=== PATIENT | male | born 1970 | race Two or more races ===

== ENCOUNTER 2020-05-25 09:12 | Emergency (ER) | payer OTHER, SELFPAY ==
[2020-05-25 09:25] VITALS: BP 143/75; PULSE 100; RESP 20; TEMP 36.6; O2SAT 98; BMI 50.3
--- NOTE | 2020-05-25 09:29 | ECG_ITS ---
Test Reason : SOB Blood Pressure : / mmHG Vent. Rate : 105 BPM Atrial Rate : 105 BPM P-R Int : 248 ms QRS Dur : 114 ms QT Int : 346 ms P-R-T Axes : 057 -29 063 degrees QTc Int : 457 ms Sinus tachycardia with 1st degree A-V block with occasional Premature ventricular complexes Incomplete right bundle branch block Abnormal ECG When compared with ECG of 15-NOV-2019 08:21, Premature ventricular complexes are now Present ND interval has increased Referred By: Corey Gao Electronically Signed By:ZENOBIA LYON MD
--- NOTE | 2020-05-25 09:29 | XR_ITS ---
EXAMINATION: XR CHEST CLINICAL INFORMATION: Chest pain COMPARISON: None TECHNIQUE: Frontal view of the chest was obtained. FINDINGS: Lungs are well-inflated and clear. Trachea is midline in position. No interstitial disease, consolidation or mass. No pleural effusion or pneumothorax. Cardiac silhouette and pulmonary vessels are normal in size. The mediastinum and jaelyn have normal contour. The visualized bones, and upper abdomen, are unremarkable. IMPRESSION: No acute cardiopulmonary abnormality.
--- NOTE | 2020-05-25 09:54 | ED.ARRPALP ---
HPI - Arrhythmia/Palpitations General Chief Complaint: Dyspnea Stated Complaint: heart palpations Time Seen by Provider: 05/25/20 09:29 Source: patient Mode of arrival: ambulatory Limitations: no limitations History of Present Illness HPI narrative: 50 years old male who presented in the ambulatory to the emergency department with a chief complaint of palpitations, he described a palpitation as skips beat, there is no syncope, denies chest pain, he is endorsing is some shortness of breath complaint: skipped beats Onset (ago): day(s) (1) Duration: intermittent Severity: moderate Context: occurred during rest Associated symptoms: shortness of breath Related Data Allergies Allergy/AdvReac Type Severity Reaction Status Date / Time isosorbide Allergy Unknown neck Verified 05/25/20 09:49 pain,headaches Review of Systems Review of Systems: Yes all other systems are reviewed and are negative ENT: Reports system reviewed and no additional complaints, except as documented Cardiovascular: Cardiovascular: Denies chest pain, Denies chest pain at rest and Denies chest pain with activity Respiratory: Respiratory: Reports no additional respiratory complaints Gastrointestinal: Gastrointestinal: Reports no additional gastrointestinal complaints Neurologic: Reports system reviewed and no additional complaints, except as documented [facility] Past Medical History Attestation statement: The following information was validated with the patient. Medical History (Updated 05/25/20 @ 14:40 by Corey Gao MD) Asthma Brugada syndrome Hernia Lymphoma Surgical History History of appendectomy Social History Social History Alcohol intake: never Smoking Status: Never smoker Use of substances other than those prescribed or required for medical reasons: No Advance Directives: No Advance Directives Information Provided: Yes Physical Exam Vital Signs: Vital Signs: Vital Signs Temp Pulse Resp BP Pulse Ox 05/25/20 13:09 79 128/92 H 98 05/25/20 10:58 84 20 127/79 99 05/25/20 09:25 98 F 100 20 143/75 H 98 Body Mass Index 50.3 Const: Other: he is awake and alert in no acute distress General: cooperative and healthy appearing Orientation/consciousness: oriented to person, oriented to place, oriented to time and patient oriented x3 HENMT: Other: Head: Yes normal to inspection Eyes: General: appearance normal, both eyes and all related structures Sclerae: sclerae normal EOM: EOMs intact bilaterally Neck: Neck: Yes normal visual inspection and Yes full ROM Chest: Chest palpation & inspection: normal inspection of the chest and normal palpation of entire chest wall Resp: Effort & Inspection: normal respiratory effort and able to speak in complete sentences Cardio: Jugular venous distension: no JVD Rate: regular rate Skin: General skin exam: no rashes or lesions noted Neuro: General: oriented to person, oriented to place, oriented to time and patient oriented x3 Extrem: General: Yes normal to inspection Course Course Course Narrative: patient is feeling much better on this time, he is asymptomatic, delta troponin is negative MDM - Arrhythmia/Palpitations Lab Data Result diagrams: 05/25/20 09:44 05/25/20 09:45 Labs: Lab Results 05/25/20 05/25/20 05/25/20 Range/Units 09:44 09:44 09:45 WBC 5.4 (4.8-10.8) X10*3/uL RBC 4.92 (4.60-5.80) X10*6/uL Hgb 14.1 (14.0-18.0) g/dl Hct 43.1 (42-52) % MCV 87.6 (80-98) fL MCH 28.7 (27.0-33.0) pg MCHC 32.7 (31.0-36.0) g/dl RDW 14.3 (11.0-16.0) % Plt Count 211 (160-400) X10*3/uL MPV 10.7 (9.4-12.4) fL Immature Gran % (Auto) 0.2 (0.0-0.4) % Neut % (Auto) 58.3 (45-73) % Lymph % (Auto) 26.8 (20-40) % [place] % (Auto) 10.2 (2-11) % Eos % (Auto) 3.9 (0-4) % Baso % (Auto) 0.6 (0-2) % Lymph # (Auto) 1.4 (1.2-4.9) X10*3/uL [place] # (Auto) 0.6 (0.1-1.2) X10*3/uL Eos # (Auto) 0.2 (0.0-0.4) X10*3/uL Baso # (Auto) 0.0 (0.0-0.2) X10*3/uL Abs Immat Gran (auto) 0.01 (0.00-0.03) X10*3/uL Absolute Neuts (auto) 3.1 (2.0-8.3) X10*3/uL Absolute Nucleated RBC 0.000 (0.0-0.012) X10*3/uL Nucleated RBC % (auto) 0.0 (0.0-0.2) /100WBC D-Dimer NG/ML Hold Blue Top SEE NOTE Sodium 138 (135-145) mmol/L Potassium 3.7 (3.3-5.1) mmol/l Chloride 107 (96-108) mmol/L Carbon Dioxide 23 (22-29) mmol/L Anion Gap 12 (12-20) BUN 13 (9-16) mg/dL Creatinine 0.92 (0.5-1.4) mg/dL Estim Creat Clear Calc 140.4 Estimated GFR > 60 Random Glucose 193 H (60-115) mg/dL Calcium 9.1 (8.4-10.2) mg/dL Total Bilirubin 0.3 (0.0-1.0) mg/dL Direct Bilirubin 0.2 (0.0-0.5) mg/dL AST 23 (5-37) U/L ALT 34 (0-40) U/L Alkaline Phosphatase 51 (39-117) U/L Troponin I High Sens (<3.5-35.0) ng/L B-Natriuretic Peptide (<100) pg/mL Total Protein 6.8 (6.5-8.0) g/dL Albumin 3.9 (3.5-5.0) g/dL Urine Color Urine Appearance Urine pH (5.0-8.0) Ur Specific [place] (1.005-1.025) Urine Protein (NEG-TRACE) MG/DL Urine Glucose (UA) (NEG) MG/DL Urine Ketones (NEG) MG/DL Urine Blood (NEG) Urine Nitrite (NEG) Ur Leukocyte Esterase (NEG) 05/25/20 05/25/20 05/25/20 Range/Units 09:45 09:45 11:13 WBC (4.8-10.8) X10*3/uL RBC (4.60-5.80) X10*6/uL Hgb (14.0-18.0) g/dl Hct (42-52) % MCV (80-98) fL MCH (27.0-33.0) pg MCHC (31.0-36.0) g/dl RDW (11.0-16.0) % Plt Count (160-400) X10*3/uL MPV (9.4-12.4) fL Immature Gran % (Auto) (0.0-0.4) % Neut % (Auto) (45-73) % Lymph % (Auto) (20-40) % [place] % (Auto) (2-11) % Eos % (Auto) (0-4) % Baso % (Auto) (0-2) % Lymph # (Auto) (1.2-4.9) X10*3/uL [place] # (Auto) (0.1-1.2) X10*3/uL Eos # (Auto) (0.0-0.4) X10*3/uL Baso # (Auto) (0.0-0.2) X10*3/uL Abs Immat Gran (auto) (0.00-0.03) X10*3/uL Absolute Neuts (auto) (2.0-8.3) X10*3/uL Absolute Nucleated RBC (0.0-0.012) X10*3/uL Nucleated RBC % (auto) (0.0-0.2) /100WBC D-Dimer < 200 NG/ML Hold Blue Top Sodium (135-145) mmol/L Potassium (3.3-5.1) mmol/l Chloride (96-108) mmol/L Carbon Dioxide (22-29) mmol/L Anion Gap (12-20) BUN (9-16) mg/dL Creatinine (0.5-1.4) mg/dL Estim Creat Clear Calc Estimated GFR Random Glucose (60-115) mg/dL Calcium (8.4-10.2) mg/dL Total Bilirubin (0.0-1.0) mg/dL Direct Bilirubin (0.0-0.5) mg/dL AST (5-37) U/L ALT (0-40) U/L Alkaline Phosphatase (39-117) U/L Troponin I High Sens < 3.5 (<3.5-35.0) ng/L B-Natriuretic Peptide < 10 (<100) pg/mL Total Protein (6.5-8.0) g/dL Albumin (3.5-5.0) g/dL Urine Color YELLOW Urine Appearance CLEAR Urine pH 6.0 (5.0-8.0) Ur Specific [place] 1.020 (1.005-1.025) Urine Protein NEG (NEG-TRACE) MG/DL Urine Glucose (UA) 100 H (NEG) MG/DL Urine Ketones NEG (NEG) MG/DL Urine Blood NEG (NEG) Urine Nitrite NEG (NEG) Ur Leukocyte Esterase NEG (NEG) 05/25/20 Range/Units 13:08 WBC (4.8-10.8) X10*3/uL RBC (4.60-5.80) X10*6/uL Hgb (14.0-18.0) g/dl Hct (42-52) % MCV (80-98) fL MCH (27.0-33.0) pg MCHC (31.0-36.0) g/dl RDW (11.0-16.0) % Plt Count (160-400) X10*3/uL MPV (9.4-12.4) fL Immature Gran % (Auto) (0.0-0.4) % Neut % (Auto) (45-73) % Lymph % (Auto) (20-40) % [place] % (Auto) (2-11) % Eos % (Auto) (0-4) % Baso % (Auto) (0-2) % Lymph # (Auto) (1.2-4.9) X10*3/uL [place] # (Auto) (0.1-1.2) X10*3/uL Eos # (Auto) (0.0-0.4) X10*3/uL Baso # (Auto) (0.0-0.2) X10*3/uL Abs Immat Gran (auto) (0.00-0.03) X10*3/uL Absolute Neuts (auto) (2.0-8.3) X10*3/uL Absolute Nucleated RBC (0.0-0.012) X10*3/uL Nucleated RBC % (auto) (0.0-0.2) /100WBC D-Dimer NG/ML Hold Blue Top Sodium (135-145) mmol/L Potassium (3.3-5.1) mmol/l Chloride (96-108) mmol/L Carbon Dioxide (22-29) mmol/L Anion Gap (12-20) BUN (9-16) mg/dL Creatinine (0.5-1.4) mg/dL Estim Creat Clear Calc Estimated GFR Random Glucose (60-115) mg/dL Calcium (8.4-10.2) mg/dL Total Bilirubin (0.0-1.0) mg/dL Direct Bilirubin (0.0-0.5) mg/dL AST (5-37) U/L ALT (0-40) U/L Alkaline Phosphatase (39-117) U/L Troponin I High Sens < 3.5 (<3.5-35.0) ng/L B-Natriuretic Peptide (<100) pg/mL Total Protein (6.5-8.0) g/dL Albumin (3.5-5.0) g/dL Urine Color Urine Appearance Urine pH (5.0-8.0) Ur Specific [place] (1.005-1.025) Urine Protein (NEG-TRACE) MG/DL Urine Glucose (UA) (NEG) MG/DL Urine Ketones (NEG) MG/DL Urine Blood (NEG) Urine Nitrite (NEG) Ur Leukocyte Esterase (NEG) Imaging Data Chest x-ray: Attestation: I personally reviewed and interpreted this imaging study as follows: My impression: NAD ECG Data Attestation: I personally reviewed and interpreted this ECG as follows: ECG interpretation date: 05/25/20 ECG interpretation time: 09:59 Pacemaker model: EKG showed sinus tachycardia with a rate 105, incomplete right bundle Discharge Plan Discharge Clinical Impression: Heart palpitations Patient Disposition: Home, Self-Care Referrals: Tj Alexandre MD [Primary Care Provider] - 2 days Discharge Date/Time: 05/25/20 15:21
--- NOTE | 2020-05-25 09:55 | PC.NURSE ---
Patient awake and alert. skin pwd. resp even and non labored. dry cough noted. c/o intermittent SOB. lungs dim throughout
[2020-05-25 09:56] LABS: MANUAL DIFF FLAG NO
[2020-05-25 10:08] LABS: Basophils Percent Auto 0.6 % (0-2); Eosinophils Absolute Auto 0.2 X10*3/uL (0.0-0.4); Eosinophils Percent Auto 3.9 % (0-4); Hematocrit 43.1 % (42-52); Hemoglobin 14.1 g/dl (14.0-18.0); Imm Gran Abs Auto 0.01 X10*3/uL (0.00-0.03); Imm Gran Pct Auto 0.2 % (0.0-0.4); Lymphocytes Absolute Auto 1.4 X10*3/uL (1.2-4.9); Lymphocytes Percent Auto 26.8 % (20-40); Mean Corpuscular HGB Conc 32.7 g/dl (31.0-36.0); Mean Corpuscular Hemoglobin 28.7 pg (27.0-33.0); Mean Corpuscular Volume 87.6 fL (80-98); Mean Platelet Volume 10.7 fL (9.4-12.4); Monocytes Absolute Auto 0.6 X10*3/uL (0.1-1.2); Monocytes Percent Auto 10.2 % (2-11); Neutrophils Absolute Auto 3.1 X10*3/uL (2.0-8.3); Neutrophils Percent Auto 58.3 % (45-73); Platelet Count 211 X10*3/uL (160-400); Red Blood Count 4.92 X10*6/uL (4.60-5.80); Red Cell Distribution Width 14.3 % (11.0-16.0); White Blood Count 5.4 X10*3/uL (4.8-10.8)
[2020-05-25 10:19] LABS: D Dimer < 200 NG/ML
[2020-05-25 10:22] LABS: Alanine Aminotransferase 34 U/L (0-40); Albumin Level 3.9 g/dL (3.5-5.0); Alkaline Phosphatase 51 U/L (39-117); Anion Gap 12 (12-20); Aspartate Amino Transferase 23 U/L (5-37); Bilirubin Direct 0.2 mg/dL (0.0-0.5); Bilirubin Total 0.3 mg/dL (0.0-1.0); Blood Urea Nitrogen 13 mg/dL (9-16); Calcium 9.1 mg/dL (8.4-10.2); Carbon Dioxide 23 mmol/L (22-29); Chloride 107 mmol/L (96-108); Creatinine Clr Calc Pharmacy 140.4; Estimated Glomerular Filt Rate > 60; Glucose Random 193 mg/dL (60-115); Potassium 3.7 mmol/l (3.3-5.1); Sodium 138 mmol/L (135-145); Total Protein 6.8 g/dL (6.5-8.0)
[2020-05-25 10:28] LABS: B Type Natriuretic Peptide < 10 pg/mL (<100); Troponin-I High Sensitivity < 3.5 ng/L (<3.5-35.0)
[2020-05-25 10:58] VITALS: BP 127/79; PULSE 84; RESP 20; O2SAT 99
--- NOTE | 2020-05-25 11:07 | PC.NURSE ---
INTRODUCED SELF TO PT. PT AMBULATING INDEPENDENTLY TO BATHROOM. VS WNL, SINUS RHYTHM ON MONITOR. AWARE OF PLAN FOR CARE, TROPONIN TO BE REDRAWN AT 1230H. PT IS A%OX3,SPEAKING IN CLEAR FULL SENTENCES,. IN NAD AT THIS TIME.
[2020-05-25 11:18] LABS: Glucose Urine UA 100 MG/DL (NEG); Leukocyte Esterase Urine NEG (NEG); Nitrite Urine NEG (NEG); Urine Blood NEG (NEG); Urine Ketones NEG (NEG); Urine Protein NEG (NEG-TRACE)
[2020-05-25 11:19] LABS: Appearance Urine CLEAR; Color Urine YELLOW
[2020-05-25 13:09] VITALS: BP 128/92; PULSE 79; O2SAT 98
[2020-05-25 13:46] LABS: Troponin-I High Sensitivity < 3.5 ng/L (<3.5-35.0)
== END 2020-05-25 15:21 | disposition home or self-care (01) ==
PROVIDERS: Emergency Provider Emergency Medicine; PCP Internal Medicine
DX: R00.2 Palpitations (principal); J45.909 Unspecified asthma, uncomplicated; I49.8 Other specified cardiac arrhythmias
CPT/HCPCS: 36415; 71045; 80048; 80076; 81003; 83880; 84484; 85025; 85379; 93005; 99284

== ENCOUNTER 2020-06-30 19:25 | Emergency (ER) | payer OTHER, SELFPAY ==
--- NOTE | 2020-06-30 | XR_ITS ---
EXAMINATION: XR SHOULDER, LEFT CLINICAL INFORMATION: Pain and swelling COMPARISON: None TECHNIQUE: AP external rotation, Grashey, scapular Y, and axillary views of the left shoulder. FINDINGS: Visualized portion of the proximal left humerus demonstrate no fracture. Humeral head demonstrates good articulation with the glenoid fossa. There are mild hypertrophic changes of the left acromioclavicular joint. Visualized ribs and lung parenchyma are unremarkable. XR/XR shoulder LT min 2V IMPRESSION: Mild degenerative changes of the left shoulder without fracture or dislocation.
[2020-06-30 20:15] VITALS: BP 124/70; PULSE 78; RESP 18; TEMP 36.5; O2SAT 96; BMI 45.6
--- NOTE | 2020-06-30 22:04 | ED_ITS ---
HPI - Extremity Problem General Chief complaint: Extremity Injury, Upper Stated complaint: sholder pain Time Seen by Provider: 06/30/20 22:03 Source: patient Mode of arrival: ambulatory Limitations: no limitations History of Present Illness HPI Narrative: 50 y/o male presenting with left shoulder pain for the last 2-3 weeks. 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 He does not recall a specific injury but reports his shoudler pain has been getting worse. He noted soem posterior swelling that continues down his arm at times after he uses it too much. He denies chest pain, SOB, neck pain, jaw pain. MD Complaint: extremity pain Onset (ago): week(s) (3) Pain Consistency: intermittent Severity scale (1-10): 6 Quality: aching Radiation: distal Relieving factors: immobilization and medication Exacerbating factors: range of motion and palpation Associated symptoms: denies other symptoms Related Data Previous Rx's Medication Instructions Recorded cyclobenzaprine 10 mg PO TID PRN #14 tab 06/30/20 ibuprofen 600 mg PO Q8H PRN #20 tab 06/30/20 lidocaine [Lidoderm] 1 patch TOPICAL DAILY #15 ea 06/30/20 prednisone 50 mg PO DAILY #5 tab 06/30/20 Allergies Allergy/AdvReac Type Severity Reaction Status Date / Time isosorbide Allergy Unknown neck Verified 06/30/20 20:14 pain,headaches Review of Systems Review of Systems: Constitutional: No Fever, No Chills Cardiovascular: No Chest Pain, No SOB, No Orthopnea, No Edema Respiratory: No Cough, No Sputum, No Wheezing, No dyspnea Gastrointestinal: No Nausea, No Vomiting, No Diarrhea, No abdominal Pain Musculoskeletal: + joint pain, + Myalgias Skin: No Skin Lesions, No rash Neuro: No Weakness, No Numbnes Heme/Lymph: No Bruising, No Lymphadenopathy PMFSH Past Medical History Medical History (Updated 07/01/20 @ 00:00 by Jaxson Salcedo) Asthma Brugada syndrome Hernia Lymphoma Surgical History History of appendectomy Social History Social History Alcohol intake: never Smoking Status: Never smoker Use of substances other than those prescribed or required for medical reasons: No Advance Directives: No Advance Directives Information Provided: No Physical Exam Vital Signs: Vital Signs: Last Vital Signs Temp 97.7 F 11/16/20 20:15 Pulse 78 06/30/20 20:15 Resp 18 06/30/20 20:15 BP 124/70 06/30/20 20:15 Pulse Ox 96 06/30/20 20:15 Body Mass Index 45.6 Appearance: Alert. Oriented X3. No acute distress. HEENT: normal inspection Respiratory: No respiratory distress. Skin: Skin warm and dry. Normal skin color. Normal skin turgor. No rashes. Extremities: left posterior shoulder tenderness with soft tissue tenderness of the infraspinatous and latittimus dorsi. Full ROM of the shoulder joint with discomfort upon abduction. normal strength. NV intact. no deformity Neuro: Oriented X 3. No motor deficit. No sensory deficit. Course Course Course Narrative: 50 y/o male with left posterior shoulder pain, likely overuse injury, possible tendonitis. XR showed mild degenerative changes. will treat for tendonitis. he may have further strain of rotator cuff and was encouraged to follow up [facility] orth[facility] if no improvement. he was also encouraged to f/u with PCP for possible PT referral. Patient agrees with plan. Critical Care Time Critical Care Time Critical Care Time: No Discharge Plan Discharge Clinical Impression: Tendonitis Patient Disposition: Home, Self-Care Instructions: Tendinitis (ED), Shoulder Pain (ED) Additional Instructions: X-ray today showed mild degenerative changes of the shoulder. Use ice to the area 3-4 times per day for the next 48 hours. Then start using a heating pad for 20 minutes at a time. Limit repetitive movement and lifting more than 10lbs. Follow up with your doctor this week. You may need further imaging with CT scan or MRI to evaluate for other injuries. Follow up with Orthopedics for further evaluation. If you have numbness, tingling, or loss of function come back to the ER for further evaluation. Prescriptions: New prednisone 50 mg tablet 50 mg PO DAILY Qty: 5 RF: 0 cyclobenzaprine 10 mg tablet 10 mg PO TID PRN (Reason: muscle spasm) Qty: 14 RF: 0 ibuprofen 600 mg tablet 600 mg PO Q8H PRN (Reason: pain) Qty: 20 RF: 0 lidocaine [Lidoderm] 5 % adhesive patch,medicated 1 patch topical DAILY Qty: 15 RF: 0 Referrals: Stephani Fierro MD [Physician] - 1 week Stand Alone Forms: Work/School Release Interventions: ED Discharge Assessment Last Done: 06/30/20 22:24 Discharge Date/Time: 06/30/20 22:34
[2020-06-30] MEDS: Acetaminophen 325 MG TABLET 975 MG PO (22:17)
[2020-06-30] MEDS: Ketorolac Tromethamine 15 MG/ML VIAL IM (22:17)
== END 2020-06-30 22:34 | disposition home or self-care (01) ==
PROVIDERS: Emergency Provider Internal Medicine
DX: M75.32 Calcific tendinitis of left shoulder (principal); M25.512 Pain in left shoulder; Z79.899 Other long term (current) drug therapy
CPT/HCPCS: 73030; 96372; 99283; 99284; J1885

== ENCOUNTER 2020-09-10 17:19 | Emergency (ER) | payer OTHER, SELFPAY ==
--- NOTE | 2020-09-10 | XR_ITS ---
EXAMINATION: XR KNEE, LEFT CLINICAL INFORMATION: Pain. Difficult to bear weight. COMPARISON: None TECHNIQUE: Four views of the left knee. FINDINGS: Bones and soft tissues are normal. No fracture or joint effusion. Alignment is anatomic. Joint spaces are well maintained. No abnormal soft tissue calcification. XR/XR knee LT 4V IMPRESSION: Normal left knee.
[2020-09-10 17:33] VITALS: BP 152/84; PULSE 99; RESP 16; TEMP 35.8; O2SAT 100; BMI 49.1
--- NOTE | 2020-09-10 18:22 | ED_ITS ---
HPI - Extremity Injury (Lower) General Chief Complaint: Extremity Injury, Lower Stated Complaint: Left knee pain Source: patient Mode of arrival: ambulatory Limitations: no limitations History of Present Illness HPI Narrative: 50-year-old male past medical history of morbid obesity, asthma, Brugada, lymphoma presents with 1 day of left knee pain. States the pain is right below the patella and occurred after standing for long periods of time. He does not report any loss of sensation or swelling. He does not have any other complaints at this time, denies chest pain or pressure, palpitations, shortness of breath, abdominal pain, abdominal distention, or edema. Related Data Previous Rx's Medication Instructions Recorded cyclobenzaprine 10 mg PO TID PRN #14 tab 06/30/20 ibuprofen 600 mg PO Q8H PRN #20 tab 06/30/20 lidocaine [Lidoderm] 1 patch TOPICAL DAILY #15 ea 06/30/20 prednisone 50 mg PO DAILY #5 tab 06/30/20 ibuprofen 600 mg PO Q8H PRN #60 tab 09/10/20 Allergies Allergy/AdvReac Type Severity Reaction Status Date / Time isosorbide Allergy Unknown neck Verified 06/30/20 20:14 pain,headaches Review of Systems Review of Systems: Constitutional: No Fever, No Chills ENT/Mouth: No Ear Pain, No Hoarseness, No sore throat Eyes: No Eye Pain, No Swelling, No Redness, No Foreign Body Cardiovascular: No Chest Pain, No SOB Respiratory: No Cough, No Dyspnea Gastrointestinal: No Nausea, No Vomiting, No Diarrhea, No abdominal Pain Genitourinary: No Dysuria, No Hematuria Musculoskeletal: positive left knee pain, No Myalgias, No Joint Swelling Skin: No Skin lacerations, No rash Neuro: No Weakness, No Numbness, No Paresthesias, No Loss of Consciousness, No Dizziness, No Headache Psych: No Anxiety/Panic, No Depression Heme/Lymph: no easy bruising, no Lymphadenopathy Endocrine: No Polyuria, No Polydipsia Yes all other systems are reviewed and are negative FOR[facility]LY [facility] Past Medical History Attestation statement: The following information was validated with the patient. Source: old records reviewed Medical History Asthma Brugada syndrome Hernia Lymphoma Surgical History History of appendectomy Social History Social History Alcohol intake: never Smoking Status: Current every day smoker Smoked in Last 30 Days: No Use of substances other than those prescribed or required for medical reasons: No Any prior treatment program specific to substance use: No Advance Directives: No Advance Directives Information Provided: Yes Physical Exam Vital Signs: Vital Signs: Last Vital Signs Temp 96.4 F L 09/10/20 17:33 Pulse 99 09/10/20 17:33 Resp 16 09/10/20 17:33 BP 152/84 H 09/10/20 17:33 Pulse Ox 100 09/10/20 17:33 Body Mass Index 49.1 Appearance: Alert. Oriented X3. No acute distress. Eyes: Pupils equal, round and reactive to light. ENT: Pharynx normal. Neck: Normal inspection. Neck supple. CVS: Normal heart rate and rhythm. Pulses normal. Respiratory: No respiratory distress. Breath sounds normal. Abdomen: Soft and nontender. Skin: Skin warm and dry. Normal skin color. Normal skin turgor. Extremities: Full range of motion to all extremities, negative posterior and anterior drawer signs, point tenderness noted to distal patella, no indication of swelling warmth or infection. No wounds or lesions noted to skin. No lower extremity edema. Neuro: No motor deficit. No sensory deficit. Course Course Course Narrative: 50-year-old male presents with left knee pain. Plan of care for x-rays. X-rays are negative for acute findings require emergent intervention. Patient was referred to orthopedics for suspected ACL injury. We will support knee with Regan wrap. Patient verbalized understanding of and agrees to plan of care discharge home. Consultations Consultation #1: [place] Time: 18:25 MDM - Extremity Injury (Lower) Differential Diagnosis Differential diagnosis: Likely acute internal derangement of knee Medical Records Attestation: I reviewed the patient's medical records. Imaging Data Left knee x-ray: Attestation: I personally reviewed and interpreted this imaging study as follows: Radiologist's impression: EXAMINATION: XR KNEE, LEFT CLINICAL INFORMATION: Pain. Difficult to bear weight. COMPARISON: None TECHNIQUE: Four views of the left knee. FINDINGS: Bones and soft tissues are normal. No fracture or joint effusion. Alignment is anatomic. Joint spaces are well maintained. No abnormal soft tissue calcification. XR/XR knee LT 4V IMPRESSION: Normal left knee. Discharge Plan Discharge Clinical Impression: ACL sprain Patient Disposition: Home, Self-Care Instructions: ACL Injury (ED) Additional Instructions: You were evaluated left knee injury. It is suspected that you have an anterior cruciate ligament injury. Please follow-up with orthopedics. Use Regan wrap for compression, use ice to help relieve swelling and pain. Please use Motrin as needed for pain management. Thank you for choosing this emergency department for evaluation. Please follow-up with primary care physician as needed. Return to the emergency department for any new, concerning, or worsening symptoms. Prescriptions: New ibuprofen 600 mg tablet 600 mg PO Q8H PRN (Reason: pain) Qty: 60 RF: 0 No Action prednisone 50 mg tablet 50 mg PO DAILY Qty: 5 RF: 0 cyclobenzaprine 10 mg tablet 10 mg PO TID PRN (Reason: muscle spasm) Qty: 14 RF: 0 ibuprofen 600 mg tablet 600 mg PO Q8H PRN (Reason: pain) Qty: 20 RF: 0 lidocaine [Lidoderm] 5 % adhesive patch,medicated 1 patch topical DAILY Qty: 15 RF: 0 Referrals: Michi Mccarthy PA-C [Physician [employer]] - 2 days (Suspected ACL injury) Stand Alone Forms: Work/School Release Interventions: ED Discharge Assessment Last Done: 09/10/20 18:49 Discharge Date/Time: 09/10/20 18:55
[2020-09-10] MEDS: Ketorolac Tromethamine 60 MG/2 ML VIAL IM (18:44)
== END 2020-09-10 18:55 | disposition home or self-care (01) ==
PROVIDERS: Emergency Provider Emergency Medicine; PCP Internal Medicine
DX: S83.92XA Sprain of unspecified site of left knee, initial encounter (principal); M25.562 Pain in left knee; W18.30XA Fall on same level, unspecified, initial encounter; Y93.9 Activity, unspecified; Y92.9 Unspecified place or not applicable; Y99.9 Unspecified external cause status; Z79.899 Other long term (current) drug therapy
CPT/HCPCS: 73564; 96372; 99284; J1885

== ENCOUNTER 2020-09-18 09:54 | Emergency (ER) | payer OTHER, SELFPAY ==
[2020-09-18 10:25] VITALS: BP 148/74; PULSE 98; RESP 18; TEMP 35.5; O2SAT 97; BMI 49.1
--- NOTE | 2020-09-18 10:25 | ED.GENADULT ---
HPI - General Adult General Chief complaint: Extremity Injury, Lower Stated complaint: lt knee pain /swelling Time Seen by Provider: 09/18/20 10:24 Source: patient Mode of arrival: wheelchair Limitations: no limitations History of Present Illness HPI narrative: 50-year-old male past medical history of morbid obesity, asthma, Brugada, lymphoma presents with left knee pain x 1 week. Seen here 09/10 for ACL sprain and referred to orthopedics. Has appt tomorrow. This morning woke up and went to bear weight and left knee gave out on him causing pain. Now having worsening with weight bearing. Tells me he has knee brace and has crutches but has not been using the crutches. Taking motrin, flexeril with continued pain. No redness, fevers, chills. Mild swelling Related Data Previous Rx's Medication Instructions Recorded cyclobenzaprine 10 mg PO TID PRN #14 tab 06/30/20 ibuprofen 600 mg PO Q8H PRN #20 tab 06/30/20 lidocaine [Lidoderm] 1 patch TOPICAL DAILY #15 ea 06/30/20 prednisone 50 mg PO DAILY #5 tab 06/30/20 ibuprofen 600 mg PO Q8H PRN #60 tab 09/10/20 Allergies Allergy/AdvReac Type Severity Reaction Status Date / Time isosorbide Allergy Unknown neck Verified 06/30/20 20:14 pain,headaches Review of Systems Review of Systems: Yes all other systems are reviewed and are negative Constitutional: Constitutional: Reports no additional constitutional complaints, Denies body ache(s), Denies chills, Denies fever(s), Denies headache(s) and Denies weakness Eyes: Eyes: Reports no additional eye complaints and Denies change in vision ENT: Reports system reviewed and no additional complaints, except as documented, Denies dizziness, Denies headache(s), Denies nasal congestion, Denies nasal discharge and Denies neck pain Cardiovascular: Cardiovascular: Reports no additional cardiovascular complaints, Denies chest pain, Denies leg edema and Denies dyspnea Respiratory: Respiratory: Reports no additional respiratory complaints, Denies cough and Denies dyspnea Gastrointestinal: Gastrointestinal: Reports no additional gastrointestinal complaints, Denies abdominal pain, Denies diarrhea, Denies nausea and Denies vomiting Genitourinary: Genitourinary: Denies urinary incontinence Musculoskeletal: Musculoskeletal: Reports no additional musculoskeletal complaints, Denies back pain, Reports arthralgias, Reports joint swelling, Reports limited range of motion, Denies neck pain, Denies numbness and Denies tingling Integumentary/Breasts: Skin/Breast: Reports system reviewed and no additional complaints, except as docu and Denies rash Neurologic: Reports system reviewed and no additional complaints, except as documented, Denies Abnormal speech present, Denies dizziness, Denies headache(s), Denies numbness, Denies tingling and Denies weakness PMFSH Past Medical History Attestation statement: The following information was validated with the patient. Source: old records reviewed and nursing notes reviewed Medical History Asthma Brugada syndrome Hernia Lymphoma Surgical History History of appendectomy Social History Social History Alcohol intake: never Smoking Status: Never smoker Use of substances other than those prescribed or required for medical reasons: No Advance Directives: No Advance Directives Information Provided: No Physical Exam Vital Signs: Vital Signs: Last Vital Signs Temp 95.9 F L 09/18/20 10:25 Pulse 98 09/18/20 10:25 Resp 18 09/18/20 10:25 BP 148/74 H 09/18/20 10:25 Pulse Ox 97 09/18/20 10:25 Body Mass Index 49.1 Const: General: cooperative, healthy appearing, comfortable and no acute distress Orientation/consciousness: patient oriented x3 Limitations: no limitations HENMT: Head: Yes normal to inspection Ears: hearing grossly normal bilaterally General nose exam: Normal external nose present Face and sinus: Yes normal facial exam Mouth: Normal oral and palatal mucosa present Throat: Yes posterior oropharynx normal Eyes: General: appearance normal, both eyes and all related structures Pupils: Equal, round and reactive pupils present Neck: Neck: Yes normal visual inspection Chest: Chest palpation & inspection: normal inspection of the chest Resp: Effort & Inspection: normal respiratory effort Auscultation: clear to auscultation bilaterally Cardio: Rate: regular rate Rhythm: regular rhythm Peripheral pulses: Peripheral pulses 2+ throughout GI: Inspection: Yes normal to inspection Palpation (GI): Soft to palpation and nontender Auscultation: normal bowel sounds Back/Spine/Pelvis: Thoracic/Lumbar Spine: thoracic and lumbar spine normal to inspection Skin: General skin exam: no rashes or lesions noted Neuro: General: patient oriented x3, no focal motor deficits and normal sensation to monofilament Cranial nerves: Yes Equal, round and reactive pupils present Cognition (Neuro): normal cognition Speech: No Abnormal speech present Gait exam (Neuro): Normal gait present Motor exam (neuro): 5/5 motor strength present throughout Extrem: Other: L anterior knee mod swelling, no effusion or erythema or warmth. Able to flex and extend with no difficultly. Tenderness over lateral and anterior knee with ligamental laxity. General: Yes normal to inspection Course Course Course Narrative: Acute on chronic left knee pain with instability and twisting this morning. Will check x-ray. 1105-X-rays shows degenerative changes. Exam c/w with ACL sprain. Reviewed RICE at home, confirmed appt with orthopedics tomorrow, toradol IM here with improvement. Reviewed worrisome signs/symptoms with patient and when to return to ED. Comfortable with discharge home. Medical Decision Making Medical Records Medical records reviewed: Yes I reviewed the patient's medical records. Imaging Data knee xray: Attestation: I personally reviewed and interpreted this imaging study as follows: Radiologist's impression: EXAMINATION: XR KNEE, LEFT CLINICAL INFORMATION: Pain. COMPARISON: None TECHNIQUE: Four views of the left knee. FINDINGS: There is mild loss of medial and patellofemoral compartment joint space without loose bodies or bony erosive changes. There is mild minimal superior patellar spurring. No abnormal joint effusion seen. XR/XR knee LT 4V IMPRESSION: Minimal degenerative changes medial and patellofemoral compartment. No visible acute fracture or dislocation seen. Discharge Plan Discharge Clinical Impression: ACL sprain Qualifiers: Encounter type: initial encounter Laterality: left Qualified Code(s): S83.512A - Sprain of anterior cruciate ligament of left knee, initial encounter Patient Disposition: Home, Self-Care Instructions: ACL Injury (ED) Additional Instructions: Keep appt with orthopedics. rest, ice, elevation and no weight bearing Continue your mecications. Prescriptions: No Action prednisone 50 mg tablet 50 mg PO DAILY Qty: 5 RF: 0 cyclobenzaprine 10 mg tablet 10 mg PO TID PRN (Reason: muscle spasm) Qty: 14 RF: 0 ibuprofen 600 mg tablet 600 mg PO Q8H PRN (Reason: pain) Qty: 20 RF: 0 lidocaine [Lidoderm] 5 % adhesive patch,medicated 1 patch topical DAILY Qty: 15 RF: 0 ibuprofen 600 mg tablet 600 mg PO Q8H PRN (Reason: pain) Qty: 60 RF: 0 Referrals: ED Physician,Generic [Physician] - 2 days Stand Alone Forms: Work/School Release Interventions: ED Discharge Assessment Last Done: 09/18/20 11:45 Discharge Date/Time: 09/18/20 11:20
[2020-09-18] MEDS: Ketorolac Tromethamine 60 MG/2 ML VIAL IM (11:13)
== END 2020-09-18 11:20 | disposition home or self-care (01) ==
PROVIDERS: Emergency Provider Emergency Medicine; PCP Internal Medicine
DX: S83.512A Sprain of anterior cruciate ligament of left knee, initial encounter (principal); M25.562 Pain in left knee; X58.XXXA Exposure to other specified factors, initial encounter; Y93.9 Activity, unspecified; Y92.9 Unspecified place or not applicable; Y99.9 Unspecified external cause status; Z79.899 Other long term (current) drug therapy
CPT/HCPCS: 73564; 96372; 99283; 99284; J1885

== ENCOUNTER → 2020-09-19 09:51 | Outpatient (BNVA) | payer OTHER, SELFPAY | PROVIDERS: Visit Provider Orthopaedic Surgery ==

== ENCOUNTER → 2020-09-23 12:32 | Outpatient (BNVA) | payer OTHER, SELFPAY | PROVIDERS: Visit Provider Orthopaedic Surgery ==

== ENCOUNTER 2020-10-31 13:22 | Emergency (ER) | payer OTHER, SELFPAY ==
--- NOTE | ~2020-10-31 | CT_ITS ---
EXAMINATION: CT ABDOMEN AND PELVIS WITH CONTRAST CLINICAL INFORMATION: Umbilical pain with history of umbilical hernia COMPARISON: CT abdomen pelvis 08/19/2018 TECHNIQUE: Multidetector volumetric images were obtained from the superior aspect of the liver through the pubic symphysis following administration 100 mL of Omnipaque 350 intravenous contrast. Sagittal and coronal reformatted images were obtained on the technologist's workstation. Oral contrast: No This CT examination was performed using dose optimization techniques as appropriate, variously including the following: *Automated exposure control *Adjustment of mA and/or kV according to patient size (this includes techniques or standardized protocols for targeted exams where dose is matched to indication/reason for exam; i.e. extremities or head) *Use of iterative reconstruction technique DLP: 1278 mGy-cm FINDINGS: LUNG BASES: The visualized lung bases are unremarkable. LIVER, GALLBLADDER, AND BILIARY TREE: Again seen is hepatic steatosis. No masses or bile duct dilatation is seen. The gallbladder is unremarkable with no evidence of radiopaque gallstones, gallbladder wall thickening, or obvious pericholecystic inflammatory changes. PANCREAS: Unremarkable. SPLEEN: Unremarkable. ADRENAL GLANDS: Unremarkable. KIDNEYS AND URETERS: Right: On the right, there is an obstructing proximal ureteral stone present measuring about 4 mm in size. Some mild associated ureteral dilatation and pelvocaliectasis above this level is present. 3 nonobstructing intrarenal calculi are present on the right each measuring about 4 mm in size. All these stones are about 20 cm from the posterior axillary line. No right-sided renal masses are seen. Left: The small 3 mm nonobstructing left renal calculus is seen. No renal masses or pelvocaliectasis is present. BLADDER: Bladder is decompressed and empty GASTROINTESTINAL TRACT: The small and large bowel are unremarkable. The appendix is is not seen but there is no evidence of appendicitis. ABDOMINAL WALL: A periumbilical hernia is seen containing only fat. The defect in the abdominal wall is about 2 cm in size. Appearances are unchanged from the prior study. LYMPH NODES: Normal. VASCULAR: Unremarkable. PELVIC VISCERA: Unremarkable. OSSEOUS STRUCTURES: Unremarkable. CT/CT abdomen pelvis w con IMPRESSION: 1. Obstructing right proximal ureteral calculus measuring 4 mm in size with associated mild ureteral dilatation and pelvocaliectasis 2. There are additional bilateral nonobstructing renal calculi. 3. Periumbilical hernia unchanged
[2020-10-31 13:27] VITALS: BP 142/78; PULSE 88; RESP 16; TEMP 36.6; O2SAT 97; BMI 50.6
[2020-10-31 15:35] LABS: MANUAL DIFF FLAG NO
[2020-10-31 15:37] LABS: Basophils Percent Auto 0.5 % (0-2); Eosinophils Absolute Auto 0.1 X10*3/uL (0.0-0.4); Eosinophils Percent Auto 1.8 % (0-4); Hematocrit 44.2 % (42-52); Hemoglobin 14.3 g/dl (14.0-18.0); Imm Gran Abs Auto 0.01 X10*3/uL (0.00-0.03); Imm Gran Pct Auto 0.1 % (0.0-0.4); Lymphocytes Absolute Auto 1.3 X10*3/uL (1.2-4.9); Lymphocytes Percent Auto 17.1 % (20-40); Mean Corpuscular HGB Conc 32.4 g/dl (31.0-36.0); Mean Corpuscular Hemoglobin 28.8 pg (27.0-33.0); Mean Corpuscular Volume 88.9 fL (80-98); Mean Platelet Volume 10.3 fL (9.4-12.4); Monocytes Absolute Auto 0.6 X10*3/uL (0.1-1.2); Monocytes Percent Auto 8.3 % (2-11); Neutrophils Absolute Auto 5.3 X10*3/uL (2.0-8.3); Neutrophils Percent Auto 72.2 % (45-73); Platelet Count 216 X10*3/uL (160-400); Red Blood Count 4.97 X10*6/uL (4.60-5.80); Red Cell Distribution Width 14.1 % (11.0-16.0); White Blood Count 7.4 X10*3/uL (4.8-10.8)
[2020-10-31 16:00] LABS: Alanine Aminotransferase 27 U/L (0-40); Alkaline Phosphatase 67 U/L (39-117); Anion Gap 10 (12-20); Aspartate Amino Transferase 21 U/L (5-37); Bilirubin Total 0.3 mg/dL (0.0-1.0); Blood Urea Nitrogen 15 mg/dL (9-16); Calcium 9.3 mg/dL (8.4-10.2); Carbon Dioxide 27 mmol/L (22-29); Chloride 107 mmol/L (96-108); Creatinine Clr Calc Pharmacy 142.4; Estimated Glomerular Filt Rate > 60; Glucose Random 105 mg/dL (60-115); Potassium 4.4 mmol/L (3.3-5.1); Sodium 140 mmol/L (135-145)
[2020-10-31] MEDS: 0.9 % Sodium Chloride 1,000 ML 999 ML IVCONT (17:52)
[2020-10-31] MEDS: Ketorolac Tromethamine 30 MG/ML VIAL IVPUSH (17:52)
[2020-10-31 18:36] LABS: MANUAL DIFF FLAG NO
[2020-10-31 18:37] LABS: Basophils Percent Auto 0.5 % (0-2); Eosinophils Absolute Auto 0.1 X10*3/uL (0.0-0.4); Eosinophils Percent Auto 1.6 % (0-4); Hematocrit 42.6 % (42-52); Hemoglobin 13.9 g/dl (14.0-18.0); Imm Gran Abs Auto 0.02 X10*3/uL (0.00-0.03); Imm Gran Pct Auto 0.3 % (0.0-0.4); Lymphocytes Absolute Auto 2.1 X10*3/uL (1.2-4.9); Lymphocytes Percent Auto 26.3 % (20-40); Mean Corpuscular HGB Conc 32.6 g/dl (31.0-36.0); Mean Corpuscular Hemoglobin 29.4 pg (27.0-33.0); Mean Corpuscular Volume 90.1 fL (80-98); Mean Platelet Volume 10.4 fL (9.4-12.4); Monocytes Absolute Auto 0.8 X10*3/uL (0.1-1.2); Monocytes Percent Auto 9.7 % (2-11); Neutrophils Absolute Auto 4.9 X10*3/uL (2.0-8.3); Neutrophils Percent Auto 61.6 % (45-73); Platelet Count 207 X10*3/uL (160-400); Red Blood Count 4.73 X10*6/uL (4.60-5.80); Red Cell Distribution Width 14.2 % (11.0-16.0); White Blood Count 7.9 X10*3/uL (4.8-10.8)
[2020-10-31 18:51] LABS: INTERNATIONAL NORM RATIO 1.2 (0.9-1.1)
--- NOTE | 2020-10-31 18:52 | PC.NURSE ---
PT TO CT SCAN
[2020-10-31 18:53] LABS: Partial Thromboplastin Time 36.3 SEC (24.1-38.0)
[2020-10-31 19:09] LABS: Alanine Aminotransferase 26 U/L (0-40); Albumin Level 3.8 g/dL (3.5-5.0); Alkaline Phosphatase 62 U/L (39-117); Anion Gap 12 (12-20); Aspartate Amino Transferase 20 U/L (5-37); Bilirubin Direct 0.2 mg/dL (0.0-0.5); Bilirubin Total 0.5 mg/dL (0.0-1.0); Blood Urea Nitrogen 14 mg/dL (9-16); Carbon Dioxide 27 mmol/L (22-29); Chloride 108 mmol/L (96-108); Creatinine Clr Calc Pharmacy 156.1; Estimated Glomerular Filt Rate > 60; Glucose Random 92 mg/dL (60-115); Sodium 143 mmol/L (135-145); Total Protein 6.5 g/dL (6.5-8.0)
[2020-10-31 19:28] LABS: Influenza A PCR NEGATIVE (Negative); Influenza B PCR NEGATIVE (Negative); Resp Syncy Virus RNA Qual PCR NEGATIVE (Negative); SARS COV2 PCR INHOUSE NEGATIVE (Negative)
--- NOTE | 2020-10-31 19:31 | ED_ITS ---
HPI - Abdominal Pain General Chief Complaint: Abdominal Pain Stated Complaint: abd pain Time Seen by Provider: 10/31/20 17:28 Source: patient Mode of arrival: ambulatory Limitations: no limitations History of Present Illness HPI narrative: 50-year-old male with a past medical history of lymphoma, Brugada syndrome, asthma, hernia and appendectomy presenting to the ED with complaints of umbilical pain after lifting heavy boxes and wearing a hernia belt that started today. Denies any fevers, chills, nausea/vomiting, chest pain, shortness of breath, back pain, diarrhea, constipation, hematuria, penile discharge, dysuria or any other symptoms complaints or concerns at this time MD elicited complaint: abdominal pain Pertinent past history: none Onset (ago): day(s) (Today) Pain Consistency: constant Location: periumbilical Severity: moderate Quality: aching Radiation: none Migration to: no migration Exacerbating factors: nothing Relieving factors: nothing Associated symptoms: denies other symptoms Related Data Home Medications Medication Instructions Recorded Confirmed omeprazole 20 mg capsule,delayed 20 mg PO DAILY 09/19/20 release sennosides 8.6 mg capsule 8.6 mg PO DAILY 09/19/20 Previous Rx's Medication Instructions Recorded cyclobenzaprine 10 mg PO TID PRN #14 tab 06/30/20 ibuprofen 600 mg PO Q8H PRN #20 tab 06/30/20 ibuprofen 600 mg PO Q8H PRN #60 tab 09/10/20 acetaminophen [Tylenol Extra 1,000 mg PO QID PRN #14 tab 10/31/20 Strength] ketorolac 10 mg PO Q8H PRN #15 tab 10/31/20 oxycodone 5 mg PO BID PRN #15 tab 10/31/20 tamsulosin [Flomax] 0.4 mg PO DAILY #10 cap 10/31/20 Allergies Allergy/AdvReac Type Severity Reaction Status Date / Time isosorbide Allergy Unknown neck Verified 06/30/20 20:14 pain,headaches Review of Systems Review of Systems Constitutional : No Fever, No Chills, No Night Sweats, No Fatigue, No Malaise Cardiovascular : No Chest Pain, No SOB Respiratory : No Cough, No Sputum, No Wheezing, No Dyspnea Gastrointestinal : + Abdominal pain, No Nausea, No Vomiting, No Diarrhea, No Hematochezia, No Melena Genitourinary : No irregular bleeding, No Dysuria, No Urinary Frequency, No Hematuria,No Urinary Incontinence, No Urgency, No Flank Pain Musculoskeletal : No joint pain, No Myalgias, No Joint Swelling Skin : No Skin Lesions, No rash Neuro : No Weakness, No Numbness, No Paresthesias, No Loss of Consciousness, No Dizziness, No Headache Heme/Lymph: No Lymphadenopathy Endocrine : No Temperature Intolerance Yes all other systems are reviewed and are negative Physical Exam Vital Signs: Vital Signs: Last Vital Signs Temp 97.9 F 10/31/20 13:27 Pulse 88 10/31/20 13:27 Resp 16 10/31/20 13:27 BP 142/78 H 10/31/20 13:27 Pulse Ox 97 10/31/20 13:27 Body Mass Index 50.6 vital signs have been reviewed as normal and appeared to be correct. Blood pressure hypertensive at 142/78. Heart rate normal. Respiration rate normal. Temperature normal. Oxygen saturation normal. Appearance: Alert. Oriented X3. No acute distress. Head: Normal external exam. Normocephalic. Eyes: PERRLA. EOMI. Conjunctiva and sclera normal. Eyelids normal. ENT: Pharynx normal. Uvula midline. Moist mucous membranes. Neck: Normal inspection. Neck supple. FROM. No adenopathy. No meningeal signs. CVS: Normal heart rate and rhythm. Heart sound normal. No murmurs noted. Pulses normal throughout. Respiratory: No respiratory distress. Painless inspiration. Breath sounds normal. No wheezes/rales/rhonchi noted. Chest nontender. No accessory muscle usage noted or decreased air movement noted. Abdomen: Soft and tenderness to palpation to umbilical area hernia noted with guarding on palpation. I attempted to reduce the hernia although it went back. Nondistended. No rigidity. Bowel sounds normal in all 4 quadrants. No distention noted. No organomegaly noted. No visible injury noted. No rebound tenderness. Negative Rovsing sign. Negative obturator's sign. Negative psoas sign. Negative Danielle sign. Back: + Mild Right sided CVA tenderness. No left CVA tenderness noted. Full range of motion noted. Skin: Skin warm and dry. Normal skin color. Normal skin turgor. No rashes/lesions/lacerations noted. Extremities: Extremities exhibit normal range of motion. Extremities nontender. Neuro: Oriented X 3. No motor deficit. No sensory deficit. Reflexes normal. Course Course Course Narrative: 50-year-old male with a past medical history of lymphoma, Brugada syndrome, asthma, hernia and appendectomy presenting to the ED with co mplaints of umbilical pain after lifting heavy boxes and wearing a hernia belt that started today. - labs obtained and all within normal limits. - CT scan of abdomen and pelvis revealed Obstructing right proximal ureteral calculus measuring 4 mm in size with associated mild ureteral dilatation and pelvocaliectasis. There are additional bilateral nonobstructing renal calculi. Periumbilical hernia unchanged - therefore consulted with Dr. Paniagua and he reported the patient is tolerating p.o. fluids he can be discharged - patient is tolerating p.o. fluids therefore he has received a L of IV fluids will give 10 mg of Decadron and 0.8 mg of Flomax and DC home with symptomatic treatment referral to Dr. Paniagua the urologist and Dr. Farrell the general surgeon and instructions to return if any new or worsening symptoms. Patient understands agrees with this plan. MDM - Abdominal Pain Medical Records Attestation: I reviewed the patient's medical records. Lab Data Attestation: I reviewed the patient's lab results. Result diagrams: 10/31/20 18:20 10/31/20 18:20 Labs: Lab Results 10/31/20 10/31/20 10/31/20 Range/Units 15:30 15:30 15:30 WBC 7.4 (4.8-10.8) X10*3/uL RBC 4.97 (4.60-5.80) X10*6/uL Hgb 14.3 (14.0-18.0) g/dl Hct 44.2 (42-52) % MCV 88.9 (80-98) fL MCH 28.8 (27.0-33.0) pg MCHC 32.4 (31.0-36.0) g/dl RDW 14.1 (11.0-16.0) % Plt Count 216 (160-400) X10*3/uL MPV 10.3 (9.4-12.4) fL Immature Gran % (Auto) 0.1 (0.0-0.4) % Neut % (Auto) 72.2 (45-73) % Lymph % (Auto) 17.1 L (20-40) % [place] % (Auto) 8.3 (2-11) % Eos % (Auto) 1.8 (0-4) % Baso % (Auto) 0.5 (0-2) % Lymph # (Auto) 1.3 (1.2-4.9) X10*3/uL [place] # (Auto) 0.6 (0.1-1.2) X10*3/uL Eos # (Auto) 0.1 (0.0-0.4) X10*3/uL Baso # (Auto) 0.0 (0.0-0.2) X10*3/uL Abs Immat Gran (auto) 0.01 (0.00-0.03) X10*3/uL Absolute Neuts (auto) 5.3 (2.0-8.3) X10*3/uL Absolute Nucleated RBC 0.000 (0.0-0.012) X10*3/uL Nucleated RBC % (auto) 0.0 (0.0-0.2) /100WBC PT (10.8-13.0) SEC INR (0.9-1.1) APTT (24.1-38.0) SEC Hold Blue Top SEE NOTE Sodium 140 (135-145) mmol/L Potassium 4.4 (3.3-5.1) mmol/L Chloride 107 (96-108) mmol/L Carbon Dioxide 27 (22-29) mmol/L Anion Gap 10 L (12-20) BUN 15 (9-16) mg/dL Creatinine 0.91 (0.5-1.4) mg/dL Estim Creat Clear Calc 142.4 Estimated GFR > 60 Random Glucose 105 D (60-115) mg/dL Calcium 9.3 (8.4-10.2) mg/dL Magnesium (1.6-2.6) mg/dL Total Bilirubin 0.3 (0.0-1.0) mg/dL Direct Bilirubin (0.0-0.5) mg/dL AST 21 (5-37) U/L ALT 27 (0-40) U/L Alkaline Phosphatase 67 D (39-117) U/L Total Protein 7.0 (6.5-8.0) g/dL Albumin 4.0 (3.5-5.0) g/dL 10/31/20 10/31/20 10/31/20 Range/Units 18:20 18:20 18:20 WBC 7.9 (4.8-10.8) X10*3/uL RBC 4.73 (4.60-5.80) X10*6/uL Hgb 13.9 L (14.0-18.0) g/dl Hct 42.6 (42-52) % MCV 90.1 (80-98) fL MCH 29.4 (27.0-33.0) pg MCHC 32.6 (31.0-36.0) g/dl RDW 14.2 (11.0-16.0) % Plt Count 207 (160-400) X10*3/uL MPV 10.4 (9.4-12.4) fL Immature Gran % (Auto) 0.3 (0.0-0.4) % Neut % (Auto) 61.6 (45-73) % Lymph % (Auto) 26.3 (20-40) % [place] % (Auto) 9.7 (2-11) % Eos % (Auto) 1.6 (0-4) % Baso % (Auto) 0.5 (0-2) % Lymph # (Auto) 2.1 (1.2-4.9) X10*3/uL [place] # (Auto) 0.8 (0.1-1.2) X10*3/uL Eos # (Auto) 0.1 (0.0-0.4) X10*3/uL Baso # (Auto) 0.0 (0.0-0.2) X10*3/uL Abs Immat Gran (auto) 0.02 (0.00-0.03) X10*3/uL Absolute Neuts (auto) 4.9 (2.0-8.3) X10*3/uL Absolute Nucleated RBC 0.000 (0.0-0.012) X10*3/uL Nucleated RBC % (auto) 0.0 (0.0-0.2) /100WBC PT 14.0 H (10.8-13.0) SEC INR 1.2 H (0.9-1.1) APTT 36.3 (24.1-38.0) SEC Hold Blue Top Sodium 143 (135-145) mmol/L Potassium 4.0 (3.3-5.1) mmol/L Chloride 108 (96-108) mmol/L Carbon Dioxide 27 (22-29) mmol/L Anion Gap 12 (12-20) BUN 14 (9-16) mg/dL Creatinine 0.83 (0.5-1.4) mg/dL Estim Creat Clear Calc 156.1 Estimated GFR > 60 Random Glucose 92 (60-115) mg/dL Calcium 9.0 (8.4-10.2) mg/dL Magnesium 2.0 (1.6-2.6) mg/dL Total Bilirubin 0.5 (0.0-1.0) mg/dL Direct Bilirubin 0.2 (0.0-0.5) mg/dL AST 20 (5-37) U/L ALT 26 (0-40) U/L Alkaline Phosphatase 62 (39-117) U/L Total Protein 6.5 (6.5-8.0) g/dL Albumin 3.8 (3.5-5.0) g/dL Imaging Data CT scan of abdomen and pelvis with IV contrast: Attestation: I personally reviewed and interpreted this imaging study as follows: Radiologist's impression: FINDINGS: LUNG BASES: The visualized lung bases are unremarkable. LIVER, GALLBLADDER, AND BILIARY TREE: Again seen is hepatic steatosis. No masses or bile duct dilatation is seen. The gallbladder is unremarkable with no evidence of radiopaque gallstones, gallbladder wall thickening, or obvious pericholecystic inflammatory changes. PANCREAS: Unremarkable. SPLEEN: Unremarkable. ADRENAL GLANDS: Unremarkable. KIDNEYS AND URETERS: Right: On the right, there is an obstructing proximal ureteral stone present measuring about 4 mm in size. Some mild associated ureteral dilatation and pelvocaliectasis above this level is present. 3 nonobstructing intrarenal calculi are present on the right each measuring about 4 mm in size. All these stones are about 20 cm from the posterior axillary line. No right-sided renal masses are seen. Left: The small 3 mm nonobstructing left renal calculus is seen. No renal masses or pelvocaliectasis is present. BLADDER: Bladder is decompressed and empty GASTROINTESTINAL TRACT: The small and large bowel are unremarkable. The appendix is is not seen but there is no evidence of appendicitis. ABDOMINAL WALL: A periumbilical hernia is seen containing only fat. The defect in the abdominal wall is about 2 cm in size. Appearances are unchanged from the prior study. LYMPH NODES: Normal. VASCULAR: Unremarkable. PELVIC VISCERA: Unremarkable. OSSEOUS STRUCTURES: Unremarkable. CT/CT abdomen pelvis w con IMPRESSION: 1. Obstructing right proximal ureteral calculus measuring 4 mm in size with associated mild ureteral dilatation and pelvocaliectasis 2. There are additional bilateral nonobstructing renal calculi. 3. Periumbilical hernia unchanged Discharge Plan Discharge Clinical Impression: Ureterolithiasis, Hernia, umbilical, Bilateral nephrolithiasis Patient Disposition: Home, Self-Care Instructions: Kidney Stones (ED), Umbilical Hernia (ED), How to Strain Your Urine (ED), Ureteral Stones (ED) Prescriptions: New tamsulosin [Flomax] 0.4 mg capsule 0.4 mg PO DAILY Qty: 10 RF: 0 acetaminophen [Tylenol Extra Strength] 500 mg tablet 1,000 mg PO QID PRN (Reason: fever or pain) Qty: 14 RF: 0 ketorolac 10 mg tablet 10 mg PO Q8H PRN (Reason: pain) Qty: 15 RF: 0 oxycodone 5 mg tablet 5 mg PO BID PRN (Reason: pain) Qty: 15 RF: 0 No Action cyclobenzaprine 10 mg tablet 10 mg PO TID PRN (Reason: muscle spasm) Qty: 14 RF: 0 ibuprofen 600 mg tablet 600 mg PO Q8H PRN (Reason: pain) Qty: 20 RF: 0 ibuprofen 600 mg tablet 600 mg PO Q8H PRN (Reason: pain) Qty: 60 RF: 0 Referrals: Simeon Paniagua MD [Physician] - 3 days Alexys Farrell MD [Physician] - 3 days (Umbilical hernia) Stand Alone Forms: Work/School Release Print Language: Tajik [facility] Past Medical History Attestation statement: The following information was validated with the patient. 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
[2020-10-31 19:48] VITALS: BP 127/76; PULSE 85; RESP 16; TEMP 36.5; O2SAT 97
[2020-10-31] MEDS: Tamsulosin HCL 0.4 MG CAPSULE 0.8 MG PO (19:51)
== END 2020-10-31 20:18 | disposition home or self-care (01) ==
PROVIDERS: Physician Assistant Medical; Emergency Provider Internal Medicine; PCP Internal Medicine
DX: N20.2 Calculus of kidney with calculus of ureter (principal); K42.9 Umbilical hernia without obstruction or gangrene
CPT/HCPCS: 0241U; 36415; 74177; 80048; 80053; 80076; 83735; 85025; 85610; 85730; 96361; 96374; 96375; 99284; J1100; J1885; Q9967

== ENCOUNTER → 2020-11-06 09:28 | Outpatient (BNVA) | payer OTHER, SELFPAY | PROVIDERS: PCP Internal Medicine; Visit Provider Urology ==

== ENCOUNTER 2021-01-14 07:18 | Emergency (ER) | payer OTHER, SELFPAY ==
--- NOTE | ~2021-01-14 | XR_ITS ---
EXAMINATION: XR SHOULDER, RIGHT CLINICAL INFORMATION: Right shoulder pain COMPARISON: June 30, 2020 and January 15, 2020 TECHNIQUE: 3 views of the right shoulder. FINDINGS: 4 views of the right shoulder do not demonstrate any evidence of acute fracture or dislocation. There is minor spurring about the greater tuberosity and question mild calcific tendinitis in this location. No significant acromioclavicular joint degenerative change. Glenohumeral joint maintained with minimal inferior spurring. No widening of the coracoclavicular space is seen. XR/XR shoulder RT min 2V IMPRESSION: Minimal calcific tendinitis of the right shoulder.
[2021-01-14 07:29] VITALS: BP 144/77; PULSE 77; RESP 18; TEMP 36.6; O2SAT 97; BMI 48.6
--- NOTE | 2021-01-14 07:40 | ED.EXTPRO ---
HPI - Extremity Problem General Chief complaint: Extremity Injury, Upper Stated complaint: rt shoulder injury - work related Time Seen by Provider: 01/14/21 07:40 Source: patient Mode of arrival: ambulatory Limitations: no limitations History of Present Illness MD Complaint: extremity pain and joint paint Onset (ago): minute(s) Pain Consistency: constant Location: right and upper extremity (shoulder) Quality: aching and dull Radiation: none Relieving factors: nothing Exacerbating factors: range of motion and palpation Associated symptoms: denies other symptoms Context: other (heavy lifting at work) Related Data Home Medications Medication Instructions Recorded Confirmed omeprazole 20 mg capsule,delayed 20 mg PO DAILY 09/19/20 release sennosides 8.6 mg capsule 8.6 mg PO DAILY 09/19/20 Previous Rx's Medication Instructions Recorded cyclobenzaprine 10 mg PO TID PRN #14 tab 06/30/20 ibuprofen 600 mg PO Q8H PRN #20 tab 06/30/20 ibuprofen 600 mg PO Q8H PRN #60 tab 09/10/20 acetaminophen [Tylenol Extra 1,000 mg PO QID PRN #14 tab 10/31/20 Strength] ketorolac 10 mg PO Q8H PRN #15 tab 10/31/20 oxycodone 5 mg PO BID PRN #15 tab 10/31/20 tamsulosin [Flomax] 0.4 mg PO DAILY #10 cap 10/31/20 pyridoxine (vitamin B6) 100 mg 100 mg PO DAILY 90 Days #90 tab 11/06/20 tablet ibuprofen 600 mg PO Q6H PRN #30 tab 01/14/21 lidocaine 1 patch TOPICAL DAILY PRN #10 ea 01/14/21 Allergies Allergy/AdvReac Type Severity Reaction Status Date / Time isosorbide Allergy Unknown neck Verified 06/30/20 20:14 pain,headaches Review of Systems Review of Systems: Constitutional : No Fever, No Chills ENT/Mouth : No Ear Pain, No Hoarseness, No sore throat Eyes: No Eye Pain, No Swelling Cardiovascular : No Chest Pain, No SOB Respiratory : No Cough, No Dyspnea Gastrointestinal : No Nausea, No Vomiting Genitourinary : No Dysuria, No Hematuria Musculoskeletal : positive joint pain, No Myalgias, No Joint Swelling Skin : No Skin lacerations, No rash Neuro : No Weakness, No Numbness, No Loss of Consciousness PMFSH Past Medical History Attestation statement: The following information was validated with the patient. 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 Oriented X3. No acute distress. Eyes: Pupils equal, round and reactive to light. ENT: Pharynx normal. Neck: Normal inspection. Neck supple. CVS: Normal heart rate and rhythm. Pulses normal. Respiratory: No respiratory distress. Breath sounds normal. Abdomen: Soft and nontender. Skin: Skin warm and dry. Normal skin color. Normal skin turgor. Extremities: No lower extremity edema. No calf ttp R shoulder ttp along posterior shoulder near scapula distal NV intact, ROM intact, good strength with rotator cuff testing Neuro: Oriented X 3. No motor deficit. No sensory deficit. MDM - Extremity (Nontraumatic) MDM Narrative Medical decision making narrative: 50 yo male with R shoulder injury likely strain after heavy lifting he is NV intact, no other trauma shoulder xray ordered at this time, dispo per results and findings. Discharge Plan Discharge Clinical Impression: Right shoulder strain, Strain of thoracic back region Patient Disposition: Home, Self-Care Instructions: Shoulder Sprain (ED), Thoracic Back Strain (ED) Additional Instructions: return to ED for any worsening symptoms or concerns wear sling for comfort, DO NOT MIX IBUPROFEN AND TORADOL IF NOT BETTER SEE PRIMARY CARE DOCTOR ON TUESDAY xray IMPRESSION: Minimal calcific tendinitis of the right shoulder. OLD injury and issue not related to today's event Prescriptions: New lidocaine 4 % adhesive patch,medicated 1 patch topical DAILY PRN (Reason: pain) Qty: 10 RF: 0 ibuprofen 600 mg tablet 600 mg PO Q6H PRN (Reason: pain) Qty: 30 RF: 0 No Action cyclobenzaprine 10 mg tablet 10 mg PO TID PRN (Reason: muscle spasm) Qty: 14 RF: 0 ibuprofen 600 mg tablet 600 mg PO Q8H PRN (Reason: pain) Qty: 20 RF: 0 ibuprofen 600 mg tablet 600 mg PO Q8H PRN (Reason: pain) Qty: 60 RF: 0 tamsulosin [Flomax] 0.4 mg capsule 0.4 mg PO DAILY Qty: 10 RF: 0 acetaminophen [Tylenol Extra Strength] 500 mg tablet 1,000 mg PO QID PRN (Reason: fever or pain) Qty: 14 RF: 0 ketorolac 10 mg tablet 10 mg PO Q8H PRN (Reason: pain) Qty: 15 RF: 0 oxycodone 5 mg tablet 5 mg PO BID PRN (Reason: pain) Qty: 15 RF: 0 pyridoxine (vitamin B6) 100 mg tablet 100 mg PO DAILY 90 Days Qty: 90 RF: 1 Stand Alone Forms: Work/School Release
[2021-01-14 08:23] VITALS: BP 134/76; PULSE 76; RESP 18; O2SAT 96
--- NOTE | 2021-01-14 08:38 | PC.NURSE ---
pt refused sling to r shoulder/arm states that he has a sling at home. aware.
== END 2021-01-14 08:39 | disposition home or self-care (01) ==
PROVIDERS: Emergency Provider Emergency Medicine; PCP Internal Medicine
DX: S46.911A Strain of unspecified muscle, fascia and tendon at shoulder and upper arm level, right arm, initial encounter (principal); S29.012A Strain of muscle and tendon of back wall of thorax, initial encounter; X50.0XXA Overexertion from strenuous movement or load, initial encounter; Y93.89 Activity, other specified; Y92.512 Supermarket, store or market as the place of occurrence of the external cause; Y99.0 Civilian activity done for income or pay
CPT/HCPCS: 73030; 99283; 99284

== ENCOUNTER 2021-02-02 13:47 | Outpatient (REF) | payer OTHER, SELFPAY ==
--- NOTE | ~2021-02-02 | US_ITS ---
EXAMINATION: US RETROPERITONEAL LIMITED (RENAL ONLY) CLINICAL INFORMATION: Calculus of kidney. COMPARISON: CT abdomen and pelvis 10/31/2020. KUB 03/23/2014. Ultrasound abdomen complete 09/22/2010. TECHNIQUE: Real-time imaging of the kidneys. FINDINGS: RIGHT KIDNEY: 12.6 x 5.1 x 6.4 cm (SAG x AP x TRV). The kidney is normal in size, contour, and echogenicity. Renal cortical thickness is normal. There is a 4 mm echogenic density in the lower pole suggestive of a stone. No focal parenchymal lesions or hydronephrosis. LEFT KIDNEY: 13.1 x 5.5 x 5.6 cm (SAG x AP x TRV). The kidney is normal in size, contour, and echogenicity. Renal cortical thickness is normal. There is a 5 mm echogenic density in the midpole suggestive of a stone. No focal parenchymal lesions or hydronephrosis. US/US renal BI IMPRESSION: Small bilateral renal stones.
== END 2021-02-02 13:48 | disposition home or self-care (01) ==
LOC: HO.US 13:47
PROVIDERS: PCP Internal Medicine; Visit Provider Urology
DX: N20.0 Calculus of kidney (principal)
CPT/HCPCS: 76775

== ENCOUNTER → 2021-02-06 08:23 | Outpatient (BNVA) | payer OTHER, SELFPAY | PROVIDERS: PCP Internal Medicine; Visit Provider Urology ==

== ENCOUNTER 2021-03-03 19:59 | Emergency (ER) | payer OTHER, SELFPAY ==
--- NOTE | ~2021-03-03 | XR_ITS ---
EXAMINATION: XR SHOULDER, LEFT CLINICAL INFORMATION: Pain. COMPARISON: Left shoulder June 30, 2020 TECHNIQUE: Three views of the left shoulder. FINDINGS: The bones and soft tissues are normal. No fracture. Glenohumeral and acromioclavicular alignment is anatomic with normal joint space. No abnormal soft tissue calcifications. XR/XR shoulder LT min 2V IMPRESSION: Normal left shoulder.
[2021-03-03 20:39] VITALS: BP 125/74; PULSE 83; RESP 16; TEMP 36.6; O2SAT 97; BMI 48.9
--- NOTE | 2021-03-03 22:19 | ED.EXTPRO ---
HPI - Extremity Problem General Chief complaint: Extremity Injury, Upper Stated complaint: SHOULDER PAIN Time Seen by Provider: 03/03/21 22:19 Source: patient Mode of arrival: ambulatory Limitations: no limitations History of Present Illness HPI Narrative: 50 y/o male with history of Brugada syndrome, asthma, lymphoma, obesity, who presents to the ER c/o left shoulder pain for the last 3 weeks. He denies any specific injury or trauma but he works at [employer] and does a lot of heavy lifting. He reports the pain is worse at the end of the day after work. Pain is improved temporarily with Motrin, warm baths and massage. The pain is aching and located in his anterior and posterior shoulder. No swelling or skin changes. He has normal ROM with some discomfort upon full abduction. Pain is worst with palpation. He also has forearm discomfort when he abducts his thumb. No other time. Normal wrist and hand function, no injury. NO chest pain or SOB. MD Complaint: joint paint Onset (ago): week(s) (3) Pain Consistency: constant Location: left and upper extremity Severity scale (1-10): 6 Quality: aching Radiation: none Relieving factors: immobilization and medication Exacerbating factors: range of motion and palpation Associated symptoms: denies other symptoms Related Data Home Medications Medication Instructions Recorded Confirmed omeprazole 20 mg capsule,delayed 20 mg PO DAILY 09/19/20 release sennosides 8.6 mg capsule 8.6 mg PO DAILY 09/19/20 Previous Rx's Medication Instructions Recorded cyclobenzaprine 10 mg PO TID PRN #14 tab 06/30/20 ibuprofen 600 mg PO Q8H PRN #20 tab 06/30/20 ibuprofen 600 mg PO Q8H PRN #60 tab 09/10/20 acetaminophen [Tylenol Extra 1,000 mg PO QID PRN #14 tab 10/31/20 Strength] ketorolac 10 mg PO Q8H PRN #15 tab 10/31/20 oxycodone 5 mg PO BID PRN #15 tab 10/31/20 tamsulosin [Flomax] 0.4 mg PO DAILY #10 cap 10/31/20 pyridoxine (vitamin B6) 100 mg 100 mg PO DAILY 90 Days #90 tab 11/06/20 tablet ibuprofen 600 mg PO Q6H PRN #30 tab 01/14/21 lidocaine 1 patch TOPICAL DAILY PRN #10 ea 01/14/21 cyclobenzaprine 10 mg PO TID PRN #8 tab 03/03/21 hydrocodone-acetaminophen 1 tab PO BID PRN #5 tab 03/03/21 ibuprofen 800 mg PO Q8H PRN #15 tab 03/03/21 Allergies Allergy/AdvReac Type Severity Reaction Status Date / Time isosorbide Allergy Unknown neck Verified 03/03/21 20:39 pain,headaches Review of Systems Review of Systems: Constitutional: No Fever, No Chills s Cardiovascular: No Chest Pain, No SOB Musculoskeletal: + joint pain, + Myalgias Skin: No Skin Lesions, No rash Neuro: No Weakness, No Numbness Heme/Lymph: No Bruising PMFSH Past Medical History Attestation statement: The following information was validated with the patient. 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 Vital Signs: Vital Signs: Last Vital Signs Temp 97.9 F 03/03/21 20:39 Pulse 83 03/03/21 20:39 Resp 16 03/03/21 20:39 BP 125/74 03/03/21 20:39 Pulse Ox 97 03/03/21 20:39 Body Mass Index 48.9 Const: General: cooperative, comfortable and no acute distress HENMT: Head: Yes normal to inspection Ears: hearing grossly normal bilaterally General nose exam: Normal external nose present Face and sinus: Yes normal facial exam Eyes: General: appearance normal, both eyes and all related structures Neck: Neck: Yes normal visual inspection, Yes no lymphadenopathy and Yes prominent dorsocervical fat pad Chest: Chest palpation & inspection: normal inspection of the chest and normal palpation of entire chest wall Resp: Effort & Inspection: normal respiratory effort and able to speak in complete sentences Skin: General skin exam: no rashes or lesions noted Neuro: Motor exam (neuro): 5/5 motor strength present throughout Extrem: General: Yes normal to inspection Left upper extremity: full ROM, normal capillary refill, no joint enlargement and shoulder/upper arm Details: inspection abnormal, tenderness Location: over the subacromial bursa and normal ROM Course Course Course Narrative: 50 y/o male presenting with anterior and posterior left shoulder pain x3 weeks in the setting of overuse and heavy lifting. Neurologically intact, ROM and strength intact. XR is normal. Exam is unremarkable. Not cardiac. Possible sprain or strain. Doubt rotator cuff tear. Will plan to treat with NSAID, muscle relaxer, PRN narcotic and referral to Ortho for further workup. Patient agreeable with plan. Discharge Plan Discharge Clinical Impression: Left shoulder pain Qualifiers: Chronicity: acute Qualified Code(s): M25.512 - Pain in left shoulder Patient Disposition: Home, Self-Care Instructions: Shoulder Pain (ED) Additional Instructions: Your x-ray was normal. Recommend rest, icing the area several times per day. No heavy lifting. Take the prescribed medications as needed for pain. Recommending following up with Orthopedics for further workup and management. Number listed below. If you develop worsening pain, numbness, weakness or loss of function come back to the ER for further evaluation. Prescriptions: New cyclobenzaprine 10 mg tablet 10 mg PO TID PRN (Reason: muscle spasm) Qty: 8 RF: 0 ibuprofen 800 mg tablet 800 mg PO Q8H PRN (Reason: pain) Qty: 15 RF: 0 hydrocodone-acetaminophen 5-325 mg tablet 1 tab PO BID PRN (Reason: pain) Qty: 5 RF: 0 No Action cyclobenzaprine 10 mg tablet 10 mg PO TID PRN (Reason: muscle spasm) Qty: 14 RF: 0 ibuprofen 600 mg tablet 600 mg PO Q8H PRN (Reason: pain) Qty: 20 RF: 0 lidocaine 4 % adhesive patch,medicated 1 patch topical DAILY PRN (Reason: pain) Qty: 10 RF: 0 ibuprofen 600 mg tablet 600 mg PO Q6H PRN (Reason: pain) Qty: 30 RF: 0 ibuprofen 600 mg tablet 600 mg PO Q8H PRN (Reason: pain) Qty: 60 RF: 0 tamsulosin [Flomax] 0.4 mg capsule 0.4 mg PO DAILY Qty: 10 RF: 0 acetaminophen [Tylenol Extra Strength] 500 mg tablet 1,000 mg PO QID PRN (Reason: fever or pain) Qty: 14 RF: 0 ketorolac 10 mg tablet 10 mg PO Q8H PRN (Reason: pain) Qty: 15 RF: 0 oxycodone 5 mg tablet 5 mg PO BID PRN (Reason: pain) Qty: 15 RF: 0 pyridoxine (vitamin B6) 100 mg tablet 100 mg PO DAILY 90 Days Qty: 90 RF: 1 Referrals: Stephani Fierro MD [Physician] - 2 days (left shoulder pain x3 weeks. XR negative ) Stand Alone Forms: Work/School Release Interventions: ED Discharge Assessment Last Done: 03/03/21 22:48 Discharge Date/Time: 03/03/21 22:49
[2021-03-03] MEDS: Ketorolac Tromethamine 60 MG/2 ML VIAL IM (22:47)
== END 2021-03-03 22:49 | disposition home or self-care (01) ==
PROVIDERS: Emergency Provider Student in an Organized Health Care Education/Training Program; PCP Internal Medicine
DX: M25.512 Pain in left shoulder (principal)
CPT/HCPCS: 73030; 96372; 99283; 99284; J1885

== ENCOUNTER 2021-05-10 08:39 | Emergency (ER) | payer OTHER, SELFPAY ==
[2021-05-10 08:53] VITALS: BP 179/99; PULSE 100; RESP 19; TEMP 37.3; O2SAT 99; BMI 49.1
--- NOTE | 2021-05-10 09:41 | ED.URI ---
HPI - URI/Sore Throat General Chief Complaint: Upper Respiratory Symptoms Stated Complaint: headache, difficulty breathing Time Seen by Provider: 05/10/21 09:41 Source: patient Mode of arrival: ambulatory Limitations: no limitations History of Present Illness HPI Narrative: 51-year-old male with a past medical history of asthma, lymphoma, obesity, and got a syndrome presents with symptoms of sinus pain and pressure, runny nose, mild sore throat, right ear pain, cough, and chest tightness with body aches that started yesterday. No chest pain, no fever. He uses a CPAP machine and is concerned that he may have a sinus infection from his CPAP Patient took his inhaler 2 hours ago and reports that it helps some. 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 Patient is not vaccinated for COVID. MD elicited complaint: cough, sore throat, rhinorrhea, nasal congestion and sinus pain Pertinent past history: asthma Onset (ago): day(s) (1) Consistency: constant Severity: mild Description of mucous: watery Able to tolerate fluids by mouth: Yes Exacerbating factors: nothing Relieving factors: gargling Associated symptoms: myalgias, nasal congestion, sore throat, cough and ear pain Treatments prior to arrival: other (albuterol MDI) Related Data Home Medications Medication Instructions Recorded Confirmed omeprazole 20 mg capsule,delayed 20 mg PO DAILY 09/19/20 release sennosides 8.6 mg capsule (senna) 8.6 mg PO DAILY 09/19/20 Previous Rx's Medication Instructions Recorded cyclobenzaprine 10 mg tablet 10 mg PO TID PRN #14 tab 06/30/20 ibuprofen 600 mg tablet 600 mg PO Q8H PRN #20 tab 06/30/20 ibuprofen 600 mg tablet 600 mg PO Q8H PRN #60 tab 09/10/20 acetaminophen 500 mg tablet 1,000 mg PO QID PRN #14 tab 10/31/20 (Tylenol Extra Strength) ketorolac 10 mg tablet 10 mg PO Q8H PRN #15 tab 10/31/20 oxycodone 5 mg tablet 5 mg PO BID PRN #15 tab 10/31/20 tamsulosin 0.4 mg capsule (Flomax) 0.4 mg PO DAILY #10 cap 10/31/20 pyridoxine (vitamin B6) 100 mg 100 mg PO DAILY 90 Days #90 tab 11/06/20 tablet ibuprofen 600 mg tablet 600 mg PO Q6H PRN #30 tab 01/14/21 lidocaine 4 % topical patch 1 patch TOPICAL DAILY PRN #10 ea 01/14/21 cyclobenzaprine 10 mg tablet 10 mg PO TID PRN #8 tab 03/03/21 hydrocodone 5 mg-acetaminophen 325 1 tab PO BID PRN #5 tab 03/03/21 mg tablet ibuprofen 800 mg tablet 800 mg PO Q8H PRN #15 tab 03/03/21 prednisone 20 mg tablet 40 mg PO DAILY 5 Days #10 tab 05/10/21 Allergies Allergy/AdvReac Type Severity Reaction Status Date / Time isosorbide Allergy Unknown neck Verified 03/03/21 20:39 pain,headaches Review of Systems Constitutional: Constitutional: Reports body ache(s), Reports fatigue, Denies headache(s) and Denies weakness Eyes: Eyes: Denies blurry vision, Denies change in vision and Denies diplopia ENT: Denies vertigo, Denies dizziness, Reports otalgia, Denies headache(s), Reports nasal congestion, Reports nasal discharge, Denies disequilibrium, Reports post nasal drip, Reports sinus pain, Reports sore throat and Denies throat swelling Cardiovascular: Cardiovascular: Denies chest pain, Denies syncope, Denies leg edema, Denies lightheadedness, Denies Loss of Consciousness, Denies palpitations and Denies dyspnea Respiratory: Respiratory: Reports chest congestion, Reports cough, Denies dyspnea and Denies wheezing Gastrointestinal: Gastrointestinal: Denies nausea and Denies vomiting Musculoskeletal: Musculoskeletal: Reports myalgias Neurologic: Denies confusion, Denies vertigo, Denies dizziness, Denies syncope, Denies headache(s), Denies disequilibrium and Denies weakness Psychiatric: Psychiatric: Denies anxiety, Denies confusion and Denies depression Endocrine: Endocrine: Reports fatigue and Denies palpitations Allergic/Immunologic: Allergic/Immunologic: Denies throat swelling and Denies wheezing PMFSH Past Medical History Medical History Asthma Brugada syndrome Hernia Lymphoma Surgical History History of appendectomy Social History Social History Alcohol intake: never Patient Tobacco Use Status: Never used Tobacco Advance Directives: No Advance Directives Information Provided: No 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 Vital Signs: Vital Signs: Last Vital Signs Temp 99.1 F 05/10/21 08:53 Pulse 84 05/10/21 10:33 Resp 19 05/10/21 08:53 BP 179/99 H 05/10/21 08:53 Pulse Ox 99 05/10/21 08:53 Body Mass Index 49.1 Const: General: No confusion Nutritional Appearance: well nourished Orientation/consciousness: No confusion Limitations: no limitations HENMT: Other: Cannot completely visualize posterior oropharynx due to patient's Mallampati score and high-riding tongue Head: Yes normal to inspection, Yes normocephalic and Yes atraumatic Ears: hearing grossly normal bilaterally, external ears normal, TM normal on the left, EAC's normal, mastoids normal, no periauricular adenopathy and TM abnormal erythematous on the right; Negative for not bulging General nose exam: Nasal discharge present clear Face and sinus: Yes sinus tenderness Mouth: Normal oral and palatal mucosa present Throat: Yes posterior oropharynx abnormal (erythematous) and Yes postnasal drainage Eyes: Conjunctivae: conjunctivae normal Pupils: Equal, round and reactive pupils present EOM: EOMs intact bilaterally Neck: Neck: Yes full ROM, Yes no lymphadenopathy and Yes supple Resp: Effort & Inspection: normal respiratory effort and able to speak in complete sentences Auscultation: clear to auscultation bilaterally, no crackles, no rales, no rhonchi and no wheezes Cardio: Rate: regular rate Rhythm: regular rhythm Heart sounds: S1 normal heart sound present and S2 normal heart sound present Skin: General skin exam: no rashes or lesions noted Neuro: General: No confusion Cranial nerves: Yes Equal, round and reactive pupils present Extrem: General: Yes normal to inspection and Yes full ROM Psych: Appearance: grossly normal Affect: normal affect Attitude: cooperative Thought process: Normal thought process present Course Course Course Narrative: 51-year-old male presents for sinus pain and pressure, cough, chest tightness, runny nose, body aches, right ear pain and mild sore throat. Patient states his inhaler helps with the chest tightness. Due to patient's history of Brugada, will get EKG despite the patient saying he does not have chest pain. Will get COVID test, give albuterol nebulizer, re-evaluate Reevaluation(s) Reevaluation #1: Patient is moving more air after breathing treatment, however he is still wheezy and rhonchorous. Will prescribe short course of prednisone. Counseled Porfirio pot, Sudafed. Patient is COVID negative. MDM - URI/Sore Throat Lab Data Labs: Lab Results 05/10/21 Range/Units 09:59 COVID-19 ([facility]) Negative (Negative) COVID-19 Clin Com See Note ECG Data Interpretation: Sinus at a rate of 84, MA 200, QRS 116, QTC 434. Patient has left axis deviation.. No ST elevations or depressions, no T-wave changes incomplete right bundle Discharge Plan Discharge Clinical Impression: Acute viral syndrome Patient Disposition: Home, Self-Care Instructions: Viral Syndrome (ED) Additional Instructions: THe Netti Pot we discussed is called [employer] Sinus Rinse . [place] counseling services manager you to try it, I think will help a lot. You may also use Sudafed. I have prescribed prednisone to her pharmacy. Please use your albuterol inhaler, 2 puffs every 2 hours while you are awake. Please return for fever, shortness of breath, chest pain. Your COVID test was negative today and have included that in a work note for you. Prescriptions: New prednisone 20 mg tablet 40 mg PO DAILY 5 Days Qty: 10 RF: 0 No Action cyclobenzaprine 10 mg tablet 10 mg PO TID PRN (Reason: muscle spasm) Qty: 14 RF: 0 ibuprofen 600 mg tablet 600 mg PO Q8H PRN (Reason: pain) Qty: 20 RF: 0 lidocaine 4 % adhesive patch,medicated 1 patch topical DAILY PRN (Reason: pain) Qty: 10 RF: 0 ibuprofen 600 mg tablet 600 mg PO Q6H PRN (Reason: pain) Qty: 30 RF: 0 ibuprofen 600 mg tablet 600 mg PO Q8H PRN (Reason: pain) Qty: 60 RF: 0 tamsulosin [Flomax] 0.4 mg capsule 0.4 mg PO DAILY Qty: 10 RF: 0 acetaminophen [Tylenol Extra Strength] 500 mg tablet 1,000 mg PO QID PRN (Reason: fever or pain) Qty: 14 RF: 0 ketorolac 10 mg tablet 10 mg PO Q8H PRN (Reason: pain) Qty: 15 RF: 0 oxycodone 5 mg tablet 5 mg PO BID PRN (Reason: pain) Qty: 15 RF: 0 cyclobenzaprine 10 mg tablet 10 mg PO TID PRN (Reason: muscle spasm) Qty: 8 RF: 0 ibuprofen 800 mg tablet 800 mg PO Q8H PRN (Reason: pain) Qty: 15 RF: 0 hydrocodone-acetaminophen 5-325 mg tablet 1 tab PO BID PRN (Reason: pain) Qty: 5 RF: 0 pyridoxine (vitamin B6) 100 mg tablet 100 mg PO DAILY 90 Days Qty: 90 RF: 1 Stand Alone Forms: Work/School Release
--- NOTE | 2021-05-10 09:54 | ECG_ITS ---
Test Reason : DYSPNEA Blood Pressure : / mmHG Vent. Rate : 084 BPM Atrial Rate : 084 BPM P-R Int : 200 ms QRS Dur : 116 ms QT Int : 368 ms P-R-T Axes : 049 -34 048 degrees QTc Int : 434 ms Normal sinus rhythm Left axis deviation Incomplete right bundle branch block Abnormal ECG When compared with ECG of 25-MAY-2020 09:27, Premature ventricular complexes are no longer Present MO interval has decreased Referred By: Kasie Bernard Electronically Signed By:KENY MASON
[2021-05-10 10:18] LABS: IDNOW Serial# 9DD0AD1C
[2021-05-10 10:19] LABS: COVID-19 Test Negative (Negative)
[2021-05-10] MEDS: Albuterol Sulfate (0.083%) 2.5 MG/3 ML VIAL.NEB INHALE (10:32)
[2021-05-10 10:33] VITALS: PULSE 84; O2SAT 94
== END 2021-05-10 11:24 | disposition home or self-care (01) ==
PROVIDERS: Physician Assistant; Emergency Provider Emergency Medicine Emergency Medical Services; PCP Internal Medicine
DX: B34.9 Viral infection, unspecified (principal); R51.9 Headache, unspecified; R06.02 Shortness of breath; M79.10 Myalgia, unspecified site; Z20.822 Contact with and (suspected) exposure to COVID-19; Z79.899 Other long term (current) drug therapy
CPT/HCPCS: 36415; 87635; 93005; 94640; 99284

== ENCOUNTER 2021-06-18 18:14 | Emergency (ER) | payer OTHER, SELFPAY ==
--- NOTE | ~2021-06-18 | XR_ITS ---
EXAMINATION: XR CHEST CLINICAL INFORMATION: Shortness of breath. COMPARISON: Most recent chest radiograph dated 05/25/2020. TECHNIQUE: Frontal view of the chest was obtained. FINDINGS: The lungs are clear. The cardiomediastinal silhouette is normal in size. There is no pleural effusion or pneumothorax. No acute osseous abnormality. XR/XR chest 1V IMPRESSION: No acute cardiopulmonary findings.
[2021-06-18 18:18] VITALS: BP 145/90; PULSE 105; RESP 18; TEMP 36.9; O2SAT 99; BMI 49.4
--- NOTE | 2021-06-18 22:08 | ED_ITS ---
HPI - Asthma General Chief Complaint: Asthma Stated Complaint: asthma attack Time Seen by Provider: 06/18/21 22:08 Source: patient Mode of arrival: ambulatory Limitations: no limitations History of Present Illness HPI Narrative: Patient with history of asthma and sleep apnea using CPAP at home been feeling congested today with shortness of breath no phlegm mostly dry cough. Saturating 99% on room air. Patient not vaccinated against COVID-19 has nebulizer machine at home but ran out of his medication use inhaler several times without much relief Related Data Home Medications Medication Instructions Recorded Confirmed omeprazole 20 mg capsule,delayed 20 mg PO DAILY 09/19/20 release sennosides 8.6 mg capsule (senna) 8.6 mg PO DAILY 09/19/20 Previous Rx's Medication Instructions Recorded cyclobenzaprine 10 mg tablet 10 mg PO TID PRN #14 tab 06/30/20 ibuprofen 600 mg tablet 600 mg PO Q8H PRN #20 tab 06/30/20 ibuprofen 600 mg tablet 600 mg PO Q8H PRN #60 tab 09/10/20 acetaminophen 500 mg tablet 1,000 mg PO QID PRN #14 tab 10/31/20 (Tylenol Extra Strength) ketorolac 10 mg tablet 10 mg PO Q8H PRN #15 tab 10/31/20 oxycodone 5 mg tablet 5 mg PO BID PRN #15 tab 10/31/20 tamsulosin 0.4 mg capsule (Flomax) 0.4 mg PO DAILY #10 cap 10/31/20 ibuprofen 600 mg tablet 600 mg PO Q6H PRN #30 tab 01/14/21 lidocaine 4 % topical patch 1 patch TOPICAL DAILY PRN #10 ea 01/14/21 cyclobenzaprine 10 mg tablet 10 mg PO TID PRN #8 tab 03/03/21 hydrocodone 5 mg-acetaminophen 325 1 tab PO BID PRN #5 tab 03/03/21 mg tablet ibuprofen 800 mg tablet 800 mg PO Q8H PRN #15 tab 03/03/21 prednisone 20 mg tablet 40 mg PO DAILY 5 Days #10 tab 05/10/21 pyridoxine (vitamin B6) 100 mg 100 mg PO DAILY 90 Days #90 tab 05/27/21 tablet albuterol sulfate 2.5 mg (3 mL) INHALATION Q4-6H PRN 06/18/21 #90 ml prednisone 20 mg tablet 40 mg PO DAILY #10 tab 06/18/21 Allergies Allergy/AdvReac Type Severity Reaction Status Date / Time isosorbide Allergy Unknown neck Verified 03/03/21 20:39 pain,headaches Review of Systems Review of Systems: Yes all other systems are reviewed and are negative [facility] Past Medical History Medical History Asthma Brugada syndrome Hernia Lymphoma Surgical History History of appendectomy Social History Social History Alcohol intake: never Patient Tobacco Use Status: Never used Tobacco Advance Directives: No Advance Directives Information Provided: No 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 Oriented X3. No acute distress. ENT: Pharynx normal. Oral Mucosa moist Neck: Normal inspection. Neck supple. CVS: Normal heart rate and rhythm. Pulses normal. Respiratory: No respiratory distress. Equal air entry bilateral, prolonged expiration, no wheezing/rales/rhonchi Abdomen: Soft and nontender. Bowel sounds are present, no mass palpable, no CVA tenderness Skin: Skin warm and dry. Normal skin color. Normal skin turgor. Extremities: No lower extremity edema. No calf tenderness Neuro: Oriented X 3. No motor deficit. MDM - Asthma MDM Narrative Medical decision making narrative: Patient with mild asthma chest x-ray negative saturating 99% on room air COVID-19 negative will discharge patient home on prednisone and nebulizing treatment Lab Data Attestation: I reviewed the patient's lab results. Labs: Lab Results 06/18/21 Range/Units 22:42 COVID-19 ([facility]) Negative (Negative) COVID-19 Clin Com See Note Discharge Plan Discharge Clinical Impression: Asthma with acute exacerbation Qualifiers: Asthma severity: moderate Asthma persistence: persistent Qualified Code(s): J45.41 - Moderate persistent asthma with (acute) exacerbation Patient Disposition: Home, Self-Care Instructions: Asthma (ED) Additional Instructions: Continue medications as prescribed Use inhaler as prescribed Follow-up with PCP Get COVID vaccine Prescriptions: New prednisone 20 mg tablet 40 mg PO DAILY Qty: 10 RF: 0 albuterol sulfate 2.5 mg /3 mL (0.083 %) solution for nebulization 2.5 mg inhalation Q4-6H PRN (Reason: shortness of breath or wheezing) Qty: 90 RF: 0 No Action pyridoxine (vitamin B6) 100 mg tablet 100 mg PO DAILY 90 Days Qty: 90 RF: 1 cyclobenzaprine 10 mg tablet 10 mg PO TID PRN (Reason: muscle spasm) Qty: 14 RF: 0 ibuprofen 600 mg tablet 600 mg PO Q8H PRN (Reason: pain) Qty: 20 RF: 0 lidocaine 4 % adhesive patch,medicated 1 patch topical DAILY PRN (Reason: pain) Qty: 10 RF: 0 ibuprofen 600 mg tablet 600 mg PO Q6H PRN (Reason: pain) Qty: 30 RF: 0 ibuprofen 600 mg tablet 600 mg PO Q8H PRN (Reason: pain) Qty: 60 RF: 0 tamsulosin [Flomax] 0.4 mg capsule 0.4 mg PO DAILY Qty: 10 RF: 0 acetaminophen [Tylenol Extra Strength] 500 mg tablet 1,000 mg PO QID PRN (Reason: fever or pain) Qty: 14 RF: 0 ketorolac 10 mg tablet 10 mg PO Q8H PRN (Reason: pain) Qty: 15 RF: 0 oxycodone 5 mg tablet 5 mg PO BID PRN (Reason: pain) Qty: 15 RF: 0 cyclobenzaprine 10 mg tablet 10 mg PO TID PRN (Reason: muscle spasm) Qty: 8 RF: 0 ibuprofen 800 mg tablet 800 mg PO Q8H PRN (Reason: pain) Qty: 15 RF: 0 hydrocodone-acetaminophen 5-325 mg tablet 1 tab PO BID PRN (Reason: pain) Qty: 5 RF: 0 prednisone 20 mg tablet 40 mg PO DAILY 5 Days Qty: 10 RF: 0
[2021-06-18 22:37] VITALS: BP 148/84; PULSE 78; TEMP 36.7; O2SAT 97
[2021-06-18 22:48] VITALS: PULSE 83; O2SAT 97
[2021-06-18] MEDS: Albuterol/Iprat 2.5/0.5MG 3 ML AMPUL.NEB INHALE (22:48)
[2021-06-18 23:01] LABS: COVID-19 Test Negative (Negative)
[2021-06-18] MEDS: predniSONE 20 MG TABLET 40 MG PO (23:09)
== END 2021-06-18 23:44 | disposition home or self-care (01) ==
PROVIDERS: Emergency Provider Internal Medicine
DX: J45.41 Moderate persistent asthma with (acute) exacerbation (principal); Z20.822 Contact with and (suspected) exposure to COVID-19; Z79.899 Other long term (current) drug therapy
CPT/HCPCS: 36415; 71045; 87635; 94640; 99284

== ENCOUNTER 2021-07-21 10:28 | Emergency (ER) | payer OTHER, SELFPAY ==
--- NOTE | ~2021-07-21 | CT_ITS ---
EXAMINATION: CT ABDOMEN AND PELVIS WITH CONTRAST CLINICAL INFORMATION: Abdominal distention and tender umbilical hernia COMPARISON: Previous CT of the abdomen and pelvis most recent October 2020 TECHNIQUE: Multidetector volumetric images were obtained from the superior aspect of the liver through the pubic symphysis following administration 85 mL of Omnipaque 350 intravenous contrast. Sagittal and coronal reformatted images were obtained on the technologist's workstation. Oral contrast: Yes This CT examination was performed using dose optimization techniques as appropriate, variously including the following: *Automated exposure control *Adjustment of mA and/or kV according to patient size (this includes techniques or standardized protocols for targeted exams where dose is matched to indication/reason for exam; i.e. extremities or head) *Use of iterative reconstruction technique DLP: 1173 mGy-cm FINDINGS: LUNG BASES: The visualized lung bases are unremarkable. LIVER, GALLBLADDER, AND BILIARY TREE: The liver is normal in size, shape, and attenuation. No focal hepatic lesion or biliary ductal dilatation is present. The gallbladder is unremarkable with no evidence of radiopaque gallstones, gallbladder wall thickening, or obvious pericholecystic inflammatory changes. PANCREAS: There is fatty infiltration of the head of the pancreas. Pancreas is otherwise unremarkable. SPLEEN: Unremarkable. ADRENAL GLANDS: Unremarkable. KIDNEYS AND URETERS: There is a 4 mm stone in the lower pole of the right kidney and 3 mm stone in the midpole of the left kidney. Kidneys are otherwise unremarkable. BLADDER: Unremarkable. GASTROINTESTINAL TRACT: There is diverticulosis of the colon. Small and large bowel is otherwise unremarkable. The appendix is not identified. There are no inflammatory changes seen in the right lower quadrant. The stomach is unremarkable. ABDOMINAL WALL: There is a large umbilical hernia containing fat. This is similar to October 2020 exam. LYMPH NODES: Normal. VASCULAR: Unremarkable. PELVIC VISCERA: Unremarkable. OSSEOUS STRUCTURES: There are degenerative changes of the spine. CT/CT abdomen pelvis w con IMPRESSION: Large umbilical hernia containing fat similar to October 2020 exam. Small bilateral renal stones. Diverticulosis of the colon. Fleischner guidelines were followed.
--- NOTE | ~2021-07-21 | CT_ITS ---
EXAMINATION: CT ANGIOGRAM OF THE CHEST WITH AND WITHOUT CONTRAST (CT PULMONARY ANGIOGRAM FOR PE) CLINICAL INFORMATION: Reason for Exam Chest pain, palpitations, shortness of breath, rule out PE COMPARISON: Previous chest x-ray most recent 06/18/2021. Previous chest CT September 2010 TECHNIQUE: Prior to contrast administration, noncontrast localization images were obtained. Subsequently, multidetector volumetric imaging was performed from the thoracic inlet to below the diaphragms following the administration of 65 mL Omnipaque 350 intravenous contrast. No contrast reaction reported Sagittal, coronal, and MIP oblique sagittal reformatted images were obtained on the CT workstation, uploaded to PACS, and reviewed. This CT examination was performed using dose optimization techniques as appropriate, variously including the following: *Automated exposure control *Adjustment of mA and/or kV according to patient size (this includes techniques or standardized protocols for targeted exams where dose is matched to indication/reason for exam; i.e. extremities or head) *Use of iterative reconstruction technique Total exam dose-length product 542 mGy-cm FINDINGS: QUALITY OF STUDY/CONTRAST BOLUS: Satisfactory. PULMONARY ARTERIES: No central or segmental pulmonary emboli. THORACIC AORTA: No aneurysm or dissection. LUNG: No focal consolidation, nodules or masses. PLEURA: No pleural effusion or pneumothorax. MEDIASTINUM: The heart is upper normal in size. There is no pericardial effusion. There is no coronary artery calcification. There is a 5 x 10 mm partially calcified AP window mediastinal lymph node. No other adenopathy is seen. CHEST WALL/AXILLA: There is left axillary lymphadenopathy. This appears increased from prior exam from 2011. Largest left axillary lymph node was only partially visualized measuring at least 1.8 cm. OSSEOUS STRUCTURES: There are degenerative changes of the spine. UPPER ABDOMEN: Unremarkable. No reflux of contrast into the hepatic veins to suggest elevated right heart pressures. CT/CT angio chest PE protocol IMPRESSION: No evidence of pulmonary embolism. Left axillary lymphadenopathy increased from [address] scan. VTE: negative
--- NOTE | 2021-07-21 10:30 | ECG_ITS ---
Test Reason : SOB/PALPITATIONS Blood Pressure : / mmHG Vent. Rate : 092 BPM Atrial Rate : 092 BPM P-R Int : 204 ms QRS Dur : 116 ms QT Int : 358 ms P-R-T Axes : 053 -32 040 degrees QTc Int : 442 ms Normal sinus rhythm Left axis deviation Incomplete right bundle branch block T wave changes - likely related to Brugada ECG changes. Abnormal ECG When compared with ECG of 10-MAY-2021 09:58, No significant change was found Referred By: Generic ED Physician Electronically Signed By:Ja Gaytan
[2021-07-21 10:37] VITALS: BP 155/87; PULSE 90; RESP 18; TEMP 35.9; O2SAT 97; BMI 50.7
[2021-07-21 10:56] VITALS: BP 147/91; PULSE 94; RESP 18; O2SAT 98
--- NOTE | 2021-07-21 10:58 | PC.NURSE ---
strong steady gait to room3. unlabroed resp. skin pwd. nsr on monitor. c/o fullness in abd and i can't take a deep breath . none pitting edema BLEs.
[2021-07-21 11:27] LABS: MANUAL DIFF FLAG NO
[2021-07-21 11:33] LABS: Basophils Percent Auto 0.6 % (0-2); Eosinophils Absolute Auto 0.1 X10*3/uL (0.0-0.4); Eosinophils Percent Auto 2.4 % (0-4); Hematocrit 42.3 % (42.0-52.0); Hemoglobin 13.8 g/dl (14.0-18.0); Imm Gran Abs Auto 0.01 X10*3/uL (0.00-0.03); Imm Gran Pct Auto 0.2 % (0.0-0.4); Lymphocytes Absolute Auto 1.2 X10*3/uL (1.2-4.9); Lymphocytes Percent Auto 23.1 % (20-40); Mean Corpuscular HGB Conc 32.6 g/dl (31.0-36.0); Mean Corpuscular Hemoglobin 28.8 pg (27.0-33.0); Mean Corpuscular Volume 88.3 fL (80.0-98.0); Mean Platelet Volume 10.1 fL (9.4-12.4); Monocytes Absolute Auto 0.8 X10*3/uL (0.1-1.2); Monocytes Percent Auto 15.1 % (2-11); Neutrophils Absolute Auto 2.9 x10*3/uL (2.0-8.3); Neutrophils Percent Auto 58.6 % (45-73); Platelet Count 210 X10*3/uL (160-400); Red Blood Count 4.79 X10*6/uL (4.60-5.80); Red Cell Distribution Width 14.3 % (11.0-16.0)
[2021-07-21 11:34] LABS: Lactic Acid 1.5 mmol/L (0.5-2.0)
[2021-07-21 11:45] LABS: Alanine Aminotransferase 30 U/L (0-40); Albumin Level 3.9 g/dL (3.5-5.0); Alkaline Phosphatase 62 U/L (39-117); Anion Gap 11 (12-20); Aspartate Amino Transferase 23 U/L (5-37); Bilirubin Total 0.5 mg/dL (0.0-1.0); Blood Urea Nitrogen 11 mg/dL (9-16); Calcium 9.5 mg/dL (8.4-10.2); Carbon Dioxide 25 mmol/L (22-29); Chloride 107 mmol/L (96-108); Creatinine Clr Calc Pharmacy 116.6; Estimated Glomerular Filt Rate > 60; Glucose Random 112 mg/dL (60-115); Lipase 34 U/L (8-78); Potassium 3.9 mmol/L (3.3-5.1); Sodium 139 mmol/L (135-145)
[2021-07-21 11:47] LABS: Troponin-I High Sensitivity < 3.5 ng/L (<3.5-35.0)
--- NOTE | 2021-07-21 11:47 | ED.CHESTPAIN ---
HPI - Chest Pain General Chief Complaint: Chest Pain Stated Complaint: heart flutters/sob Time Seen by Provider: 07/21/21 10:50 Source: patient Mode of arrival: ambulatory Limitations: no limitations History of Present Illness HPI narrative: 51-year-old male who presents emergency department for evaluation of abdominal bloating x5 days and irregular heart rate/palpitations x1 day. Patient states for the past 5 days he has felt abdominal bloating. He states he has had constant nausea but no vomiting. He states that it is difficult to eat secondary to his bloated sensation. He has been having regular bowel movements and did have a bowel movement today. He states that it is sometimes hard to swallow secondary to his bloated sensation. States that he is having a bloated, constant, abdominal pain which is 2/10 at its worst. Patient does have an umbilical hernia the states the umbilical hernia is more painful than usual. Patient also states that short of thin has dyspnea on exertion which is got days he states that his feel his heart beating irregularly and fast which is unusual for him. He denied fever, chills, cough, myalgias, arthralgias, rhinorrhea or sore throat. The patient has been vaccinated with the Moderna COVID-19 vaccine with his 2nd vaccination 4 days prior. Related Data Home Medications Medication Instructions Recorded Confirmed omeprazole 20 mg capsule,delayed 20 mg PO DAILY 09/19/20 release sennosides 8.6 mg capsule (senna) 8.6 mg PO DAILY 09/19/20 Previous Rx's Medication Instructions Recorded cyclobenzaprine 10 mg tablet 10 mg PO TID PRN #14 tab 06/30/20 ibuprofen 600 mg tablet 600 mg PO Q8H PRN #20 tab 06/30/20 ibuprofen 600 mg tablet 600 mg PO Q8H PRN #60 tab 09/10/20 acetaminophen 500 mg tablet 1,000 mg PO QID PRN #14 tab 10/31/20 (Tylenol Extra Strength) ketorolac 10 mg tablet 10 mg PO Q8H PRN #15 tab 10/31/20 oxycodone 5 mg tablet 5 mg PO BID PRN #15 tab 10/31/20 tamsulosin 0.4 mg capsule (Flomax) 0.4 mg PO DAILY #10 cap 10/31/20 ibuprofen 600 mg tablet 600 mg PO Q6H PRN #30 tab 01/14/21 lidocaine 4 % topical patch 1 patch TOPICAL DAILY PRN #10 ea 01/14/21 cyclobenzaprine 10 mg tablet 10 mg PO TID PRN #8 tab 03/03/21 hydrocodone 5 mg-acetaminophen 325 1 tab PO BID PRN #5 tab 03/03/21 mg tablet ibuprofen 800 mg tablet 800 mg PO Q8H PRN #15 tab 03/03/21 prednisone 20 mg tablet 40 mg PO DAILY 5 Days #10 tab 05/10/21 pyridoxine (vitamin B6) 100 mg 100 mg PO DAILY 90 Days #90 tab 05/27/21 tablet albuterol sulfate 2.5 mg (3 mL) INHALATION Q4-6H PRN 06/18/21 #90 ml prednisone 20 mg tablet 40 mg PO DAILY #10 tab 06/18/21 Allergies Allergy/AdvReac Type Severity Reaction Status Date / Time isosorbide Allergy Unknown neck Verified 07/21/21 10:37 pain,headaches Review of Systems Review of Systems: Yes all other systems are reviewed and are negative [facility] Past Medical History [facility] Narrative: Social history: He denies tobacco, alcohol and drug use. 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: Vital Signs: Last Vital Signs Temp 96.7 F L 07/21/21 10:37 Pulse 76 07/21/21 14:23 Resp 18 07/21/21 14:23 BP 143/86 H 07/21/21 14:23 Pulse Ox 99 07/21/21 14:23 BMI result Body Mass Index 50.7 Const: General: cooperative and no acute distress Orientation/consciousness: oriented to person and oriented to place Limitations: no limitations HENMT: Head: Yes normal to inspection, Yes normocephalic and Yes atraumatic Ears: external ears normal General nose exam: Normal external nose present Face and sinus: Yes normal facial exam Mouth: Normal oral and palatal mucosa present Throat: Yes posterior oropharynx normal Eyes: General: appearance normal, both eyes and all related structures Pupils: Equal, round and reactive pupils present Neck: Neck: Yes normal visual inspection, Yes no lymphadenopathy, Yes trachea midline and Yes supple Chest: Chest palpation & inspection: normal inspection of the chest and normal palpation of entire chest wall Resp: Effort & Inspection: normal respiratory effort and able to speak in complete sentences Auscultation: clear to auscultation bilaterally Cardio: Rate: regular rate Rhythm: regular rhythm Heart sounds: S1 normal heart sound present, S2 normal heart sound present and no murmurs GI: Inspection: Yes normal to inspection Palpation (GI): Soft to palpation, Tenderness to palpation present (GI) (Mild diffuse tenderness moderate tenderness over umbilical hernia), no guarding and Hernia present (Umbilical hernia which is tender, does appear to be reducible.) Auscultation: normal bowel sounds : General: Yes no CVA tenderness Back/Spine/Pelvis: Back: no CVA tenderness Skin: General skin exam: no rashes or lesions noted Neuro: General: oriented to person and oriented to place Cranial nerves: Yes CN's II-XII intact bilaterally and Yes Equal, round and reactive pupils present Cognition (Neuro): normal cognition Motor exam (neuro): 5/5 motor strength present throughout Extrem: General: Yes normal to inspection Psych: Appearance: grossly normal Speech and movement: Normal speech and movement present Affect: normal affect Attitude: cooperative Thought process: Normal thought process present Thought content: Normal thought content present Course Course Course Narrative: 51-year-old male who presents emergency department for evaluation of bloated sensation x4 days, nausea with normal bowel movements and no vomiting, abdominal pain, shortness of breath, and palpitations. Initial vital signs revealed an elevated blood pressure of 155/87, otherwise unremarkable. Patient's heart rate was regular . Abdominal exam revealed diffuse tenderness, he does appear to be distended, he does have an umbilical hernia which is tender to palpation but is reducible. I did order a CBC, CMP, lactic acid, urinalysis. Concerned the patient may have or bowel obstruction secondary to incarcerated umbilical hernia. I did order a CT pulmonary angiogram PE protocol and CT scan of the abdomen pelvis with IV contrast. Patient is not having significant pain and does not pain medications. He was ordered to get normal saline IV x1 L and Zofran 4 mg IV for his nausea. 1453: Patient's laboratory evaluation was unremarkable. COVID-[address] scan of the chest revealed no pulmonary embolism, incidental finding of left axillary lymph nodes larger than CT done in 2010. 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 CT scan of the abdomen pelvis revealed no acute findings to explain the patient's pain. The patient does have a 3 cm right renal stone. At this time I do not have a clear cause for the patient's pain, he may be constipated I did discuss this with him. Patient was advised to take Metamucil twice a day, Colace twice a day and Senokot. He was given verbal and printed instructions and discharged home. MDM - Chest Pain Lab Data Result diagrams: 07/21/21 11:19 07/21/21 11:19 Labs: Lab Results 07/21/21 07/21/21 07/21/21 Range/Units 11:16 11:19 11:19 WBC 5.0 (4.8-10.8) X10*3/uL RBC 4.79 (4.60-5.80) X10*6/uL Hgb 13.8 L (14.0-18.0) g/dl Hct 42.3 (42.0-52.0) % MCV 88.3 (80.0-98.0) fL MCH 28.8 (27.0-33.0) pg MCHC 32.6 (31.0-36.0) g/dl RDW 14.3 (11.0-16.0) % Plt Count 210 (160-400) X10*3/uL MPV 10.1 (9.4-12.4) fL Immature Gran % (Auto) 0.2 (0.0-0.4) % Neut % (Auto) 58.6 (45-73) % Lymph % (Auto) 23.1 (20-40) % Mcminn % (Auto) 15.1 H (2-11) % Eos % (Auto) 2.4 (0-4) % Baso % (Auto) 0.6 (0-2) % Lymph # (Auto) 1.2 (1.2-4.9) X10*3/uL Mcminn # (Auto) 0.8 (0.1-1.2) X10*3/uL Eos # (Auto) 0.1 (0.0-0.4) X10*3/uL Baso # (Auto) 0.0 (0.0-0.2) X10*3/uL Abs Immat Gran (auto) 0.01 (0.00-0.03) X10*3/uL Absolute Neuts (auto) 2.9 (2.0-8.3) x10*3/uL Absolute Nucleated RBC 0.000 (0.0-0.012) X10*3/uL Nucleated RBC % (auto) 0.0 (0.0-0.2) /100WBC Sodium 139 (135-145) mmol/L Potassium 3.9 (3.3-5.1) mmol/L Chloride 107 (96-108) mmol/L Carbon Dioxide 25 (22-29) mmol/L Anion Gap 11 L (12-20) BUN 11 (9-16) mg/dL Creatinine 1.10 (0.5-1.4) mg/dL Estim Creat Clear Calc 116.6 Estimated GFR > 60 Random Glucose 112 (60-115) mg/dL Lactic Acid (0.5-2.0) mmol/L Calcium 9.5 (8.4-10.2) mg/dL Total Bilirubin 0.5 (0.0-1.0) mg/dL AST 23 (5-37) U/L ALT 30 (0-40) U/L Alkaline Phosphatase 62 (39-117) U/L Troponin I High Sens (<3.5-35.0) ng/L Total Protein 7.0 (6.5-8.0) g/dL Albumin 3.9 (3.5-5.0) g/dL Lipase 34 (8-78) U/L COVID-19 ([facility]LEY) Negative (Negative) COVID-19 Clin Com See Note 07/21/21 07/21/21 Range/Units 11:19 11:19 WBC (4.8-10.8) X10*3/uL RBC (4.60-5.80) X10*6/uL Hgb (14.0-18.0) g/dl Hct (42.0-52.0) % MCV (80.0-98.0) fL MCH (27.0-33.0) pg MCHC (31.0-36.0) g/dl RDW (11.0-16.0) % Plt Count (160-400) X10*3/uL MPV (9.4-12.4) fL Immature Gran % (Auto) (0.0-0.4) % Neut % (Auto) (45-73) % Lymph % (Auto) (20-40) % Mcminn % (Auto) (2-11) % Eos % (Auto) (0-4) % Baso % (Auto) (0-2) % Lymph # (Auto) (1.2-4.9) X10*3/uL Mcminn # (Auto) (0.1-1.2) X10*3/uL Eos # (Auto) (0.0-0.4) X10*3/uL Baso # (Auto) (0.0-0.2) X10*3/uL Abs Immat Gran (auto) (0.00-0.03) X10*3/uL Absolute Neuts (auto) (2.0-8.3) x10*3/uL Absolute Nucleated RBC (0.0-0.012) X10*3/uL Nucleated RBC % (auto) (0.0-0.2) /100WBC Sodium (135-145) mmol/L Potassium (3.3-5.1) mmol/L Chloride (96-108) mmol/L Carbon Dioxide (22-29) mmol/L Anion Gap (12-20) BUN (9-16) mg/dL Creatinine (0.5-1.4) mg/dL Estim Creat Clear Calc Estimated GFR Random Glucose (60-115) mg/dL Lactic Acid 1.5 (0.5-2.0) mmol/L Calcium (8.4-10.2) mg/dL Total Bilirubin (0.0-1.0) mg/dL AST (5-37) U/L ALT (0-40) U/L Alkaline Phosphatase (39-117) U/L Troponin I High Sens < 3.5 (<3.5-35.0) ng/L Total Protein (6.5-8.0) g/dL Albumin (3.5-5.0) g/dL Lipase (8-78) U/L COVID-19 ([facility]LEY) (Negative) COVID-19 Clin Com Discharge Plan Discharge Clinical Impression: Abdominal pain, Acute dyspnea, Abdominal distension Patient Disposition: Home, Self-Care Instructions: Abdominal Pain (ED), Constipation (ED) Additional Instructions: Your laboratory evaluation was unremarkable. Your COVID-[address] test was [address] The CT scan of your chest did not reveal a clear cause for your shortness of breath or chest pain/palpitations. Radiologist did see lymph nodes in your left underarm area. The radiologist interpretation was is following:Left axillary lymphadenopathy increased from [address] scan. I do not know if this is a significant finding but it is important that you follow-up with your power electronics research engineer, Dr. Lynn to discuss this finding and to see if you need any further testing such as a PET scan. The CT scan of your abdomen did not reveal clear cause for your abdominal pain which is reassuring. I suspect that she may be constipated Take Metamucil 1 tsp in 8 oz of water twice a day for 1 week. Take the stool softener Colace, 1 pill twice a day for 1 week. Take extra-strength Senokot 2 pills twice a day for 1 week Follow-up with your doctor in 2 days. Please return to the emergency department if your symptoms get worse or if you develop any symptoms that are concerning to you. Prescriptions: No Action pyridoxine (vitamin B6) 100 mg tablet 100 mg PO DAILY 90 Days Qty: 90 RF: 1 cyclobenzaprine 10 mg tablet 10 mg PO TID PRN (Reason: muscle spasm) Qty: 14 RF: 0 ibuprofen 600 mg tablet 600 mg PO Q8H PRN (Reason: pain) Qty: 20 RF: 0 lidocaine 4 % adhesive patch,medicated 1 patch topical DAILY PRN (Reason: pain) Qty: 10 RF: 0 ibuprofen 600 mg tablet 600 mg PO Q6H PRN (Reason: pain) Qty: 30 RF: 0 ibuprofen 600 mg tablet 600 mg PO Q8H PRN (Reason: pain) Qty: 60 RF: 0 tamsulosin [Flomax] 0.4 mg capsule 0.4 mg PO DAILY Qty: 10 RF: 0 acetaminophen [Tylenol Extra Strength] 500 mg tablet 1,000 mg PO QID PRN (Reason: fever or pain) Qty: 14 RF: 0 ketorolac 10 mg tablet 10 mg PO Q8H PRN (Reason: pain) Qty: 15 RF: 0 oxycodone 5 mg tablet 5 mg PO BID PRN (Reason: pain) Qty: 15 RF: 0 cyclobenzaprine 10 mg tablet 10 mg PO TID PRN (Reason: muscle spasm) Qty: 8 RF: 0 ibuprofen 800 mg tablet 800 mg PO Q8H PRN (Reason: pain) Qty: 15 RF: 0 hydrocodone-acetaminophen 5-325 mg tablet 1 tab PO BID PRN (Reason: pain) Qty: 5 RF: 0 prednisone 20 mg tablet 40 mg PO DAILY 5 Days Qty: 10 RF: 0 prednisone 20 mg tablet 40 mg PO DAILY Qty: 10 RF: 0 albuterol sulfate 2.5 mg /3 mL (0.083 %) solution for nebulization 2.5 mg inhalation Q4-6H PRN (Reason: shortness of breath or wheezing) Qty: 90 RF: 0 Stand Alone Forms: Work/School Release
[2021-07-21 12:00] VITALS: BP 108/55; PULSE 79; RESP 18; O2SAT 96
[2021-07-21 12:00] LABS: COVID-19 Test Negative (Negative)
[2021-07-21] MEDS: 0.9 % Sodium Chloride 1,000 ML 999 ML IV (12:06)
[2021-07-21] MEDS: ondansetron HCL 4 MG/2 ML VIAL IVPUSH (12:06)
[2021-07-21 14:23] VITALS: BP 143/86; PULSE 76; RESP 18; O2SAT 99
[2021-07-21 14:48] LABS: Appearance Urine CLEAR; Color Urine STRAW; Glucose Urine UA NEG (NEG); Leukocyte Esterase Urine NEG (NEG); Nitrite Urine NEG (NEG); PH 6.5 (5.0-8.0); Specific Gravity - Urine <= 1.005 (1.005-1.025); Urine Blood NEG (NEG); Urine Ketones NEG (NEG); Urine Protein NEG (NEG-TRACE)
== END 2021-07-21 15:46 | disposition home or self-care (01) ==
PROVIDERS: Emergency Provider Emergency Medicine Emergency Medical Services; PCP Internal Medicine
DX: R07.9 Chest pain, unspecified (principal); R14.0 Abdominal distension (gaseous); R06.02 Shortness of breath; Z20.822 Contact with and (suspected) exposure to COVID-19; Z79.899 Other long term (current) drug therapy
CPT/HCPCS: 36415; 71275; 74177; 80053; 81003; 83605; 83690; 84484; 85025; 87635; 93005; 96361; 96374; 99284; J2405

== ENCOUNTER 2021-08-12 08:54 | Emergency (ER) | payer OTHER, SELFPAY ==
[2021-08-12 10:08] VITALS: BP 137/79; PULSE 91; RESP 18; TEMP 37; O2SAT 97; BMI 49.1
[2021-08-12 10:35] LABS: COVID-19 Test Negative (Negative)
--- NOTE | 2021-08-12 10:58 | ED.GENADULT ---
HPI - General Adult General Chief complaint: Upper Respiratory Symptoms Stated complaint: covid exposed headache body aches congested Time Seen by Provider: 08/12/21 10:58 History of Present Illness HPI narrative: Patient complains of cough runny nose body aches congested, his does have COVID, symptoms started 2 days ago and his got sick 4 days ago, no shortness of breath no vomiting Related Data Home Medications Medication Instructions Recorded Confirmed omeprazole 20 mg capsule,delayed 20 mg PO DAILY 09/19/20 release sennosides 8.6 mg capsule (senna) 8.6 mg PO DAILY 09/19/20 Previous Rx's Medication Instructions Recorded cyclobenzaprine 10 mg tablet 10 mg PO TID PRN #14 tab 06/30/20 ibuprofen 600 mg tablet 600 mg PO Q8H PRN #20 tab 06/30/20 ibuprofen 600 mg tablet 600 mg PO Q8H PRN #60 tab 09/10/20 acetaminophen 500 mg tablet 1,000 mg PO QID PRN #14 tab 10/31/20 (Tylenol Extra Strength) ketorolac 10 mg tablet 10 mg PO Q8H PRN #15 tab 10/31/20 oxycodone 5 mg tablet 5 mg PO BID PRN #15 tab 10/31/20 tamsulosin 0.4 mg capsule (Flomax) 0.4 mg PO DAILY #10 cap 10/31/20 ibuprofen 600 mg tablet 600 mg PO Q6H PRN #30 tab 01/14/21 lidocaine 4 % topical patch 1 patch TOPICAL DAILY PRN #10 ea 01/14/21 cyclobenzaprine 10 mg tablet 10 mg PO TID PRN #8 tab 03/03/21 hydrocodone 5 mg-acetaminophen 325 1 tab PO BID PRN #5 tab 03/03/21 mg tablet ibuprofen 800 mg tablet 800 mg PO Q8H PRN #15 tab 03/03/21 prednisone 20 mg tablet 40 mg PO DAILY 5 Days #10 tab 05/10/21 pyridoxine (vitamin B6) 100 mg 100 mg PO DAILY 90 Days #90 tab 05/27/21 tablet albuterol sulfate 2.5 mg (3 mL) INHALATION Q4-6H PRN 06/18/21 #90 ml prednisone 20 mg tablet 40 mg PO DAILY #10 tab 06/18/21 prednisone 20 mg tablet 60 mg PO DAILY 5 Days #15 tab 08/12/21 Allergies Allergy/AdvReac Type Severity Reaction Status Date / Time isosorbide Allergy Unknown neck Verified 07/21/21 10:37 pain,headaches Review of Systems Review of Systems: Positive for headache body aches congested, mild cough, runny nose Negatives are no fever no chills no dizziness or weakness no fainting no feeling faint no stiff neck no chest pain no shortness of breath no abdominal pain no nausea or vomiting Yes all other systems are reviewed and are negative PMFSH Past Medical History Source: nursing notes reviewed Medical History Asthma Brugada syndrome Hernia Lymphoma Surgical History History of appendectomy Social History Social History Alcohol intake: never Patient Tobacco Use Status: Never used Tobacco Advance Directives: No Advance Directives Information Provided: Yes 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 Vital Signs: Vital Signs: Last Vital Signs Temp 98.6 F 08/12/21 10:08 Pulse 91 08/12/21 10:08 Resp 18 08/12/21 10:08 BP 137/79 08/12/21 10:08 Pulse Ox 97 08/12/21 10:08 BMI result Body Mass Index 49.1 General appearance is no distress Eyes no redness no discharge The pharynx is clear with no redness swelling or exudate, mucous membranes moist Neck is supple Chest clear to auscultation bilateral Heart no murmur Extremities full range of motion x4 Course Course Course Narrative: Patient is COVID positive, well-appearing and is discharged Medical Decision Making Lab Data Labs: Lab Results 08/12/21 Range/Units 10:13 COVID-19 ([facility]) Negative (Negative) COVID-19 Clin Com See Note Discharge Plan Discharge Clinical Impression: COVID-19 Patient Disposition: Home, Self-Care Additional Instructions: Your COVID test was negative today but the test often misses COVID Because your family members are ill and you have classic COVID symptoms that began after exposure to her family members it is very likely that you have COVID Right now your well-appearing with normal vital signs and normal physical exam Return any time for difficulty breathing any worse condition or any concerns If you start using her nebulizer a lot and feel like her asthma has flared you can start a course of prednisone Prescriptions: New prednisone 20 mg tablet 60 mg PO DAILY 5 Days Qty: 15 RF: 0 No Action pyridoxine (vitamin B6) 100 mg tablet 100 mg PO DAILY 90 Days Qty: 90 RF: 1 cyclobenzaprine 10 mg tablet 10 mg PO TID PRN (Reason: muscle spasm) Qty: 14 RF: 0 ibuprofen 600 mg tablet 600 mg PO Q8H PRN (Reason: pain) Qty: 20 RF: 0 lidocaine 4 % adhesive patch,medicated 1 patch topical DAILY PRN (Reason: pain) Qty: 10 RF: 0 ibuprofen 600 mg tablet 600 mg PO Q6H PRN (Reason: pain) Qty: 30 RF: 0 ibuprofen 600 mg tablet 600 mg PO Q8H PRN (Reason: pain) Qty: 60 RF: 0 tamsulosin [Flomax] 0.4 mg capsule 0.4 mg PO DAILY Qty: 10 RF: 0 acetaminophen [Tylenol Extra Strength] 500 mg tablet 1,000 mg PO QID PRN (Reason: fever or pain) Qty: 14 RF: 0 ketorolac 10 mg tablet 10 mg PO Q8H PRN (Reason: pain) Qty: 15 RF: 0 oxycodone 5 mg tablet 5 mg PO BID PRN (Reason: pain) Qty: 15 RF: 0 cyclobenzaprine 10 mg tablet 10 mg PO TID PRN (Reason: muscle spasm) Qty: 8 RF: 0 ibuprofen 800 mg tablet 800 mg PO Q8H PRN (Reason: pain) Qty: 15 RF: 0 hydrocodone-acetaminophen 5-325 mg tablet 1 tab PO BID PRN (Reason: pain) Qty: 5 RF: 0 prednisone 20 mg tablet 40 mg PO DAILY 5 Days Qty: 10 RF: 0 prednisone 20 mg tablet 40 mg PO DAILY Qty: 10 RF: 0 albuterol sulfate 2.5 mg /3 mL (0.083 %) solution for nebulization 2.5 mg inhalation Q4-6H PRN (Reason: shortness of breath or wheezing) Qty: 90 RF: 0 Stand Alone Forms: Work/School Release Interventions: ED Discharge Assessment Last Done: 08/12/21 11:13 Discharge Date/Time: 08/12/21 11:15
== END 2021-08-12 11:15 | disposition home or self-care (01) ==
PROVIDERS: Physician Assistant Medical; Emergency Provider Emergency Medicine; PCP Internal Medicine
DX: U07.1 COVID-19 (principal)
CPT/HCPCS: 36415; 87635; 99283

== ENCOUNTER → 2021-08-21 13:40 | Outpatient (BNV) | payer OTHER, SELFPAY | PROVIDERS: PCP Internal Medicine; Visit Provider Internal Medicine Medical Oncology | DX: C83.30 Diffuse large B-cell lymphoma, unspecified site (principal) | CPT/HCPCS: 99204; 99213; 99214 ==

== ENCOUNTER 2021-09-04 18:10 | Emergency (ER) | payer OTHER, SELFPAY ==
--- NOTE | ~2021-09-04 | CT_ITS ---
EXAMINATION: CT ABDOMEN AND PELVIS WITHOUT CONTRAST CLINICAL INFORMATION: Right flank pain history of nephrolithiasis. COMPARISON: CT abdomen/pelvis dated from 07/21/2021. TECHNIQUE: Multidetector volumetric imaging was performed from the superior aspect of the liver through the pubic symphysis. Sagittal and coronal reformatted images were obtained on the technologist's workstation. This CT examination was performed using dose optimization techniques as appropriate, variously including the following: *Automated exposure control *Adjustment of mA and/or kV according to patient size (this includes techniques or standardized protocols for targeted exams where dose is matched to indication/reason for exam; i.e. extremities or head) *Use of iterative reconstruction technique DLP: 1087 mGy-cm FINDINGS: LUNG BASES: No focal airspace opacities or pleural effusions. LIVER, GALLBLADDER, AND BILIARY TREE: The liver is normal in size, shape, and attenuation. No focal hepatic lesion or biliary ductal dilatation is present. The gallbladder is unremarkable with no evidence of radiopaque gallstones, gallbladder wall thickening, or obvious pericholecystic inflammatory changes. PANCREAS: Fatty infiltration of the head of the pancreas. The main pancreatic duct is nondilated. No peripancreatic free fluid or inflammatory changes. SPLEEN: Unremarkable. ADRENAL GLANDS: Unremarkable. KIDNEYS AND URETERS: There is moderate right hydroureteronephrosis with a 0.8 cm calculus in the right ureter at the level of L4. There is a 0.5 cm calculus in the upper pole of the right kidney situated at approximately 15.7 cm from the skin surface of the posterior axillary line and a 0.4 cm calculus in the lower pole of the right kidney located at approximately 19 cm from the posterior axillary line. There is a 0.4 cm nonobstructive calculus in the interpolar region of the left kidney situated at 17 cm from the skin of the posterior axillary line. Accounting for limitations in the absence of intravenous contrast, no focal cortical abnormalities are identified. There is asymmetric fat stranding around the right kidney and right ureter. BLADDER: Underdistended limiting assessment of wall thickening. No perivesical fat stranding. GASTROINTESTINAL TRACT: The stomach and the small bowel are nondilated. The appendix is not identified. Colonic diverticulosis without pericolic inflammatory changes. However, the majority of the colon is under distended which limits assessment of wall thickening. No bowel obstruction. ABDOMINAL WALL: Unchanged fat-containing umbilical hernia. LYMPH NODES: No lymphadenopathy by size criteria. VASCULAR: Unremarkable. PELVIC VISCERA: Unremarkable. OSSEOUS STRUCTURES: No acute or aggressive osseous abnormalities. CT/CT abdomen pelvis wo con IMPRESSION: There is moderate right hydroureteronephrosis with a 0.8 cm calculus in the right ureter at the level of L4. There are several additional renal calculi in both kidneys, described in detail above. Diverticulosis but no associated diverticulitis. Unchanged fat-containing umbilical hernia.
--- NOTE | ~2021-09-04 | XR_ITS ---
EXAMINATION: XR ABDOMEN KUB CLINICAL INDICATION: Constipation and abdominal pain. COMPARISON: CT abdomen/pelvis dated from 07/21/2021. TECHNIQUE: AP view of the abdomen. FINDINGS: The bowel gas pattern is normal with no evidence of ileus or obstruction. No unusual soft tissue calcifications are noted. The bones are unremarkable. XR/XR KUB IMPRESSION: Nonobstructive bowel gas pattern. Mild stool burden.
[2021-09-04 19:25] VITALS: BP 172/89; PULSE 91; RESP 16; TEMP 36.5; O2SAT 98; BMI 49.1
[2021-09-04 20:11] LABS: MANUAL DIFF FLAG NO
[2021-09-04 20:12] LABS: Basophils Percent Auto 0.2 % (0-2); Eosinophils Absolute Auto 0.1 X10*3/uL (0.0-0.4); Hematocrit 41.8 % (42.0-52.0); Hemoglobin 13.7 g/dl (14.0-18.0); Imm Gran Abs Auto 0.02 X10*3/uL (0.00-0.03); Imm Gran Pct Auto 0.2 % (0.0-0.4); Lymphocytes Absolute Auto 0.9 X10*3/uL (1.2-4.9); Lymphocytes Percent Auto 10.6 % (20-40); Mean Corpuscular HGB Conc 32.8 g/dl (31.0-36.0); Mean Corpuscular Hemoglobin 29.1 pg (27.0-33.0); Mean Corpuscular Volume 88.7 fL (80.0-98.0); Mean Platelet Volume 10.6 fL (9.4-12.4); Monocytes Absolute Auto 0.7 X10*3/uL (0.1-1.2); Monocytes Percent Auto 7.9 % (2-11); Neutrophils Percent Auto 80.1 % (45-73); Platelet Count 206 X10*3/uL (160-400); Red Blood Count 4.71 X10*6/uL (4.60-5.80); Red Cell Distribution Width 13.6 % (11.0-16.0); White Blood Count 8.7 X10*3/uL (4.8-10.8)
[2021-09-04 20:17] LABS: Appearance Urine CLEAR; Color Urine YELLOW; Glucose Urine UA NEG (NEG); Leukocyte Esterase Urine NEG (NEG); Nitrite Urine NEG (NEG); Specific Gravity - Urine >= 1.030 (1.005-1.025); UACC Culture Trigger NO; Urine Blood TRACE (NEG); Urine Ketones 5 MG/DL (NEG); Urine Protein NEG (NEG-TRACE)
[2021-09-04 20:27] LABS: Ethanol < 10 mg/dL
--- NOTE | 2021-09-04 20:27 | ED.ABDPAIN ---
HPI - Abdominal Pain General Chief Complaint: Abdominal Pain Stated Complaint: lower abd pain Time Seen by Provider: 09/04/21 20:27 Source: patient Mode of arrival: ambulatory Limitations: no limitations History of Present Illness HPI narrative: Patient's recurrent abdominal pain been here multiple times in the past last visit was in August [address] scan showed nonobstructive kidney stone right-sided. Now comes here for pain in the right abdominal area since earlier today also patient has umbilical hernia which is nontender and same size in in the past no hematuria no fever chills no urinary complaints no fever no vomiting no diarrhea no dysuria Related Data Home Medications Medication Instructions Recorded Confirmed sennosides 8.6 mg capsule (senna) 8.6 mg PO DAILY 09/19/20 08/21/21 Previous Rx's Medication Instructions Recorded acetaminophen 500 mg tablet 1,000 mg PO QID PRN #14 tab 10/31/20 (Tylenol Extra Strength) pyridoxine (vitamin B6) 100 mg 100 mg PO DAILY 90 Days #90 tab 05/27/21 tablet albuterol sulfate 2.5 mg (3 mL) INHALATION Q4-6H PRN 06/18/21 #90 ml oxycodone 5 mg tablet 5 mg PO Q6H PRN #20 tab 09/05/21 tamsulosin 0.4 mg capsule (Flomax) 0.4 mg PO BEDTIME #30 cap 09/05/21 Allergies Allergy/AdvReac Type Severity Reaction Status Date / Time isosorbide Allergy Unknown neck Verified 08/21/21 14:13 pain,headaches Review of Systems Review of Systems Yes all other systems are reviewed and are negative Physical Exam Vital Signs: Vital Signs: Last Vital Signs Temp 98.6 F 09/05/21 00:32 Pulse 89 09/05/21 00:32 Resp 18 09/05/21 00:32 BP 149/86 H 09/05/21 00:32 Pulse Ox 99 09/05/21 00:32 BMI result Body Mass Index 49.1 Appearance: Alert. Oriented X3. No acute distress. Eyes: PERRLA, No Nystagmus ENT: Pharynx normal. Oral Mucosa moist Neck: Normal inspection. Neck supple. CVS: Normal heart rate and rhythm. Pulses normal. Respiratory: No respiratory distress. Equal air entry bilateral, no wheezing/rales/rhonchi Abdomen: Soft diffuse tenderness in the right upper quadrant area and right lower abdomen, Bowel sounds are present, no mass palpable, no CVA tenderness no rebound or guarding, reducible umbilical hernia nontender Skin: Skin warm and dry. Normal skin color. Normal skin turgor. Extremities: No lower extremity edema. No calf tenderness Neuro: Oriented X 3. MDM - Abdominal Pain MDM Narrative Medical decision making narrative: Patient with 0.8 cm right proximal ureteric stone with moderate hydronephrosis. After pain medication and Flomax patient feeling much better now denies any significant pain feel okay to go home. Advised to follow Dr. Paniagua in 2 days with lithotripsy and stent placement Lab Data Result diagrams: 09/04/21 20:05 09/04/21 20:05 Labs: Lab Results 09/04/21 09/04/21 09/04/21 Range/Units 20:05 20:05 20:05 WBC 8.7 (4.8-10.8) X10*3/uL RBC 4.71 (4.60-5.80) X10*6/uL Hgb 13.7 L (14.0-18.0) g/dl Hct 41.8 L (42.0-52.0) % MCV 88.7 (80.0-98.0) fL MCH 29.1 (27.0-33.0) pg MCHC 32.8 (31.0-36.0) g/dl RDW 13.6 (11.0-16.0) % Plt Count 206 (160-400) X10*3/uL MPV 10.6 (9.4-12.4) fL Immature Gran % (Auto) 0.2 (0.0-0.4) % Neut % (Auto) 80.1 H (45-73) % Lymph % (Auto) 10.6 L (20-40) % Webster % (Auto) 7.9 (2-11) % Eos % (Auto) 1.0 (0-4) % Baso % (Auto) 0.2 (0-2) % Lymph # (Auto) 0.9 L (1.2-4.9) X10*3/uL Webster # (Auto) 0.7 (0.1-1.2) X10*3/uL Eos # (Auto) 0.1 (0.0-0.4) X10*3/uL Baso # (Auto) 0.0 (0.0-0.2) X10*3/uL Abs Immat Gran (auto) 0.02 (0.00-0.03) X10*3/uL Absolute Neuts (auto) 7.0 (2.0-8.3) x10*3/uL Absolute Nucleated RBC 0.000 (0.0-0.012) X10*3/uL Nucleated RBC % (auto) 0.0 (0.0-0.2) /100WBC Sodium 138 (135-145) mmol/L Potassium 4.5 (3.3-5.1) mmol/L Chloride 106 (96-108) mmol/L Carbon Dioxide 25 (22-29) mmol/L Anion Gap 12 (12-20) BUN 16 (9-16) mg/dL Creatinine 1.50 H (0.5-1.4) mg/dL Estim Creat Clear Calc 83.9 Estimated GFR 50 Random Glucose 207 H D (60-115) mg/dL Calcium 9.5 (8.4-10.2) mg/dL Total Bilirubin < 0.2 (0.0-1.0) mg/dL Direct Bilirubin < 0.2 (0.0-0.5) mg/dL AST 19 (5-37) U/L ALT 24 (0-40) U/L Alkaline Phosphatase 62 (39-117) U/L Total Protein 7.1 (6.5-8.0) g/dL Albumin 3.7 (3.5-5.0) g/dL Urine Color Urine Appearance Urine pH (5.0-8.0) Ur Specific [place] (1.005-1.025) Urine Protein (NEG-TRACE) MG/DL Urine Glucose (UA) (NEG) MG/DL Urine Ketones (NEG) MG/DL Urine Blood (NEG) Urine Nitrite (NEG) Ur Leukocyte Esterase (NEG) Urine RBC (0) /HPF Urine WBC (0-4) /HPF Ur Squamous Epith Cells /LPF Urine Bacteria /LPF Urine Mucus /LPF Urine Opiates Screen (Not Detect) Urine Fentanyl Screen (Not Detect) Ur Barbiturates Screen (Not Detect) Ur Phencyclidine Scrn (Not Detect) Ur Amphetamines Screen (Not Detect) U Benzodiazepines Scrn (Not Detect) Urine Cocaine Screen (Not Detect) U Marijuana (THC) Screen (Not Detect) Ethyl Alcohol mg/dL COVID-19 ([facility]) Negative (Negative) COVID-19 Clin Com See Note 09/04/21 09/04/21 09/04/21 Range/Units 20:05 20:05 20:05 WBC (4.8-10.8) X10*3/uL RBC (4.60-5.80) X10*6/uL Hgb (14.0-18.0) g/dl Hct (42.0-52.0) % MCV (80.0-98.0) fL MCH (27.0-33.0) pg MCHC (31.0-36.0) g/dl RDW (11.0-16.0) % Plt Count (160-400) X10*3/uL MPV (9.4-12.4) fL Immature Gran % (Auto) (0.0-0.4) % Neut % (Auto) (45-73) % Lymph % (Auto) (20-40) % Webster % (Auto) (2-11) % Eos % (Auto) (0-4) % Baso % (Auto) (0-2) % Lymph # (Auto) (1.2-4.9) X10*3/uL Webster # (Auto) (0.1-1.2) X10*3/uL Eos # (Auto) (0.0-0.4) X10*3/uL Baso # (Auto) (0.0-0.2) X10*3/uL Abs Immat Gran (auto) (0.00-0.03) X10*3/uL Absolute Neuts (auto) (2.0-8.3) x10*3/uL Absolute Nucleated RBC (0.0-0.012) X10*3/uL Nucleated RBC % (auto) (0.0-0.2) /100WBC Sodium (135-145) mmol/L Potassium (3.3-5.1) mmol/L Chloride (96-108) mmol/L Carbon Dioxide (22-29) mmol/L Anion Gap (12-20) BUN (9-16) mg/dL Creatinine (0.5-1.4) mg/dL Estim Creat Clear Calc Estimated GFR Random Glucose (60-115) mg/dL Calcium (8.4-10.2) mg/dL Total Bilirubin (0.0-1.0) mg/dL Direct Bilirubin (0.0-0.5) mg/dL AST (5-37) U/L ALT (0-40) U/L Alkaline Phosphatase (39-117) U/L Total Protein (6.5-8.0) g/dL Albumin (3.5-5.0) g/dL Urine Color YELLOW Urine Appearance CLEAR Urine pH 6.0 (5.0-8.0) Ur Specific [place] >= 1.030 H (1.005-1.025) Urine Protein NEG (NEG-TRACE) MG/DL Urine Glucose (UA) NEG (NEG) MG/DL Urine Ketones 5 (NEG) MG/DL Urine Blood TRACE (NEG) Urine Nitrite NEG (NEG) Ur Leukocyte Esterase NEG (NEG) Urine RBC 1-4 (0) /HPF Urine WBC 0-2 (0-4) /HPF Ur Squamous Epith Cells TRACE /LPF Urine Bacteria TRACE /LPF Urine Mucus 1+ /LPF Urine Opiates Screen Not Detected (Not Detect) Urine Fentanyl Screen Not Detected (Not Detect) Ur Barbiturates Screen Not Detected (Not Detect) Ur Phencyclidine Scrn Not Detected (Not Detect) Ur Amphetamines Screen Not Detected (Not Detect) U Benzodiazepines Scrn Not Detected (Not Detect) Urine Cocaine Screen Not Detected (Not Detect) U Marijuana (THC) Screen Not Detected (Not Detect) Ethyl Alcohol < 10 mg/dL COVID-19 ([facility]) (Negative) COVID-19 Clin Com Discharge Plan Discharge Clinical Impression: Calculus of proximal right ureter Patient Disposition: Home, Self-Care Instructions: Ureteral Stones (ED) Additional Instructions: Drink plenty of fluids Call urologist on Tuesday at 08:00 for the appointment Report to the ER if pain gets worse Prescriptions: New oxycodone 5 mg tablet 5 mg PO Q6H PRN (Reason: Pain, Moderate) Qty: 20 RF: 0 tamsulosin [Flomax] 0.4 mg capsule 0.4 mg PO BEDTIME Qty: 30 RF: 0 No Action pyridoxine (vitamin B6) 100 mg tablet 100 mg PO DAILY 90 Days Qty: 90 RF: 1 acetaminophen [Tylenol Extra Strength] 500 mg tablet 1,000 mg PO QID PRN (Reason: fever or pain) Qty: 14 RF: 0 albuterol sulfate 2.5 mg /3 mL (0.083 %) solution for nebulization 2.5 mg inhalation Q4-6H PRN (Reason: shortness of breath or wheezing) Qty: 90 RF: 0 Referrals: Simeon Paniagua MD [Physician] - 2 days Stand Alone Forms: Work/School Release [facility] Past Medical History Attestation statement: The following information was validated with the patient. 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
[2021-09-04 20:30] LABS: COVID-19 Test Negative (Negative)
[2021-09-04 20:34] LABS: Amphetamine Screen Urine Not Detected (Not Detect); Barbiturates, Urine Not Detected (Not Detect); Benzodiazepines Screen Urine Not Detected (Not Detect); Cannabinoid Screen Urine Not Detected (Not Detect); Cocaine Screen Urine Not Detected (Not Detect); Fentanyl, urine Not Detected (Not Detect); Opiate Screen Urine Not Detected (Not Detect); Phencyclidine Screen Urine Not Detected (Not Detect)
[2021-09-04 20:35] LABS: Alanine Aminotransferase 24 U/L (0-40); Albumin Level 3.7 g/dL (3.5-5.0); Alkaline Phosphatase 62 U/L (39-117); Anion Gap 12 (12-20); Aspartate Amino Transferase 19 U/L (5-37); Bilirubin Direct < 0.2 mg/dL (0.0-0.5); Bilirubin Total < 0.2 mg/dL (0.0-1.0); Blood Urea Nitrogen 16 mg/dL (9-16); Calcium 9.5 mg/dL (8.4-10.2); Carbon Dioxide 25 mmol/L (22-29); Chloride 106 mmol/L (96-108); Creatinine Clr Calc Pharmacy 83.9; Estimated Glomerular Filt Rate 50; Glucose Random 207 mg/dL (60-115); Potassium 4.5 mmol/L (3.3-5.1); Sodium 138 mmol/L (135-145); Total Protein 7.1 g/dL (6.5-8.0)
[2021-09-04 20:42] LABS: Squamous Epithelial Cell Urine TRACE /LPF; WBC Urine 0-2 /HPF (0-4)
[2021-09-04 20:43] LABS: Bacteria Urine TRACE /LPF; Mucus Urine 1+ /LPF
[2021-09-04] MEDS: 0.9 % Sodium Chloride 1,000 ML 999 ML IV (21:04)
[2021-09-04] MEDS: Milk of Magnesia 30 ML ORAL.SUSP PO (21:05)
[2021-09-04] MEDS: ondansetron HCL 4 MG/2 ML VIAL IVPUSH (22:55)
[2021-09-04] MEDS: Morphine Sulfate 4 MG/ML CARTRIDGE IVPUSH (22:55)
[2021-09-04 23:09] VITALS: BP 127/78; PULSE 82; RESP 18; TEMP 36.5; O2SAT 97
[2021-09-05] MEDS: oxyCODONE HCl Immed Release 5 MG TABLET 10 MG PO (00:28)
[2021-09-05] MEDS: Ketorolac Tromethamine 30 MG/ML VIAL IVPUSH (00:29)
[2021-09-05] MEDS: Tamsulosin HCL 0.4 MG CAPSULE PO (00:29)
[2021-09-05 00:32] VITALS: BP 149/86; PULSE 89; RESP 18; TEMP 37; O2SAT 99
--- NOTE | 2021-09-05 00:42 | PC.NURSE ---
I assumed care of this patient upon his arrival to bed 1. The pt has remained alert and oriented x 3, without chest pain, without SOB. Speaking in full sentences, no cyanosis, room air sats 95% or better. [place] x 4, he has ambulated throughout his rom independently and with steady gait. he has c/o moderate to severe lower/R sided abdominal/groin pain. He has been calm and cooperative throughout, behaving approrpiately for his age.
== END 2021-09-05 00:45 | disposition home or self-care (01) ==
PROVIDERS: Emergency Provider Internal Medicine; PCP Internal Medicine
DX: N13.2 Hydronephrosis with renal and ureteral calculous obstruction (principal); K42.9 Umbilical hernia without obstruction or gangrene; Z20.822 Contact with and (suspected) exposure to COVID-19
CPT/HCPCS: 74018; 74176; 80053; 80307; 81001; 82077; 82248; 85025; 87635; 96361; 96374; 96375; 99284; J1885; J2270; J2405

== ENCOUNTER 2021-09-09 10:23 | Outpatient (REF) | payer OTHER, SELFPAY ==
[2021-09-09 10:46] LABS: MANUAL DIFF FLAG NO
[2021-09-09 10:59] LABS: Basophils Percent Auto 0.5 % (0-2); Eosinophils Absolute Auto 0.2 X10*3/uL (0.0-0.4); Eosinophils Percent Auto 2.7 % (0-4); Hematocrit 42.6 % (42.0-52.0); Hemoglobin 13.7 g/dl (14.0-18.0); Imm Gran Abs Auto 0.01 X10*3/uL (0.00-0.03); Imm Gran Pct Auto 0.2 % (0.0-0.4); Lymphocytes Absolute Auto 1.2 X10*3/uL (1.2-4.9); Lymphocytes Percent Auto 22.3 % (20-40); Mean Corpuscular HGB Conc 32.2 g/dl (31.0-36.0); Mean Corpuscular Hemoglobin 28.5 pg (27.0-33.0); Mean Corpuscular Volume 88.8 fL (80.0-98.0); Mean Platelet Volume 10.2 fL (9.4-12.4); Monocytes Absolute Auto 0.6 X10*3/uL (0.1-1.2); Monocytes Percent Auto 11.6 % (2-11); Neutrophils Absolute Auto 3.5 x10*3/uL (2.0-8.3); Neutrophils Percent Auto 62.7 % (45-73); Platelet Count 217 X10*3/uL (160-400); Red Cell Distribution Width 13.6 % (11.0-16.0); White Blood Count 5.5 X10*3/uL (4.8-10.8)
[2021-09-09 11:32] LABS: Alanine Aminotransferase 28 U/L (0-40); Albumin Level 3.9 g/dL (3.5-5.0); Alkaline Phosphatase 53 U/L (39-117); Anion Gap 13 (12-20); Aspartate Amino Transferase 24 U/L (5-37); Bilirubin Total 0.4 mg/dL (0.0-1.0); Blood Urea Nitrogen 16 mg/dL (9-16); Carbon Dioxide 25 mmol/L (22-29); Chloride 105 mmol/L (96-108); Cholesterol 172 mg/dL; Estimated Glomerular Filt Rate > 60; Glucose Fasting 98 mg/dL (60-99); HDL Cholesterol 32 mg/dL; LDL Cholesterol Calculated 126 mg/dl; Potassium 4.3 mmol/L (3.3-5.1); Sodium 139 mmol/L (135-145); Total Protein 7.3 g/dL (6.5-8.0); Triglycerides 72 mg/dL
[2021-09-09 11:57] LABS: Prostate Specific Antigen Scr 0.29 ng/mL (<0.05-4.0); TSH reflex Free T4 0.75 uIU/mL (0.32-4.0)
== END 2021-09-09 10:24 | disposition home or self-care (01) ==
LOC: HO.LAB 10:23
PROVIDERS: PCP Internal Medicine; Visit Provider Internal Medicine
DX: Z00.00 Encounter for general adult medical examination without abnormal findings (principal); E78.00 Pure hypercholesterolemia, unspecified; Z12.5 Encounter for screening for malignant neoplasm of prostate
CPT/HCPCS: 36415; 80053; 80061; 84153; 84443; 85025

== ENCOUNTER 2021-09-23 12:35 | Outpatient (REF) | payer OTHER, SELFPAY ==
--- NOTE | ~2021-09-23 | US_ITS ---
EXAMINATION: ULTRASOUND EXTREMITY NONVASCULAR CLINICAL INFORMATION: Enlarged left axillary lymph node on chest CTA. History of lymphoma. History of Covid vaccine in the left arm prior to CTA. COMPARISON: Previous CTA of the chest 07/21/2022 TECHNIQUE: Grayscale and color imaging of the left axilla using a linear transducer FINDINGS: There are several normal-appearing left axillary lymph nodes. These demonstrate normal ultrasound morphology with thin hypoechoic cortex and thick fatty echogenic hilum and normal hilar flow. Largest lymph nodes measure 1.4 x 1.6 x 1.1 cm and 1.9 x 0.9 x 1.8 cm. Ultrasound-guided biopsy of fine-needle aspiration was not performed. US/US extremity nonvascular soliman IMPRESSION: Normal-appearing left axillary lymph nodes.
== END 2021-09-23 12:36 | disposition home or self-care (01) ==
LOC: HO.US 12:35
PROVIDERS: PCP Internal Medicine; Visit Provider Internal Medicine Medical Oncology
DX: R51.9 Headache, unspecified (principal)
CPT/HCPCS: 76882

== ENCOUNTER 2021-09-30 15:10 | Outpatient (REF) | payer OTHER, SELFPAY ==
--- NOTE | ~2021-09-30 | US_ITS ---
EXAMINATION: US RETROPERITONEAL LIMITED (RENAL ONLY) CLINICAL INFORMATION: Calculus of kidney. COMPARISON: XR abdomen KUB 09/04/2021 and 03/23/2014. CT abdomen and pelvis without contrast 09/04/2021. Renal ultrasound 02/02/2021. TECHNIQUE: Real-time imaging of the kidneys. FINDINGS: RIGHT KIDNEY: 12.6 x 5.0 x 6 cm (SAG x AP x TRV). The kidney has normal cortical thickness and cortical echotexture. No renal mass. Although small calyceal stones were seen in the right kidney on 09/04/2021, no stones are visible on this ultrasound examination. No hydronephrosis. LEFT KIDNEY: 13.9 x 5.3 x 5.5 cm (SAG x AP x TRV). The kidney has normal cortical thickness and cortical echotexture. Small, 0.4 cm calyceal stone is seen in the interpolar region. No hydronephrosis. No renal mass. US/US renal BI IMPRESSION: Small calyceal stone is visible within the mid left kidney. Previously observed small right renal stones are not sonographically detected. No acute abnormality. No hydronephrosis.
== END 2021-09-30 15:11 | disposition home or self-care (01) ==
LOC: HO.US 15:10
PROVIDERS: PCP Internal Medicine; Visit Provider Urology
DX: N20.0 Calculus of kidney (principal)
CPT/HCPCS: 76775

== ENCOUNTER 2021-11-16 09:31 | Emergency (ER) | payer OTHER, SELFPAY ==
--- NOTE | ~2021-11-16 | XR_ITS ---
EXAMINATION: XR SHOULDER, LEFT CLINICAL INFORMATION: Pain. Injury at work. COMPARISON: 03/03/2021 TECHNIQUE: AP external rotation, Grashey, scapular Y, and axillary views of the left shoulder. FINDINGS: There is no fracture or dislocation. The glenohumeral joint is well aligned. The acromioclavicular joint is intact with mild hypertrophic degenerative change. The visualized lung is clear. The visualized ribs are intact. XR/XR shoulder LT min 2V IMPRESSION: No acute abnormality. Mild degenerative change of the acromioclavicular joint.
--- NOTE | 2021-11-16 10:11 | ED_ITS ---
HPI - Extremity Injury (Upper) General Chief Complaint: Extremity Injury, Upper Stated Complaint: Shoulder inj-work inj Time Seen by Provider: 11/16/21 10:10 Source: patient Mode of arrival: ambulatory Limitations: no limitations History of Present Illness HPI narrative: 51 yo male here with complaints of left shoulder pain after lifting several bags of rocks yesterday at work at [employer]. No numbness, tingling, weakness, redness, swelling, fevers or chills. Related Data Previous Rx's Medication Instructions Recorded acetaminophen 500 mg tablet 1,000 mg PO QID PRN #14 tab 10/31/20 (Tylenol Extra Strength) pyridoxine (vitamin B6) 100 mg 100 mg PO DAILY 90 Days #90 tab 05/27/21 tablet albuterol sulfate 2.5 mg (3 mL) INHALATION Q4-6H PRN 06/18/21 #90 ml oxycodone 5 mg tablet 5 mg PO Q6H PRN #20 tab 09/05/21 omeprazole 20 mg capsule,delayed 20 mg PO DAILY 90 Days #90 cap 09/09/21 release sennosides 8.6 mg capsule (senna) 8.6 mg PO DAILY PRN 90 Days #90 cap 09/09/21 naproxen 500 mg tablet 500 mg PO BID PRN #20 tab 11/16/21 Allergies Allergy/AdvReac Type Severity Reaction Status Date / Time isosorbide Allergy Unknown neck Verified 09/14/21 15:15 pain,headaches Review of Systems Review of Systems: Yes all other systems are reviewed and are negative Constitutional: Constitutional: Reports no additional constitutional complaints, Denies body ache(s), Denies chills, Denies fever(s), Denies headache(s) and Denies weakness Eyes: Eyes: Reports no additional eye complaints and Denies change in vision ENT: Reports system reviewed and no additional complaints, except as documented, Denies dizziness, Denies headache(s), Denies nasal congestion, Rasheed es nasal discharge and Denies neck pain Cardiovascular: Cardiovascular: Reports no additional cardiovascular complaints, Denies chest pain, Denies leg edema and Denies dyspnea Respiratory: Respiratory: Reports no additional respiratory complaints, Denies cough and Denies dyspnea Gastrointestinal: Gastrointestinal: Reports no additional gastrointestinal complaints, Denies abdominal pain, Denies diarrhea, Denies nausea and Denies vomiting Genitourinary: Genitourinary: Denies urinary incontinence Musculoskeletal: Musculoskeletal: Reports no additional musculoskeletal complaints, Denies back pain, Reports arthralgias, Denies joint swelling, Denies neck pain, Denies numbness and Denies tingling Integumentary/Breasts: Skin/Breast: Reports system reviewed and no additional complaints, except as docu and Denies rash Neurologic: Reports system reviewed and no additional complaints, except as documented, Denies Abnormal speech present, Denies dizziness, Denies headache(s), Denies numbness, Denies tingling and Denies weakness [facility] Past Medical History Attestation statement: The following information was validated with the patient. Source: old records reviewed and nursing notes reviewed Medical History Asthma Brugada syndrome Constipation GERD (gastroesophageal reflux disease) Hernia Lymphoma Morbid obesity with BMI of 50.0-59.9, adult Obstructive sleep apnea Surgical History History of appendectomy Family History Family History Paternal Grandmother Cancer Father Colon cancer Social History Social History Housing: House Alcohol intake: never Patient Tobacco Use Status: Never used Tobacco Second Hand Smoke Exposure: No Advance Directives: No Advance Directives Information Provided: No service: No Current occupational status: employed 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 Physical Exam Vital Signs: Vital Signs: Last Vital Signs Temp 97.4 F 11/16/21 10:40 Pulse 86 11/16/21 10:40 Resp 18 11/16/21 10:40 BP 130/77 11/16/21 10:40 Pulse Ox 98 11/16/21 10:40 BMI result Body Mass Index 49.1 Const: General: cooperative, healthy appearing, comfortable and no acute distress Orientation/consciousness: patient oriented x3 Limitations: no limitations HEENT: Head: Yes normal to inspection Ears: hearing grossly normal bilaterally General nose exam: Normal external nose present Face and sinus: Yes normal facial exam Mouth: Normal oral and palatal mucosa present Throat: Yes posterior oropharynx normal Eyes: General: appearance normal, both eyes and all related structures Pupils: Equal, round and reactive pupils present Neck: Neck: Yes normal visual inspection Chest: Chest palpation & inspection: normal inspection of the chest Resp: Effort & Inspection: normal respiratory effort Auscultation: clear to auscultation bilaterally Cardio: Rate: regular rate Rhythm: regular rhythm Peripheral pulses: Peripheral pulses 2+ throughout GI: Inspection: Yes normal to inspection Palpation (GI): Soft to palpation and nontender Auscultation: normal bowel sounds Back/Spine/Pelvis: Thoracic/Lumbar Spine: thoracic and lumbar spine normal to inspection Skin: General skin exam: no rashes or lesions noted Neuro: General: patient oriented x3, no focal motor deficits and normal sensation to monofilament Cranial nerves: Yes Equal, round and reactive pupils present Cognition (Neuro): normal cognition Speech: No Abnormal speech present Gait exam (Neuro): Normal gait present Motor exam (neuro): 5/5 motor strength present throughout Extrem: Other: There is tenderness to the left posterior shoulder and proximal humerus with no obvious deformity. Full range of motion. Neurovascularly intact distally. General: Yes normal to inspection Course Course Course Narrative: 51-year-old male here with left shoulder pain after work injury yesterday. X- ray show no bony abnormalities. ? muscle strain vs rotator cuff injury. Recommended NSAIDs, ice, limiting use of the extremity and follow-up with work connection. Reviewed worrisome signs and symptoms of when to return to the emergency department. Comfortable discharge home. MDM - Extremity Injury (Upper) Medical Records Attestation: I reviewed the patient's medical records. Lab Data Attestation: I reviewed the patient's lab results. Imaging Data shoulder x-ray: Attestation: I personally reviewed and interpreted this imaging study as follows: Radiologist's impression: FINDINGS: There is no fracture or dislocation. The glenohumeral joint is well aligned. The acromioclavicular joint is intact with mild hypertrophic degenerative change. The visualized lung is clear. The visualized ribs are intact.? XR/XR shoulder LT min 2V IMPRESSION: No acute abnormality. Mild degenerative change of the acromioclavicular joint. Discharge Plan Discharge Clinical Impression: Left shoulder strain Patient Disposition: Home, Self-Care Instructions: Muscle Strain (DC) Additional Instructions: X-ray show no bony abnormality. You may have injury to her rotator cuff which can be evaluated further at work connection Follow-up with work connection [id number] No heavy lifting Heat or ice to the area Start the anti-inflammatory medicine Prescriptions: New naproxen 500 mg tablet 500 mg PO BID PRN (Reason: pain) Qty: 20 0RF No Action pyridoxine (vitamin B6) 100 mg tablet 100 mg PO DAILY 90 Days Qty: 90 1RF acetaminophen [Tylenol Extra Strength] 500 mg tablet 1,000 mg PO QID PRN (Reason: fever or pain) Qty: 14 0RF albuterol sulfate 2.5 mg /3 mL (0.083 %) solution for nebulization 2.5 mg inhalation Q4-6H PRN (Reason: shortness of breath or wheezing) Qty: 90 0RF oxycodone 5 mg tablet 5 mg PO Q6H PRN (Reason: Pain, Moderate) Qty: 20 0RF omeprazole 20 mg capsule,delayed release(DR/EC) 20 mg PO DAILY 90 Days Qty: 90 1RF senna 8.6 mg capsule 8.6 mg PO DAILY PRN (Reason: constipation) 90 Days Qty: 90 3RF Stand Alone Forms: Work/School Release
[2021-11-16 10:40] VITALS: BP 130/77; PULSE 86; RESP 18; TEMP 36.3; O2SAT 98; BMI 49.1
== END 2021-11-16 11:34 | disposition home or self-care (01) ==
PROVIDERS: Emergency Provider Emergency Medicine; PCP Internal Medicine
DX: S46.912A Strain of unspecified muscle, fascia and tendon at shoulder and upper arm level, left arm, initial encounter (principal); X50.0XXA Overexertion from strenuous movement or load, initial encounter; Y93.89 Activity, other specified; Y92.512 Supermarket, store or market as the place of occurrence of the external cause; Y99.0 Civilian activity done for income or pay
CPT/HCPCS: 73030; 99282; 99283

== ENCOUNTER 2022-02-10 07:18 | Emergency (ER) | payer OTHER, SELFPAY ==
--- NOTE | ~2022-02-10 | XR_ITS ---
EXAMINATION: CHEST 2 VIEWS CLINICAL INFORMATION: upper resp congestion . COMPARISON: 06/18/2021. TECHNIQUE: PA and lateral views of the chest obtained. FINDINGS: The lungs are well expanded. No focal infiltrate, effusion, edema, or pneumothorax. Cardiac and mediastinal silhouettes are within normal limits for technique. No acute bony abnormality seen XR/XR chest 2V IMPRESSION: No evidence of acute disease
[2022-02-10 07:28] VITALS: BP 124/84; PULSE 85; RESP 17; TEMP 36.8; O2SAT 97; BMI 49.1
--- NOTE | 2022-02-10 07:46 | ED.URI ---
HPI - URI/Sore Throat General Chief Complaint: Upper Respiratory Symptoms Stated Complaint: chest congestion, sore throat, - COVID Time Seen by Provider: 02/10/22 07:37 Source: patient Mode of arrival: ambulatory Limitations: no limitations History of Present Illness MD elicited complaint: rhinorrhea and sinus pain Onset (ago): day(s) (2) Consistency: constant Severity: moderate Description of mucous: yellow Able to tolerate fluids by mouth: Yes Exacerbating factors: swallowing Relieving factors: nothing Associated symptoms: headache and nasal congestion Treatments prior to arrival: none Related Data Previous Rx's Medication Instructions Recorded acetaminophen 500 mg tablet 1,000 mg PO QID PRN fever or pain 10/31/20 (Tylenol Extra Strength) #14 tabs pyridoxine (vitamin B6) 100 mg 100 mg PO DAILY 90 days #90 tabs 05/27/21 tablet albuterol sulfate 2.5 mg (3 mL) inhalation Q4-6H PRN 06/18/21 shortness of breath or wheezing #90 mL omeprazole 20 mg capsule,delayed 20 mg PO DAILY 90 days #90 caps 09/09/21 release sennosides 8.6 mg capsule (senna) 8.6 mg PO DAILY PRN constipation 09/09/21 90 days #90 caps naproxen 500 mg tablet 500 mg PO BID PRN pain #20 tabs 11/16/21 meloxicam 15 mg tablet 15 mg PO DAILY #14 tabs 01/20/22 amoxicillin 500 mg tablet 500 mg PO BID 7 days #14 tabs 02/10/22 Allergies Allergy/AdvReac Type Severity Reaction Status Date / Time isosorbide Allergy Unknown neck Verified 02/01/22 14:14 pain,headaches Review of Systems Review of Systems: Constitutional: No Fever, No Chills ENT/Mouth :pos sore throat, pos Rhinorrhea, pos sinus pain Eyes: No Eye Pain, No Swelling, No Redness Cardiovascular : No Chest Pain, No SOB Respiratory : pos Cough, No Sputum, No Wheezing Gastrointestinal : No Nausea, No Vomiting Genitourinary : No Dysuria, No Urinary Frequency, No Hematuria, Musculoskeletal : No joint pain, No Myalgias, No Joint Swelling Skin : No Skin Lesions, No rash Neuro : No Weakness, No Numbness, No Dizziness, pos Headache PMFSH Past Medical History Attestation statement: The following information was validated with the patient. 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 Oriented X3. No acute distress. Eyes: Pupils equal, round and reactive to light. ENT: Pharynx normal. Bilateral frontal and maxillary sinus ttp mild puffiness noted under eye area Neck: Normal inspection. Neck supple. CVS: Normal heart rate and rhythm. Pulses normal. Respiratory: No respiratory distress. Breath sounds normal. Abdomen: Soft and nontender. Skin: Skin warm and dry. Normal skin color. Normal skin turgor. Extremities: No lower extremity edema. No calf ttp Neuro: Oriented X 3. No motor deficit. No sensory deficit. MDM - URI/Sore Throat MDM Narrative Medical decision making narrative: 51 yo male with hx of brugada, lymphoma here with c/o URI symptoms x 2 days, CXR and triage swabs negative for flu and covid - suspect more sinusitis given facial pain, puffiness and nasal drainage. will start on amoxicillin and DC home. Lab Data Labs: Lab Results 02/10/22 02/10/22 02/10/22 Range/Units 07:39 07:39 07:39 COVID-19 (ASHLEY) Negative (Negative) COVID-19 Clin Com See Note Influenza Type A (ARANZA) Negative (Negative) Influenza Type B (ARANZA) Negative (Negative) Influenza A & B Note See Note S. pyogenes GrpA ARANZA Negative (Negative) Discharge Plan Discharge Clinical Impression: Sinusitis Qualifiers: Sinusitis location: maxillary Chronicity: acute Recurrence: non-recurrent Qualified Code(s): J01.00 - Acute maxillary sinusitis, unspecified Patient Disposition: Home, Self-Care Instructions: Sinusitis (ED) Additional Instructions: return to ED for any worsening symptoms or concerns flu, COVID, strep and chest xray all negative Prescriptions: New amoxicillin 500 mg tablet 500 mg PO BID 7 Days Qty: 14 0RF No Action pyridoxine (vitamin B6) 100 mg tablet 100 mg PO DAILY 90 Days Qty: 90 1RF acetaminophen [Tylenol Extra Strength] 500 mg tablet 1,000 mg PO QID PRN (Reason: fever or pain) Qty: 14 0RF naproxen 500 mg tablet 500 mg PO BID PRN (Reason: pain) Qty: 20 0RF albuterol sulfate 2.5 mg /3 mL (0.083 %) solution for nebulization 2.5 mg inhalation Q4-6H PRN (Reason: shortness of breath or wheezing) Qty: 90 0RF omeprazole 20 mg capsule,delayed release(DR/EC) 20 mg PO DAILY 90 Days Qty: 90 1RF senna 8.6 mg capsule 8.6 mg PO DAILY PRN (Reason: constipation) 90 Days Qty: 90 3RF meloxicam 15 mg tablet 15 mg PO DAILY Qty: 14 0RF Referrals: Tj Alexandre MD [Primary Care Provider] - 2 days (if not better) Stand Alone Forms: Work/School Release
[2022-02-10 07:58] LABS: Strep A Nucleic Acid Negative (Negative)
[2022-02-10 08:01] LABS: Influenza A Negative (Negative); Influenza B2 Negative (Negative)
[2022-02-10 08:02] LABS: COVID-19 Test Negative (Negative); IDNOW Serial# 16C4AD1C
== END 2022-02-10 08:37 | disposition home or self-care (01) ==
PROVIDERS: Emergency Provider Emergency Medicine; PCP Internal Medicine
DX: J01.00 Acute maxillary sinusitis, unspecified (principal); Z20.822 Contact with and (suspected) exposure to COVID-19; J02.9 Acute pharyngitis, unspecified
CPT/HCPCS: 36415; 71046; 87502; 87635; 87651; 99282; 99283

== ENCOUNTER → 2022-02-18 14:33 | Outpatient (BNVA) | payer OTHER, SELFPAY | PROVIDERS: PCP Internal Medicine; Visit Provider Internal Medicine Cardiovascular Disease | DX: Z01.810 Encounter for preprocedural cardiovascular examination (principal) | CPT/HCPCS: 93005 ==

== ENCOUNTER 2022-03-24 11:19 | Emergency (ER) | payer OTHER, SELFPAY ==
--- NOTE | ~2022-03-24 | CT_ITS ---
EXAMINATION: CT ABDOMEN AND PELVIS WITHOUT CONTRAST CLINICAL INFORMATION: Right flank and right lower quadrant pain. COMPARISON: Renal ultrasound 09/30/[address] abdomen pelvis 09/04/2021 TECHNIQUE: Multidetector volumetric imaging was performed from the superior aspect of the liver through the pubic symphysis. Sagittal and coronal reformatted images were obtained on the technologist's workstation. This CT examination was performed using dose optimization techniques as appropriate, variously including the following: *Automated exposure control *Adjustment of mA and/or kV according to patient size (this includes techniques or standardized protocols for targeted exams where dose is matched to indication/reason for exam; i.e. extremities or head) *Use of iterative reconstruction technique DLP: 1171 mGy-cm FINDINGS: Visualized lung bases are well aerated. The liver is normal in size but demonstrates diffusely decreased attenuation. The gallbladder is normal in appearance. There is mild fatty atrophy of the pancreas. The spleen and adrenal glands are unremarkable. There is mild right-sided hydroureteronephrosis secondary to a 5 mm calculus within the right ureterovesical junction. Also noted is a 4 mm nonobstructing calculus of the right kidney. There is a single 3 mm nonobstructing calculus of the left kidney. No left-sided hydronephrosis. The stomach is decompressed. Normal caliber loops of small bowel. Mild to moderate colonic diverticulosis without CT evidence to suggest active diverticulitis. Prominent fat-containing umbilical hernia is unchanged. Normal caliber abdominal aorta. No retroperitoneal lymphadenopathy. The bladder is underdistended. The prostate gland is normal in size. No gross free pelvic fluid. No inguinal lymphadenopathy. No acute osseous abnormality. CT/CT abdomen pelvis wo con IMPRESSION: Mild right-sided hydroureteronephrosis secondary to a 5 mm calculus within the right ureterovesical junction. Fleischner guidelines were followed.
[2022-03-24 11:24] VITALS: BP 143/88; PULSE 95; RESP 18; TEMP 36.8; O2SAT 97; BMI 49.1
[2022-03-24 11:44] LABS: Appearance Urine CLEAR; Color Urine YELLOW; Glucose Urine UA NEG (NEG); Leukocyte Esterase Urine NEG (NEG); Nitrite Urine NEG (NEG); Specific Gravity - Urine >= 1.030 (1.005-1.025); UACC Culture Trigger NO; Urine Blood 1+ (NEG); Urine Ketones NEG (NEG); Urine Protein NEG (NEG-TRACE)
[2022-03-24 12:07] LABS: Mucus Urine TRACE /LPF; Squamous Epithelial Cell Urine TRACE /LPF
[2022-03-24 12:08] LABS: WBC Urine 0-2 /HPF (0-4)
--- NOTE | 2022-03-24 12:14 | ED_ITS ---
HPI - Abdominal Pain General Chief Complaint: Abdominal Pain Stated Complaint: lower abd pain Time Seen by Provider: 03/24/22 11:54 Source: patient Mode of arrival: ambulatory Limitations: no limitations History of Present Illness HPI narrative: 51-year-old male who presents emergency department for evaluation of i ntermittent right-sided abdominal and flank pain. Patient states that last night while he was in bed at 20:00 hours she had a sudden onset of sharp pain in his right flank and right groin area. He states that lasted approximately 2-3 hours then resolved. This morning when he woke up he felt fine but when he got to work he had a gradual onset right-sided pain. He states that the pain buildup at 11:00 hours and became severe and was 9/10. He states that the pain lasted several hours and then resolved. States that he has gotten intermittent pain which is not been as severe. Patient states he has had similar pain in the past secondary to kidney stones. He states that his last kidney stone was 1 year prior pain MD elicited complaint: abdominal pain (RLQ) and flank pain (Right) Pertinent past history: kidney stones Onset (ago): day(s) (2) Pain Consistency: intermittent Location: RLQ and R flank Severity: severe Pain scale (0-10): 9 Quality: sharp Radiation: none Migration to: no migration Exacerbating factors: nothing Relieving factors: nothing Associated symptoms: nausea and other (Urinary frequency) Treatments prior to arrival: NSAIDs Related Data Previous Rx's Medication Instructions Recorded acetaminophen 500 mg tablet 1,000 mg PO QID PRN fever or pain 10/31/20 (Tylenol Extra Strength) #14 tabs pyridoxine (vitamin B6) 100 mg 100 mg PO DAILY 90 days #90 tabs 05/27/21 tablet albuterol sulfate 2.5 mg/3 mL 2.5 mg (3 mL) inhalation Q4-6H PRN 06/18/21 (0.083 %) solution for nebulization shortness of breath or wheezing #90 mL omeprazole 20 mg capsule,delayed 20 mg PO DAILY 90 days #90 caps 09/09/21 release sennosides 8.6 mg capsule (senna) 8.6 mg PO DAILY PRN constipation 09/09/21 90 days #90 caps naproxen 500 mg tablet 500 mg PO BID PRN pain #20 tabs 11/16/21 amoxicillin 500 mg tablet 500 mg PO BID 7 days #14 tabs 02/10/22 oxycodone 5 mg tablet 5 mg PO Q4H PRN pain #14 tabs 03/24/22 prednisone 20 mg tablet 60 mg PO DAILY 7 days #21 tabs 03/24/22 tamsulosin 0.4 mg capsule (Flomax) 0.4 mg PO DAILY #30 caps 03/24/22 Allergies Allergy/AdvReac Type Severity Reaction Status Date / Time isosorbide Allergy Unknown neck Verified 03/24/22 11:24 pain,headaches Review of Systems Review of Systems Yes all other systems are reviewed and are negative [facility] Past Medical History [facility] Narrative: Social history: The patient denies tobacco, alcohol and drug use. 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 Physical Exam ED Vital Signs: Vital Signs - 24 hr 03/24/22 11:24 03/24/22 14:00 Temperature 98.3 F Pulse Rate 95 79 Respiratory Rate 18 18 Blood Pressure 143/88 H 127/46 L Pulse Oximetry 97 98 Oxygen Delivery Method Room Air Room Air BMI result Body Mass Index 49.1 Const General: cooperative and no acute distress Orientation/consciousness: oriented to person and oriented to place Limitations: no limitations HENMT Head: Yes normal to inspection, Yes normocephalic and Yes atraumatic Ears: external ears normal General nose exam: Normal external nose present Face and sinus: Yes normal facial exam Mouth: Normal oral and palatal mucosa present Throat: Yes posterior oropharynx normal Eyes General: appearance normal, both eyes and all related structures Pupils: Equal, round and reactive pupils present Neck Neck: Yes normal visual inspection, Yes no lymphadenopathy, Yes trachea midline and Yes supple Chest Chest palpation & inspection: normal inspection of the chest and normal palpation of entire chest wall Resp Effort & Inspection: normal respiratory effort and able to speak in complete sentences Auscultation: clear to auscultation bilaterally Cardio Rate: regular rate Rhythm: regular rhythm Heart sounds: S1 normal heart sound present, S2 normal heart sound present and no murmurs GI Inspection: Yes normal to inspection Palpation (GI): Soft to palpation, Tenderness to palpation present (GI) in the RLQ (Mild) and no guarding Auscultation: normal bowel sounds General: Yes CVA tenderness on the right (Mild) Male General Exam: Yes normal external exam and Yes other (No inguinal hernias noted) Penis: normal penis Meatus: meatus normal Scrotum: scrotum normal (No tenderness) Testes: Testes normal (No tenderness) Back/Spine/Pelvis Back: CVA tenderness Skin General skin exam: no rashes or lesions noted Neuro General: oriented to person and oriented to place Cranial nerves: Yes CN's II-XII intact bilaterally and Yes Equal, round and reactive pupils present Cognition (Neuro): normal cognition Motor exam (neuro): 5/5 motor strength present throughout Extrem General: Yes normal to inspection Psych Appearance: grossly normal Speech and movement: Normal speech and movement present Affect: normal affect Attitude: cooperative Thought process: Normal thought process present Thought content: Normal thought content present Course Course Course Narrative: 51-year-old male who presents emergency department evaluation of intermittent right lower quadrant and right flank pain which started yesterday. Patient does have a history of kidney stones and renal colic with his last kidney stone 1 year prior. Patient's physical examination did reveal right lower quadrant and right flank tenderness. Patient's examination was unremarkable. Urinalysis revealed 1+ blood, microscopic revealed 9 RBCs, 2 WBCs, no bacteria. Patient's CMP was normal, see CBC was normal. CT scan of the abdomen pelvis without IV contrast revealed a 5 mm mid ureteral stone. Patient also had a 4 mm right kidney stone is 3 mm left kidney stone. Radiologist also noted fatty pancreas-the patient's lipase was normal. Patient's presentation is consistent with renal colic secondary to the 5 mm mid ureteral stone. Patient was given Toradol 30 mg IV with resolution of his pain. Patient was started on prednisone 60 mg once a day for 7 days, Tylenol 1000 mg every 4-6 hours as needed for pain, Percocet for pain not relieved by prednisone and oxycodone. He was also started on Flomax. Patient was advised to follow-up with Dr. Paniagua for re-evaluation in 1-2 weeks. He was given printed and verbal instructions. MDM - Abdominal Pain Lab Data Result diagrams: 03/24/22 12:17 03/24/22 12:17 Labs: Lab Results 03/24/22 03/24/22 03/24/22 Range/Units 11:34 12:17 12:17 WBC 6.3 (4.8-10.8) X10*3/uL RBC 5.10 (4.60-5.80) X10*6/uL Hgb 14.4 (14.0-18.0) g/dl Hct 43.5 (42.0-52.0) % MCV 85.3 (80.0-98.0) fL MCH 28.2 (27.0-33.0) pg MCHC 33.1 (31.0-36.0) g/dl RDW 14.0 (11.0-16.0) % Plt Count 223 (160-400) X10*3/uL MPV 10.4 (9.4-12.4) fL Immature Gran % (Auto) 0.2 (0.0-0.4) % Neut % (Auto) 62.9 (45-73) % Lymph % (Auto) 22.9 (20-40) % Eddy % (Auto) 11.3 H (2-11) % Eos % (Auto) 2.1 (0-4) % Baso % (Auto) 0.6 (0-2) % Lymph # (Auto) 1.4 (1.2-4.9) X10*3/uL Eddy # (Auto) 0.7 (0.1-1.2) X10*3/uL Eos # (Auto) 0.1 (0.0-0.4) X10*3/uL Baso # (Auto) 0.0 (0.0-0.2) X10*3/uL Abs Immat Gran (auto) 0.01 (0.00-0.03) X10*3/uL Absolute Neuts (auto) 4.0 (2.0-8.3) x10*3/uL Absolute Nucleated RBC 0.000 (0.0-0.012) X10*3/uL Nucleated RBC % (auto) 0.0 (0.0-0.2) /100WBC Sodium 139 (135-145) mmol/L Potassium 4.1 (3.3-5.1) mmol/L Chloride 105 (96-108) mmol/L Carbon Dioxide 24 (22-29) mmol/L Anion Gap 14 (12-20) BUN 12 (9-16) mg/dL Creatinine 0.91 (0.5-1.4) mg/dL Estim Creat Clear Calc 138.3 Estimated GFR > 60 Random Glucose 97 (60-115) mg/dL Calcium 9.5 (8.4-10.2) mg/dL Total Bilirubin 0.5 (0.0-1.0) mg/dL AST 34 (5-37) U/L ALT 44 H (0-40) U/L Alkaline Phosphatase 56 (39-117) U/L Total Protein 7.4 (6.5-8.0) g/dL Albumin 4.0 (3.5-5.0) g/dL Lipase 32 (8-78) U/L Urine Color YELLOW Urine Appearance CLEAR Urine pH 6.0 (5.0-8.0) Ur Specific [place] >= 1.030 H (1.005-1.025) Urine Protein NEG (NEG-TRACE) MG/DL Urine Glucose (UA) NEG (NEG) MG/DL Urine Ketones NEG (NEG) MG/DL Urine Blood 1+ H (NEG) Urine Nitrite NEG (NEG) Ur Leukocyte Esterase NEG (NEG) Urine RBC 5-9 H (0) /HPF Urine WBC 0-2 (0-4) /HPF Ur Squamous Epith Cells TRACE /LPF Urine Bacteria NONE /LPF Urine Mucus TRACE /LPF Discharge Plan Discharge Clinical Impression: Right ureteral calculus, Bilateral kidney stones, Renal colic Patient Disposition: Home, Self-Care Instructions: Kidney Stones (ED), How to Strain Your Urine (ED) Additional Instructions: Your blood work was unremarkable. Your urine revealed blood in urine this goes along with a kidney stone. You do not have a urine infection. The CT scan of your abdomen pelvis without IV contrast revealed a 5 mm stone in the ureter (the tube that connects the kidney to the bladder) and this is the cause of your pain. You also have a 4 mm stone in the right kidney and a 3 mm stone in your left kidney. These are not causing your pain but these stones can cause pain in the future. The CT scan also revealed a fatty pancreas, this can sometimes lead to problems with the pancreas in the future, and the treatment is to try to lose weight. Take prednisone 20 mg pills, 3 pills once a day for 5 days. While you are taking prednisone, do not take any NSAIDs (Motrin, Advil, ibuprofen, Aleve, naproxen). Take Tylenol (acetaminophen) 500 mg pills, 2 pills every 4-6 hours as needed for pain. For pain not relieved by prednisone or Tylenol take oxycodone 5 mg pills, 1 pill every 4 hours as needed for pain. Do not drive or work while taking this medication since they can cause sleepiness. Oxycodone is a narcotic medication that can be addicting. If you are concerned about addiction you can ask the pharmacist for less pills or do not get this prescription filled. Take Flomax (tamsulosin) 0.4 mg once a day for the next 2 weeks or until you pass the stone. This medication helps relax the ureter and may help you pass the stone sooner. Follow-up with Dr. Paniagua in 1-2 weeks. Please return to the emergency department if your symptoms get worse or if you develop any symptoms that are concerning to you. Please see the work note Prescriptions: New prednisone 20 mg tablet 60 mg PO DAILY 7 Days Qty: 21 0RF tamsulosin [Flomax] 0.4 mg capsule 0.4 mg PO DAILY Qty: 30 0RF oxycodone 5 mg tablet 5 mg PO Q4H PRN (Reason: pain) Qty: 14 0RF Rx Instructions: Patient may request partial fill; Partial Fill upon patient request. No Action pyridoxine (vitamin B6) 100 mg tablet 100 mg PO DAILY 90 Days Qty: 90 1RF acetaminophen [Tylenol Extra Strength] 500 mg tablet 1,000 mg PO QID PRN (Reason: fever or pain) Qty: 14 0RF naproxen 500 mg tablet 500 mg PO BID PRN (Reason: pain) Qty: 20 0RF albuterol sulfate 2.5 mg /3 mL (0.083 %) solution for nebulization 2.5 mg inhalation Q4-6H PRN (Reason: shortness of breath or wheezing) Qty: 90 0RF amoxicillin 500 mg tablet 500 mg PO BID 7 Days Qty: 14 0RF omeprazole 20 mg capsule,delayed release(DR/EC) 20 mg PO DAILY 90 Days Qty: 90 1RF senna 8.6 mg capsule 8.6 mg PO DAILY PRN (Reason: constipation) 90 Days Qty: 90 3RF Referrals: Simeon Paniagua MD [Physician] - 2 weeks (Right 5 mm right ureteral stone, renal colic. Incidental 4 mm right kidney stone and 3 mm left kidney stone) Stand Alone Forms: Work/School Release
[2022-03-24 12:22] LABS: MANUAL DIFF FLAG NO
[2022-03-24 12:25] LABS: Basophils Percent Auto 0.6 % (0-2); Eosinophils Absolute Auto 0.1 X10*3/uL (0.0-0.4); Eosinophils Percent Auto 2.1 % (0-4); Hematocrit 43.5 % (42.0-52.0); Hemoglobin 14.4 g/dl (14.0-18.0); Imm Gran Abs Auto 0.01 X10*3/uL (0.00-0.03); Imm Gran Pct Auto 0.2 % (0.0-0.4); Lymphocytes Absolute Auto 1.4 X10*3/uL (1.2-4.9); Lymphocytes Percent Auto 22.9 % (20-40); Mean Corpuscular HGB Conc 33.1 g/dl (31.0-36.0); Mean Corpuscular Hemoglobin 28.2 pg (27.0-33.0); Mean Corpuscular Volume 85.3 fL (80.0-98.0); Mean Platelet Volume 10.4 fL (9.4-12.4); Monocytes Absolute Auto 0.7 X10*3/uL (0.1-1.2); Monocytes Percent Auto 11.3 % (2-11); Neutrophils Percent Auto 62.9 % (45-73); Platelet Count 223 X10*3/uL (160-400); White Blood Count 6.3 X10*3/uL (4.8-10.8)
[2022-03-24 12:51] LABS: Alanine Aminotransferase 44 U/L (0-40); Alkaline Phosphatase 56 U/L (39-117); Anion Gap 14 (12-20); Aspartate Amino Transferase 34 U/L (5-37); Bilirubin Total 0.5 mg/dL (0.0-1.0); Blood Urea Nitrogen 12 mg/dL (9-16); Calcium 9.5 mg/dL (8.4-10.2); Carbon Dioxide 24 mmol/L (22-29); Chloride 105 mmol/L (96-108); Creatinine Clr Calc Pharmacy 138.3; Estimated Glomerular Filt Rate > 60; Glucose Random 97 mg/dL (60-115); Lipase 32 U/L (8-78); Potassium 4.1 mmol/L (3.3-5.1); Sodium 139 mmol/L (135-145); Total Protein 7.4 g/dL (6.5-8.0)
[2022-03-24 14:00] VITALS: BP 127/46; PULSE 79; RESP 18; O2SAT 98
[2022-03-24] MEDS: Ketorolac Tromethamine 15 MG/ML VIAL 30 MG IVPUSH (14:07)
== END 2022-03-24 15:31 | disposition home or self-care (01) ==
PROVIDERS: Emergency Provider Emergency Medicine Emergency Medical Services; PCP Internal Medicine
DX: N13.2 Hydronephrosis with renal and ureteral calculous obstruction (principal); R10.30 Lower abdominal pain, unspecified; E66.01 Morbid (severe) obesity due to excess calories; Z68.42 Body mass index [BMI] 45.0-49.9, adult; Z87.442 Personal history of urinary calculi
CPT/HCPCS: 36415; 74176; 80053; 81001; 83690; 85025; 96372; 96374; 99284; J1885

== ENCOUNTER 2022-07-21 12:38 | Outpatient (REF) | payer OTHER, SELFPAY ==
[2022-07-21 13:30] LABS: Influenza A PCR NEGATIVE (Negative); Influenza B PCR NEGATIVE (Negative); Resp Syncy Virus RNA Qual PCR NEGATIVE (Negative); SARS COV2 PCR INHOUSE NEGATIVE (Negative)
== END 2022-07-21 12:39 | disposition home or self-care (01) ==
LOC: HO.LNP 12:38
PROVIDERS: Visit Provider Nurse Practitioner Family
DX: R09.89 Other specified symptoms and signs involving the circulatory and respiratory systems (principal); Z20.822 Contact with and (suspected) exposure to COVID-19
CPT/HCPCS: 0241U

== ENCOUNTER 2022-07-23 06:20 | Emergency (ER) | payer OTHER, SELFPAY ==
[2022-07-23 06:44] VITALS: BP 143/79; PULSE 90; RESP 16; TEMP 36.4; O2SAT 95; BMI 50.6
[2022-07-23 07:53] LABS: COVID-19 Test Negative (Negative); IDNOW Serial# 16C4AD1C; IDNOW Serial# BCCEAD1C; Influenza A Negative (Negative); Influenza B2 Negative (Negative)
--- NOTE | 2022-07-23 09:30 | ED_ITS ---
HPI - URI/Sore Throat General Chief Complaint: General Medical Stated Complaint: flu like symptoms Time Seen by Provider: 07/23/22 09:02 Source: patient Mode of arrival: ambulatory Limitations: no limitations History of Present Illness MD elicited complaint: cough Onset (ago): day(s) (2) Consistency: constant and progressively worsening Severity: mild Able to tolerate fluids by mouth: Yes Exacerbating factors: nothing Relieving factors: nothing Context: sick contacts ( daughter tested positive for the flu 2 days prior to the patient developing his symptoms) Associated symptoms: chills, myalgias, headache and cough Treatments prior to arrival: none Related Data Previous Rx's Medication Instructions Recorded acetaminophen 500 mg tablet 1,000 mg PO QID PRN fever or pain 10/31/20 (Tylenol Extra Strength) #14 tabs pyridoxine (vitamin B6) 100 mg 100 mg PO DAILY 90 days #90 tabs 05/27/21 tablet albuterol sulfate 2.5 mg/3 mL 2.5 mg (3 mL) inhalation Q4-6H PRN 06/18/21 (0.083 %) solution for nebulization shortness of breath or wheezing #90 mL sennosides 8.6 mg capsule (senna) 8.6 mg PO DAILY PRN constipation 09/09/21 90 days #90 caps naproxen 500 mg tablet 500 mg PO BID PRN pain #20 tabs 11/16/21 oxycodone 5 mg tablet 5 mg PO Q4H PRN pain #14 tabs 03/24/22 tamsulosin 0.4 mg capsule (Flomax) 0.4 mg PO DAILY #30 caps 03/24/22 omeprazole 20 mg capsule,delayed 20 mg PO DAILY 90 days #90 caps 04/25/22 release albuterol sulfate 2.5 mg/3 mL 2.5 mg (3 mL) inhalation Q4-6H PRN 07/21/22 (0.083 %) solution for nebulization shortness of breath or wheezing #75 mL azithromycin 250 mg tablet See Rx Instructions PO .COMPLEX #6 07/23/22 tabs codeine 10 mg-guaifenesin 100 mg/5 5 ml PO Q6H PRN cold symptoms #120 07/23/22 mL oral liquid (Guaifenesin AC) mL prednisone 20 mg tablet 40 mg PO DAILY inflammation 5 days 07/23/22 #10 tabs Allergies Allergy/AdvReac Type Severity Reaction Status Date / Time isosorbide Allergy Unknown neck Verified 07/21/22 09:10 pain,headaches Review of Systems Review of Systems: Constitutional : No Weight loss, No Fever, No Chills, No Night Sweats, + Fatigue, + Malaise ENT/Mouth : No Hearing loss, No Ear Pain, No Nasal Congestion, No Sinus Pain, No Hoarseness, No sore throat, No Rhinorrhea, No Swallowing Difficulty Eyes: No Eye Pain, No Swelling, No Redness, No Foreign Body, No Discharge, No Vision Changes Cardiovascular : No Chest Pain, No SOB, No Dyspnea on Exertion, No Orthopnea, No Edema, No Palpitations Respiratory : + Cough, No Sputum, No Wheezing, No Smoke Exposure, No Dyspnea Gastrointestinal : No Nausea, No Vomiting, No Diarrhea, No Constipation, No abdominal Pain, No Hematochezia, No Melena Genitourinary : no irregular bleeding, No Dysuria, No Urinary Frequency, No Hematuria, No Urinary Incontinence, No Urgency, No Flank Pain, No Urinary Flow Changes, No Hesitancy Musculoskeletal : No joint pain, + Myalgias, No Joint Swelling Skin : No Skin Lesions, No rash Neuro : No Weakness, No Numbness, No Paresthesias, No Loss of Consciousness, No Dizziness, + Headache Psych : No Anxiety/Panic, No Depression, No SI/HI/AH/VH, No Social Issues, Heme/Lymph: No Bruising, No Bleeding,No Lymphadenopathy Endocrine : No Polyuria, No Polydipsia, No Temperature Intolerance Yes all other systems are reviewed and are negative [facility] Past Medical History Attestation statement: The following information was validated with the patient. Source: old records reviewed and nursing notes reviewed Medical History Asthma Brugada syndrome Constipation COVID-19 Diffuse large B cell lymphoma GERD (gastroesophageal reflux disease) Hernia Lymphoma Morbid obesity with BMI of 50.0-59.9, adult Morbid obesity with BMI of 50.0-59.9, adult Obstructive sleep apnea Surgical History History of appendectomy Family History Family History Paternal Grandmother Cancer Father Colon cancer Social History Social History Housing: House Alcohol intake: never Patient Tobacco Use Status: Never used Tobacco Second Hand Smoke Exposure: No Advance Directives: No Advance Directives Information Provided: Yes service: No Current occupational status: employed 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 Blood pressure 143/79 Pulse normal. Respiration no rmal. Oxygen normal. Temperature normal. Appearance: Alert. Oriented X3. No acute distress. Head: Normal external exam. Normocephalic. Atraumatic. Eyes: PERRLA. EOMI. Conjunctiva and sclera normal. Eyelids normal. ENT: EAC normal. TM's Normal. Pharynx normal. Uvula midline. Moist mucous membranes. No lesions/ulcerations or masses noted on the tongue. Normal voice. No trismus noted. No drooling noted. No muffled voice noted. Neck: Normal inspection. Neck supple. FROM. No adenopathy. Thyroid Normal. No meningeal signs. CVS: Normal heart rate and rhythm. Heart sound normal. Pulses normal throughout. No murmurs/rales/gallops. Respiratory: No respiratory distress. Painless inspiration. Breath sounds normal. No wheezes/rales/rhonchi noted. Chest nontender. No accessory muscle usage noted or decreased air movement noted. Abdomen: Soft and nontender. Back: Full range of motion noted. Nontender. Skin: Skin warm and dry. Normal skin color. Normal skin turgor. No rashes/lesions/lacerations noted. Extremities: Extremities exhibit normal range of motion and nontender. Neuro: Oriented X 3. No motor deficit. No sensory deficit. Reflexes normal. Normal steady gait. No focal neuro deficits noted. CN's II-XII intact bilaterally? Vascular: + radial pulses. Normal cap refill. No cyanosis noted to upper extremity nails Course Course Course Narrative: 52-year-old male presenting with URI symptoms for the past 2 days. Reports that he tested negative for COVID proximally 2 days ago at an outpatient urgent care clinic. Reports his daughter tested positive for the flu on Tuesday. He denies any fevers, recent travel or any other sick contacts. He denies any trouble swallowing or breathing. On exam lungs are clear to auscultation. Although patient reports he usually comes on with bronchitis. He has not been having to use his albuterol inhaler. He denies any chest pain or shortness of breath for any abdominal symptoms or any other symptoms complaints or concerns. Patient negative for COVID/RSV/ flu. Will DC home antibiotics for bronchitis and instructions return if any new or worsening symptoms follow up with primary care provider. Patient understands agrees with this plan. Medical Decision Making Medical Decision Making Lab Attestation: I reviewed the patient's lab results. Discharge Plan Discharge Clinical Impression: Bronchitis Patient Disposition: Home, Self-Care Instructions: Acute Bronchitis (ED) Prescriptions: New azithromycin 250 mg tablet See Rx Instructions .ROUTE .COMPLEX Qty: 6 0RF Rx Instructions: take 500 mg today (day 1), then 250 mg for 4 days (days 2-5) prednisone 20 mg tablet 40 mg PO DAILY 5 Days Qty: 10 0RF codeine-guaifenesin [Guaifenesin AC] 10-100 mg/5 mL liquid 5 ml PO Q6H PRN (Reason: cold symptoms) Qty: 120 0RF No Action pyridoxine (vitamin B6) 100 mg tablet 100 mg PO DAILY 90 Days Qty: 90 1RF omeprazole 20 mg capsule,delayed release(DR/EC) 20 mg PO DAILY 90 Days Qty: 90 1RF acetaminophen [Tylenol Extra Strength] 500 mg tablet 1,000 mg PO QID PRN (Reason: fever or pain) Qty: 14 0RF naproxen 500 mg tablet 500 mg PO BID PRN (Reason: pain) Qty: 20 0RF albuterol sulfate 2.5 mg /3 mL (0.083 %) solution for nebulization 2.5 mg inhalation Q4-6H PRN (Reason: shortness of breath or wheezing) Qty: 90 0RF tamsulosin [Flomax] 0.4 mg capsule 0.4 mg PO DAILY Qty: 30 0RF oxycodone 5 mg tablet 5 mg PO Q4H PRN (Reason: pain) Qty: 14 0RF Rx Instructions: Patient may request partial fill; Partial Fill upon patient request. albuterol sulfate 2.5 mg /3 mL (0.083 %) solution for nebulization 2.5 mg inhalation Q4-6H PRN (Reason: shortness of breath or wheezing) Qty: 75 0RF senna 8.6 mg capsule 8.6 mg PO DAILY PRN (Reason: constipation) 90 Days Qty: 90 3RF Referrals: Tj Alexandre MD [Primary Care Provider] - 2 days Stand Alone Forms: Work/School Release Interventions: ED Discharge Assessment Last Done: 07/23/22 09:37
== END 2022-07-23 09:38 | disposition home or self-care (01) ==
PROVIDERS: Emergency Provider Emergency Medicine Emergency Medical Services; PCP Internal Medicine
DX: J40 Bronchitis, not specified as acute or chronic (principal); M79.10 Myalgia, unspecified site; R51.9 Headache, unspecified; R05.9 Cough, unspecified; Z20.822 Contact with and (suspected) exposure to COVID-19; Z79.899 Other long term (current) drug therapy
CPT/HCPCS: 87502; 87635; 99282; 99283

== ENCOUNTER 2022-09-14 07:00 | Outpatient (REF) | payer OTHER, SELFPAY ==
[2022-09-14 07:07] LABS: MANUAL DIFF FLAG NO
[2022-09-14 08:05] LABS: Basophils Percent Auto 0.7 % (0-2); Eosinophils Absolute Auto 0.2 X10*3/uL (0.0-0.4); Eosinophils Percent Auto 3.2 % (0-4); Hematocrit 42.6 % (42.0-52.0); Hemoglobin 13.9 g/dl (14.0-18.0); Imm Gran Abs Auto 0.01 X10*3/uL (0.00-0.03); Imm Gran Pct Auto 0.2 % (0.0-0.4); Lymphocytes Absolute Auto 1.5 X10*3/uL (1.2-4.9); Lymphocytes Percent Auto 27.1 % (20-40); Mean Corpuscular HGB Conc 32.6 g/dl (31.0-36.0); Mean Corpuscular Hemoglobin 28.6 pg (27.0-33.0); Mean Corpuscular Volume 87.7 fL (80.0-98.0); Mean Platelet Volume 10.6 fL (9.4-12.4); Monocytes Absolute Auto 0.8 X10*3/uL (0.1-1.2); Monocytes Percent Auto 13.4 % (2-11); Neutrophils Absolute Auto 3.1 x10*3/uL (2.0-8.3); Neutrophils Percent Auto 55.4 % (45-73); Platelet Count 225 X10*3/uL (160-400); Red Blood Count 4.86 X10*6/uL (4.60-5.80); Red Cell Distribution Width 14.6 % (11.0-16.0); White Blood Count 5.6 X10*3/uL (4.8-10.8)
[2022-09-14 08:14] LABS: Appearance Urine Turbid; Color Urine Yellow; Glucose Urine UA Negative (Negative); Leukocyte Esterase Urine Negative (Negative); Nitrite Urine Negative (Negative); Specific Gravity - Urine 1.025 (1.005-1.025); Urine Blood Negative (Negative); Urine Ketones Negative (Negative); Urine Protein Negative (Neg-Trace)
[2022-09-14 08:48] LABS: Alanine Aminotransferase 37 U/L (0-40); Albumin Level 3.8 g/dL (3.5-5.0); Alkaline Phosphatase 50 U/L (39-117); Anion Gap 13 (12-20); Aspartate Amino Transferase 33 U/L (5-37); Bilirubin Total 0.5 mg/dL (0.0-1.0); Blood Urea Nitrogen 15 mg/dL (9-16); Calcium 9.2 mg/dL (8.4-10.2); Carbon Dioxide 25 mmol/L (22-29); Chloride 107 mmol/L (96-108); Cholesterol 143 mg/dL; Estimated Glomerular Filt Rate > 60; Glucose Fasting 111 mg/dL (60-99); HDL Cholesterol 34 mg/dL; LDL Cholesterol Calculated 98 mg/dl; Potassium 4.3 mmol/L (3.3-5.1); Sodium 141 mmol/L (135-145); Total Protein 6.7 g/dL (6.5-8.0); Triglycerides 59 mg/dL
[2022-09-14 09:05] LABS: Prostate Specific Antigen Scr 0.67 ng/mL (<0.05-4.0); TSH reflex Free T4 1.25 uIU/mL (0.32-4.0); Vitamin D 25-OH Total 10.3 ng/mL (>30)
== END 2022-09-14 07:01 | disposition home or self-care (01) ==
LOC: HO.LAB 07:00
PROVIDERS: PCP Internal Medicine; Visit Provider Internal Medicine
DX: Z00.00 Encounter for general adult medical examination without abnormal findings (principal); Z12.5 Encounter for screening for malignant neoplasm of prostate; R03.0 Elevated blood-pressure reading, without diagnosis of hypertension; E55.9 Vitamin D deficiency, unspecified; E78.00 Pure hypercholesterolemia, unspecified
CPT/HCPCS: 36415; 80053; 80061; 81003; 82306; 84153; 84443; 85025

== ENCOUNTER 2022-09-21 08:17 | Emergency (ER) | payer OTHER, SELFPAY ==
--- NOTE | ~2022-09-21 | XR_ITS ---
EXAMINATION: XR CHEST CLINICAL INFORMATION: Chest pain COMPARISON: 02/10/2022 TECHNIQUE: Frontal view of the chest was obtained. FINDINGS: Cardiac leads overlie the chest. The lungs are well expanded. There is no focal consolidation, edema, or effusion. No pneumothorax. The cardiomediastinal silhouette is within normal limits. No acute osseous abnormality. XR/XR chest 1V IMPRESSION: No acute pulmonary disease.
--- NOTE | 2022-09-21 08:19 | ECG_ITS ---
Test Reason : chest pain Blood Pressure : / mmHG Vent. Rate : 090 BPM Atrial Rate : 090 BPM P-R Int : 196 ms QRS Dur : 110 ms QT Int : 348 ms P-R-T Axes : 049 -37 041 degrees QTc Int : 425 ms Normal sinus rhythm Left axis deviation Incomplete right bundle branch block Possible Inferior infarct (cited on or before 21-SEP-2022) Abnormal ECG When compared with ECG of 21-JUL-2021 10:34, T wave inversion no longer evident in Anterior leads Referred By: Generic ED Physician Electronically Signed By:APRIL YIP MD
--- NOTE | 2022-09-21 08:24 | MHC.EDTECH ---
EKG completed and signed by
[2022-09-21 08:28] VITALS: BP 139/90; PULSE 88; RESP 20; TEMP 36.6; O2SAT 98; BMI 49.1
--- NOTE | 2022-09-21 08:55 | ED_ITS ---
HPI - Chest Pain General Chief Complaint: Chest Pain Stated Complaint: chest pain Time Seen by Provider: 09/21/22 08:23 Source: patient Mode of arrival: ambulatory Limitations: no limitations History of Present Illness HPI narrative: This is a 52 years old man presented to the ED complaining of chest pain since 04:00 the pain is localized in the left precordium no diaphoresis he has some radiation in the back. Patient had a normal cardiac catheterization in the past 2018. MD complaint: chest pain Onset (ago): hour(s) (4) Prior episodes: No Onset: during rest Pain location: substernal Pain radiation: none Severity: mild Quality: aching Relieving factors: nothing Exacerbating factors: nothing Risk Factors Coronary artery disease risk factors: none Related Data Previous Rx's Medication Instructions Recorded acetaminophen 500 mg tablet 1,000 mg PO QID PRN fever or pain 10/31/20 (Tylenol Extra Strength) #14 tabs pyridoxine (vitamin B6) 100 mg 100 mg PO DAILY 90 days #90 tabs 05/27/21 tablet albuterol sulfate 2.5 mg/3 mL 2.5 mg (3 mL) inhalation Q4-6H PRN 06/18/21 (0.083 %) solution for nebulization shortness of breath or wheezing #90 mL sennosides 8.6 mg capsule (senna) 8.6 mg PO DAILY PRN constipation 09/09/21 90 days #90 caps omeprazole 20 mg capsule,delayed 20 mg PO DAILY 90 days #90 caps 04/25/22 release albuterol sulfate 2.5 mg/3 mL 2.5 mg (3 mL) inhalation Q4-6H PRN 07/21/22 (0.083 %) solution for nebulization shortness of breath or wheezing #75 mL cyclobenzaprine 10 mg tablet 10 mg PO BEDTIME #14 tabs 08/23/22 meloxicam 15 mg tablet 15 mg PO DAILY #14 tabs 08/23/22 Allergies Allergy/AdvReac Type Severity Reaction Status Date / Time isosorbide Allergy Unknown neck Verified 09/10/22 17:11 pain,headaches Review of Systems Review of Systems: Yes all other systems are reviewed and are negative Eyes: Eyes: Reports no additional eye complaints ENT: Reports system reviewed and no additional complaints, except as documented Cardiovascular: Cardiovascular: Reports no additional cardiovascular complaints Respiratory: Respiratory: Reports no additional respiratory complaints PMFSH Past Medical History Medical History Asthma Brugada syndrome Constipation COVID-19 Diffuse large B cell lymphoma GERD (gastroesophageal reflux disease) Hernia Lymphoma Morbid obesity with BMI of 50.0-59.9, adult Obstructive sleep apnea Surgical History History of appendectomy Family History Family History Paternal Grandmother Cancer Father Colon cancer Social History Social History Housing: House Alcohol intake: never Patient Tobacco Use Status: Never used Tobacco Smoked in Last 30 Days: No Second Hand Smoke Exposure: No Use of substances other than those prescribed or required for medical reasons: No Advance Directives: No Advance Directives Information Provided: Yes service: No Current occupational status: employed 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 Cognitive needs: No Hearing needs: No Vision needs: No Physical Exam Vital Signs: Vital Signs: Last Vital Signs Temp 98 F 09/21/22 09:25 Pulse 76 09/21/22 09:25 Resp 14 09/21/22 09:25 BP 141/86 H 09/21/22 09:25 Pulse Ox 98 09/21/22 09:25 O2 Del Method 09/21/22 09:25 BMI result Body Mass Index 49.1 Const: General: cooperative, comfortable and no acute distress Nutritional Appearance: well nourished Orientation/consciousness: patient oriented x3 HEENT: Head: Yes normal to inspection General nose exam: Normal external nose present Face and sinus: Yes normal facial exam Mouth: Normal oral and palatal mucosa present Throat: Yes posterior oropharynx normal Neck: Neck: Yes full ROM and Yes no lymphadenopathy Chest: Chest palpation & inspection: normal inspection of the chest Resp: Effort & Inspection: normal respiratory effort and able to speak in complete sentences Auscultation: clear to auscultation bilaterally Cardio: Jugular venous distension: no JVD Rate: regular rate Rhythm: regular rhythm GI: Inspection: Yes normal to inspection Palpation (GI): Soft to palpation, not firm, nontender and no guarding Auscultation: normal bowel sounds Skin: General skin exam: no rashes or lesions noted and elasticity normal Lesions: no lesions Rashes: no rashes Neuro: General: patient oriented x3 Course Reevaluation(s) Reevaluation #1: Re-evaluation at 11:00 a.m. patient is doing better he has no chest pain, delta troponin is negative his chest x-ray is negative, review the record the showed that he had a cardiac catheterization in 2019 normal, so at this point I think is very reasonable to discharge the patient home he will follow up with his primary care physician Time: 11:14 Medical Decision Making Medical Decision Making [facility] Narrative: Patient presented with chest pain will do EKG troponin reassess Differential Diagnosis Differential Diagnoses: The differential diagnosis associated with the pr esentation includes Differential diagnosis ACS/Pe/dissection/anxiety Admission/Observation Consideration of admission/observation: Escalation of care including admission/observation considered Lab Data [facility] Lab Attestation statement: I reviewed the patient's lab results. 09/21/22 09:23 09/21/22 09:23 Labs: Lab Results 09/21/22 09/21/22 09/21/22 Range/Units 09:23 09:23 09:23 WBC 5.3 (4.8-10.8) X10*3/uL RBC 4.88 (4.60-5.80) X10*6/uL Hgb 14.0 (14.0-18.0) g/dl Hct 42.4 (42.0-52.0) % MCV 86.9 (80.0-98.0) fL MCH 28.7 (27.0-33.0) pg MCHC 33.0 (31.0-36.0) g/dl RDW 14.5 (11.0-16.0) % Plt Count 221 (160-400) X10*3/uL MPV 10.4 (9.4-12.4) fL Immature Gran % (Auto) 0.4 (0.0-0.4) % Neut % (Auto) 62.7 (45-73) % Lymph % (Auto) 21.9 (20-40) % [place] % (Auto) 13.3 H (2-11) % Eos % (Auto) 1.3 (0-4) % Baso % (Auto) 0.4 (0-2) % Lymph # (Auto) 1.2 (1.2-4.9) X10*3/uL [place] # (Auto) 0.7 (0.1-1.2) X10*3/uL Eos # (Auto) 0.1 (0.0-0.4) X10*3/uL Baso # (Auto) 0.0 (0.0-0.2) X10*3/uL Abs Immat Gran (auto) 0.02 (0.00-0.03) X10*3/uL Absolute Neuts (auto) 3.3 (2.0-8.3) x10*3/uL Absolute Nucleated RBC 0.000 (0.0-0.012) X10*3/uL Nucleated RBC % (auto) 0.0 (0.0-0.2) /100WBC D-Dimer High Sensitivty NG/ML Sodium 139 (135-145) mmol/L Potassium 3.8 (3.3-5.1) mmol/L Chloride 108 (96-108) mmol/L Carbon Dioxide 19 L (22-29) mmol/L Anion Gap 16 (12-20) BUN 12 (9-16) mg/dL Creatinine 0.87 (0.5-1.4) mg/dL Estim Creat Clear Calc 147.7 Estimated GFR > 60 Random Glucose 103 (60-115) mg/dL Calcium 9.7 (8.4-10.2) mg/dL Total Bilirubin 0.4 (0.0-1.0) mg/dL AST 32 (5-37) U/L ALT 41 H (0-40) U/L Alkaline Phosphatase 50 (39-117) U/L Troponin I High Sens < 3.5 (<3.5-35.0) ng/L Total Protein 6.6 (6.5-8.0) g/dL Albumin 3.8 (3.5-5.0) g/dL 09/21/22 09/21/22 Range/Units 09:23 10:40 WBC (4.8-10.8) X10*3/uL RBC (4.60-5.80) X10*6/uL Hgb (14.0-18.0) g/dl Hct (42.0-52.0) % MCV (80.0-98.0) fL MCH (27.0-33.0) pg MCHC (31.0-36.0) g/dl RDW (11.0-16.0) % Plt Count (160-400) X10*3/uL MPV (9.4-12.4) fL Immature Gran % (Auto) (0.0-0.4) % Neut % (Auto) (45-73) % Lymph % (Auto) (20-40) % [place] % (Auto) (2-11) % Eos % (Auto) (0-4) % Baso % (Auto) (0-2) % Lymph # (Auto) (1.2-4.9) X10*3/uL [place] # (Auto) (0.1-1.2) X10*3/uL Eos # (Auto) (0.0-0.4) X10*3/uL Baso # (Auto) (0.0-0.2) X10*3/uL Abs Immat Gran (auto) (0.00-0.03) X10*3/uL Absolute Neuts (auto) (2.0-8.3) x10*3/uL Absolute Nucleated RBC (0.0-0.012) X10*3/uL Nucleated RBC % (auto) (0.0-0.2) /100WBC D-Dimer High Sensitivty < 150 NG/ML Sodium (135-145) mmol/L Potassium (3.3-5.1) mmol/L Chloride (96-108) mmol/L Carbon Dioxide (22-29) mmol/L Anion Gap (12-20) BUN (9-16) mg/dL Creatinine (0.5-1.4) mg/dL Estim Creat Clear Calc Estimated GFR Random Glucose (60-115) mg/dL Calcium (8.4-10.2) mg/dL Total Bilirubin (0.0-1.0) mg/dL AST (5-37) U/L ALT (0-40) U/L Alkaline Phosphatase (39-117) U/L Troponin I High Sens < 3.5 (<3.5-35.0) ng/L Total Protein (6.5-8.0) g/dL Albumin (3.5-5.0) g/dL Independent Interpretation I performed an independent interpretation of an: EKG Interpretation: Normal sinus rhythm a rate [address]-T segment elevation, no ischemic changes Radiology Impression Discussion of test interpretation with radiology: I have reviewed the radiologist's reading. Radiologist Impression: EXAMINATION: XR CHEST CLINICAL INFORMATION: Chest pain COMPARISON: 02/10/2022 TECHNIQUE: Frontal view of the chest was obtained. FINDINGS: Cardiac leads overlie the chest. The lungs are well expanded. There is no focal consolidation, edema, or effusion. No pneumothorax. The cardiomediastinal silhouette is within normal limits. No acute osseous abnormality. XR/XR chest 1V IMPRESSION: No acute pulmonary disease. ? Dictated By: Moshe Coy MD Signed By: <Electronically signed by Moshe Coy MD in OV> 09/21/22922 DD/ 4 Discharge Plan Discharge Clinical Impression: Chest pain Patient Disposition: Home, Self-Care Instructions: Chest Pain (DC) Additional Instructions: Follow-up with you primary care physician return if you worse Prescriptions: No Action pyridoxine (vitamin B6) 100 mg tablet 100 mg PO DAILY 90 Days Qty: 90 1RF omeprazole 20 mg capsule,delayed release(DR/EC) 20 mg PO DAILY 90 Days Qty: 90 1RF acetaminophen [Tylenol Extra Strength] 500 mg tablet 1,000 mg PO QID PRN (Reason: fever or pain) Qty: 14 0RF albuterol sulfate 2.5 mg /3 mL (0.083 %) solution for nebulization 2.5 mg inhalation Q4-6H PRN (Reason: shortness of breath or wheezing) Qty: 90 0RF albuterol sulfate 2.5 mg /3 mL (0.083 %) solution for nebulization 2.5 mg inhalation Q4-6H PRN (Reason: shortness of breath or wheezing) Qty: 75 0RF meloxicam 15 mg tablet 15 mg PO DAILY Qty: 14 0RF cyclobenzaprine 10 mg tablet 10 mg PO BEDTIME Qty: 14 0RF senna 8.6 mg capsule 8.6 mg PO DAILY PRN (Reason: constipation) 90 Days Qty: 90 3RF Stand Alone Forms: Work/School Release Interventions: ED Discharge Assessment Last Done: 09/21/22 11:21 Discharge Date/Time: 09/21/22 11:22
[2022-09-21 09:25] VITALS: BP 141/86; PULSE 76; RESP 14; TEMP 36.6; O2SAT 98
--- NOTE | 2022-09-21 09:28 | PC.NURSE ---
pt Aox3, vss stable. Labs drawn, quality assurance monitor chassis on. Lung sounds clear. Patient reports no pain.
[2022-09-21 09:31] LABS: MANUAL DIFF FLAG NO
[2022-09-21 09:36] LABS: Basophils Percent Auto 0.4 % (0-2); Eosinophils Absolute Auto 0.1 X10*3/uL (0.0-0.4); Eosinophils Percent Auto 1.3 % (0-4); Hematocrit 42.4 % (42.0-52.0); Imm Gran Abs Auto 0.02 X10*3/uL (0.00-0.03); Imm Gran Pct Auto 0.4 % (0.0-0.4); Lymphocytes Absolute Auto 1.2 X10*3/uL (1.2-4.9); Lymphocytes Percent Auto 21.9 % (20-40); Mean Corpuscular Hemoglobin 28.7 pg (27.0-33.0); Mean Corpuscular Volume 86.9 fL (80.0-98.0); Mean Platelet Volume 10.4 fL (9.4-12.4); Monocytes Absolute Auto 0.7 X10*3/uL (0.1-1.2); Monocytes Percent Auto 13.3 % (2-11); Neutrophils Absolute Auto 3.3 x10*3/uL (2.0-8.3); Neutrophils Percent Auto 62.7 % (45-73); Platelet Count 221 X10*3/uL (160-400); Red Blood Count 4.88 X10*6/uL (4.60-5.80); Red Cell Distribution Width 14.5 % (11.0-16.0); White Blood Count 5.3 X10*3/uL (4.8-10.8)
[2022-09-21 09:45] LABS: D Dimer High Sensitivity < 150 NG/ML
[2022-09-21 09:48] LABS: Alanine Aminotransferase 41 U/L (0-40); Albumin Level 3.8 g/dL (3.5-5.0); Alkaline Phosphatase 50 U/L (39-117); Anion Gap 16 (12-20); Aspartate Amino Transferase 32 U/L (5-37); Bilirubin Total 0.4 mg/dL (0.0-1.0); Blood Urea Nitrogen 12 mg/dL (9-16); Calcium 9.7 mg/dL (8.4-10.2); Carbon Dioxide 19 mmol/L (22-29); Chloride 108 mmol/L (96-108); Creatinine Clr Calc Pharmacy 147.7; Estimated Glomerular Filt Rate > 60; Glucose Random 103 mg/dL (60-115); Potassium 3.8 mmol/L (3.3-5.1); Sodium 139 mmol/L (135-145); Total Protein 6.6 g/dL (6.5-8.0)
[2022-09-21 10:02] LABS: Troponin-I High Sensitivity < 3.5 ng/L (<3.5-35.0)
[2022-09-21 11:09] LABS: Troponin-I High Sensitivity < 3.5 ng/L (<3.5-35.0)
== END 2022-09-21 11:22 | disposition home or self-care (01) ==
PROVIDERS: Emergency Provider Emergency Medicine; PCP Internal Medicine
DX: R07.89 Other chest pain (principal); Z79.899 Other long term (current) drug therapy
CPT/HCPCS: 36415; 71045; 80053; 84484; 85025; 85379; 93005; 99283; 99285

== ENCOUNTER → 2022-11-04 15:13 | Outpatient (BNVA) | payer OTHER, SELFPAY | PROVIDERS: PCP Internal Medicine; Visit Provider Surgery | DX: Z13.89 Encounter for screening for other disorder (principal) ==

== ENCOUNTER → 2022-11-17 09:13 | Outpatient (BNVA) | payer OTHER, SELFPAY | PROVIDERS: PCP Internal Medicine; Visit Provider Surgery | DX: Z13.89 Encounter for screening for other disorder (principal) ==

== ENCOUNTER 2022-12-01 18:35 | Emergency (ER) | payer OTHER, SELFPAY ==
--- NOTE | ~2022-12-01 | CT_ITS ---
EXAMINATION: CT HEAD WITHOUT CONTRAST CLINICAL INFORMATION: Dizziness for greater than 24 hours. COMPARISON: None. TECHNIQUE: Contiguous axial imaging was performed from the skull base to vertex without intravenous contrast. This CT examination was performed using dose optimization techniques as appropriate, variously including the following: * Automated exposure control * Adjustment of mA and/or kV according to patient size (this includes techniques or standardized protocols for targeted exams where dose is matched to indication/reason for exam; i.e. extremities or head) Use of iterative reconstruction technique DLP: 850 mGy-cm. FINDINGS: There is no evidence of acute intracranial hemorrhage or territorial infarction. No abnormal mass effect or midline shift is seen. [place] to white matter differentiation is well preserved. No extra-axial fluid collections are identified. No hydrocephalus. No significant volume loss. There is no abnormal attenuation within the brain parenchyma. The osseous structures and soft tissues are normal. The mastoid air cells and visualized portions of the paranasal sinuses are well aerated. CT/CT head/brain wo IV con IMPRESSION: No acute intracranial pathology.
[2022-12-01 18:40] VITALS: BP 133/80; PULSE 109; RESP 18; TEMP 36.4; O2SAT 98; BMI 46.0
--- NOTE | 2022-12-01 18:40 | ED.DIZZY ---
HPI - Dizziness General Chief Complaint: Dizziness Stated Complaint: dizziness Time Seen by Provider: 12/01/22 19:29 Related Data Previous Rx's Medication Instructions Recorded acetaminophen 500 mg tablet 1,000 mg PO QID PRN fever or pain 10/31/20 (Tylenol Extra Strength) #14 tabs pyridoxine (vitamin B6) 100 mg 100 mg PO DAILY 90 days #90 tabs 05/27/21 tablet albuterol sulfate 2.5 mg/3 mL 2.5 mg (3 mL) inhalation Q4-6H PRN 06/18/21 (0.083 %) solution for nebulization shortness of breath or wheezing #90 mL sennosides 8.6 mg capsule (senna) 8.6 mg PO DAILY PRN constipation 09/09/21 90 days #90 caps omeprazole 20 mg capsule,delayed 20 mg PO DAILY 90 days #90 caps 04/25/22 release albuterol sulfate 2.5 mg/3 mL 2.5 mg (3 mL) inhalation Q4-6H PRN 07/21/22 (0.083 %) solution for nebulization shortness of breath or wheezing #75 mL diclofenac sodium 75 mg 75 mg PO BID pain 10 days #20 tabs 11/11/22 tablet,delayed release meclizine 25 mg tablet 25 mg PO TID PRN dizziness #14 tabs 12/01/22 Allergies Allergy/AdvReac Type Severity Reaction Status Date / Time isosorbide Allergy Unknown neck Verified 12/01/22 18:43 pain,headaches PMFSH Past Medical History Medical History Asthma Brugada syndrome Constipation COVID-19 Diffuse large B cell lymphoma Family history of colon cancer GERD (gastroesophageal reflux disease) Hernia Lymphoma Morbid obesity with BMI of 50.0-59.9, adult Obstructive sleep apnea Surgical History History of appendectomy Family History Family History Paternal Grandmother Cancer Father Colon cancer Social History Social History Housing: House Alcohol intake: never Patient Tobacco Use Status: Never used Tobacco Smoked in Last 30 Days: No Second Hand Smoke Exposure: No Use of substances other than those prescribed or required for medical reasons: No Advance Directives: No Advance Directives Information Provided: Yes service: No Current occupational status: employed 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 Cognitive needs: No Hearing needs: No Vision needs: No Physical Exam Vital Signs: Vital Signs: Last Vital Signs Temp 98.1 F 12/01/22 19:34 Pulse 110 H 12/01/22 19:36 Resp 20 12/01/22 19:34 BP 135/63 12/01/22 19:36 Pulse Ox 98 12/01/22 19:34 O2 Del Method Room Air 12/01/22 19:34 BMI result Body Mass Index 46.0 Course Course Course Narrative: This is a rapid medical exam. Deferred additional HPI, ROS, PE to primary provider. 52yo male with a history of GERD, lymphoma in remission, brugada syndrome here with dizzy spells intermittent since yesterday, buzzing in his ears, sinus pressure. Will obtain labs, EKG, orthos, CT head. S Medical Decision Making Lab Data 12/01/22 19:20 12/01/22 19:20 Labs: Lab Results 12/01/22 12/01/22 12/01/22 Range/Units 19:20 19:20 19:20 WBC 8.3 (4.8-10.8) X10*3/uL RBC 5.14 (4.60-5.80) X10*6/uL Hgb 14.7 (14.0-18.0) g/dl Hct 45.2 (42.0-52.0) % MCV 87.9 (80.0-98.0) fL MCH 28.6 (27.0-33.0) pg MCHC 32.5 (31.0-36.0) g/dl RDW 14.2 (11.0-16.0) % Plt Count 192 (160-400) X10*3/uL MPV 10.1 (9.4-12.4) fL Immature Gran % (Auto) 0.5 H (0.0-0.4) % Neut % (Auto) 64.7 (45-73) % Lymph % (Auto) 23.0 (20-40) % [place] % (Auto) 9.0 (2-11) % Eos % (Auto) 2.2 (0-4) % Baso % (Auto) 0.6 (0-2) % Lymph # (Auto) 1.9 (1.2-4.9) X10*3/uL [place] # (Auto) 0.8 (0.1-1.2) X10*3/uL Eos # (Auto) 0.2 (0.0-0.4) X10*3/uL Baso # (Auto) 0.1 (0.0-0.2) X10*3/uL Abs Immat Gran (auto) 0.04 H (0.00-0.03) X10*3/uL Absolute Neuts (auto) 5.4 (2.0-8.3) x10*3/uL Absolute Nucleated RBC 0.000 (0.0-0.012) X10*3/uL Nucleated RBC % (auto) 0.0 (0.0-0.2) /100WBC Sodium 138 (135-145) mmol/L Potassium 4.0 (3.3-5.1) mmol/L Chloride 107 (96-108) mmol/L Carbon Dioxide 22 (22-29) mmol/L Anion Gap 13 (12-20) BUN 12 (9-16) mg/dL Creatinine 0.93 (0.5-1.4) mg/dL Estim Creat Clear Calc 129.0 Estimated GFR > 60 Random Glucose 199 H (60-115) mg/dL Calcium 9.1 D (8.4-10.2) mg/dL Magnesium 1.8 (1.6-2.6) mg/dL Total Bilirubin 0.2 (0.0-1.0) mg/dL Direct Bilirubin < 0.2 (0.0-0.5) mg/dL AST 23 (5-37) U/L ALT 31 (0-40) U/L Alkaline Phosphatase 55 (39-117) U/L Troponin I High Sens < 2.7 (<3.5-35.0) ng/L Total Protein 6.6 (6.5-8.0) g/dL Albumin 3.7 (3.5-5.0) g/dL COVID-19 ([facility]) (Negative) COVID-19 Clin Com 12/01/22 Range/Units 19:20 WBC (4.8-10.8) X10*3/uL RBC (4.60-5.80) X10*6/uL Hgb (14.0-18.0) g/dl Hct (42.0-52.0) % MCV (80.0-98.0) fL MCH (27.0-33.0) pg MCHC (31.0-36.0) g/dl RDW (11.0-16.0) % Plt Count (160-400) X10*3/uL MPV (9.4-12.4) fL Immature Gran % (Auto) (0.0-0.4) % Neut % (Auto) (45-73) % Lymph % (Auto) (20-40) % [place] % (Auto) (2-11) % Eos % (Auto) (0-4) % Baso % (Auto) (0-2) % Lymph # (Auto) (1.2-4.9) X10*3/uL [place] # (Auto) (0.1-1.2) X10*3/uL Eos # (Auto) (0.0-0.4) X10*3/uL Baso # (Auto) (0.0-0.2) X10*3/uL Abs Immat Gran (auto) (0.00-0.03) X10*3/uL Absolute Neuts (auto) (2.0-8.3) x10*3/uL Absolute Nucleated RBC (0.0-0.012) X10*3/uL Nucleated RBC % (auto) (0.0-0.2) /100WBC Sodium (135-145) mmol/L Potassium (3.3-5.1) mmol/L Chloride (96-108) mmol/L Carbon Dioxide (22-29) mmol/L Anion Gap (12-20) BUN (9-16) mg/dL Creatinine (0.5-1.4) mg/dL Estim Creat Clear Calc Estimated GFR Random Glucose (60-115) mg/dL Calcium (8.4-10.2) mg/dL Magnesium (1.6-2.6) mg/dL Total Bilirubin (0.0-1.0) mg/dL Direct Bilirubin (0.0-0.5) mg/dL AST (5-37) U/L ALT (0-40) U/L Alkaline Phosphatase (39-117) U/L Troponin I High Sens (<3.5-35.0) ng/L Total Protein (6.5-8.0) g/dL Albumin (3.5-5.0) g/dL COVID-19 ([facility]) Negative (Negative) COVID-19 Clin Com See Note Discharge Plan Discharge Clinical Impression: Dizziness Patient Disposition: Home, Self-Care Instructions: Dizziness (ED) Prescriptions: New meclizine 25 mg tablet 25 mg PO TID PRN (Reason: dizziness) Qty: 14 0RF No Action pyridoxine (vitamin B6) 100 mg tablet 100 mg PO DAILY 90 Days Qty: 90 1RF omeprazole 20 mg capsule,delayed release(DR/EC) 20 mg PO DAILY 90 Days Qty: 90 1RF acetaminophen [Tylenol Extra Strength] 500 mg tablet 1,000 mg PO QID PRN (Reason: fever or pain) Qty: 14 0RF albuterol sulfate 2.5 mg /3 mL (0.083 %) solution for nebulization 2.5 mg inhalation Q4-6H PRN (Reason: shortness of breath or wheezing) Qty: 90 0RF albuterol sulfate 2.5 mg /3 mL (0.083 %) solution for nebulization 2.5 mg inhalation Q4-6H PRN (Reason: shortness of breath or wheezing) Qty: 75 0RF diclofenac sodium 75 mg tablet,delayed release (DR/EC) 75 mg PO BID 10 Days Qty: 20 0RF senna 8.6 mg capsule 8.6 mg PO DAILY PRN (Reason: constipation) 90 Days Qty: 90 3RF Referrals: Tj Alexandre MD [Primary Care Provider] - 12/03/22 Interventions: ED Discharge Assessment Last Done: 12/01/22 20:10 Discharge Date/Time: 12/01/22 20:24
--- NOTE | 2022-12-01 18:42 | ECG_ITS ---
Test Reason : dizziness Blood Pressure : / mmHG Vent. Rate : 098 BPM Atrial Rate : 098 BPM P-R Int : 214 ms QRS Dur : 106 ms QT Int : 356 ms P-R-T Axes : 051 -24 040 degrees QTc Int : 454 ms Sinus rhythm with 1st degree A-V block Incomplete right bundle branch block Possible Inferior infarct (cited on or before 21-SEP-2022) Abnormal ECG When compared with ECG of 21-SEP-2022 08:21, No significant change was found Referred By: Kathy Leary Electronically Signed By:SOWMYA CRUM
[2022-12-01 19:25] LABS: MANUAL DIFF FLAG NO
[2022-12-01 19:28] LABS: Basophils Absolute Auto 0.1 X10*3/uL (0.0-0.2); Basophils Percent Auto 0.6 % (0-2); Eosinophils Absolute Auto 0.2 X10*3/uL (0.0-0.4); Eosinophils Percent Auto 2.2 % (0-4); Hematocrit 45.2 % (42.0-52.0); Hemoglobin 14.7 g/dl (14.0-18.0); Imm Gran Abs Auto 0.04 X10*3/uL (0.00-0.03); Imm Gran Pct Auto 0.5 % (0.0-0.4); Lymphocytes Absolute Auto 1.9 X10*3/uL (1.2-4.9); Mean Corpuscular HGB Conc 32.5 g/dl (31.0-36.0); Mean Corpuscular Hemoglobin 28.6 pg (27.0-33.0); Mean Corpuscular Volume 87.9 fL (80.0-98.0); Mean Platelet Volume 10.1 fL (9.4-12.4); Monocytes Absolute Auto 0.8 X10*3/uL (0.1-1.2); Neutrophils Absolute Auto 5.4 x10*3/uL (2.0-8.3); Neutrophils Percent Auto 64.7 % (45-73); Platelet Count 192 X10*3/uL (160-400); Red Blood Count 5.14 X10*6/uL (4.60-5.80); Red Cell Distribution Width 14.2 % (11.0-16.0); White Blood Count 8.3 X10*3/uL (4.8-10.8)
[2022-12-01 19:34] VITALS: BP 127/80; PULSE 97; PULSE 98; RESP 20; TEMP 36.7; O2SAT 98
[2022-12-01 19:35] VITALS: BP 127/70; PULSE 104
[2022-12-01 19:36] VITALS: BP 135/63; PULSE 110
[2022-12-01 19:38] LABS: COVID-19 Test Negative (Negative); IDNOW Serial# 08D9AD1C
[2022-12-01 19:42] LABS: Alanine Aminotransferase 31 U/L (0-40); Albumin Level 3.7 g/dL (3.5-5.0); Alkaline Phosphatase 55 U/L (39-117); Anion Gap 13 (12-20); Aspartate Amino Transferase 23 U/L (5-37); Bilirubin Direct < 0.2 mg/dL (0.0-0.5); Bilirubin Total 0.2 mg/dL (0.0-1.0); Blood Urea Nitrogen 12 mg/dL (9-16); Calcium 9.1 mg/dL (8.4-10.2); Carbon Dioxide 22 mmol/L (22-29); Chloride 107 mmol/L (96-108); Estimated Glomerular Filt Rate > 60; Glucose Random 199 mg/dL (60-115); Magnesium 1.8 mg/dL (1.6-2.6); Sodium 138 mmol/L (135-145); Total Protein 6.6 g/dL (6.5-8.0)
--- NOTE | 2022-12-01 19:46 | ED_ITS ---
HPI - Dizziness General Chief Complaint: Dizziness Stated Complaint: dizziness Time Seen by Provider: 12/01/22 19:29 History of Present Illness HPI Narrative: Patient is a 52-year-old male presented with dizziness. Patient has been having symptoms for 2 weeks. No specific trigger. It is not a spinning sensation. It is has no focal weakness. Patient is from home. No bloody stool. No fever no chills. No syncope or near syncopal episodes. No changes in medication. No spinning sensation. No fever no chills. No chest pain or shortness of breath. No new medication. Related Data Previous Rx's Medication Instructions Recorded acetaminophen 500 mg tablet 1,000 mg PO QID PRN fever or pain 10/31/20 (Tylenol Extra Strength) #14 tabs pyridoxine (vitamin B6) 100 mg 100 mg PO DAILY 90 days #90 tabs 05/27/21 tablet albuterol sulfate 2.5 mg/3 mL 2.5 mg (3 mL) inhalation Q4-6H PRN 06/18/21 (0.083 %) solution for nebulization shortness of breath or wheezing #90 mL sennosides 8.6 mg capsule (senna) 8.6 mg PO DAILY PRN constipation 09/09/21 90 days #90 caps omeprazole 20 mg capsule,delayed 20 mg PO DAILY 90 days #90 caps 04/25/22 release albuterol sulfate 2.5 mg/3 mL 2.5 mg (3 mL) inhalation Q4-6H PRN 07/21/22 (0.083 %) solution for nebulization shortness of breath or wheezing #75 mL diclofenac sodium 75 mg 75 mg PO BID pain 10 days #20 tabs 11/11/22 tablet,delayed release Allergies Allergy/AdvReac Type Severity Reaction Status Date / Time isosorbide Allergy Unknown neck Verified 12/01/22 18:43 pain,headaches Review of Systems Review of Systems: No fever no chills no chest pain no coughing no congestion Yes all other systems are reviewed and are negative [facility] Past Medical History Attestation statement: The following information was validated with the patient. Medical History Asthma Brugada syndrome Constipation COVID-19 Diffuse large B cell lymphoma Family history of colon cancer GERD (gastroesophageal reflux disease) Hernia Lymphoma Morbid obesity with BMI of 50.0-59.9, adult Obstructive sleep apnea Surgical History History of appendectomy Family History Family History Paternal Grandmother Cancer Father Colon cancer Social History Social History Housing: House Alcohol intake: never Patient Tobacco Use Status: Never used Tobacco Smoked in Last 30 Days: No Second Hand Smoke Exposure: No Use of substances other than those prescribed or required for medical reasons: No Advance Directives: No Advance Directives Information Provided: Yes service: No Current occupational status: employed Current occupation: [employer] Cognitive needs: No Hearing needs: No Vision needs: No Physical Exam Vital Signs: Vital Signs: Last Vital Signs Temp 98.1 F 12/01/22 19:34 Pulse 110 H 12/01/22 19:36 Resp 20 12/01/22 19:34 BP 135/63 12/01/22 19:36 Pulse Ox 98 12/01/22 19:34 O2 Del Method Room Air 12/01/22 19:34 BMI result Body Mass Index 46.0 Appearance: Alert. Oriented X3. No acute distress. Eyes: Pupils equal, round and reactive to light. ENT: Pharynx normal. Neck: Normal inspection. Neck supple. No lymph nodes noted. No crepitus CVS: Normal heart rate and rhythm. Pulses normal. Normal S1 and S2 Respiratory: No respiratory distress. Breath sounds normal. No Wheezing. No rales Abdomen: Soft and nontender. No rigidity. No distention. good BS x4 Skin: Skin warm and dry. Normal skin color. Normal skin turgor. Extremities: No lower extremity edema. Neurovascular intact to all extremities. No Lacerations. No Rash Neuro: Oriented X 3. No motor deficit. No sensory deficit. Moving all exte rmities. No slurred speech. Cranial nerve 2-12 intact Medical Decision Making Medical Decision Making MDM Narrative: Positive dizziness ongoing for few weeks. CT scan of the head is grossly negat [place]. It is not a vertiginous feeling. Patient ambulate with a normal gait in the emergency department. Cranial nerve intact. Rapid alternating movement intact. Good strength in all extracted extremity. No distress. Patient's troponin is negative. Patient's EKG is unchanged. Hemoglobin is normal at 14.7. no evidence for anemia. Will discharge patient home Differential Diagnosis Differential Diagnoses: The differential diagnosis associated with the presentation includes Anemia, arrhythmia, syncope near syncope, medication changes, COVID Lab Data [facility] Lab Attestation statement: I reviewed the patient's lab results. 12/01/22 19:20 12/01/22 19:20 Labs: Lab Results 12/01/22 12/01/22 12/01/22 Range/Units 19:20 19:20 19:20 WBC 8.3 (4.8-10.8) X10*3/uL RBC 5.14 (4.60-5.80) X10*6/uL Hgb 14.7 (14.0-18.0) g/dl Hct 45.2 (42.0-52.0) % MCV 87.9 (80.0-98.0) fL MCH 28.6 (27.0-33.0) pg MCHC 32.5 (31.0-36.0) g/dl RDW 14.2 (11.0-16.0) % Plt Count 192 (160-400) X10*3/uL MPV 10.1 (9.4-12.4) fL Immature Gran % (Auto) 0.5 H (0.0-0.4) % Neut % (Auto) 64.7 (45-73) % Lymph % (Auto) 23.0 (20-40) % [place] % (Auto) 9.0 (2-11) % Eos % (Auto) 2.2 (0-4) % Baso % (Auto) 0.6 (0-2) % Lymph # (Auto) 1.9 (1.2-4.9) X10*3/uL [place] # (Auto) 0.8 (0.1-1.2) X10*3/uL Eos # (Auto) 0.2 (0.0-0.4) X10*3/uL Baso # (Auto) 0.1 (0.0-0.2) X10*3/uL Abs Immat Gran (auto) 0.04 H (0.00-0.03) X10*3/uL Absolute Neuts (auto) 5.4 (2.0-8.3) x10*3/uL Absolute Nucleated RBC 0.000 (0.0-0.012) X10*3/uL Nucleated RBC % (auto) 0.0 (0.0-0.2) /100WBC Sodium 138 (135-145) mmol/L Potassium 4.0 (3.3-5.1) mmol/L Chloride 107 (96-108) mmol/L Carbon Dioxide 22 (22-29) mmol/L Anion Gap 13 (12-20) BUN 12 (9-16) mg/dL Creatinine 0.93 (0.5-1.4) mg/dL Estim Creat Clear Calc 129.0 Estimated GFR > 60 Random Glucose 199 H (60-115) mg/dL Calcium 9.1 D (8.4-10.2) mg/dL Magnesium 1.8 (1.6-2.6) mg/dL Total Bilirubin 0.2 (0.0-1.0) mg/dL Direct Bilirubin < 0.2 (0.0-0.5) mg/dL AST 23 (5-37) U/L ALT 31 (0-40) U/L Alkaline Phosphatase 55 (39-117) U/L Troponin I High Sens < 2.7 (<3.5-35.0) ng/L Total Protein 6.6 (6.5-8.0) g/dL Albumin 3.7 (3.5-5.0) g/dL COVID-19 ([facility]) (Negative) COVID-19 Clin Com 12/01/22 Range/Units 19:20 WBC (4.8-10.8) X10*3/uL RBC (4.60-5.80) X10*6/uL Hgb (14.0-18.0) g/dl Hct (42.0-52.0) % MCV (80.0-98.0) fL MCH (27.0-33.0) pg MCHC (31.0-36.0) g/dl RDW (11.0-16.0) % Plt Count (160-400) X10*3/uL MPV (9.4-12.4) fL Immature Gran % (Auto) (0.0-0.4) % Neut % (Auto) (45-73) % Lymph % (Auto) (20-40) % [place] % (Auto) (2-11) % Eos % (Auto) (0-4) % Baso % (Auto) (0-2) % Lymph # (Auto) (1.2-4.9) X10*3/uL [place] # (Auto) (0.1-1.2) X10*3/uL Eos # (Auto) (0.0-0.4) X10*3/uL Baso # (Auto) (0.0-0.2) X10*3/uL Abs Immat Gran (auto) (0.00-0.03) X10*3/uL Absolute Neuts (auto) (2.0-8.3) x10*3/uL Absolute Nucleated RBC (0.0-0.012) X10*3/uL Nucleated RBC % (auto) (0.0-0.2) /100WBC Sodium (135-145) mmol/L Potassium (3.3-5.1) mmol/L Chloride (96-108) mmol/L Carbon Dioxide (22-29) mmol/L Anion Gap (12-20) BUN (9-16) mg/dL Creatinine (0.5-1.4) mg/dL Estim Creat Clear Calc Estimated GFR Random Glucose (60-115) mg/dL Calcium (8.4-10.2) mg/dL Magnesium (1.6-2.6) mg/dL Total Bilirubin (0.0-1.0) mg/dL Direct Bilirubin (0.0-0.5) mg/dL AST (5-37) U/L ALT (0-40) U/L Alkaline Phosphatase (39-117) U/L Troponin I High Sens (<3.5-35.0) ng/L Total Protein (6.5-8.0) g/dL Albumin (3.5-5.0) g/dL COVID-19 ([facility]) Negative (Negative) COVID-19 Clin Com See Note Independent Interpretation I performed an independent interpretation of an: EKG Interpretation: Sinus pattern heart rate is 75 MT QRS QT within normal limits no changes External Record Review External record reviewed: Inpatient record Chronic Conditions Patient?s care impacted by: Hypertension Discharge Plan Discharge Clinical Impression: Dizziness Patient Disposition: Home, Self-Care Instructions: Dizziness (ED) Prescriptions: No Action pyridoxine (vitamin B6) 100 mg tablet 100 mg PO DAILY 90 Days Qty: 90 1RF omeprazole 20 mg capsule,delayed release(DR/EC) 20 mg PO DAILY 90 Days Qty: 90 1RF acetaminophen [Tylenol Extra Strength] 500 mg tablet 1,000 mg PO QID PRN (Reason: fever or pain) Qty: 14 0RF albuterol sulfate 2.5 mg /3 mL (0.083 %) solution for nebulization 2.5 mg inhalation Q4-6H PRN (Reason: shortness of breath or wheezing) Qty: 90 0RF albuterol sulfate 2.5 mg /3 mL (0.083 %) solution for nebulization 2.5 mg inhalation Q4-6H PRN (Reason: shortness of breath or wheezing) Qty: 75 0RF diclofenac sodium 75 mg tablet,delayed release (DR/EC) 75 mg PO BID 10 Days Qty: 20 0RF senna 8.6 mg capsule 8.6 mg PO DAILY PRN (Reason: constipation) 90 Days Qty: 90 3RF Referrals: Tj Alexandre MD [Primary Care Provider] - 12/03/22
[2022-12-01 19:49] LABS: Troponin-I High Sensitivity < 2.7 ng/L (<3.5-35.0)
== END 2022-12-01 20:24 | disposition home or self-care (01) ==
PROVIDERS: Nurse Practitioner Family; Emergency Provider Emergency Medicine Emergency Medical Services; PCP Internal Medicine
DX: R42 Dizziness and giddiness (principal); Z20.822 Contact with and (suspected) exposure to COVID-19; Z20.828 Contact with and (suspected) exposure to other viral communicable diseases; Z79.899 Other long term (current) drug therapy
CPT/HCPCS: 70450; 80048; 80076; 83735; 84484; 85025; 87635; 93005; 99284; 99285

== ENCOUNTER 2022-12-07 05:50 | Day surgery (SDC) | payer OTHER, SELFPAY ==
[2022-12-02 10:24] VITALS: BMI 47.5
--- NOTE | 2022-12-06 09:46 | P.CONAN_ITS ---
Documented by User: Romana Tucker NP 12/06/22 09:49 HPI - Anesthesia Eval Consult details Narrative: 52yo M for Hernia Repair Umbilical /possible mesh Brugada syndrome (low risk by EP testing) [facility] Active Problems Active Problems: All Active Problems (Updated 12/02/22 @ 10:20 by Gabriela Willams RN) Soft tissue injury of left knee (Acute) Nephrolithiasis (Acute) Annual physical exam (Acute) Tendinitis of left forearm (Acute) Preop cardiovascular exam (Acute) Colon cancer screening (Acute) Sprain of left shoulder joint (Acute) Elevated blood pressure reading without diagnosis of hypertension (Acute) Achilles tendinitis of right lower extremity (Acute) Family history of colon cancer (Acute) Diffuse large B cell lymphoma (Acute) Morbid obesity with BMI of 50.0-59.9, adult (Acute) Constipation (Acute) History of appendectomy (Acute) Lymphoma (Acute) Hernia (Acute) Past Medical History Medical History (Updated 12/02/22 @ 10:20 by Gabriela Willams RN) Asthma Brugada syndrome Constipation COVID-19 Diffuse large B cell lymphoma Dizziness Family history of colon cancer GERD (gastroesophageal reflux disease) Hernia Lymphoma Morbid obesity with BMI of 50.0-59.9, adult Obstructive sleep apnea Family History Family History Paternal Grandmother Cancer Father Colon cancer Surgical History Surgical History (Updated 12/02/22 @ 10:19 by Gabriela Willams RN) H/O colonoscopy History of appendectomy History of laryngoscopy Social History Social History Housing: House Alcohol intake: never Patient Tobacco Use Status: Never used Tobacco Second Hand Smoke Exposure: No Use of substances other than those prescribed or required for medical reasons: No Have you been hit, kicked, punched, or otherwise hurt by someone within the past year? If so, by whom?: No Are you DNR?: No Advance Directives: Yes Advance Directives Information Provided: Yes Advance Directives on File: Yes Advance Directives Date on File: 07/13/17 Recently lost weight without trying: No Eating poorly because of decreased appetite: No Nutrition Risks: No Nutritional Risk Poor oral hygiene: No service: No Current occupational status: employed 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 Cognitive needs: No Hearing needs: No Vision needs: No Meds Allergies Allergy/AdvReac Type Severity Reaction Status Date / Time isosorbide Allergy Intermediate neck Verified 12/02/22 10:27 pain/headaches Exam Exam Date and Time: December 06, 2022 0946 Height,Weight and Vital Signs: Height 5 ft 8 in Weight 141.974 kg Pertinent Lab Results Pertinent Lab Results: Laboratory Tests 12/01/22 12/01/22 19:20 19:20 WBC 8.3 Hgb 14.7 Hct 45.2 Plt Count 192 Sodium 138 Potassium 4.0 Chloride 107 Carbon Dioxide 22 BUN 12 Creatinine 0.93 Narrative Narrative: EKG 11/2022 Vent. Rate : 098 BPM ? ? Atrial Rate : 098 BPM ?? P-R Int : 214 ms? QRS Dur : 106 ms ? ? QT Int : 356 ms ? ? ? P-R-T Axes : 051 -24 040 degrees ?? QTc Int : 454 ms ? Sinus rhythm with 1st degree A-V block Incomplete right bundle branch block Possible Inferior infarct (cited on or before 21-SEP-2022) Abnormal ECG When compared with ECG of 21-SEP-2022 08:21, No significant change was found Assessment and Plan Assessment Anesthesia Assessment: Chart Reviewed Documented by User: José Miguel Knight MD 12/07/22 08:00 [facility] Past Medical History Medical History (Updated 12/02/22 @ 10:20 by Gabriela Willams RN) Asthma Brugada syndrome Constipation COVID-19 Diffuse large B cell lymphoma Dizziness Family history of colon cancer GERD (gastroesophageal reflux disease) Hernia Lymphoma Morbid obesity with BMI of 50.0-59.9, adult Obstructive sleep apnea Family History Family History Paternal Grandmother Cancer Father Colon cancer Family history of problems with anesthesia: No Surgical History Surgical History (Updated 12/02/22 @ 10:19 by Gabriela Willams RN) H/O colonoscopy History of appendectomy History of laryngoscopy History of Problems with Anesthesia: No Social History Social History Housing: House Alcohol intake: never Patient Tobacco Use Status: Never used Tobacco Second Hand Smoke Exposure: No Use of substances other than those prescribed or required for medical reasons: No Have you been hit, kicked, punched, or otherwise hurt by someone within the past year? If so, by whom?: No Are you DNR?: No Advance Directives: Yes Advance Directives Information Provided: Yes Advance Directives on File: Yes Advance Directives Date on File: 07/13/17 Recently lost weight without trying: No Eating poorly because of decreased appetite: No Nutrition Risks: No Nutritional Risk Poor oral hygiene: No service: No Current occupational status: employed Current occupation: [employer] Cognitive needs: No Hearing needs: No Vision needs: No Meds Allergies Allergy/AdvReac Type Severity Reaction Status Date / Time isosorbide Allergy Intermediate neck Verified 12/02/22 10:27 pain/headaches Exam Airway Mallampati Class: III TM Dist: <=3cm Neck ROM: Limited (no neck.) Heart: ok Lungs: ok Assessment and Plan Final Anesthetic Review Family History of Problems with Anesthesia: No History of Problems with Anesthesia: No NPO: Yes ASA Class: III Final Preanesthetic Review: No Changes in Pt Med Stat, Meds/Allgs Chart Reviewed, Consent Obtained/Reviewed and Anes Risks/Benef Reviewed Patient Risk: High Procedure Risk: Intermediate Anesthetic Plan Anesthetic Plan: GA and Agree w/ Assess. and Plan Disposition: Standard PACU
[2022-12-07 06:21] VITALS: BP 136/85; PULSE 85; RESP 16; TEMP 36.2; O2SAT 99
[2022-12-07] MEDS: Lactated Ringers 1,000 ML 100 ML IVCONT (06:35)
--- NOTE | 2022-12-07 08:13 | W.PM.OPN ---
Operative Note Operative Note Date of Service: 12/07/22 Narrative: Preop Diagnosis: Umbilical hernia Postop diagnosis: Umbilical hernia Procedure: Repair of umbilical hernia with Ventralex mesh placement Surgeon: Alexys Farrell MD promotional advertising assistant: JULIENNE Cox The patient is a 52-year-old male, morbidly obese, with a BMI 47, here for repair of an umbilical hernia. He understood the technique of the planned procedure. He was aware of the risks, benefits, and alternatives. He was brought to the operating room. He was placed supine under general anesthesia via laryngeal mask airway. The abdomen was prepped and draped in the usual sterile fashion. a surgical time-out was done. The patient received cefazolin 2 g IV preoperatively I infiltrated the planned line of incision with lidocaine 1%. I made a supra umbilical very linear transverse incision using blade 15. This carried down with electrocautery through the full-thickness of the skin subcutaneous fat until the hernia was visualized. I sharply dissected the hernia off of the rest of the subcutaneous layer. I lifted the umbilicus is a flap to separate this from the hernia contents. I dissected the hernia all the way down to the fascial level. I had to divide adhesions to the hernia sac sharply. There was a lot of omental fat that was contained within the hernia. Because of the narrow neck, this could Not be readily reduced. I therefore had to open up the sac and excise this from the fascial defect. Doing so, as able to clearly defined the fascial edge and by gentle pressure on the hernia contents, I was able to reduce this to this narrow neck. The neck was about 2 cm in widest diameter. The area surrounding this was clear of any adhesions. I used a small-sized Ventralex mesh was flattened enter the abdominal wall. I secured the mesh to the fascial layer using Prolene 2 sutures through the Prolene straps of the mesh. the Prolene straps were then trimmed flush on the fascial level. I closed the fascial layer with a figure-eight Maxon 1 stitch. The subcutaneous layer was reapposed Dexon 3-0 interrupted sutures. Skin closure was achieved with subcuticular Dexon 4-0 running stitch. The area was infiltrated with Marcaine 0.5% for postop analgesia. Dressings were applied. The procedure was completed The patient tolerated procedure well. There were no immediate complications. Initial final counts of sponges and instruments were correct. Estimated blood loss was less than 5 cc. The patient was extubated without difficulty and transferred to the recovery room with stable vital signs.
[2022-12-07 08:27] VITALS: BP 136/74; PULSE 104; RESP 20; TEMP 36.4; O2SAT 98
[2022-12-07 08:32] VITALS: BP 127/75; PULSE 80; RESP 20; O2SAT 98
[2022-12-07 08:37] VITALS: BP 129/83; PULSE 80; RESP 20; O2SAT 97
[2022-12-07 08:41] VITALS: BP 137/82; PULSE 80; RESP 20; O2SAT 97
[2022-12-07 08:55] VITALS: BP 138/92; PULSE 80; RESP 158; TEMP 36.4; O2SAT 99
== END 2022-12-07 09:22 | disposition home or self-care (01) ==
PROVIDERS: PCP Internal Medicine; Visit Provider Surgery
PROC: (CPT 49591; principal; 2022-12-07 07:30)
DX: K42.9 Umbilical hernia without obstruction or gangrene (principal); Z80.0 Family history of malignant neoplasm of digestive organs; K21.9 Gastro-esophageal reflux disease without esophagitis; G47.33 Obstructive sleep apnea (adult) (pediatric); E66.01 Morbid (severe) obesity due to excess calories; Z68.42 Body mass index [BMI] 45.0-49.9, adult; I49.8 Other specified cardiac arrhythmias; J45.909 Unspecified asthma, uncomplicated; Z85.72 Personal history of non-Hodgkin lymphomas; Z79.899 Other long term (current) drug therapy; Z88.8 Allergy status to other drugs, medicaments and biological substances; Z86.16 Personal history of COVID-19
CPT/HCPCS: 49591; 88302; C1781; J0690; J1885; J2405; J3010

== ENCOUNTER → 2022-12-20 13:39 | Outpatient (BNVA) | payer OTHER, SELFPAY | PROVIDERS: PCP Internal Medicine; Visit Provider Surgery ==

== ENCOUNTER 2023-01-05 09:10 | Emergency (ER) | payer OTHER, SELFPAY ==
[2023-01-05 09:20] VITALS: BP 147/93; PULSE 82; RESP 19; TEMP 36.6; O2SAT 98; BMI 47.3
--- NOTE | 2023-01-05 09:41 | ED_ITS ---
HPI - Nausea/Vomiting/Diarrhea General Chief complaint: Abdominal Pain Stated complaint: Diarrhea Time Seen by Provider: 01/05/23 09:40 Source: patient Mode of arrival: ambulatory Limitations: no limitations History of Present Illness HPI Narrative: 52 yo male with history of kidney stones, history of laarge B cell lymphoma, hx appendectomy, hx abdominal hernia repair 1 month ago who presents to the ER for evaluation diarrhea for the last 3 days. He states the 1st day he had 10 episodes of watery non-bloody diarrhea. It has slowed down since then. He has been taking Imodium intermittently. He denies any abdominal pain but has had an 'upset stomach' with decreased appetite. He denies any episodes of vomiting. He states his son is home today vomiting and having diarrhea as well. He tried going to work today but had diarrhea so came to the ER for evaluation. MD elicited complaint: diarrhea Onset (ago): day(s) (3) Description of vomiting: watery Description of diarrhea: watery Associated nausea: No Associated abdominal pain: No Location of pain: none Severity: moderate Exacerbating factors: none Relieving factors: none Associated symptoms: loss of appetite, malaise and weakness Treatment prior to arrival: immodium Related Data Previous Rx's Medication Instructions Recorded acetaminophen 500 mg tablet 1,000 mg PO QID PRN fever or pain 10/31/20 (Tylenol Extra Strength) #14 tabs pyridoxine (vitamin B6) 100 mg 100 mg PO DAILY 90 days #90 tabs 05/27/21 tablet albuterol sulfate 2.5 mg/3 mL 2.5 mg (3 mL) inhalation Q4-6H PRN 06/18/21 (0.083 %) solution for nebulization shortness of breath or wheezing #90 mL sennosides 8.6 mg capsule (senna) 8.6 mg PO DAILY PRN constipation 09/09/21 90 days #90 caps omeprazole 20 mg capsule,delayed 20 mg PO DAILY 90 days #90 caps 04/25/22 release albuterol sulfate 2.5 mg/3 mL 2.5 mg (3 mL) inhalation Q4-6H PRN 07/21/22 (0.083 %) solution for nebulization shortness of breath or wheezing #75 mL diclofenac sodium 75 mg 75 mg PO BID pain 10 days #20 tabs 11/11/22 tablet,delayed release meclizine 25 mg tablet 25 mg PO TID PRN dizziness #14 tabs 12/01/22 oxycodone-acetaminophen 5 mg-325 1 tab PO Q4-6H PRN pain (scale 12/07/22 mg tablet (Percocet) score 7-10) #20 tabs Allergies Allergy/AdvReac Type Severity Reaction Status Date / Time isosorbide Allergy Intermediate neck Verified 01/05/23 09:20 pain/headaches Review of Systems Review of Systems: Yes all other systems are reviewed and are negative Gastrointestinal: Gastrointestinal: Denies nausea PMFSH Past Medical History Medical History Asthma Brugada syndrome Constipation COVID-19 Diffuse large B cell lymphoma Dizziness Family history of colon cancer GERD (gastroesophageal reflux disease) Hernia Lymphoma Morbid obesity with BMI of 50.0-59.9, adult Obstructive sleep apnea Surgical History H/O colonoscopy History of appendectomy History of laryngoscopy History of umbilical hernia repair Family History Family History Paternal Grandmother Cancer Father Colon cancer Social History Social History Housing: House Alcohol intake: never Patient Tobacco Use Status: Never used Tobacco Second Hand Smoke Exposure: No Advance Directives: No Advance Directives Date on File: 07/13/17 service: No Current occupational status: employed 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 Cognitive needs: No Hearing needs: No Vision needs: No Physical Exam Vital Signs: Vital Signs: Last Vital Signs Temp 96.6 F L 01/05/23 09:51 Pulse 73 01/05/23 09:51 Resp 20 01/05/23 09:51 BP 124/77 01/05/23 09:51 Pulse Ox 98 01/05/23 09:51 O2 Del Method Room Air 01/05/23 09:51 BMI result Body Mass Index 47.3 Appearance: Alert. Oriented X3. No acute distress. Head: normocephalic, atraumatic. Eyes: Pupils equal, round and reactive to light. ENT: Pharynx normal. No tonsillar swelling or exudate. Neck: Normal inspection. Neck supple. CVS: Normal heart rate and rhythm. Pulses normal. Respiratory: No respiratory distress. Breath sounds normal. Abdomen: Well healed surgical scar superior to the umbilicus, Obese, Soft with mild periumbilical tenderness, no lower abdominal tenderness or RUQ tenderness normal active+BS x4 Skin: Skin warm and dry. Normal skin color. Normal skin turgor. No rashes. Extremities: No lower extremity edema. No joint swelling. Neuro/psych: Oriented X 3. No motor deficit. No sensory deficit. CN II-XII intact. Normal speech and cognition. Course Reevaluation(s) Reevaluation #1: Patient tolerating p.o.. Labs unremarkable. No episodes of diarrhea here. Most likely viral etiology. Stable for discharge home. Time: 11:19 Medications Administered Discontinued Medications Generic Name Dose Route Start Last Admin Trade Name Freq PRN Reason Stop Dose Admin Sodium Chloride 1,000 mls @ 999 mls/hr 01/05/23 09:45 01/05/23 10:21 Ns IVCONT 01/05/23 10:45 999 mls/hr .Q1H1M LANRE Administration Medical Decision Making Medical Decision Making [facility] Narrative: 52 yo male with history of kidney stones, history of large B cell lymphoma, hx appendectomy, hx abdominal hernia repair 1 month ago who presents to the ER for evaluation diarrhea for the last 3 days. No recent travel, no antibiotics. He does have a son at home with similar symptoms. His abdomen is soft with mild periumbilical tenderness due to his recent hernia repair. Appears to be healing well. His lab workup today is unremarkable. He is able to tolerate p.o.. Symptoms are most likely due to viral gastroenteritis. Differential Diagnosis Differential Diagnoses: The differential diagnosis associated with the presentation includes viral gastroenteritis, colitis, cdiff, bacterial gastroenteritis Lab Data [facility] Lab Attestation statement: I reviewed the patient's lab results. 01/05/23 09:56 01/05/23 09:56 Labs: Lab Results 01/05/23 01/05/23 Range/Units 09:56 09:56 WBC 5.2 (4.8-10.8) X10*3/uL RBC 5.19 (4.60-5.80) X10*6/uL Hgb 14.8 (14.0-18.0) g/dl Hct 44.6 (42.0-52.0) % MCV 85.9 (80.0-98.0) fL MCH 28.5 (27.0-33.0) pg MCHC 33.2 (31.0-36.0) g/dl RDW 13.8 (11.0-16.0) % Plt Count 194 (160-400) X10*3/uL MPV 10.3 (9.4-12.4) fL Immature Gran % (Auto) 0.2 (0.0-0.4) % Neut % (Auto) 57.3 (45-73) % Lymph % (Auto) 25.8 (20-40) % [place] % (Auto) 14.2 H (2-11) % Eos % (Auto) 2.1 (0-4) % Baso % (Auto) 0.4 (0-2) % Lymph # (Auto) 1.3 (1.2-4.9) X10*3/uL [place] # (Auto) 0.7 (0.1-1.2) X10*3/uL Eos # (Auto) 0.1 (0.0-0.4) X10*3/uL Baso # (Auto) 0.0 (0.0-0.2) X10*3/uL Abs Immat Gran (auto) 0.01 (0.00-0.03) X10*3/uL Absolute Neuts (auto) 3.0 (2.0-8.3) x10*3/uL Absolute Nucleated RBC 0.000 (0.0-0.012) X10*3/uL Nucleated RBC % (auto) 0.0 (0.0-0.2) /100WBC Sodium 138 (135-145) mmol/L Potassium 3.9 (3.3-5.1) mmol/L Chloride 109 H (96-108) mmol/L Carbon Dioxide 22 (22-29) mmol/L Anion Gap 11 L (12-20) BUN 11 (9-16) mg/dL Creatinine 0.88 (0.5-1.4) mg/dL Estim Creat Clear Calc 138.4 Estimated GFR > 60 Random Glucose 94 (60-115) mg/dL Calcium 8.9 (8.4-10.2) mg/dL Total Bilirubin 0.4 (0.0-1.0) mg/dL Direct Bilirubin 0.1 (0.0-0.5) mg/dL AST 37 (5-37) U/L ALT 44 H (0-40) U/L Alkaline Phosphatase 46 (39-117) U/L Total Protein 6.9 (6.5-8.0) g/dL Albumin 3.7 (3.5-5.0) g/dL Lipase 54 (8-78) U/L External Record Review External record reviewed: Prior outpatient labs and Prior outpatient radiology Critical Care Time Critical Care Time Critical Care Time: No Discharge Plan Discharge Clinical Impression: Gastroenteritis Patient Disposition: Home, Self-Care Instructions: Gastroenteritis (DC) Additional Instructions: You lab workup today was unremarkable. You most likely have a viral GI bug also known as gastroenteritis. Treatment is supportive care, symptoms usually resolve on their own in 48-72 hours. Recommend rest and plenty of oral hydration. Stick to a bland diet like soup and toast while you are not feeling well. Recommend over the counter Pepto Bismol or Imodium for upset stomach and diarrhea. Follow up with your doctor as needed. If you develop new or worsening symptoms call 911 or come back to the ER for further evaluation. Prescriptions: No Action pyridoxine (vitamin B6) 100 mg tablet 100 mg PO DAILY 90 Days Qty: 90 1RF omeprazole 20 mg capsule,delayed release(DR/EC) 20 mg PO DAILY 90 Days Qty: 90 1RF acetaminophen [Tylenol Extra Strength] 500 mg tablet 1,000 mg PO QID PRN (Reason: fever or pain) Qty: 14 0RF albuterol sulfate 2.5 mg /3 mL (0.083 %) solution for nebulization 2.5 mg inhalation Q4-6H PRN (Reason: shortness of breath or wheezing) Qty: 90 0RF oxycodone-acetaminophen [Percocet] 5-325 mg tablet 1 tab PO Q4-6H PRN (Reason: pain (scale score 7-10)) Qty: 20 0RF Rx Instructions: Partial Fill upon patient request. meclizine 25 mg tablet 25 mg PO TID PRN (Reason: dizziness) Qty: 14 0RF albuterol sulfate 2.5 mg /3 mL (0.083 %) solution for nebulization 2.5 mg inhalation Q4-6H PRN (Reason: shortness of breath or wheezing) Qty: 75 0RF diclofenac sodium 75 mg tablet,delayed release (DR/EC) 75 mg PO BID 10 Days Qty: 20 0RF senna 8.6 mg capsule 8.6 mg PO DAILY PRN (Reason: constipation) 90 Days Qty: 90 3RF Referrals: Tj Alexandre MD [Primary Care Provider] - Stand Alone Forms: Work/School Release
[2023-01-05 09:51] VITALS: BP 124/77; PULSE 73; RESP 20; TEMP 35.9; O2SAT 98
[2023-01-05 10:02] LABS: MANUAL DIFF FLAG NO
[2023-01-05 10:03] LABS: Basophils Percent Auto 0.4 % (0-2); Eosinophils Absolute Auto 0.1 X10*3/uL (0.0-0.4); Eosinophils Percent Auto 2.1 % (0-4); Hematocrit 44.6 % (42.0-52.0); Hemoglobin 14.8 g/dl (14.0-18.0); Imm Gran Abs Auto 0.01 X10*3/uL (0.00-0.03); Imm Gran Pct Auto 0.2 % (0.0-0.4); Lymphocytes Absolute Auto 1.3 X10*3/uL (1.2-4.9); Lymphocytes Percent Auto 25.8 % (20-40); Mean Corpuscular HGB Conc 33.2 g/dl (31.0-36.0); Mean Corpuscular Hemoglobin 28.5 pg (27.0-33.0); Mean Corpuscular Volume 85.9 fL (80.0-98.0); Mean Platelet Volume 10.3 fL (9.4-12.4); Monocytes Absolute Auto 0.7 X10*3/uL (0.1-1.2); Monocytes Percent Auto 14.2 % (2-11); Neutrophils Percent Auto 57.3 % (45-73); Platelet Count 194 X10*3/uL (160-400); Red Blood Count 5.19 X10*6/uL (4.60-5.80); Red Cell Distribution Width 13.8 % (11.0-16.0); White Blood Count 5.2 X10*3/uL (4.8-10.8)
[2023-01-05 10:18] LABS: Alanine Aminotransferase 44 U/L (0-40); Albumin Level 3.7 g/dL (3.5-5.0); Alkaline Phosphatase 46 U/L (39-117); Anion Gap 11 (12-20); Aspartate Amino Transferase 37 U/L (5-37); Bilirubin Direct 0.1 mg/dL (0.0-0.5); Bilirubin Total 0.4 mg/dL (0.0-1.0); Blood Urea Nitrogen 11 mg/dL (9-16); Calcium 8.9 mg/dL (8.4-10.2); Carbon Dioxide 22 mmol/L (22-29); Chloride 109 mmol/L (96-108); Creatinine Clr Calc Pharmacy 138.4; Estimated Glomerular Filt Rate > 60; Glucose Random 94 mg/dL (60-115); Lipase 54 U/L (8-78); Potassium 3.9 mmol/L (3.3-5.1); Sodium 138 mmol/L (135-145); Total Protein 6.9 g/dL (6.5-8.0)
[2023-01-05] MEDS: 0.9 % Sodium Chloride 1,000 ML 999 ML IVCONT (10:21)
== END 2023-01-05 12:32 | disposition home or self-care (01) ==
PROVIDERS: Emergency Provider Emergency Medicine Emergency Medical Services; PCP Internal Medicine
DX: K52.9 Noninfective gastroenteritis and colitis, unspecified (principal); Z79.899 Other long term (current) drug therapy
CPT/HCPCS: 36415; 80048; 80076; 83690; 85025; 99283

== ENCOUNTER 2023-02-16 15:37 | Emergency (ER) | payer OTHER, SELFPAY ==
[2023-02-16 15:48] VITALS: BP 142/68; PULSE 95; RESP 18; TEMP 36.9; O2SAT 97; BMI 45.9
--- NOTE | 2023-02-16 15:49 | ED.GENADULT ---
HPI - General Adult General Chief complaint: Chest Pain Stated complaint: chest pain Time Seen by Provider: 02/16/23 16:11 Source: patient Mode of arrival: ambulatory Limitations: no limitations History of Present Illness HPI narrative: She is a 52-year-old male presents emergency department for evaluation of chest pain. Patient reports that he awoke this morning feeling generally fatigued bloated with mild left anterior chest pain. Chest pain has been persistent throughout the day. He went to this gym at approximately 1500, was on a cardio machine for about 10 minutes and he felt increasingly weak with worsening of the left anterior chest pain, with nausea and shortness of breath. Of note, he is been doing approximate 90 minute cardio workouts previously without any issue. He went home and checked his blood pressure which he reports was elevated 160/93, without any history of hypertension (used daughters machine). This prompted him to come to the emergency department. At this time pain is currently 3/10, described as sharp in nature without associated dizziness, lightheadedness, neck pain, difficulty breathing, vomiting, abdominal pain, numbness or tingling of the extremities Related Data Previous Rx's Medication Instructions Recorded acetaminophen 500 mg tablet 1,000 mg PO QID PRN fever or pain 10/31/20 (Tylenol Extra Strength) #14 tabs pyridoxine (vitamin B6) 100 mg 100 mg PO DAILY 90 days #90 tabs 05/27/21 tablet albuterol sulfate 2.5 mg/3 mL 2.5 mg (3 mL) inhalation Q4-6H PRN 06/18/21 (0.083 %) solution for nebulization shortness of breath or wheezing #90 mL sennosides 8.6 mg capsule (senna) 8.6 mg PO DAILY PRN constipation 09/09/21 90 days #90 caps omeprazole 20 mg capsule,delayed 20 mg PO DAILY 90 days #90 caps 04/25/22 release albuterol sulfate 2.5 mg/3 mL 2.5 mg (3 mL) inhalation Q4-6H PRN 07/21/22 (0.083 %) solution for nebulization shortness of breath or wheezing #75 mL diclofenac sodium 75 mg 75 mg PO BID pain 10 days #20 tabs 11/11/22 tablet,delayed release meclizine 25 mg tablet 25 mg PO TID PRN dizziness #14 tabs 12/01/22 oxycodone-acetaminophen 5 mg-325 1 tab PO Q4-6H PRN pain (scale 12/07/22 mg tablet (Percocet) score 7-10) #20 tabs Allergies Allergy/AdvReac Type Severity Reaction Status Date / Time isosorbide Allergy Intermediate neck Verified 01/05/23 09:20 pain/headaches Review of Systems Review of Systems: Constitutional : No Weight loss, No Fever, No Chills ENT/Mouth :? No sore throat, No Rhinorrhea Eyes: No Eye Pain, No Swelling Cardiovascular : pos Chest Pain, no SOB, no Dyspnea on Exertion, No Orthopnea, No Edema, No Palpitations Respiratory : No Cough, No Sputum Gastrointestinal : pos Nausea, No Vomiting, No Diarrhea, No abdominal Pain, No Hematochezia, No Melena Genitourinary : No Dysuria, No Urinary Frequency Musculoskeletal : No joint pain, No Myalgias, No Joint Swelling Skin : No Skin Lesions, No rash Neuro : No Weakness, No Numbness, No Dizziness, No Headache Psych : No Anxiety/Panic, No Depression Heme/Lymph: No Bruising, No Lymphadenopathy Endocrine : No Polyuria, No Polydipsia Yes all other systems are reviewed and are negative PMFSH Past Medical History Attestation statement: The following information was validated with the patient. Source: old records reviewed Medical History Asthma Brugada syndrome Constipation COVID-19 Diffuse large B cell lymphoma Dizziness Family history of colon cancer GERD (gastroesophageal reflux disease) Hernia Lymphoma Morbid obesity with BMI of 50.0-59.9, adult Obstructive sleep apnea Surgical History H/O colonoscopy History of appendectomy History of laryngoscopy History of umbilical hernia repair Family History Family History Paternal Grandmother Cancer Father Colon cancer Social History Social History Housing: House Alcohol intake: never Patient Tobacco Use Status: Never used Tobacco Smoked in Last 30 Days: No Second Hand Smoke Exposure: No Use of substances other than those prescribed or required for medical reasons: No Advance Directives: No Advance Directives Information Provided: Yes Advance Directives Date on File: 07/13/17 service: No Current occupational status: employed 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 No acute distress.?Normal affect. Eyes: Pupils equal, round and reactive to light.? ENT: Pharynx normal.?? Neck: Normal inspection.? Neck supple.?? CVS: Heart sounds normal. Normal heart rate and rhythm.? Pulses normal.?? Respiratory: No respiratory distress.? Lung sounds clear to auscultation bilaterally?? Abdomen: Soft and non-tender. Normoactive bowel sounds. ? Skin: Skin warm and dry.? Normal skin color.? Extremities: No lower extremity edema.? No calf ttp? Neuro: Moves all extremities spontaneously. Sensation intact bilaterally. No focal neuro deficits. Ambulates with normal steady gait. Course Course Course Narrative: RME- 52-year-old male presents for evaluation of chest pain. Patient has a history of morbid obesity, hypertension. Plan for EKG, labs Reevaluation(s) Reevaluation #1: CBC is overall unremarkable no leukocytosis or anemia. CMP overall unremarkable remarkable, her perc glycemia; 169. Troponin <2.7, EKG revealing normal sinus rhythm with incomplete right bundle-branch block, no acute ischemia/STEMI, however given onset of symptoms in patient's past medical history will obtain delta troponin. D-dimer <150, not consistent with PE. Chest x-ray without acute cardiopulmonary process; no pneumonia, pneumothorax, pulmonary edema Reevaluation #2: Delta troponin is negative; <2.7, consulted with cardiology; Dr. Hensley, it was recommended the patient be admitted to the hospital however patient declines he is requesting to leave against medical advice. We discussed potential risks and complications which may be life-threatening and can include patient verbalizes understanding and at this time continues to request to leave against medical advice. His conscious alert and oriented x4. He will follow up with his primary care provider, if additional provided outpatient contact information for Cardiology. Time: 19:43 Medications Administered Discontinued Medications Generic Name Dose Route Start Last Admin Trade Name Robina PRN Reason Stop Dose Admin Aspirin 324 mg 02/16/23 16:31 02/16/23 16:47 Aspirin 81 Mg Tab.Chew PO 02/16/23 16:32 324 mg ONCE ONE Administration Nitroglycerin 0.5 inch 02/16/23 16:31 02/16/23 16:46 Nitroglycerin 2 % Oint 1 Gm Packet TRANSDERMA 02/16/23 16:32 0.5 inch ONCE ONE Administration Medical Decision Making Medical Decision Making MDM Narrative: Patient is a 52-year-old male with past medical history of asthma, Brugada syndrome, diffuse large B-cell lymphoma in remission, GERD, SATNAM, morbid obesity presenting to the emergency department for evaluation of chest pain as per HPI. At the time of my examination he is overall well-appearing. He is in no apparent respiratory distress. Mildly hypertensive upon arrival to the emergency department, although improved at this time 115/67. Lower extremities without overt concern for DVT, however given history of lymphoma will obtain D-dimer to exclude pulmonary embolism. Will obtain CBC to evaluate for leukocytosis/ anemia, CMP and lipase to evaluate for abnormal electrolytes /abnormal renal function/ abnormal hepatic/biliary function, EKG and troponin to evaluate for ischemia/ACS. Chest x-ray to evaluate for consolidation/ infiltrate/ mass/ pulmonary congestion and Urinalysis. Will try nitro paste for pain, patient receive aspirin 324 mg p.o. Differential Diagnosis Differential Diagnoses: The differential diagnosis associated with the presentation includes (ACS, pulmonary embolism, pneumothorax, pneumonia, costochondritis, viral syndrome) Admission/Observation Consideration of admission/observation: Escalation of care including admission/observation considered (Please see course narrative) Consult Healthcare Provider Management of the patient was discussed with: Wafer Batter Mixer (Cardiology please see course narrative) Lab Data [facility] Lab Attestation statement: I reviewed the patient's lab results. (See course narrative) 02/16/23 16:06 02/16/23 16:06 Labs: Lab Results 02/16/23 02/16/23 02/16/23 Range/Units 16:06 16:06 16:06 WBC 6.4 (4.8-10.8) X10*3/uL RBC 5.03 (4.60-5.80) X10*6/uL Hgb 14.3 (14.0-18.0) g/dl Hct 43.6 (42.0-52.0) % MCV 86.7 (80.0-98.0) fL MCH 28.4 (27.0-33.0) pg MCHC 32.8 (31.0-36.0) g/dl RDW 14.5 (11.0-16.0) % Plt Count 202 (160-400) X10*3/uL MPV 10.3 (9.4-12.4) fL Immature Gran % (Auto) 0.2 (0.0-0.4) % Neut % (Auto) 58.5 (45-73) % Lymph % (Auto) 26.0 (20-40) % [place] % (Auto) 11.7 H (2-11) % Eos % (Auto) 3.1 (0-4) % Baso % (Auto) 0.5 (0-2) % Lymph # (Auto) 1.7 (1.2-4.9) X10*3/uL [place] # (Auto) 0.8 (0.1-1.2) X10*3/uL Eos # (Auto) 0.2 (0.0-0.4) X10*3/uL Baso # (Auto) 0.0 (0.0-0.2) X10*3/uL Abs Immat Gran (auto) 0.01 (0.00-0.03) X10*3/uL Absolute Neuts (auto) 3.8 (2.0-8.3) x10*3/uL Absolute Nucleated RBC 0.000 (0.0-0.012) X10*3/uL Nucleated RBC % (auto) 0.0 (0.0-0.2) /100WBC PT (10.0-13.1) SEC INR (0.9-1.1) APTT (26.0-36.4) SEC D-Dimer High Sensitivty NG/ML Sodium 139 (135-145) mmol/L Potassium 4.2 (3.3-5.1) mmol/L Chloride 110 H (96-108) mmol/L Carbon Dioxide 21 L (22-29) mmol/L Anion Gap 12 (12-20) BUN 14 (9-16) mg/dL Creatinine 0.82 (0.5-1.4) mg/dL Estim Creat Clear Calc 150.6 Estimated GFR > 60 Random Glucose 169 H (60-115) mg/dL Calcium 9.9 D (8.4-10.2) mg/dL Total Bilirubin 0.3 (0.0-1.0) mg/dL AST 29 (5-37) U/L ALT 30 (0-40) U/L Alkaline Phosphatase 53 (39-117) U/L Troponin I High Sens < 2.7 (<3.5-35.0) ng/L Total Protein 7.0 (6.5-8.0) g/dL Albumin 3.7 (3.5-5.0) g/dL Lipase 60 (8-78) U/L 02/16/23 02/16/23 Range/Units 16:07 18:53 WBC (4.8-10.8) X10*3/uL RBC (4.60-5.80) X10*6/uL Hgb (14.0-18.0) g/dl Hct (42.0-52.0) % MCV (80.0-98.0) fL MCH (27.0-33.0) pg MCHC (31.0-36.0) g/dl RDW (11.0-16.0) % Plt Count (160-400) X10*3/uL MPV (9.4-12.4) fL Immature Gran % (Auto) (0.0-0.4) % Neut % (Auto) (45-73) % Lymph % (Auto) (20-40) % [place] % (Auto) (2-11) % Eos % (Auto) (0-4) % Baso % (Auto) (0-2) % Lymph # (Auto) (1.2-4.9) X10*3/uL [place] # (Auto) (0.1-1.2) X10*3/uL Eos # (Auto) (0.0-0.4) X10*3/uL Baso # (Auto) (0.0-0.2) X10*3/uL Abs Immat Gran (auto) (0.00-0.03) X10*3/uL Absolute Neuts (auto) (2.0-8.3) x10*3/uL Absolute Nucleated RBC (0.0-0.012) X10*3/uL Nucleated RBC % (auto) (0.0-0.2) /100WBC PT 11.7 (10.0-13.1) SEC INR 1.0 (0.9-1.1) APTT 31.8 (26.0-36.4) SEC D-Dimer High Sensitivty < 150 NG/ML Sodium (135-145) mmol/L Potassium (3.3-5.1) mmol/L Chloride (96-108) mmol/L Carbon Dioxide (22-29) mmol/L Anion Gap (12-20) BUN (9-16) mg/dL Creatinine (0.5-1.4) mg/dL Estim Creat Clear Calc Estimated GFR Random Glucose (60-115) mg/dL Calcium (8.4-10.2) mg/dL Total Bilirubin (0.0-1.0) mg/dL AST (5-37) U/L ALT (0-40) U/L Alkaline Phosphatase (39-117) U/L Troponin I High Sens < 2.7 (<3.5-35.0) ng/L Total Protein (6.5-8.0) g/dL Albumin (3.5-5.0) g/dL Lipase (8-78) U/L Independent Interpretation I performed an independent interpretation of an: EKG and Plain X-Ray (I have personally interpreted chest x-ray and agree with radiologist impression, no acute abnormalities; pneumonia, pneumothorax) Interpretation: Rate: 99 Rhythm:? Normal sinus rhythm with incomplete right bundle-branch block [place]:? Left axis deviation Normal P waves.? Normal [place].?? Normal QRS complex.?? ST T wave :??No ST elevation, no T-wave inversion qTC: 449 prior studies:? November 2022 The study has been interpreted contemporaneously by me. Radiology Impression Discussion of test interpretation with radiology: I have reviewed the radiologist's reading. Radiologist Impression: XR/XR chest 2V IMPRESSION: Unremarkable examination. External Record Review External record reviewed: Outpatient record (Cardiology. PCP 09/10/22) Discharge Plan Discharge Clinical Impression: Chest pain Patient Disposition: Left Against Medical Advice Instructions: Chest Pain (ED) Additional Instructions: It was recommended that you stay in the hospital and be admitted for further evaluation. However you declined. As discussed, leaving against medical advice at this time can result in serious and life-threatening complications. If you develop any new or worsening symptoms or concerns you should return back to the emergency department. I have provided contact information for the event marketing representative office, so that you may contact the outpatient, in addition follow-up with your primary care provider. Prescriptions: No Action pyridoxine (vitamin B6) 100 mg tablet 100 mg PO DAILY 90 Days Qty: 90 1RF omeprazole 20 mg capsule,delayed release(DR/EC) 20 mg PO DAILY 90 Days Qty: 90 1RF acetaminophen [Tylenol Extra Strength] 500 mg tablet 1,000 mg PO QID PRN (Reason: fever or pain) Qty: 14 0RF albuterol sulfate 2.5 mg /3 mL (0.083 %) solution for nebulization 2.5 mg inhalation Q4-6H PRN (Reason: shortness of breath or wheezing) Qty: 90 0RF oxycodone-acetaminophen [Percocet] 5-325 mg tablet 1 tab PO Q4-6H PRN (Reason: pain (scale score 7-10)) Qty: 20 0RF Rx Instructions: Partial Fill upon patient request. meclizine 25 mg tablet 25 mg PO TID PRN (Reason: dizziness) Qty: 14 0RF albuterol sulfate 2.5 mg /3 mL (0.083 %) solution for nebulization 2.5 mg inhalation Q4-6H PRN (Reason: shortness of breath or wheezing) Qty: 75 0RF diclofenac sodium 75 mg tablet,delayed release (DR/EC) 75 mg PO BID 10 Days Qty: 20 0RF senna 8.6 mg capsule 8.6 mg PO DAILY PRN (Reason: constipation) 90 Days Qty: 90 3RF Referrals: Tj Alexandre MD [Primary Care Provider] - Ata Hensley MD [Physician] -
[2023-02-16 16:34] LABS: Alanine Aminotransferase 30 U/L (0-40); Albumin Level 3.7 g/dL (3.5-5.0); Alkaline Phosphatase 53 U/L (39-117); Anion Gap 12 (12-20); Aspartate Amino Transferase 29 U/L (5-37); Bilirubin Total 0.3 mg/dL (0.0-1.0); Blood Urea Nitrogen 14 mg/dL (9-16); Calcium 9.9 mg/dL (8.4-10.2); Carbon Dioxide 21 mmol/L (22-29); Chloride 110 mmol/L (96-108); Creatinine Clr Calc Pharmacy 150.6; Estimated Glomerular Filt Rate > 60; Glucose Random 169 mg/dL (60-115); Lipase 60 U/L (8-78); Potassium 4.2 mmol/L (3.3-5.1); Sodium 139 mmol/L (135-145)
[2023-02-16 16:49] VITALS: BP 115/67; PULSE 83; RESP 20
[2023-02-16 18:18] VITALS: BP 114/63; PULSE 82; RESP 17; TEMP 36.5; O2SAT 97
--- NOTE | 2023-02-16 18:21 | PC.NURSE ---
Patient stating relief after getting nitro paste. Blood pressure stable, patient has a minimal headache at this time.
[2023-02-16 18:54] VITALS: BP 115/52; PULSE 81; RESP 16; TEMP 36.5; O2SAT 96
[2023-02-16 20:00] VITALS: BP 114/73; PULSE 78; RESP 18; TEMP 37; O2SAT 96
[2023-02-16 21:51] VITALS: BP 106/76; PULSE 78; RESP 18; TEMP 36.8; O2SAT 96
== END 2023-02-16 21:56 | disposition left against medical advice (07) ==
PROVIDERS: Physician Assistant; Emergency Provider Emergency Medicine Emergency Medical Services; PCP Internal Medicine
DX: R07.9 Chest pain, unspecified (principal); Z79.899 Other long term (current) drug therapy
CPT/HCPCS: 36415; 71046; 80053; 83690; 84484; 85025; 85379; 85610; 85730; 93005; 99285

== ENCOUNTER 2023-04-05 18:21 | Emergency (ER) | payer OTHER, SELFPAY ==
--- NOTE | ~2023-04-05 | XR_ITS ---
EXAMINATION: XR CHEST CLINICAL INFORMATION: Cough. Shortness of breath. COMPARISON: 02/16/2023 TECHNIQUE: 2 views of the chest were obtained. FINDINGS: The cardiomediastinal silhouette is normal. There is no focal lung consolidation or pleural effusion. The bony structures and soft tissues are unremarkable. XR/XR chest 2V IMPRESSION: No active cardiopulmonary disease.
[2023-04-05 19:00] VITALS: BP 120/84; PULSE 100; RESP 18; TEMP 36.8; O2SAT 94; BMI 50.7
--- NOTE | 2023-04-05 19:00 | ED.SOB ---
HPI - SOB/Dyspnea General Chief Complaint: Upper Respiratory Symptoms Stated Complaint: difficulty breathing Related Data Previous Rx's Medication Instructions Recorded acetaminophen 500 mg tablet 1,000 mg PO QID PRN fever or pain 10/31/20 (Tylenol Extra Strength) #14 tabs pyridoxine (vitamin B6) 100 mg 100 mg PO DAILY 90 days #90 tabs 05/27/21 tablet albuterol sulfate 2.5 mg/3 mL 2.5 mg (3 mL) inhalation Q4-6H PRN 06/18/21 (0.083 %) solution for nebulization shortness of breath or wheezing #90 mL sennosides 8.6 mg capsule (senna) 8.6 mg PO DAILY PRN constipation 09/09/21 90 days #90 caps omeprazole 20 mg capsule,delayed 20 mg PO DAILY 90 days #90 caps 04/25/22 release albuterol sulfate 2.5 mg/3 mL 2.5 mg (3 mL) inhalation Q4-6H PRN 07/21/22 (0.083 %) solution for nebulization shortness of breath or wheezing #75 mL diclofenac sodium 75 mg 75 mg PO BID pain 10 days #20 tabs 11/11/22 tablet,delayed release meclizine 25 mg tablet 25 mg PO TID PRN dizziness #14 tabs 12/01/22 oxycodone-acetaminophen 5 mg-325 1 tab PO Q4-6H PRN pain (scale 12/07/22 mg tablet (Percocet) score 7-10) #20 tabs Allergies Allergy/AdvReac Type Severity Reaction Status Date / Time isosorbide Allergy Intermediate neck Verified 01/05/23 09:20 pain/headaches PMFSH Past Medical History Medical History Asthma Brugada syndrome Constipation COVID-19 Diffuse large B cell lymphoma Dizziness Family history of colon cancer GERD (gastroesophageal reflux disease) Hernia Lymphoma Morbid obesity with BMI of 50.0-59.9, adult Obstructive sleep apnea Surgical History H/O colonoscopy History of appendectomy History of laryngoscopy History of umbilical hernia repair Family History Family History Paternal Grandmother Cancer Father Colon cancer Social History Social History Housing: House Alcohol intake: never Patient Tobacco Use Status: Never used Tobacco Second Hand Smoke Exposure: No Advance Directives Date on File: 07/13/17 service: No Current occupational status: employed 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 dry cough during eval, tachycardic EKG, COVID, CXR & Tessalon & albuterol inhaler ordered Full HPI, ROS and PE to be performed by primary ED provider. Medical Decision Making Lab Data Labs: Lab Results 04/05/23 Range/Units 19:39 COVID-19 ([facility]) Negative (Negative) COVID-19 Clin Com See Note Discharge Plan Discharge Clinical Impression: Upper respiratory infection Patient Disposition: Elopement Prescriptions: No Action pyridoxine (vitamin B6) 100 mg tablet 100 mg PO DAILY 90 Days Qty: 90 1RF omeprazole 20 mg capsule,delayed release(DR/EC) 20 mg PO DAILY 90 Days Qty: 90 1RF acetaminophen [Tylenol Extra Strength] 500 mg tablet 1,000 mg PO QID PRN (Reason: fever or pain) Qty: 14 0RF albuterol sulfate 2.5 mg /3 mL (0.083 %) solution for nebulization 2.5 mg inhalation Q4-6H PRN (Reason: shortness of breath or wheezing) Qty: 90 0RF oxycodone-acetaminophen [Percocet] 5-325 mg tablet 1 tab PO Q4-6H PRN (Reason: pain (scale score 7-10)) Qty: 20 0RF Rx Instructions: Partial Fill upon patient request. meclizine 25 mg tablet 25 mg PO TID PRN (Reason: dizziness) Qty: 14 0RF albuterol sulfate 2.5 mg /3 mL (0.083 %) solution for nebulization 2.5 mg inhalation Q4-6H PRN (Reason: shortness of breath or wheezing) Qty: 75 0RF diclofenac sodium 75 mg tablet,delayed release (DR/EC) 75 mg PO BID 10 Days Qty: 20 0RF senna 8.6 mg capsule 8.6 mg PO DAILY PRN (Reason: constipation) 90 Days Qty: 90 3RF Discharge Date/Time: 04/05/23 22:22
--- NOTE | 2023-04-05 19:04 | ECG_ITS ---
Test Reason : SHORT OF BREATH Blood Pressure : / mmHG Vent. Rate : 098 BPM Atrial Rate : 098 BPM P-R Int : 212 ms QRS Dur : 114 ms QT Int : 354 ms P-R-T Axes : 058 -69 045 degrees QTc Int : 451 ms Sinus rhythm with 1st degree A-V block Left axis deviation Incomplete right bundle branch block Inferior-posterior infarct (cited on or before 21-SEP-2022) Abnormal ECG When compared with ECG of 16-FEB-2023 15:40, No significant change was found Referred By: Mariah Gallagher Electronically Signed By:KENY MASON
[2023-04-05 20:01] LABS: COVID-19 Test Negative (Negative); IDNOW Serial# BCCEAD1C
--- NOTE | 2023-04-05 21:56 | PC.NURSE ---
Called, not in [place] @ this time.
--- NOTE | 2023-04-05 22:21 | PC.NURSE ---
Spoke to patient via phone, states he was feeling much much better so he went home and does not wish to return to treatment.
== END 2023-04-05 22:22 | disposition left against medical advice (07) ==
PROVIDERS: Physician Assistant; Emergency Provider Emergency Medicine; PCP Internal Medicine
DX: J06.9 Acute upper respiratory infection, unspecified (principal); R06.02 Shortness of breath; Z20.822 Contact with and (suspected) exposure to COVID-19
CPT/HCPCS: 71046; 87635; 93005; 99283

== ENCOUNTER 2023-04-15 07:49 | Outpatient (REF) | payer OTHER, SELFPAY ==
--- NOTE | ~2023-04-15 | US_ITS ---
EXAMINATION: US RETROPERITONEAL LIMITED (RENAL ONLY) CLINICAL INFORMATION: Calculus of kidney. COMPARISON: CT abdomen and pelvis 03/24/2022. Renal ultrasound 10/28/2021 and 02/02/2021. X-ray KUB 09/04/2021 and 03/23/2014. TECHNIQUE: Real-time imaging of the kidneys. FINDINGS: RIGHT KIDNEY: 12.6 x 5.0 x 5.4 cm (SAG x AP x TRV). The kidney is normal in size, contour, and echogenicity. Renal cortical thickness is normal. No focal parenchymal lesions or hydronephrosis. At the upper pole, a 5 mm nonobstructing calculus is redemonstrated. LEFT KIDNEY: 13.6 x 5.4 x 6.5 cm (SAG x AP x TRV). The kidney is normal in size, contour, and echogenicity. Renal cortical thickness is normal. No focal parenchymal lesions or hydronephrosis. At the interpolar aspect, a 9 mm nonobstructing calculus is redemonstrated. US/US renal BI IMPRESSION: There are nonobstructing bilateral renal calculi. No hydronephrosis is seen bilaterally.
== END 2023-04-15 07:50 | disposition home or self-care (01) ==
LOC: HO.US 07:49
PROVIDERS: PCP Internal Medicine; Visit Provider Urology
DX: N20.0 Calculus of kidney (principal)
CPT/HCPCS: 76775

== ENCOUNTER 2023-04-26 09:13 | Outpatient (AMB) | payer OTHER, SELFPAY ==
--- NOTE | 2023-04-26 09:19 | A.OFFVIS_ITS ---
Intake Intake Visit Reasons: 1Y US(set) Intake Note: Patient is present for Follow Up Urology Med: Vitamin B6 Antibiotic Allergy: None Blood Thinner: None Pharmacy: [facility] Allergies isosorbide Allergy (Intermediate, Verified 04/26/23 09:21) neck pain/headaches HPI HPI Comments History of Present Illness Details Angel is a pleasant male. He is a patient of Dr. Alexandre. He is seen for the following urologic conditions - nephrolithiasis Yearly follow-up Reporting some decline in libido Not noticing any pain from renal stones Has been getting up 2-3 times at night to urinate Suggest no coffee after 17:00, reducing nighttime fluids, repeat imaging in 3 months for renal stones Baseline testosterone Main issue may be weight related and sleep apnea Nephrolithiasis Prior history recurrent stone formation Prior B-cell lymphoma with chemotherapy Imaging - 11/02 CT scan 3 mm mid ureteric stone, 4 mm stones in right kidney, 4 mm stone left kidney - 02/02 renal ultrasound bilateral 4 mm s tones - 04/05 CT scan distal right UVJ stone an d 4 mm proximal renal stone - 04/06 renal ultrasound 4 mm right, 9 mm left Therapeutic plan - imaging surveillance [facility] Medical History Dizziness Family history of colon cancer Morbid obesity with BMI of 50.0-59.9, adult GERD (gastroesophageal reflux disease) Constipation Obstructive sleep apnea Diffuse large B cell lymphoma COVID-19 Brugada syndrome Asthma Hernia Lymphoma Surgical History History of umbilical hernia repair History of laryngoscopy H/O colonoscopy History of appendectomy Family History Paternal Grandmother Cancer Father Colon cancer Social History Housing: House Alcohol intake: never Patient Tobacco Use Status: Never used Tobacco Second Hand Smoke Exposure: No Advance Directives Date on File: 07/13/17 service: No Current occupational status: employed 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 Cognitive needs: No Hearing needs: No Vision needs: No Review of Systems Const Denies chills and Denies fever(s) Card Reports no additional complaints and Denies syncope Resp Denies cough GI Denies abdominal pain and Denies heartburn Reports as per HPI and Denies change in libido Neuro Denies syncope Psych Denies change in libido Endo Denies change in libido Physical Exam Const General: cooperative, healthy appearing, comfortable and no acute distress Orientation/consciousness: patient oriented x3 HEENT Face and sinus: Yes normal facial exam Mouth: moist mucous membranes Neck Neck: Yes normal visual inspection, Yes full ROM and Yes trachea midline Chest Chest palpation & inspection: normal inspection of the chest Resp Effort & Inspection: normal respiratory effort, able to speak in complete sentences and no respiratory distress GI Inspection: Yes normal to inspection Back/Spine/Pelvis Cervical Spine: normal cervical lordosis Thoracic/Lumbar Spine: thoracic and lumbar spine normal to inspection Skin General skin exam: no rashes or lesions noted Neuro General: patient oriented x3, gait normal, tone normal and moves all extremities Extrem General: Yes normal to inspection and Yes capillary refill normal Assessment & Plan Assessment & Plan (1) Low libido: Code(s): R68.82 - Decreased libido Plan Three month follow-up KUB Testosterone Orders: Orders XR KUB 3 Months N20.0 - Calculus of kidney Testosterone, Free/Total 3 Months R68.82 - Decreased libido Patient Instructions: Imaging studies, laboratory and physical exam results were discussed and reviewed in detail. No major barriers to patient understanding were identified. An opportunity to ask questions regarding the treatment plan was provided. All questions were answered. The patient expressed understanding and agreement with the above treatment plan. The patient is aware they should contact our office by phone for worsening of their current condition or the appearance of new urologic symptoms. Compliance is encouraged with any medications and followup testing that is ordered. It is a privilege to participate in the urologic care of your patient. If you have any questions or concerns regarding treatment for the above conditions, or other urologic issues, please do not hesitate to contact me. The office telephone contact is [phone]. This note is constructed using voice recognition software. While every effort has been made to ensure accuracy development trainer errors may have been included. Yours sincerely, Dr Simeon Paniagua MD, MICHELLE [facility] - Urology Providers of Expert, Compassionate Care for the Genitourinary System Coding Level of Care Code Est Pt Level 3 (52465) Diagnoses Low libido R68.82
== END 2023-04-26 09:36 | disposition home or self-care (01) ==
PROVIDERS: PCP Internal Medicine; Visit Provider Urology
DX: R68.82 Decreased libido (principal)
CPT/HCPCS: 99213

== ENCOUNTER → 2023-04-26 09:13 | Outpatient (BNVA) | payer OTHER, SELFPAY | PROVIDERS: Visit Provider Urology ==

== ENCOUNTER 2023-06-08 08:33 | Outpatient (AMB) | payer OTHER, SELFPAY ==
[2023-06-08 08:38] VITALS: BP 140/82; PULSE 92; TEMP 36.8; O2SAT 96; BMI 50.3
--- NOTE | 2023-06-08 08:38 | AM.OFFWIN_ITS ---
Intake Vital Signs 06/08/23 08:38 Height 5 ft 7 in Weight 321 lb BMI 50.3 BP 140/82 H Blood Pressure Location Rt brachial Position Sitting Pulse 92 Pulse Source Pulse Oximeter Temp 98.3 F Temp Source Temporal Artery Scan Pulse Oximetry (%) 96 Oxygen Delivery Method Room Air Intake Visit Reasons: EP, congestion, cough (masked Intake Note: pt is here for c/o cough and congestion since yesterday Patient Tobacco Use Status: Never used Tobacco Allergies isosorbide Allergy (Intermediate, Verified 06/08/23 08:39) neck pain/headaches Do you need a note to return to daycare/school/sports/work: Yes HPI EP, congestion, cough (masked HPI Details 53-year-old male patient presents today for a sick visit. He reports a 3 day history of persistent dry cough. He denies any fever or chills. Reports some shortness of breath and wheezing at times due to persistent coughing. History of asthma. Has albuterol inhaler at home. He also has a nebulizer, however he is out medication for this. Denies exposure to sick contacts. [facility] Medical History Dizziness Family history of colon cancer Morbid obesity with BMI of 50.0-59.9, adult GERD (gastroesophageal reflux disease) Constipation Obstructive sleep apnea Diffuse large B cell lymphoma COVID-19 Brugada syndrome Asthma Hernia Lymphoma Surgical History History of umbilical hernia repair History of laryngoscopy H/O colonoscopy History of appendectomy Family History Paternal Grandmother Cancer Father Colon cancer Social History Housing: House Alcohol intake: never Patient Tobacco Use Status: Never used Tobacco Second Hand Smoke Exposure: No Advance Directives Date on File: 07/13/17 service: No Current occupational status: employed 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 Cognitive needs: No Hearing needs: No Vision needs: No Review of Systems Const All systems reviewed & are unremarkable except as noted in HPI and below Physical Exam Vital Signs: Last Vital Signs Temp 98.3 F 06/08/23 08:38 Pulse 92 06/08/23 08:38 BP 140/82 H 06/08/23 08:38 Pulse Ox 96 06/08/23 08:38 Oxygen Delivery Method Room Air 06/08/23 08:38 BMI result Body Mass Index 50.3 Const General: cooperative and no acute distress Nutritional Appearance: obese HEENT Head: Yes normal to inspection Ears: hearing grossly normal bilaterally General nose exam: Normal external nose present Mouth: Normal oral and palatal mucosa present Throat: Yes posterior oropharynx normal Neck Neck: Yes no lymphadenopathy and Yes no JVD Resp Effort & Inspection: normal respiratory effort and Actively coughing Quality: dry Auscultation: clear to auscultation bilaterally and wheezes (mild) expiratory wheezes, left upper and right upper Cardio Jugular venous distension: no JVD Palpation: normal PMI Rate: regular rate Rhythm: regular rhythm Skin General skin exam: no rashes or lesions noted Extrem General: Yes capillary refill normal and Yes no clubbing, cyanosis or edema Psych Appearance: grossly normal Mental Status: mental status grossly normal Speech and movement: Normal speech and movement present Assessment & Plan Assessment & Plan (1) Acute asthmatic bronchitis: Code(s): J45.909 - Unspecified asthma, uncomplicated Plan: I have started patient on azithromycin, and short course of prednisone. I have also refilled his albuterol for his nebulizer. Denies need for inhaler refill. Declines viral testing at this time. We reviewed indications, use, possible side effects of medications. If he does not improve with treatment, or if symptoms worsen/new symptoms develop, he should return to the clinic or emergency department for further evaluation. He verbalizes understanding and agrees to plan. Medications: New prednisone 20 mg PO BID 6 tabs 0RF 3 days J45.909 - Unspecified asthma, uncomplicated azithromycin For 250 mg dose pack: take 500 mg today (day 1), then 250 mg for 4 days (days 2-5) PO 6 tabs 0RF J45.909 - Unspecified asthma, uncomplicated Refilled albuterol sulfate 2.5 mg (3 mL) inhalation Q4-6H PRN 90 mL 0RF shortness of breath or wheezing Coding Level of Care Code Est Pt Level 3 (15228) Diagnoses Acute asthmatic bronchitis J45.909
== END 2023-06-08 09:41 | disposition home or self-care (01) ==
PROVIDERS: PCP Internal Medicine; Visit Provider Nurse Practitioner Family
DX: J45.909 Unspecified asthma, uncomplicated (principal)
CPT/HCPCS: 99213

== ENCOUNTER 2023-06-29 08:00 | Outpatient (AMB) | payer OTHER, SELFPAY ==
[2023-06-29 08:11] VITALS: BP 112/78; PULSE 85; O2SAT 98; BMI 50.7
--- NOTE | 2023-06-29 08:11 | AM.OFFWIN_ITS ---
Intake Vital Signs 06/29/23 08:11 Height 5 ft 7 in Weight 324 lb BMI 50.7 BP 112/78 Blood Pressure Location Rt brachial Position Sitting Pulse 85 Pulse Source Pulse Oximeter Pulse Oximetry (%) 98 Oxygen Delivery Method Room Air Intake Visit Reasons: EST/bronchitis?(norbert) Intake Note: Patient here for possibe bronchitis. states he had to do 3 treatments of his nebulizer yesterday. Is feeling lightheaded, dizzy and sob. Patient Tobacco Use Status: Never used Tobacco Allergies isosorbide Allergy (Intermediate, Verified 06/29/23 08:59) neck pain/headaches Medication List - Last Reconciled 06/29/23 by Samuel Araujo MD acetaminophen (Tylenol Extra Strength) 1,000 mg (2 x 500 mg) PO QID PRN albuterol sulfate 2.5 mg (3 mL) inhalation Q4-6H PRN albuterol sulfate 2.5 mg (3 mL) inhalation Q4-6H PRN omeprazole 20 mg PO DAILY 90 days prednisone 60 mg (3 x 20 mg) PO DAILY pyridoxine (vitamin B6) 100 mg PO DAILY 90 days sennosides (senna) 8.6 mg PO DAILY PRN 90 days Do you need a note to return to daycare/school/sports/work: Yes HPI EST/bronchitis?(norbert) HPI Details Patient presents for a sick visit. Reporting symptoms of sinus congestion, sore throat and difficulty swallowing. Low-grade fever. No family member is sick. No recent travel. Patient reports symptoms of malaise and fatigue. Patient was seen a few weeks ago and received antibiotics and prednisone. Symptoms did improve but he had to leave work today as he began wheezing. [facility] Medical History Dizziness Family history of colon cancer Morbid obesity with BMI of 50.0-59.9, adult GERD (gastroesophageal reflux disease) Constipation Obstructive sleep apnea Diffuse large B cell lymphoma COVID-19 Brugada syndrome Asthma Hernia Lymphoma Surgical History History of umbilical hernia repair History of laryngoscopy H/O colonoscopy History of appendectomy Family History Paternal Grandmother Cancer Father Colon cancer Social History Housing: House Alcohol intake: never Patient Tobacco Use Status: Never used Tobacco Second Hand Smoke Exposure: No Advance Directives Date on File: 07/13/17 service: No Current occupational status: employed 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 Cognitive needs: No Hearing needs: No Vision needs: No Physical Exam Vital Signs: Last Vital Signs Pulse 85 06/29/23 08:11 BP 112/78 06/29/23 08:11 Pulse Ox 98 06/29/23 08:11 Oxygen Delivery Method Room Air 06/29/23 08:11 BMI result Body Mass Index 50.7 Const General: cooperative and healthy appearing Nutritional Appearance: well nourished Orientation/consciousness: patient oriented x3 Limitations: no limitations HEENT Head: Yes normal to inspection Eyes General: appearance normal, both eyes and all related structures Neck Neck: Yes normal visual inspection Chest Chest palpation & inspection: normal palpation of entire chest wall Resp Effort & Inspection: normal respiratory effort Neuro General: patient oriented x3 Assessment & Plan Assessment & Plan (1) Upper respiratory tract infection: Code(s): J06.9 - Acute upper respiratory infection, unspecified Plan: No antibiotics needed. Prednisone for his symptoms. Note for work given. Medications: New prednisone 60 mg (3 x 20 mg) PO DAILY 9 tabs 0RF Coding Level of Care Code Est Pt Level 3 (79125) Diagnoses Upper respiratory tract infection J06.9
== END 2023-06-29 09:53 | disposition home or self-care (01) ==
PROVIDERS: PCP Internal Medicine; Visit Provider Internal Medicine
DX: J06.9 Acute upper respiratory infection, unspecified (principal)
CPT/HCPCS: 99213

== ENCOUNTER 2023-07-19 11:46 | Outpatient (REF) | payer OTHER, SELFPAY ==
--- NOTE | ~2023-07-19 | XR_ITS ---
EXAMINATION: XR ABDOMEN KUB CLINICAL INDICATION: Calculus of kidney COMPARISON: CT abdomen from 03/24/2022 ultrasound renal from 04/15/2023 TECHNIQUE: AP view of the abdomen. FINDINGS: 6 mm radiopaque calcification overlying the right renal upper pole shadow. 3 mm calcification overlying the left renal interpolar region. No radiopaque calcifications overlying the bilateral ureteral paths. Pelvic phleboliths in the right pelvis. Bowel gas is nonobstructive. Osseous structures are intact. Soft tissues are unremarkable. XR/XR KUB IMPRESSION: 1. 6 mm radiopaque calcification overlying the right renal upper pole shadow. 2. 3 mm calcification overlying the left renal interpolar region. 3. No radiopaque calcifications overlying the bilateral ureteral paths. 4. Pelvic phleboliths in the right pelvis. 5. Bowel gas is nonobstructive.
[2023-07-25 15:59] LABS: Testosterone, Free 46.2 pg/mL (35.0-155.0); Testosterone, Total 214 ng/dL (250-1100)
== END 2023-07-19 11:47 | disposition home or self-care (01) ==
LOC: HO.LAB 11:46
PROVIDERS: PCP Internal Medicine; Visit Provider Urology
DX: R68.82 Decreased libido (principal); N20.0 Calculus of kidney
CPT/HCPCS: 36415; 74018; 84402; 84403

== ENCOUNTER 2023-07-26 06:49 | Emergency (ER) | payer OTHER, SELFPAY ==
--- NOTE | 2023-07-26 | ECG_ITS ---
Test Reason : palpitations Blood Pressure : / mmHG Vent. Rate : 091 BPM Atrial Rate : 091 BPM P-R Int : 202 ms QRS Dur : 120 ms QT Int : 362 ms P-R-T Axes : 067 -41 044 degrees QTc Int : 445 ms Normal sinus rhythm Left axis deviation Right bundle branch block Inferior infarct (cited on or before 21-SEP-2022) ?Brugada ECG pattern. Abnormal ECG When compared with ECG of 05-APR-2023 19:36, No significant changes seen Referred By: Generic ED Physician Electronically Signed By:Ja Gaytan
[2023-07-26 06:57] VITALS: BP 142/90; PULSE 90; RESP 18; O2SAT 99; BMI 48.5
[2023-07-26 07:09] VITALS: BP 142/90; PULSE 84; RESP 19; TEMP 36.7; O2SAT 98
--- NOTE | 2023-07-26 07:26 | ED_ITS ---
HPI - Arrhythmia/Palpitations General Chief Complaint: Arrhythmia/Palpitations Stated Complaint: Palpitations on and off Time Seen by Provider: 07/26/23 07:09 Source: patient Mode of arrival: ambulatory Limitations: no limitations History of Present Illness HPI narrative: 53-year-old male history Brugada syndrome asthma, GERD, obesity, hypertension, lymphoma, obstructive sleep apnea wear CPAP who presents emergency department for evaluation of palpitations. The patient was diagnosed with bronchitis approximately 1 week prior and was started on albuterol inhalers and nebulizer. He states that after using his nebulizer he would have palpitations which were brief episodes. He states he stop using his nebulizer and albuterol inhaler 2 days ago and is continuing to have brief episodes of palpitations. He describes this symptom as a fluttering sensation that will last less than 1 minute. He denied chest pain, lightheadedness, dizziness, shortness of breath. He denied pain in his neck, jaw, arms or back. He states that the symptoms this morning made him very anxious he came to the emergency department to be seen. He states he has been under increased stress due to his daughter being ill and secondary to money issues. He states he has been anxious because of these life stressors. Related Data Previous Rx's Medication Instructions Recorded acetaminophen 500 mg tablet 1,000 mg (2 x 500 mg) PO QID PRN 10/31/20 (Tylenol Extra Strength) fever or pain #14 tabs pyridoxine (vitamin B6) 100 mg 100 mg PO DAILY 90 days #90 tabs 05/27/21 tablet sennosides 8.6 mg capsule (senna) 8.6 mg PO DAILY PRN constipation 09/09/21 90 days #90 caps albuterol sulfate 2.5 mg/3 mL 2.5 mg (3 mL) inhalation Q4-6H PRN 06/08/23 (0.083 %) solution for nebulization shortness of breath or wheezing #90 mL omeprazole 20 mg capsule,delayed 20 mg PO DAILY 90 days #90 caps 06/13/23 release prednisone 20 mg tablet 60 mg (3 x 20 mg) PO DAILY #9 tabs 06/29/23 lorazepam 1 mg tablet (Ativan) 1 mg PO TID PRN anxiety #10 tabs 07/26/23 tadalafil 5 mg tablet 5 mg PO DAILY sexual activity 90 07/26/23 days #90 tabs Allergies Allergy/AdvReac Type Severity Reaction Status Date / Time isosorbide Allergy Intermediate neck Verified 07/26/23 08:34 pain/headaches Review of Systems 2 Review of Systems: Yes all other systems are reviewed and are negative [facility] Past Medical History [facility] Narrative: Social history: Patient denies tobacco, alcohol and drug use Medical History Dizziness Family history of colon cancer Morbid obesity with BMI of 50.0-59.9, adult GERD (gastroesophageal reflux disease) Constipation Obstructive sleep apnea Diffuse large B cell lymphoma COVID-19 Brugada syndrome Asthma Hernia Lymphoma Surgical History History of umbilical hernia repair History of laryngoscopy H/O colonoscopy History of appendectomy Family History Family History Paternal Grandmother Cancer Father Colon cancer Social History Social History Housing: House Alcohol intake: current Alcohol intake frequency: holidays/special occasions only Patient Tobacco Use Status: Never used Tobacco Second Hand Smoke Exposure: No Advance Directives Date on File: 07/13/17 service: No Current occupational status: employed 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 Cognitive needs: No Hearing needs: No Vision needs: No Physical Exam 2 Vital Signs: Vital Signs: Last Vital Signs Temp 98.3 F 07/26/23 11:49 Pulse 77 07/26/23 11:49 Resp 18 07/26/23 11:49 BP 135/76 07/26/23 11:49 Pulse Ox 100 07/26/23 11:14 O2 Del Method Room Air 07/26/23 11:49 BMI result Body Mass Index 48.5 Vital signs were normal Exam General: Awake, alert in no distress Head: Normocephalic, atraumatic EENT: PERRL, Lids normal, sclera normal, conjunctiva normal, nose normal , ears normal, throat without erythema or exudates Neck: Supple, no adenopathy, no trachea midline or C-spine tenderness Lung: breath sounds symmetric, no wheezing, rales or rhonchi Chest: symmetric movement, nontender Heart: regular rate and rhythm, normal S1, S2 no murmurs or rubs Abdomen: soft, non-tender, nondistended, normal bowel sounds Back: no vertebral tenderness, no CVAT Extremities: no deformities, moves all extremities symmetrically Skin: no rashes, no lesion, normal color and warmth Neuro: Awake, alert, oriented, normal speech, cranial nerves intact, moves all extremities symmetrically Psych: Pleasant, cooperative Medical Decision Making Medical Decision Making [facility] Narrative: 53-year-old male history Brugada syndrome asthma, GERD, obesity, hypertension, lymphoma, obstructive sleep apnea wear CPAP who presents emergency department for evaluation of palpitations anxiety and stress with symptoms starting after being diagnosed with pneumonia and being placed on albuterol. Patient has been off albuterol for 2 days but had an episode of palpitations which were brief, lasting less than a minute with no significant other symptoms. Patient's physical examination was unremarkable pain Following evaluation was ordered: CBC, BMP, troponin x2, cardiac monitoring, EKG 11:50 Patient had no detectable arrhythmias while he was on the monitoring tech and he had no symptoms Patient's laboratory evaluation was interpreted by me as follows: CBC was normal. Chloride elevated 109, glucose elevated 119, initial troponin below detectable limits, 3 hour repeat troponin below detectable limits. This time, I think the patient's palpitations were precipitated by albuterol use and anxiety and I do not think that had a significant arrhythmia. However, since he has Brugada syndrome he was advised to follow-up with his public relations account executive for further evaluation of his palpitations Patient was started on Ativan (lorazepam) 1 mg 3 times a day as needed for anxiety Patient was given printed and verbal instructions discharged home He was also given a work Differential Diagnosis Differential Diagnoses: The differential diagnosis associated with the presentation includes Differential diagnosis includes but is not limited to myocardial infarction, myocardial ischemia, palpitations, arrhythmias, electrolyte abnormalities, anemia Admission/Observation Consideration of admission/observation: Escalation of care including admission/observation considered Lab Data [facility] Lab Attestation statement: I reviewed the patient's lab results. See MDM above form I conference interpreter 07/26/23 08:07 07/26/23 08:06 Labs: Lab Results 07/26/23 07/26/23 07/26/23 Range/Units 08:06 08:07 11:13 WBC 6.1 (4.8-10.8) X10*3/uL RBC 4.83 (4.60-5.80) X10*6/uL Hgb 13.9 L (14.0-18.0) g/dl Hct 42.0 (42.0-52.0) % MCV 87.0 (80.0-98.0) fL MCH 28.8 (27.0-33.0) pg MCHC 33.1 (31.0-36.0) g/dl RDW 13.9 (11.0-16.0) % Plt Count 181 (160-400) X10*3/uL MPV 9.8 (9.4-12.4) fL Immature Gran % (Auto) 0.5 H (0.0-0.4) % Neut % (Auto) 64.4 (45-73) % Lymph % (Auto) 19.5 L (20-40) % [place] % (Auto) 12.3 H (2-11) % Eos % (Auto) 2.8 (0-4) % Baso % (Auto) 0.5 (0-2) % Lymph # (Auto) 1.2 (1.2-4.9) X10*3/uL [place] # (Auto) 0.8 (0.1-1.2) X10*3/uL Eos # (Auto) 0.2 (0.0-0.4) X10*3/uL Baso # (Auto) 0.0 (0.0-0.2) X10*3/uL Abs Immat Gran (auto) 0.03 (0.00-0.03) X10*3/uL Absolute Neuts (auto) 3.9 (2.0-8.3) x10*3/uL Absolute Nucleated RBC 0.000 (0.0-0.012) X10*3/uL Nucleated RBC % (auto) 0.0 (0.0-0.2) /100WBC Sodium 139 (135-145) mmol/L Potassium 3.7 (3.3-5.1) mmol/L Chloride 109 H (96-108) mmol/L Carbon Dioxide 23 (22-29) mmol/L Anion Gap 11 L (12-20) BUN 15 (9-16) mg/dL Creatinine 0.86 (0.5-1.4) mg/dL Estim Creat Clear Calc 146.6 Estimated GFR > 60 Random Glucose 119 H (60-115) mg/dL Calcium 8.9 D (8.4-10.2) mg/dL Troponin I High Sens < 2.7 < 2.7 (<3.5-35.0) ng/L Independent Interpretation I performed an independent interpretation of an: EKG Interpretation: Sinus rhythm with a rate of 91, prolonged MS interval of 202 milliseconds consistent with my first-degree AV block, no ST segment elevation, no ST segment depression, RR prime with inverted T-waves in lead V1 and V2 consistent with Brugada syndrome, unchanged from previous EKGs Radiology Impression Discussion of test interpretation with radiology: I have reviewed the radiologist's reading. Discharge Plan Discharge Clinical Impression: Palpitation, Anxiety Patient Disposition: Home, Self-Care Instructions: Heart Palpitations (ED) Additional Instructions: Stop using albuterol Continue your other medications as prescribed. Take Ativan 1 mg pills, 1 pill every 6 hours as needed for anxiety. This medication will make you sleepy, do not drive or work while taking this medication. This medication can be addicting, if your concerned about addiction you can ask the pharmacist for less medications or do not get the prescription filled. Your blood work was normal. The troponin is a marker of heart damage and you had no troponin on your initial blood test and on the 3 hour blood test you also had no troponin which is reassuring. I want you to follow-up with your public relations account executive, Dr. Gaytan for further evaluation of your palpitations Follow-up with your doctor in 2 days. Please return to the emergency department if your symptoms get worse or if you develop any symptoms that are concerning to you. Please see the work note Prescriptions: New lorazepam [Ativan] 1 mg tablet 1 mg PO TID PRN (Reason: anxiety) Qty: 10 0RF Rx Instructions: Patient may request partial fill No Action pyridoxine (vitamin B6) 100 mg tablet 100 mg PO DAILY 90 Days Qty: 90 1RF omeprazole 20 mg capsule,delayed release(DR/EC) 20 mg PO DAILY 90 Days Qty: 90 1RF acetaminophen [Tylenol Extra Strength] 500 mg tablet 1,000 mg PO QID PRN (Reason: fever or pain) Qty: 14 0RF albuterol sulfate 2.5 mg /3 mL (0.083 %) solution for nebulization 2.5 mg inhalation Q4-6H PRN (Reason: shortness of breath or wheezing) Qty: 90 0RF prednisone 20 mg tablet 60 mg PO DAILY Qty: 9 0RF senna 8.6 mg capsule 8.6 mg PO DAILY PRN (Reason: constipation) 90 Days Qty: 90 3RF tadalafil 5 mg tablet 5 mg PO DAILY 90 Days Qty: 90 0RF Rx Instructions: [id number] [facility] [id number] Member [id number] Stand Alone Forms: Work/School Release
[2023-07-26 08:09] LABS: MANUAL DIFF FLAG NO
[2023-07-26 08:12] LABS: Basophils Percent Auto 0.5 % (0-2); Eosinophils Absolute Auto 0.2 X10*3/uL (0.0-0.4); Eosinophils Percent Auto 2.8 % (0-4); Hemoglobin 13.9 g/dl (14.0-18.0); Imm Gran Abs Auto 0.03 X10*3/uL (0.00-0.03); Imm Gran Pct Auto 0.5 % (0.0-0.4); Lymphocytes Absolute Auto 1.2 X10*3/uL (1.2-4.9); Lymphocytes Percent Auto 19.5 % (20-40); Mean Corpuscular HGB Conc 33.1 g/dl (31.0-36.0); Mean Corpuscular Hemoglobin 28.8 pg (27.0-33.0); Mean Platelet Volume 9.8 fL (9.4-12.4); Monocytes Absolute Auto 0.8 X10*3/uL (0.1-1.2); Monocytes Percent Auto 12.3 % (2-11); Neutrophils Absolute Auto 3.9 x10*3/uL (2.0-8.3); Neutrophils Percent Auto 64.4 % (45-73); Platelet Count 181 X10*3/uL (160-400); Red Blood Count 4.83 X10*6/uL (4.60-5.80); Red Cell Distribution Width 13.9 % (11.0-16.0); White Blood Count 6.1 X10*3/uL (4.8-10.8)
[2023-07-26 08:23] LABS: Anion Gap 11 (12-20); Blood Urea Nitrogen 15 mg/dL (9-16); Calcium 8.9 mg/dL (8.4-10.2); Carbon Dioxide 23 mmol/L (22-29); Chloride 109 mmol/L (96-108); Creatinine Clr Calc Pharmacy 146.6; Estimated Glomerular Filt Rate > 60; Glucose Random 119 mg/dL (60-115); Potassium 3.7 mmol/L (3.3-5.1); Sodium 139 mmol/L (135-145)
[2023-07-26 08:35] LABS: Troponin-I High Sensitivity < 2.7 ng/L (<3.5-35.0)
[2023-07-26 11:14] VITALS: BP 128/90; PULSE 74; RESP 18; O2SAT 100
[2023-07-26 11:39] LABS: Troponin-I High Sensitivity < 2.7 ng/L (<3.5-35.0)
[2023-07-26 11:49] VITALS: BP 135/76; PULSE 77; RESP 18; TEMP 36.8
== END 2023-07-26 12:06 | disposition home or self-care (01) ==
PROVIDERS: Emergency Provider Emergency Medicine Emergency Medical Services; PCP Internal Medicine
DX: I49.9 Cardiac arrhythmia, unspecified (principal); R00.2 Palpitations; F41.1 Generalized anxiety disorder; F43.0 Acute stress reaction; Z79.899 Other long term (current) drug therapy
CPT/HCPCS: 36415; 80048; 84484; 85025; 93005; 99283; 99285

== ENCOUNTER → 2023-07-26 06:54 | Outpatient (BNV) | payer OTHER, SELFPAY | PROVIDERS: Emergency Provider Emergency Medicine Emergency Medical Services; PCP Internal Medicine; Visit Provider Internal Medicine Cardiovascular Disease | DX: R94.31 Abnormal electrocardiogram [ECG] [EKG] (principal) | CPT/HCPCS: 93010 ==

== ENCOUNTER 2023-07-26 08:28 | Outpatient (AMB) | payer OTHER, SELFPAY ==
--- NOTE | 2023-07-26 08:31 | A.OFFVIS_ITS ---
Intake Intake Visit Reasons: 3M KUB/Testo(set) Intake Note: Patient is Present for Telephone Follow Up X-Ray/Testosterone results Urology Med: Vitamin B6 Antibiotic Allergy: None Blood Thinner: None Allergies isosorbide Allergy (Intermediate, Verified 07/26/23 08:34) neck pain/headaches Medication List - Last Reconciled 07/26/23 by Simeon Paniagua MD acetaminophen (Tylenol Extra Strength) 1,000 mg (2 x 500 mg) PO QID PRN albuterol sulfate 2.5 mg (3 mL) inhalation Q4-6H PRN omeprazole 20 mg PO DAILY 90 days prednisone 60 mg (3 x 20 mg) PO DAILY pyridoxine (vitamin B6) 100 mg PO DAILY 90 days sennosides (senna) 8.6 mg PO DAILY PRN 90 days HPI HPI Comments History of Present Illness Details Angel is a pleasant male. He is a patient of Dr. Alexandre. He is seen for the following urologic conditions - nephrolithiasis - hypogonadism Telemedicine Evaluation 15 min Consultation [email or web address] Rigoberto Video Low total testosterone but low normal free testosterone Indicative of probable peripheral conversion Recommend trial of daily tadalafil with repeat lab work in 3 months Current in emergency room with evaluation for elevated heart rate Says he has significant benefit from CPAP machine Hypogonadism Initial presentation with some decline in libido Known sleep apnea Prior cancer therapy Morbidly obese Nephrolithiasis Prior history recurrent stone formation Prior B-cell lymphoma with chemotherapy Imaging - 11/02 CT scan 3 mm mid ureteric stone, 4 mm stones in right kidney, 4 mm stone left kidney - 02/02 renal ultrasound bilateral 4 mm s tones - 04/05 CT scan distal right UVJ stone an d 4 mm proximal renal stone - 04/06 renal ultrasound 4 mm right, 9 mm left Therapeutic plan - imaging surveillance [facility] Medical History Dizziness Family history of colon cancer Morbid obesity with BMI of 50.0-59.9, adult GERD (gastroesophageal reflux disease) Constipation Obstructive sleep apnea Diffuse large B cell lymphoma COVID-19 Brugada syndrome Asthma Hernia Lymphoma Surgical History History of umbilical hernia repair History of laryngoscopy H/O colonoscopy History of appendectomy Family History Paternal Grandmother Cancer Father Colon cancer Social History Housing: House Alcohol intake: current Alcohol intake frequency: holidays/special occasions only Patient Tobacco Use Status: Never used Tobacco Second Hand Smoke Exposure: No Advance Directives Date on File: 07/13/17 service: No Current occupational status: employed 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 Cognitive needs: No Hearing needs: No Vision needs: No Review of Systems Const All systems reviewed & are unremarkable except as noted in HPI and below Reports no additional complaints Resp Reports no additional complaints GI Reports no additional complaints Reports as per HPI Musc Reports no additional complaints Physical Exam Telemedicine evaluation Appropriate responses Regular breathing rate and rhythm HEENT Head: Yes normal to inspection Ears: hearing grossly normal bilaterally Eyes General: appearance normal, both eyes and all related structures Neck Neck: Yes normal visual inspection Chest Chest palpation & inspection: normal inspection of the chest Resp Effort & Inspection: normal respiratory effort and able to speak in complete sentences Assessment & Plan Assessment & Plan (1) Low libido: Code(s): R68.82 - Decreased libido (2) Nephrolithiasis: Code(s): N20.0 - Calculus of kidney Plan Three month follow-up lab work Orders: Orders Lutenizing Hormone 3 Months E11.69 - Type 2 diabetes mellitus with other specified complication, N52.1 - Erectile dysfunction due to diseases classified elsewhere, R68.82 - Decreased libido Prolactin 3 Months R68.82 - Decreased libido Testosterone, Free/Total 3 Months R68.82 - Decreased libido Follicle Stimulating Hormone 3 Months R68.82 - Decreased libido Estradiol Ultra Sensitive 3 Months E29.1 - Testicular hypofunction, R68.82 - Decreased libido Medications: New tadalafil [id number] [facility] [id number] Member [id number] 5 mg PO DAILY 90 tabs 0RF sexual activity 90 days R68.82 - Decreased libido Patient Instructions: Imaging studies, laboratory and physical exam results were discussed and reviewed in detail. No major barriers to patient understanding were identified. An opportunity to ask questions regarding the treatment plan was provided. All questions were answered. The patient expressed understanding and agreement with the above treatment plan. The patient is aware they should contact our office by phone for worsening of their current condition or the appearance of new urologic symptoms. Compliance is encouraged with any medications and followup testing that is ordered. It is a privilege to participate in the urologic care of your patient. If you have any questions or concerns regarding treatment for the above conditions, or other urologic issues, please do not hesitate to contact me. The office telephone contact is [phone]. This note is constructed using voice recognition software. While every effort h as been made to ensure accuracy flight communications officer errors may have been included. Yours sincerely, Dr Simeon Paniagua MD, [facility] - Urology Providers of Expert, Compassionate Care for the Genitourinary System Telehealth Telehealth Location of provider rendering services: practice address Location of patient: address on file Patient Identification confirmed using: Name, : Yes Telehealth method: video Patient verbally consented to treatment: Yes Patient verbally consented to billing insurance company: Yes Patient informed of any privacy concerns related to visit: Yes Coding Level of Care Code Tele Est Pt Level 4 (33673) Diagnoses Low libido R68.82 Nephrolithiasis N20.0
== END 2023-07-26 09:34 | disposition home or self-care (01) ==
LOC: HO.HUSH 08:28
PROVIDERS: PCP Internal Medicine; Visit Provider Urology
DX: R68.82 Decreased libido (principal); N20.0 Calculus of kidney
CPT/HCPCS: 99214

== ENCOUNTER 2023-09-08 10:05 | Outpatient (AMB) | payer OTHER, SELFPAY ==
[2023-09-08 10:25] VITALS: BP 130/90; PULSE 85; TEMP 36.6; O2SAT 97; BMI 47.7
--- NOTE | 2023-09-08 10:25 | MHC.OFFWIV ---
Intake Vital Signs 09/08/23 10:25 Height 5 ft 9 in Weight 323 lb BMI 47.7 BP 130/90 H Blood Pressure Location Lt brachial Position Sitting Pulse 85 Pulse Source Pulse Oximeter Temp 97.9 F Temp Source Temporal Artery Scan Pulse Oximetry (%) 97 Oxygen Delivery Method Room Air Intake Visit Reasons: EP Sinus pressure congestion headache [id number] Intake Note: pt is here today sinus pressure congestion headache started 2 weeks ago Patient Tobacco Use Status: Never used Tobacco Allergies isosorbide Allergy (Intermediate, Verified 09/08/23 10:27) neck pain/headaches Medication List - Last Reconciled 09/08/23 by Chelo Coleman NP acetaminophen (Tylenol Extra Strength) 1,000 mg (2 x 500 mg) PO QID PRN albuterol sulfate 2.5 mg (3 mL) inhalation Q4-6H PRN azithromycin 500 mg PO DAILY 3 days lorazepam (Ativan) 1 mg PO TID PRN omeprazole 20 mg PO DAILY 90 days prednisone 60 mg (3 x 20 mg) PO DAILY pyridoxine (vitamin B6) 100 mg PO DAILY 90 days sennosides (senna) 8.6 mg PO DAILY PRN 90 days tadalafil 5 mg PO DAILY 90 days Do you need a note to return to daycare/school/sports/work: Yes HPI HPI Comments History of Present Illness Details 53 y/o male patient presents to walk in clinic with c/o nasal and chest congestion, plus sinus pressure. Reports that symptoms started 3 weeks ago. PFSH Medical History Dizziness Family history of colon cancer Morbid obesity with BMI of 50.0-59.9, adult GERD (gastroesophageal reflux disease) Constipation Obstructive sleep apnea Diffuse large B cell lymphoma COVID-19 Brugada syndrome Asthma Hernia Lymphoma Surgical History History of umbilical hernia repair History of laryngoscopy H/O colonoscopy History of appendectomy Family History Paternal Grandmother Cancer Father Colon cancer Social History Housing: House Alcohol intake: current Alcohol intake frequency: holidays/special occasions only Patient Tobacco Use Status: Never used Tobacco Second Hand Smoke Exposure: No Advance Directives Date on File: 07/13/17 service: No Current occupational status: employed 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 Cognitive needs: No Hearing needs: No Vision needs: No Review of Systems Const All systems reviewed & are unremarkable except as noted in HPI and below Physical Exam Vital Signs: Last Vital Signs Temp 97.9 F 09/08/23 10:25 Pulse 85 09/08/23 10:25 BP 130/90 H 09/08/23 10:25 Pulse Ox 97 09/08/23 10:25 Oxygen Delivery Method Room Air 09/08/23 10:25 BMI result Body Mass Index 47.7 Const General: comfortable and no acute distress HEENT Head: Yes normocephalic Ears: external ears normal and TM's normal bilaterally General nose exam: Abnormal mucous membranes and turbinates present boggy and erythematous and Nasal discharge present Face and sinus: Yes sinus tenderness (frontal sinus tenderness) Mouth: moist mucous membranes Throat: Yes posterior oropharynx normal Resp Effort & Inspection: normal respiratory effort Auscultation: clear to auscultation bilaterally Cardio Rate: regular rate Rhythm: regular rhythm Assessment & Plan Assessment & Plan (1) Acute pharyngitis: Code(s): J02.9 - Acute pharyngitis, unspecified Qualifiers: Pharyngitis/tonsillitis etiology: other specified organisms Qualified Code(s): J02.8 - Acute pharyngitis due to other specified organisms Plan: - Rest, hydrate well - OTC cold Medicine - Abx (2) Cough in adult: Code(s): R05.9 - Cough, unspecified Plan: - Rest, hydrate well - OTC cold Medicine - Abx Orders: Orders SARS-CoV2/FLU/RSV Today J02.8 - Acute pharyngitis due to other specified organisms, R05.9 - Cough, unspecified Medications: New azithromycin 500 mg PO DAILY 3 days 3 tabs 0RF J02.8 - Acute pharyngitis due to other specified organisms, R05.9 - Cough, unspecified Coding Level of Care Code Est Pt Level 3 (85055) Diagnoses Acute pharyngitis due to other specified organisms J02.8 Pharyngitis/tonsillitis etiology: other specified organisms Cough in adult R05.9 Time Spent (min) 15
== END 2023-09-08 11:30 | disposition home or self-care (01) ==
PROVIDERS: PCP Internal Medicine; Visit Provider Nurse Practitioner Family
DX: J02.9 Acute pharyngitis, unspecified (principal); R05.9 Cough, unspecified
CPT/HCPCS: 99213

== ENCOUNTER 2023-09-08 14:35 | Outpatient (REF) | payer OTHER, SELFPAY ==
[2023-09-08 15:46] LABS: Influenza A PCR NEGATIVE (Negative); Influenza B PCR NEGATIVE (Negative); Resp Syncy Virus RNA Qual PCR NEGATIVE (Negative); SARS COV2 PCR INHOUSE NEGATIVE (Negative)
== END 2023-09-08 14:36 | disposition home or self-care (01) ==
LOC: HO.LNP 14:35
PROVIDERS: Visit Provider Nurse Practitioner Family
DX: J02.8 Acute pharyngitis due to other specified organisms (principal); R05.9 Cough, unspecified; Z11.52 Encounter for screening for COVID-19; Z20.828 Contact with and (suspected) exposure to other viral communicable diseases
CPT/HCPCS: 0241U

== ENCOUNTER 2023-10-20 08:00 | Outpatient (REF) | payer OTHER, SELFPAY ==
[2023-10-21 18:18] LABS: Follicle Stimulating Hormone 6.7 mIU/mL (1.4-12.8); Prolactin 13.9 ng/mL (2.0-18.0)
[2023-10-26 12:58] LABS: Testosterone, Free 63.8 pg/mL (35.0-155.0); Testosterone, Total 345 ng/dL (250-1100)
[2023-10-27 23:28] LABS: Estradiol Ultra Sensitive 37 pg/mL (< OR = 29)
== END 2023-10-20 08:01 | disposition home or self-care (01) ==
LOC: HO.LAB 08:00
PROVIDERS: PCP Internal Medicine; Visit Provider Urology
DX: R68.82 Decreased libido (principal); E29.1 Testicular hypofunction; E11.69 Type 2 diabetes mellitus with other specified complication; N52.1 Erectile dysfunction due to diseases classified elsewhere
CPT/HCPCS: 36415; 82670; 83001; 83002; 84146; 84402; 84403

== ENCOUNTER 2023-10-27 10:24 | Outpatient (AMB) | payer OTHER, SELFPAY ==
--- NOTE | 2023-10-27 10:25 | A.OFFVIS_ITS ---
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 He is a patient of Dr. Alexandre. He is seen for the following urologic conditions - nephrolithiasis - hypogonadism Three-month follow-up trial of daily tadalafil Significant improvement in lab work Significant improvement in well being Would like to continue current medications Discussed 30 lb weight loss Recommend attending weight management center information session Lab work - 11/05 T 345, FT 64, FSH 6.7, LH 3.0 Prior Low total testosterone but low normal free testosterone Indicative of probable peripheral conversion Says he has significant benefit from CPAP machine Hypogonadism Initial presentation with some decline in libido Known sleep apnea Prior cancer therapy Morbidly obese Lab work - 08/06 215, 11/05 T 345, FT 64, FSH 6.7, LH 3.0 Nephrolithiasis Prior history recurrent stone formation Prior B-cell lymphoma with chemotherapy Imaging - 11/02 CT scan 3 mm mid ureteric stone, 4 mm stones in right kidney, 4 mm stone left kidney - 02/02 renal ultrasound bilateral 4 mm s tones - 04/05 CT scan distal right UVJ stone an d 4 mm proximal renal stone - 04/06 renal ultrasound 4 mm right, 9 mm left Therapeutic plan - imaging surveillance [facility] Medical History Dizziness Family history of colon cancer Morbid obesity with BMI of 50.0-59.9, adult GERD (gastroesophageal reflux disease) Constipation Obstructive sleep apnea Diffuse large B cell lymphoma COVID-19 Brugada syndrome Asthma Hernia Lymphoma Surgical History History of umbilical hernia repair History of laryngoscopy H/O colonoscopy History of appendectomy Family History Paternal Grandmother Cancer Father Colon cancer Social History Housing: House Alcohol intake: current Alcohol intake frequency: holidays/special occasions only Patient Tobacco Use Status: Never used Tobacco Second Hand Smoke Exposure: No Advance Directives Date on File: 07/13/17 service: No Current occupational status: employed Current occupation: [employer] Cognitive needs: No Hearing needs: No Vision needs: No Review of Systems Const Denies chills and Denies fever(s) Card Reports no additional complaints and Denies syncope Resp Denies cough GI Denies abdominal pain and Denies heartburn Reports as per HPI and Denies change in libido Neuro Denies syncope Psych Denies change in libido Endo Denies change in libido Physical Exam Const General: cooperative, healthy appearing, comfortable and no acute distress Orientation/consciousness: patient oriented x3 HEENT Face and sinus: Yes normal facial exam Mouth: moist mucous membranes Neck Neck: Yes normal visual inspection, Yes full ROM and Yes trachea midline Chest Chest palpation & inspection: normal inspection of the chest Resp Effort & Inspection: normal respiratory effort, able to speak in complete sentences and no respiratory distress GI Inspection: Yes normal to inspection Back/Spine/Pelvis Cervical Spine: normal cervical lordosis Thoracic/Lumbar Spine: thoracic and lumbar spine normal to inspection Skin General skin exam: no rashes or lesions noted Neuro General: patient oriented x3, gait normal, tone normal and moves all extremities Extrem General: Yes normal to inspection and Yes capillary refill normal Assessment & Plan Assessment & Plan (1) Low testosterone: Code(s): R7.89 - Other specified abnormal findings of blood chemistry Plan Continue current therapy Orders: Orders Prostate Specific Antigen 6 Months - Other specified abnormal findings of blood chemistry Testosterone, Total 6 Months - Other specified abnormal findings of blood chemistry Medications: Changed From tadalafil [id number] [facility] [id number] Member [id number] 5 mg PO DAILY 90 days 90 tabs 0RF sexual activity R68.82 - Decreased libido To tadalafil [id number] [facility] [id number] Member [id number] 5 mg PO DAILY 90 tabs 1RF sexual activity 90 days R68.82 - Decreased libido Patient Instructions: Imaging studies, laboratory and physical exam results were discussed and reviewed in detail. No major barriers to patient understanding were identified. An opportunity to ask questions regarding the treatment plan was provided. All questions were answered. The patient expressed understanding and agreement with the above treatment plan. The patient is aware they should contact our office by phone for worsening of their current condition or the appearance of new urologic symptoms. Compliance is encouraged with any medications and followup testing that is ordered. It is a privilege to participate in the urologic care of your patient. If you have any questions or concerns regarding treatment for the above conditions, or other urologic issues, please do not hesitate to contact me. The office telephone contact is [phone]. This note is constructed using voice recognition software. While every effort has been made to ensure accuracy radio host errors may have been included. Yours sincerely, Dr Simeon Paniagua MD, [facility] - Urology Providers of Expert, Compassionate Care for the Genitourinary System Coding Level of Care Code Est Pt Level 3 (11779) Diagnoses Low testosterone R79.89
== END 2023-10-27 11:13 | disposition home or self-care (01) ==
PROVIDERS: PCP Internal Medicine; Visit Provider Urology
DX: R79.89 Other specified abnormal findings of blood chemistry (principal)
CPT/HCPCS: 99213

== ENCOUNTER → 2023-10-27 10:24 | Outpatient (BNVA) | payer OTHER, SELFPAY | PROVIDERS: PCP Internal Medicine; Visit Provider Urology ==

== ENCOUNTER 2023-12-22 12:18 | Outpatient (AMB) | payer OTHER, SELFPAY ==
[2023-12-22 12:19] VITALS: BP 120/90; PULSE 90; TEMP 36.5; O2SAT 95; BMI 48.3
--- NOTE | 2023-12-22 12:19 | MHC.OFFWIV ---
Intake Vital Signs 12/22/23 12:19 Height 5 ft 9 in Weight 327 lb BMI 48.3 BP 120/90 H Blood Pressure Location Lt brachial Position Sitting Pulse 90 Pulse Source Pulse Oximeter Temp 97.7 F Temp Source Temporal Artery Scan Pulse Oximetry (%) 95 Oxygen Delivery Method Room Air Intake Visit Reasons: EST/ lower abdominal pain (lobby) Intake Note: pt is here today for lower abd pain started 3 days ago Patient Tobacco Use Status: Never used Tobacco Allergies isosorbide Allergy (Intermediate, Verified 12/22/23 12:25) neck pain/headaches Do you need a note to return to daycare/school/sports/work: Yes HPI HPI Comments History of Present Illness Details 53 y/o male patient presents to walk in clinic with c/o Lower abdominal pain associated with bloating and burping. Pain is on/off, and triggered by food or drinks. He has h/o GERD and constipation. He has been taking Senna-Yolande daily at night. [facility] Medical History Dizziness Family history of colon cancer Morbid obesity with BMI of 50.0-59.9, adult GERD (gastroesophageal reflux disease) Constipation Obstructive sleep apnea Diffuse large B cell lymphoma COVID-19 Brugada syndrome Asthma Hernia Lymphoma Surgical History History of umbilical hernia repair History of laryngoscopy H/O colonoscopy History of appendectomy Family History Paternal Grandmother Cancer Father Colon cancer Social History Housing: House Alcohol intake: current Alcohol intake frequency: holidays/special occasions only Patient Tobacco Use Status: Never used Tobacco Second Hand Smoke Exposure: No Advance Directives Date on File: 07/13/17 service: No Current occupational status: employed 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 Cognitive needs: No Hearing needs: No Vision needs: No Review of Systems Const All systems reviewed & are unremarkable except as noted in HPI and below Physical Exam Vital Signs: Last Vital Signs Temp 97.7 F 12/22/23 12:19 Pulse 90 12/22/23 12:19 BP 120/90 H 12/22/23 12:19 Pulse Ox 95 12/22/23 12:19 Oxygen Delivery Method Room Air 12/22/23 12:19 BMI result Body Mass Index 48.3 Const General: comfortable and no acute distress Nutritional Appearance: obese morbidly obese Orientation/consciousness: patient oriented x3 GI Inspection: Yes normal to inspection, Yes distended and Yes obesity Palpation (GI): Soft to palpation, not firm, Tenderness to palpation present (GI) periumbilically, No hepatosplenomegaly present, no hernias and no masses Auscultation: Hypoactive bowel sounds present Rectal Exam - Male: Yes deferred Neuro General: patient oriented x3, gait normal and moves all extremities Psych Speech and movement: Normal speech and movement present Assessment & Plan Assessment & Plan (1) Lower abdominal pain: Code(s): R10.30 - Lower abdominal pain, unspecified Plan: - Stop taking Senna daily, this could cause bloating - Increase Fiber intake; fruits and veggies - Drink plenty of water Coding Level of Care Code Est Pt Level 3 (90176) Diagnoses Lower abdominal pain R10.30 Time Spent (min) 15
== END 2023-12-22 12:43 | disposition home or self-care (01) ==
PROVIDERS: PCP Internal Medicine; Visit Provider Nurse Practitioner Family
DX: R10.30 Lower abdominal pain, unspecified (principal)
CPT/HCPCS: 99213

== ENCOUNTER 2024-01-22 07:20 | Emergency (ER) | payer OTHER, SELFPAY ==
--- NOTE | ~2024-01-22 | XR_ITS ---
EXAMINATION: XR SHOULDER, RIGHT CLINICAL INFORMATION: Shoulder pain COMPARISON: Right shoulder radiograph from 01/14/2021 TECHNIQUE: Three views of the right shoulder. FINDINGS: No acute visible fracture or dislocation. Sclerotic focus along the inferior glenoid fossa joint measuring 1.0 cm potentially representing a bone island. Spurring along the greater tuberosity of the proximal humerus. Degenerative arthropathy of the glenohumeral and acromioclavicular joint. Joint space alignment otherwise maintained. Soft tissues are unremarkable. Visualized portions of the chest are unremarkable. XR/XR shoulder RT min 2V IMPRESSION: 1. No acute visible fracture or dislocation. 2. Sclerotic focus along the inferior glenoid fossa joint measuring 1.0 cm potentially representing a bone island. 3. Spurring along the greater tuberosity of the proximal humerus. 4. Degenerative arthropathy of the glenohumeral and acromioclavicular joint.
[2024-01-22 07:27] VITALS: BP 130/88; PULSE 80; RESP 16; TEMP 36.2; O2SAT 95; BMI 49.0
--- NOTE | 2024-01-22 08:24 | ED.EXTPRO ---
HPI - Extremity Problem General Chief complaint: Extremity Injury, Upper Stated complaint: Pain R shoulder/arm Time Seen by Provider: 01/22/24 08:24 Source: patient Mode of arrival: ambulatory Limitations: no limitations History of Present Illness ED Provider: Cody Nassar NP HPI Narrative: Patient is a 53-year-old right hand dominant male presenting to the ED with complaint of right shoulder pain for the past two weeks. States pain began and a mild discomfort and has gradually increased. Worse with movement and lifting. Patient reports that he is frequently lifting heavy items at work. Pain radiates from shoulder to elbow, and at times down radial aspect of forearm to hand with some tingling to left thumb. Denies any chest pain, palpitations or dyspnea. Denies decreased ROM. MD Complaint: joint pain Onset (ago): week(s) Pain Consistency: colicky Location: right and upper extremity Quality: aching Radiation: distal Relieving factors: nothing Exacerbating factors: range of motion, exertion and palpation Associated symptoms: other (tingling to thumb) Context: other (heavy lifting at work) Related Data Previous Rx's ?Medication ?Instructions ?Recorded acetaminophen 500 mg tablet 1,000 mg (2 x 500 mg) PO QID PRN 10/31/20 (Tylenol Extra Strength) fever or pain #14 tabs pyridoxine (vitamin B6) 100 mg 100 mg PO DAILY 90 days #90 tabs 05/27/21 tablet sennosides 8.6 mg capsule (senna) 8.6 mg PO DAILY PRN constipation 09/09/21 90 days #90 caps albuterol sulfate 2.5 mg/3 mL 2.5 mg (3 mL) inhalation Q4-6H PRN 06/08/23 (0.083 %) solution for nebulization shortness of breath or wheezing #90 mL omeprazole 20 mg capsule,delayed 20 mg PO DAILY 90 days #90 caps 06/13/23 release lorazepam 1 mg tablet (Ativan) 1 mg PO TID PRN anxiety #10 tabs 07/26/23 tadalafil 5 mg tablet 5 mg PO DAILY sexual activity 90 10/27/23 days #90 tabs cyclobenzaprine 5 mg tablet 5 mg PO TID PRN muscle spasm #10 01/22/24 tabs prednisone 20 mg tablet 40 mg (2 x 20 mg) PO DAILY #10 tabs 01/22/24 Allergies Allergy/AdvReac Type Severity Reaction Status Date / Time isosorbide Allergy Intermediate neck Verified 01/22/24 07:28 pain/headaches Review of Systems Review of Systems: As per HPI. Yes all other systems are reviewed and are negative Constitutional: Constitutional: Reports as per HPI [facility] Past Medical History Medical History Dizziness Family history of colon cancer Morbid obesity with BMI of 50.0-59.9, adult GERD (gastroesophageal reflux disease) Constipation Obstructive sleep apnea Diffuse large B cell lymphoma COVID-19 Brugada syndrome Asthma Hernia Lymphoma Surgical History History of umbilical hernia repair History of laryngoscopy H/O colonoscopy History of appendectomy Family History Family History Paternal Grandmother Cancer Father Colon cancer Social History Social History Housing: House Alcohol intake: current Alcohol intake frequency: holidays/special occasions only Patient Tobacco Use Status: Never used Tobacco Second Hand Smoke Exposure: No Advance Directives: No Advance Directives Information Provided: No Advance Directives Date on File: 07/13/17 Do you have a plan to hurt others: No Plan service: No Current occupational status: employed 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 Cognitive needs: No Hearing needs: No Vision needs: No Physical Exam Vital Signs: Vital Signs: Last Vital Signs Temp 97.1 F 01/22/24 07:27 Pulse 80 01/22/24 07:27 Resp 16 01/22/24 07:27 BP 130/88 01/22/24 07:27 Pulse Ox 95 01/22/24 07:27 O2 Del Method Room Air 01/22/24 07:27 BMI result Body Mass Index 49.0 Vital signs have been reviewed and appear to be correct. Blood pressure normal. Heart rate normal. Respiratory rate normal. Temperature normal. Oxygen saturation normal. Const: General: cooperative, healthy appearing and no acute distress Orientation/consciousness: oriented to person, oriented to place, oriented to time and patient oriented x3 Limitations: no limitations HEENT: Head: Yes normocephalic and Yes atraumatic Ears: external ears normal General nose exam: Normal external nose present Face and sinus: Yes face symmetric Mouth: oropharynx normal and moist mucous membranes Throat: Yes uvula midline Eyes: Pupils: Equal, round and reactive pupils present Neck: Neck: Yes normal visual inspection and Yes supple Resp: Effort & Inspection: normal respiratory effort and able to speak in complete sentences Auscultation: clear to auscultation bilaterally Cardio: Rate: regular rate Rhythm: regular rhythm Heart sounds: S1 normal heart sound present and S2 normal heart sound present Skin: General skin exam: elasticity normal and turgor normal Neuro: General: oriented to person, oriented to place, oriented to time, patient oriented x3, gait normal, tone normal, moves all extremities, Normal light touch and pain sensation, no focal motor deficits, CN's II-XI intact bilaterally and deep tendon reflexes 2+ bilaterally Cranial nerves: Yes Equal, round and reactive pupils present Cognition (Neuro): normal cognition Motor exam (neuro): 5/5 motor strength present throughout, Normal motor muscle tone present throughout and Motor abnormalities not present Extrem: General: Yes full ROM, Yes no pedal edema and Yes no calf tenderness Right upper extremity: shoulder/upper arm Details: normal to inspection, tenderness Location: of the A-C joint and other (over trapezius), axillary nerve sensory function normal and normal ROM; no ecchymosis and Extremity exam: right hand Details: vascular exam Details: radial pulse present Psych: Mental Status: mental status grossly normal Affect: normal affect Thought process: Normal thought process present Medical Decision Making Medical Decision Making MDM Narrative: Patient is a 53-year-old right hand dominant male presenting to the ED with complaint of right shoulder pain for the past two weeks. On exam patient is awake, A+Ox3, VS WNL, afebrile, normal neurological exam without focal deficits, physical exam findings as above. Given reported symptoms and physical exam findings, initial differential includes muscle strain, rotator cuff strain, degenerative disease. X-ray right shoulder notable for no acute fracture or dislocation, degenerative arthropathy. My interpretation is in agreement with the radiologist's interpretation. Physical exam findings consistent with muscle strain. Will prescribe short course of prednisone to decrease inflammation given complaint of tingling to left thumb, will also prescribe cyclobenzaprine. Advised patient to alternate ice and heat, avoid heavy lifting. Will refer to orthopedics for further evaluation and management. Will also refer to the [facility]. Return precautions discussed. Patient verbalized understanding of and agreement with plan. Differential Diagnosis Differential Diagnoses: The differential diagnosis associated with the presentation includes As per MDM. Independent Interpretation I performed an independent interpretation of an: Plain X-Ray Interpretation: R shoulder x-ray notable for no acute fracture/dislocation, degenerative arthropathy. Radiology Impression Discussion of test interpretation with radiology: I have reviewed the radiologist's reading. Radiologist Impression: XR/XR shoulder RT min 2V IMPRESSION: 1. No acute visible fracture or dislocation. 2. Sclerotic focus along the inferior glenoid fossa joint measuring 1.0 cm potentially representing a bone island. 3. Spurring along the greater tuberosity of the proximal humerus. 4. Degenerative arthropathy of the glenohumeral and acromioclavicular joint. External Record Review External record reviewed: Inpatient record, Office record and Outpatient record Prescription Management I considered prescription management with: Pain Medication and Other Discharge Plan Discharge Clinical Impression: Muscle strain of right shoulder Patient Disposition: Home, Self-Care Instructions: Muscle Strain (DC), Rotator Cuff Injury (ED) Additional Instructions: You were evaluated in the emergency department today for right shoulder pain. Your symptoms are likely due to a muscle strain. You are being prescribed a muscle relaxer, do not take this in combination with alcohol as it can cause excessive drowsiness. You are also being prescribed a short course of steroids to decrease inflammation. You can alternate application of ice/heat to the area. We recommend that you follow-up for further evaluation and management. We also recommend that you follow-up with the [facility], please call their office to schedule an appointment. Return to the emergency department if you develop increasing pain, new weakness, numbness, tingling, fever or any other concerning symptoms. [facility] [address] [place] [address] Prescriptions: New cyclobenzaprine 5 mg tablet 5 mg PO TID PRN (Reason: muscle spasm) Qty: 10 0RF prednisone 20 mg tablet 40 mg PO DAILY Qty: 10 0RF No Action pyridoxine (vitamin B6) 100 mg tablet 100 mg PO DAILY 90 Days Qty: 90 1RF omeprazole 20 mg capsule,delayed release(DR/EC) 20 mg PO DAILY 90 Days Qty: 90 1RF acetaminophen [Tylenol Extra Strength] 500 mg tablet 1,000 mg PO QID PRN (Reason: fever or pain) Qty: 14 0RF lorazepam [Ativan] 1 mg tablet 1 mg PO TID PRN (Reason: anxiety) Qty: 10 0RF Rx Instructions: Patient may request partial fill albuterol sulfate 2.5 mg /3 mL (0.083 %) solution for nebulization 2.5 mg inhalation Q4-6H PRN (Reason: shortness of breath or wheezing) Qty: 90 0RF senna 8.6 mg capsule 8.6 mg PO DAILY PRN (Reason: constipation) 90 Days Qty: 90 3RF tadalafil 5 mg tablet 5 mg PO DAILY 90 Days Qty: 90 1RF Rx Instructions: [id number] [facility] [id number] Member [id number] Referrals: [facility] – [place] [facility] [Provider Group] Print Language: Telugu
--- NOTE | 2024-01-22 10:06 | PC.NURSE ---
PT WAS SEEN BY PROVIDER AND RADIOLOGY RESULTS REVIEWED . PT AGREES TO ED DISCHARGE AND FOLLOW UP
[2024-01-22 10:09] VITALS: BP 130/88; PULSE 80; RESP 16; TEMP 36.2; O2SAT 95
== END 2024-01-22 10:10 | disposition home or self-care (01) ==
PROVIDERS: Emergency Provider Emergency Medicine; PCP Internal Medicine
DX: S46.911A Strain of unspecified muscle, fascia and tendon at shoulder and upper arm level, right arm, initial encounter (principal); X50.0XXA Overexertion from strenuous movement or load, initial encounter; Y93.9 Activity, unspecified; Y92.89 Other specified places as the place of occurrence of the external cause; Y99.0 Civilian activity done for income or pay
CPT/HCPCS: 73030; 99282; 99283

== ENCOUNTER 2024-02-29 15:47 | Outpatient (AMB) | payer OTHER, SELFPAY ==
[2024-02-29 15:48] VITALS: BP 124/82; PULSE 86; O2SAT 96; BMI 47.5
--- NOTE | 2024-02-29 15:48 | MHC.PC.OV ---
Vital Signs 02/29/24 15:48 Height 5 ft 9 in Weight 322 lb 0.4 oz BMI 47.5 BP 124/82 Blood Pressure Location Lt brachial Position Sitting Pulse 86 Pulse Source Pulse Oximeter Pulse Oximetry (%) 96 Oxygen Delivery Method Room Air Intake Visit Reasons: PE Intake Note: Patient is here today for a physical. Allergies isosorbide Allergy (Intermediate, Verified 02/29/24 16:13) neck pain/headaches Medication List - Last Reconciled 02/29/24 by Tj Alexandre MD acetaminophen (Tylenol Extra Strength) 1,000 mg (2 x 500 mg) PO QID PRN albuterol sulfate 2.5 mg (3 mL) inhalation Q4-6H PRN omeprazole 20 mg PO DAILY 90 days pyridoxine (vitamin B6) 100 mg PO DAILY 90 days sennosides (senna) 8.6 mg PO DAILY PRN 90 days tadalafil 5 mg PO DAILY 90 days Tobacco use date assessed: 02/29/24 Dental Screening Dental Screen Date: 02/29/24 Did you have a dental visit in the last 12 months?: No Did you have a dental problem in the last 6 months where you did not have access to dental care?: No HPI PE HPI Details Patient comes in today for his annual physical examination - was last seen by me in August 2022 (also for his annual PE then) States that he feels okay He denies any headaches or dizziness Denies any chest pains, no SOB No nausea/vomiting, no abdominal pain No change in bowel habits noted He denies any acute urinary symptoms He is also requesting for a referral to have his hearing checked as he has noticed decreased hearing often lately He also reports frequent right heel pain lately, especially in the morning when he first gets up and puts weight on his right foot He denies any recent injury or trauma to his right foot He has also noticed a few thickened and discolored toenails and would like something to help clear up his toenails if possible [facility] Medical History Dizziness Family history of colon cancer Morbid obesity with BMI of 50.0-59.9, adult GERD (gastroesophageal reflux disease) Constipation Obstructive sleep apnea Diffuse large B cell lymphoma COVID-19 Brugada syndrome Asthma Hernia Lymphoma Surgical History History of umbilical hernia repair History of laryngoscopy H/O colonoscopy History of appendectomy Family History Paternal Grandmother Cancer Father Colon cancer Social History Housing: House Alcohol intake: current Alcohol intake frequency: holidays/special occasions only Patient Tobacco Use Status: Never used Tobacco Second Hand Smoke Exposure: No Advance Directives Date on File: 07/13/17 service: No Current occupational status: employed Current occupation: [employer] Cognitive needs: No Hearing needs: No Vision needs: No Questionnaire PHQ-9 Over the last 2 weeks, how often have you been bothered by any of the following problems? 1. Little interest or pleasure in doing things: not at all 2. Feeling down, depressed, or hopeless: not at all 3. Trouble falling or staying asleep, or sleeping too much: not at all 4. Feeling tired or having little energy: not at all 5. Poor appetite or overeating: not at all 6. Feeling bad about yourself - or that you are a failure or have let yourself or your family down: not at all 7. Trouble concentrating on things, such as reading the newspaper or watching television: not at all 8. Moving or speaking so slowly that other people could have noticed. Or the opposite - being so fidgety or restless that you have been moving around a lot more than usual: not at all 9. Thoughts that you would be better off or of hurting yourself in some way: not at all Total score: 0 Depression Screening Interpretation: Negative Depression Screening Done: Yes 98485 - PHQ-9 Billing: Yes Source: Developed by Drs. Marko Prescott, Carmen Benson, Robby Jones and colleagues, with an educational alissa from [employer]. Thrive Questionnaire Date Thrive assessed: 02/29/24 I am a: Patient What is your living situation today?: I have a steady place to live Within the past 12 months, did the food you bought not last and you didn't have the money to get more?: Never true Within the past 12 months, did you worry whether your food would run out before you got money to buy more?: Never true Do you have trouble paying for medicines?: No Do you have trouble getting transportation to medical appointments?: No Do you have trouble paying your heating and electricity bill?: No Do you have trouble taking care of your child, family member or friend?: No Do you have trouble with day-to-day activities such as bathing, preparing meals, shopping, managing finances, etc.?: No Are you currently unemployed and looking for a job?: No Are you interested in more education?: No Please select the resources that you would like help with: None Currently or been in a relationship where the following occur: No concerns reported THRIVE Score: 0 AUDIT C Alcohol Use Questionnaire (AUDIT-C) 1. How often do you have a drink containing alcohol?: Never 3. How often do you have six or more drinks on one occasion?: Never Total Score: 0 Score Reviewed/Action Taken: Yes BETHANY-7 AMB Questionnaire BETHANY-7 Date BETHANY - 7 assessed: 02/29/24 Feeling nervous, anxious, or on edge: 0 = Not at all Not being able to stop or control worryin = Not at all Worrying too much about different things: 0 = Not at all Trouble relaxin = Not at all Being so restless that it is hard to sit still: 0 = Not at all Becoming easily annoyed or irritable: 0 = Not at all Feeling afraid as if something awful might happen: 0 = Not at all Total BETHANY-7 score (0-4 normal; 5-9 mild; 10-14 moderate; 15-21 severe): 0 Source: Developed by Drs. Marko Prescott, Carmen Benson, Robby Jones and colleagues, with an educational alissa from [employer]. BETHANY-7 Assessment Billing BETHANY-7 Assessment Tool: BETHANY-7 Assessment 32424 Review of Systems Const Denies chills, Denies fatigue, Denies fever(s), Denies headache(s), Denies malaise and Denies weakness Eyes Denies blurry vision, Denies change in vision, Denies irritation and Denies itchy eyes ENT Denies dysphagia, Denies dizziness, Denies otalgia, Denies headache(s), Reports hearing loss (recently, in both ears), Denies nasal congestion, Denies neck pain, Denies odynophagia and Denies sore throat Card Denies chest pain, Denies rapid heart rate, Denies irregular heart rhythm, Denies palpitations and Denies dyspnea Resp Denies chest congestion, Denies cough, Denies dyspnea and Denies wheezing GI Denies abdominal pain, Denies bloating, Denies constipation, Denies dysphagia, Denies heartburn, Denies diarrhea, Denies nausea, Denies odynophagia and Denies vomiting Denies hematuria, Denies difficulty urinating, Denies dysuria, Denies urinary frequency and Denies urinary urgency Musc Details: (+) right heel pain lately - see HPI Denies back pain, Denies arthralgias, Denies joint swelling, Denies muscle weakness and Denies neck pain Skin/Breast Details: (+) a few thickened and discolored toenails on both feet Denies change in pigmentation, Denies lesions, Denies rash and Denies unusual bruising Neuro Denies dizziness, Denies headache(s), Denies paresthesias and Denies weakness Endo Denies fatigue and Denies palpitations Aller/Immun Denies itchy eyes and Denies wheezing Physical exam (Primary Care) Vital Signs: Last Vital Signs Pulse 86 02/29/24 15:48 BP 124/82 02/29/24 15:48 Pulse Ox 96 02/29/24 15:48 Oxygen Delivery Method Room Air 02/29/24 15:48 BMI result Body Mass Index 47.5 Tobacco/Smoking Status: Tobacco use Status Tobacco use date assessed 02/29/24 02/29/24 15:55 Patient Tobacco Use Status Never used Tobacco 02/29/24 15:52 PHQ-9: PHQ-9 Score PHQ-9: Total score 0 02/29/24 16:19 Depression Screening Interpretation: Negative Thrive Assessment: Date of Thrive Assessment Date Thrive assessed 02/29/24 02/29/24 15:55 Currently or been in a relationship where the following occur: No concerns reported Const General: no acute distress, alert and awake Orientation/consciousness: patient oriented x3 HENMT Head: Yes normocephalic and Yes atraumatic Ears: external ears normal, TM's normal bilaterally and EAC's normal (but (+) cerumen in both ear canals, R>L) General nose exam: No nasal discharge present Face and sinus: Yes normal facial exam and Yes sinuses nontender Teeth and gingiva: dentition normal Throat: Yes posterior oropharynx normal and Yes tonsils normal (no TP congestion) Eyes Eyelids: Yes eyelids normal Conjunctivae: conjunctivae normal Pupils: Equal, round and reactive pupils present EOM: EOMs intact bilaterally Neck Neck: Yes no lymphadenopathy and Yes supple Thyroid: Thyroid normal Resp Auscultation: clear to auscultation bilaterally, no rales and no wheezes Cardio Rate: regular rate Rhythm: regular rhythm Heart sounds: no murmurs GI Palpation (GI): Soft to palpation, nontender and No hepatosplenomegaly present Auscultation: normal bowel sounds General: Yes no CVA tenderness Back/Spine/Pelvis Back: no CVA tenderness Thoracic/Lumbar Spine: thoracic and lumbar spine normal to inspection Skin Lesions: no lesions Rashes: no rashes Neuro General: patient oriented x3, moves all extremities, no focal motor deficits and CN's II-XI intact bilaterally Cranial nerves: Yes Equal, round and reactive pupils present Cognition (Neuro): normal cognition Gait exam (Neuro): Normal gait present Extrem Other: (+) onycholysis of a few toenails bilaterally General: Yes no clubbing, cyanosis or edema Assessment and Plan Assessment & Plan (1) Annual physical exam: Code(s): Z00.00 - Encounter for general adult medical examination without abnormal findings Plan: Check labs He is also now due for repeat colonoscopy and will be referred for this (2) Diffuse large B cell lymphoma: Comment: Diffuse large B-cell lymphoma, initially diagnosed in April 2007 - had a 10 x 4 cm anterior mediastinal mass Completed 8 cycles of R-CHOP on November 13, 2007 and has been doing well since with no recurrence (IN REMISSION) Code(s): C83.30 - Diffuse large B-cell lymphoma, unspecified site Qualifiers: Lymphoma site: unspecified region Qualified Code(s): C83.30 - Diffuse large B-cell lymphoma, unspecified site Plan: In remission He used to see Dr. Lynn for continuing follow up and surveillance but has not been back to see her in a while - will refer back to Dr. Lynn (3) Elevated blood pressure reading without diagnosis of hypertension: Code(s): R03.0 - Elevated blood-pressure reading, without diagnosis of hypertension Plan: Reinforced low sodium diet - goal is systolic BP of at least 120 mm or less His BP currently appears well-controlled Patient is reminded to continue monitoring his blood pressure regularly (4) Nephrolithiasis: Code(s): N20.0 - Calculus of kidney Plan: Patient reportedly passed out his kidney stones a couple of years ago and has been asymptomatic since He is encouraged to continue to drink plenty of fluids daily He was seen by urology and recommended to just get a repeat renal US in 1 year for follow up (5) Constipation: Code(s): K59.00 - Constipation, unspecified Qualifiers: Constipation type: unspecified constipation type Qualified Code(s): K59.00 - Constipation, unspecified Plan: Reinforced increased oral fluids and dietary fiber Continue Senna 8.6 mg QD Was scheduled for a colonoscopy back in January 2022 but this was canceled pending clearance by Cardiology due to patient's history of Brugada syndrome Was seen by Cardiology in February 2022 and was advised that his EKG showed some changes suggestive of Brugada syndrome but patient does not have the disease; was cleared by Cardiology for colonoscopy in February 2022 He was referred back to Dr. Gale and was scheduled for his colonoscopy sometime in December 2022 but he ended up in the ER then for gastroenteritis and his procedure was again canceled and he has not been able to reschedule his procedure since (6) Pain of right heel: Code(s): M79.671 - Pain in right foot Plan: Suspect plantar fasciitis vs. heel spur(s) Will send patient for x-rays of the right foot for further evaluation (7) Onychomycosis: Code(s): B35.1 - Tinea unguium Plan: Have advised patient that there is no real effective solution here but will start him on a trial of Clotrimazole 1% solution to apply to his affected toeanails daily for up to 3 months (8) Hearing loss: Code(s): H91.90 - Unspecified hearing loss, unspecified ear Qualifiers: Hearing loss type: unspecified Laterality: bilateral Qualified Code(s): H91.93 - Unspecified hearing loss, bilateral Plan: Per request, will refer him for hearing evaluation (9) Morbid obesity with BMI of 50.0-59.9, adult: Code(s): E66.01 - Morbid (severe) obesity due to excess calories; Z68.43 - Body mass index [BMI] 50.0-59.9, adult Plan: Reinforced diet/exercise as tolerated/lose weight (10) Colon cancer screening: Code(s): Z12.11 - Encounter for screening for malignant neoplasm of colon Plan: Will refer him back to GI for his repeat colonoscopy Plan Follow up in 6 months Orders: Orders XR foot RT min 3V 02/29/24 M79.671 - Pain in right foot Complete Blood Count Auto Diff 02/29/24 D64.9 - Anemia, unspecified, Z00.00 - Encounter for general adult medical examination without abnormal findings Comprehensive [place]. Panel Fast 02/29/24 E78.00 - Pure hypercholesterolemia, unspecified, Z00.00 - Encounter for general adult medical examination without abnormal findings Lipid Panel 02/29/24 E78.00 - Pure hypercholesterolemia, unspecified, Z00.00 - Encounter for general adult medical examination without abnormal findings TSH reflex Free T4 02/29/24 E78.00 - Pure hypercholesterolemia, unspecified, Z00.00 - Encounter for general adult medical examination without abnormal findings Vitamin D 25-OH Total 02/29/24 E55.9 - Vitamin D deficiency, unspecified, Z00.00 - Encounter for general adult medical examination without abnormal findings UA CC w/rflx Micro + Cult 02/29/24 R30.0 - Dysuria, Z00.00 - Encounter for general adult medical examination without abnormal findings Hemoglobin A1c 02/29/24 R73.9 - Hyperglycemia, unspecified, Z00.00 - Encounter for general adult medical examination without abnormal findings Referrals Speech and Hearing Referral H91.90 - Unspecified hearing loss, unspecified ear Gastroenterology Referral Z12.11 - Encounter for screening for malignant neoplasm of colon Hematology & Oncology Referral C83.30 - Diffuse large B-cell lymphoma, unspecified site, C85.90 - Non-Hodgkin lymphoma, unspecified, unspecified site Medications: New clotrimazole 1% 1 appl topical BID 4 weeks 30 mL 2RF Coding Level of Care Code Est Pt Prev Care 40-64y(29019) Diagnoses Annual physical exam Z00.00 Diffuse large B-cell lymphoma, unspecified body region C83.30 Lymphoma site: unspecified region Elevated blood pressure reading without diagnosis of hypertension R03.0 Nephrolithiasis N20.0 Constipation, unspecified constipation type K59.00 Constipation type: unspecified constipation type Pain of right heel M79.671 Onychomycosis B35.1 Bilateral hearing loss, unspecified hearing loss type H91.93 Hearing loss type: unspecified Laterality: bilateral Morbid obesity with BMI of 50.0-59.9, adult E66.01; Z68.43 Colon cancer screening Z12.11 Additional Codes BETHANY-7 Assessment Billing - BETHANY-7 Assessment Tool: BETHANY-7 Assessment [id number] ([id number])
== END 2024-02-29 16:31 | disposition home or self-care (01) ==
PROVIDERS: PCP Internal Medicine; Visit Provider Internal Medicine
DX: Z00.00 Encounter for general adult medical examination without abnormal findings (principal); C83.30 Diffuse large B-cell lymphoma, unspecified site; E66.01 Morbid (severe) obesity due to excess calories; Z68.43 Body mass index [BMI] 50.0-59.9, adult; R03.0 Elevated blood-pressure reading, without diagnosis of hypertension; N20.0 Calculus of kidney; K59.00 Constipation, unspecified; M79.671 Pain in right foot; B35.1 Tinea unguium; H91.93 Unspecified hearing loss, bilateral; Z12.11 Encounter for screening for malignant neoplasm of colon
CPT/HCPCS: 99396

== ENCOUNTER 2024-03-07 05:59 | Outpatient (REF) | payer OTHER, SELFPAY ==
--- NOTE | ~2024-03-07 | XR_ITS ---
EXAMINATION: XR FOOT, RIGHT CLINICAL INFORMATION: Right foot pain. COMPARISON: None available. TECHNIQUE: AP, lateral, and oblique views of the right foot. FINDINGS: The clinical history provided reads only Pain in right foot. No injury. It does not state exactly where pathology is suspected, limiting the study. Therefore, clinical correlation is advised. There are plantar and Achilles calcaneal spurs. Findings suggest a well-corticated fragmentation of the Achilles calcaneal spur, raising the possibility of avulsion fracture of the spur, probably old. Calcification superimposed over the distal end of the Achilles tendon raises suspicion for calcific tendinitis versus calcific bursitis. The bones and soft tissues otherwise appear unremarkable. Alignment is anatomic. Joint spaces appear maintained. XR/XR foot RT min 3V IMPRESSION: Findings as above.
[2024-03-07 06:25] LABS: MANUAL DIFF FLAG NO
[2024-03-07 07:08] LABS: Basophils Absolute Auto 0.1 X10*3/uL (0.0-0.2); Eosinophils Absolute Auto 0.3 X10*3/uL (0.0-0.4); Hemoglobin 15.3 g/dl (14.0-18.0); Imm Gran Abs Auto 0.02 X10*3/uL (0.00-0.03); Imm Gran Pct Auto 0.4 % (0.0-0.4); Lymphocytes Absolute Auto 1.6 X10*3/uL (1.2-4.9); Mean Corpuscular HGB Conc 35.6 g/dl (31.0-36.0); Mean Corpuscular Volume 87.2 fL (80.0-98.0); Monocytes Absolute Auto 0.6 X10*3/uL (0.1-1.2); Monocytes Percent Auto 12.3 % (2-11); Neutrophils Absolute Auto 2.4 x10*3/uL (2.0-8.3); Neutrophils Percent Auto 47.3 % (45-73); Platelet Count 238 X10*3/uL (160-400); Red Blood Count 4.93 X10*6/uL (4.60-5.80); Red Cell Distribution Width 14.1 % (11.0-16.0)
[2024-03-07 07:20] LABS: Estimated Average Glucose 131 mg/dL; Hemoglobin A1c % 6.2 % (<6.0)
[2024-03-07 07:42] LABS: Alanine Aminotransferase 26 U/L (0-40); Albumin Level 3.7 g/dL (3.5-5.0); Alkaline Phosphatase 53 U/L (39-117); Anion Gap 12 (12-20); Aspartate Amino Transferase 25 U/L (5-37); Bilirubin Total 0.3 mg/dL (0.0-1.0); Blood Urea Nitrogen 11 mg/dL (9-16); Calcium 9.7 mg/dL (8.4-10.2); Carbon Dioxide 23 mmol/L (22-29); Chloride 107 mmol/L (96-108); Cholesterol 150 mg/dL (<200); Estimated Glomerular Filt Rate > 60; Glucose Fasting 106 mg/dL (60-99); HDL Cholesterol 39 mg/dL (>40); LDL Cholesterol Calculated 99 mg/dL (<100); Potassium 4.1 mmol/L (3.3-5.1); Sodium 138 mmol/L (135-145); Total Protein 6.8 g/dL (6.5-8.0); Triglycerides 64 mg/dL (<150)
[2024-03-07 07:43] LABS: Vitamin D 25-OH Total 24.1 ng/mL (>30)
[2024-03-07 08:24] LABS: Appearance Urine Clear; Color Urine Dark Yellow; Glucose Urine UA Negative (Negative); Leukocyte Esterase Urine Negative (Negative); Nitrite Urine Negative (Negative); PH 5.5 (5.0-9.0); Specific Gravity - Urine 1.025 (1.005-1.025); Urine Blood Negative (Negative); Urine Ketones Negative (Negative); Urine Protein Negative (Neg-Trace)
== END 2024-03-07 06:00 | disposition home or self-care (01) ==
LOC: HO.XRAY 05:59
PROVIDERS: PCP Internal Medicine; Visit Provider Internal Medicine
DX: Z00.00 Encounter for general adult medical examination without abnormal findings (principal); E78.00 Pure hypercholesterolemia, unspecified; R30.0 Dysuria; R73.9 Hyperglycemia, unspecified; D64.9 Anemia, unspecified; E55.9 Vitamin D deficiency, unspecified; M79.671 Pain in right foot
CPT/HCPCS: 36415; 73630; 80053; 80061; 81003; 82306; 83036; 84443; 85025

== ENCOUNTER 2024-03-09 07:11 | Emergency (ER) | payer OTHER, SELFPAY ==
--- NOTE | ~2024-03-09 | XR_ITS ---
EXAMINATION: XR CHEST CLINICAL INFORMATION: Cough. COMPARISON: 04/05/2023 TECHNIQUE: Frontal view of the chest was obtained. FINDINGS: The lungs are well expanded. No focal consolidation. No pleural effusion. Cardiac silhouette is unchanged. XR/XR chest 1V IMPRESSION: No acute abnormality.
[2024-03-09 07:15] VITALS: BP 156/93; PULSE 104; RESP 18; TEMP 37; O2SAT 96; BMI 49.6
[2024-03-09 07:53] LABS: IDNOW Serial# 08D9AD1C; Strep A Nucleic Acid Negative (Negative)
--- NOTE | 2024-03-09 07:53 | ED_ITS ---
HPI - URI/Sore Throat General Chief Complaint: Upper Respiratory Symptoms Stated Complaint: congested, body aches Time Seen by Provider: 03/09/24 07:21 Source: patient Mode of arrival: ambulatory Limitations: no limitations History of Present Illness ED Provider: CHARLES WORRELL Narrative: 53 yo male with PMH of GERD, prior lymphoma, asthma, here with c/o 3 days of cough, runny nose, nasal congestion, body aches - son has COVID tested positive on Tuesday. Patient started to feel sick 3 days ago he has had 2 vaccines he does want paxlovid states he only takes albuterol and omeprazole. He denies chest pain. He reports treated for sinusitis 3 weeks with augmentin by urgent care and did improve. MD elicited complaint: cough, sore throat, rhinorrhea, nasal congestion and sinus pain Pertinent past history: asthma Onset (ago): day(s) (3) Consistency: constant Severity: moderate Description of mucous: watery Able to tolerate fluids by mouth: Yes Exacerbating factors: other (coughing) Relieving factors: nothing Context: sick contacts (son has COVID) Associated symptoms: chills, myalgias, headache, nasal congestion, sore throat and cough Treatments prior to arrival: none Related Data Previous Rx's ?Medication ?Instructions ?Recorded acetaminophen 500 mg tablet 1,000 mg (2 x 500 mg) PO QID PRN 10/31/20 (Tylenol Extra Strength) fever or pain #14 tabs pyridoxine (vitamin B6) 100 mg 100 mg PO DAILY 90 days #90 tabs 05/27/21 tablet sennosides 8.6 mg capsule (senna) 8.6 mg PO DAILY PRN constipation 09/09/21 90 days #90 caps albuterol sulfate 2.5 mg/3 mL 2.5 mg (3 mL) inhalation Q4-6H PRN 06/08/23 (0.083 %) solution for nebulization shortness of breath or wheezing #90 mL omeprazole 20 mg capsule,delayed 20 mg PO DAILY 90 days #90 caps 06/13/23 release tadalafil 5 mg tablet 5 mg PO DAILY sexual activity 90 10/27/23 days #90 tabs clotrimazole 1 % topical solution 1 appl topical BID 4 weeks #30 mL 02/29/24 nirmatrelvir 300 mg (150 mg See Rx Instructions PO .COMPLEX 03/09/24 x2)-ritonavir 100 mg tablet,dose #30 ea pack (Paxlovid) prednisone 20 mg tablet 40 mg (2 x 20 mg) PO DAILY 5 days 03/09/24 #10 tabs Allergies Allergy/AdvReac Type Severity Reaction Status Date / Time isosorbide Allergy Intermediate neck Verified 03/09/24 07:17 pain/headaches Review of Systems Review of Systems: Constitutional : no Fever, positive Chills, positive fatigue, positive Malaise ENT/Mouth : positive sore throat, positive runny nose Eyes: No Discharge Cardiovascular : No Chest Pain, No SOB Respiratory : pos Cough, No Sputum Gastrointestinal : No Nausea, No Vomiting, No Diarrhea Genitourinary : No Dysuria, No Urinary Frequency Musculoskeletal : positive Myalgia Skin : No rash Neuro : No Headache all other systems reviewed and are negative [facility] Past Medical History Attestation statement: The following information was validated with the patient. Source: old records reviewed Medical History Dizziness Family history of colon cancer Morbid obesity with BMI of 50.0-59.9, adult GERD (gastroesophageal reflux disease) Constipation Obstructive sleep apnea Diffuse large B cell lymphoma COVID-19 Brugada syndrome Asthma Hernia Lymphoma Surgical History History of umbilical hernia repair History of laryngoscopy H/O colonoscopy History of appendectomy Family History Family History Paternal Grandmother Cancer Father Colon cancer Social History Social History Housing: House Alcohol intake: current Alcohol intake frequency: holidays/special occasions only Patient Tobacco Use Status: Never used Tobacco Second Hand Smoke Exposure: No Advance Directives: No Advance Directives Information Provided: Yes Advance Directives Date on File: 07/13/17 service: No Current occupational status: employed 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 Cognitive needs: No Hearing needs: No Vision needs: No Physical Exam Vital Signs: Vital Signs: Last Vital Signs Temp 98.6 F 03/09/24 07:15 Pulse 104 H 03/09/24 07:15 Resp 18 03/09/24 07:15 BP 156/93 H 03/09/24 07:15 Pulse Ox 96 03/09/24 07:15 O2 Del Method Room Air 03/09/24 07:15 BMI result Body Mass Index 49.6 Appearance: Alert. Oriented X3. No acute distress. Eyes: Pupils equal, round and reactive to light. ENT: Pharynx normal. Neck: Normal inspection. Neck supple. CVS: tachycardic heart rate and rhythm. Pulses normal. Respiratory: No respiratory distress. Breath sounds normal. Abdomen: Soft and non-tender. Skin: Skin warm and dry. Normal skin color. Normal skin turgor. Extremities: No lower extremity edema. Neuro: Oriented X 3. No motor deficit. No sensory deficit. Medical Decision Making Medical Decision Making [facility] Narrative: 53 yo male with PMH of GERD, prior lymphoma, asthma, here with c/o viral like illness no hypoxia no chest pain at this time positive COVID exposure and symptoms consistent with COVID he is in window for treatment - has normal Cr and no interaction with his home med of omeprazole reported. At this time viral panel, CXR and start on paxlovid and likely low dose prednisone. Return precautions advised. No CP and no hypoxia doubt VTE Differential Diagnosis Differential Diagnoses: The differential diagnosis associated with the presentation includes bronchitis, COVID Admission/Observation Consideration of admission/observation: Escalation of care including admission/observation considered not toxic, not vomiting, no hypoxia Lab Data [facility] Lab Attestation statement: I reviewed the patient's lab results. Labs: Lab Results 03/09/24 Range/Units 07:30 Influenza Type A (PCR) NEGATIVE (Negative) Influenza Type B (PCR) NEGATIVE (Negative) RSV RNA Qual (PCR) NEGATIVE (Negative) SARS-CoV-2 RNA (RT-PCR) POSITIVE A (Negative) S. pyogenes GrpA ARANZA Negative (Negative) Independent Interpretation I performed an independent interpretation of an: Plain X-Ray (normal) Radiology Impression Discussion of test interpretation with radiology: I have reviewed the radiologist's reading. External Record Review External record reviewed: Inpatient record Prescription Management I considered prescription management with: Antiviral and Other Discharge Plan Discharge Clinical Impression: COVID-19 Patient Disposition: Home, Self-Care Instructions: COVID-19 (Coronavirus Disease 2019) (ED) Additional Instructions: return for worsening pain, fainting, you are so short of breath you cannot walk to your own bathroom or any other concerns wear a mask, quarantine and protect others you are vaccinated you should be able to return to work at day 7 use your nebulizer Prescriptions: New Paxlovid 300 mg (150 mg x 2)-100 mg tablets,dose pack See Rx Instructions .ROUTE .COMPLEX Qty: 30 0RF Rx Instructions: take TWO 150 mg tablets of nirmatrelvir with ONE 100 mg tablet of ritonavir twice daily for 5 days prednisone 20 mg tablet 40 mg PO DAILY 5 Days Qty: 10 0RF No Action pyridoxine (vitamin B6) 100 mg tablet 100 mg PO DAILY 90 Days Qty: 90 1RF omeprazole 20 mg capsule,delayed release(DR/EC) 20 mg PO DAILY 90 Days Qty: 90 1RF acetaminophen [Tylenol Extra Strength] 500 mg tablet 1,000 mg PO QID PRN (Reason: fever or pain) Qty: 14 0RF albuterol sulfate 2.5 mg /3 mL (0.083 %) solution for nebulization 2.5 mg inhalation Q4-6H PRN (Reason: shortness of breath or wheezing) Qty: 90 0RF senna 8.6 mg capsule 8.6 mg PO DAILY PRN (Reason: constipation) 90 Days Qty: 90 3RF clotrimazole 1 % solution 1 appl topical BID 28 Days Qty: 30 2RF tadalafil 5 mg tablet 5 mg PO DAILY 90 Days Qty: 90 1RF Rx Instructions: [id number] [facility] [id number] Member [id number] Stand Alone Forms: Work/School Release Print Language: Slovenian
[2024-03-09 08:20] LABS: Influenza A PCR NEGATIVE (Negative); Influenza B PCR NEGATIVE (Negative); Resp Syncy Virus RNA Qual PCR NEGATIVE (Negative); SARS COV2 PCR INHOUSE POSITIVE (Negative)
[2024-03-09 09:05] VITALS: BP 00/00; PULSE 0; RESP 0; TEMP -17.7; TEMP 0; O2SAT 0
== END 2024-03-09 09:06 | disposition home or self-care (01) ==
PROVIDERS: Emergency Provider Emergency Medicine; PCP Internal Medicine
DX: U07.1 COVID-19 (principal)
CPT/HCPCS: 0241U; 71045; 87651; 99282; 99283

== ENCOUNTER 2024-04-25 08:06 | Outpatient (REF) | payer OTHER, SELFPAY | END 2024-04-25 08:07 | disposition home or self-care (01) | LOC: HO.SH 08:06 | PROVIDERS: Visit Provider Internal Medicine | DX: Z01.118 Encounter for examination of ears and hearing with other abnormal findings (principal); H90.3 Sensorineural hearing loss, bilateral | CPT/HCPCS: 92557; 92567 ==

== ENCOUNTER 2024-05-19 16:15 | Emergency (ER) | payer OTHER, SELFPAY ==
--- NOTE | ~2024-05-19 | CT_ITS ---
EXAMINATION: CT ABDOMEN AND PELVIS WITHOUT CONTRAST CLINICAL INFORMATION: [Flank pain COMPARISON: 03/24/2022 TECHNIQUE: Multidetector volumetric imaging was performed from the superior aspect of the liver through the pubic symphysis. Sagittal and coronal reformatted images were obtained on the technologist's workstation. This CT examination was performed using dose optimization techniques as appropriate, variously including the following: *Automated exposure control *Adjustment of mA and/or kV according to patient size (this includes techniques or standardized protocols for targeted exams where dose is matched to indication/reason for exam; i.e. extremities or head) *Use of iterative reconstruction technique DLP: 1075 mGy-cm FINDINGS: LUNG BASES: The visualized lung bases are unremarkable. LIVER, GALLBLADDER, AND BILIARY TREE: The liver is normal in size, shape, and attenuation. No focal hepatic lesion or biliary ductal dilatation is present. The gallbladder is unremarkable with no evidence of radiopaque gallstones, gallbladder wall thickening, or obvious pericholecystic inflammatory changes. PANCREAS: Unremarkable. SPLEEN: Unremarkable. ADRENAL GLANDS: Unremarkable. KIDNEYS AND URETERS: No hydronephrosis on the right. Multiple intrarenal calculi are noted largest measuring up to 5 mm upper pole cortex. On the left, there is moderate hydronephrosis due to a 5 mm proximal ureteral stone. No perinephric collection. No other focal lesion. BLADDER: Unremarkable. GASTROINTESTINAL TRACT: The small and large bowel are unremarkable. The appendix is unremarkable. ABDOMINAL WALL: No significant hernia is appreciated. LYMPH NODES: Normal. VASCULAR: Unremarkable. PELVIC VISCERA: Unremarkable. OSSEOUS STRUCTURES: Unremarkable. CT/CT abdomen pelvis wo IV con IMPRESSION: Left-sided hydronephrosis due to a 5 mm proximal ureteral stone. Fleischner guidelines were followed. Electronically signed by: Myles Cain MD 05/19/2024 10:45 PM EDT
[2024-05-19 16:35] VITALS: BP 133/81; PULSE 80; RESP 18; TEMP 36.3; O2SAT 96; BMI 49.8
--- NOTE | 2024-05-19 16:39 | ECG_ITS ---
Test Reason : epigastric pain Blood Pressure : / mmHG Vent. Rate : 084 BPM Atrial Rate : 084 BPM P-R Int : 198 ms QRS Dur : 116 ms QT Int : 362 ms P-R-T Axes : 051 -58 036 degrees QTc Int : 427 ms Normal sinus rhythm Left axis deviation Incomplete right bundle branch block Inferior infarct (cited on or before 21-SEP-2022) Abnormal ECG When compared with ECG of 26-JUL-2023 06:54, Incomplete right bundle branch block has replaced Right bundle branch block Referred By: Miranda Kaur Electronically Signed By:KENY MASON
--- NOTE | 2024-05-19 16:39 | ED.GENADULT ---
HPI - General Adult General Chief complaint: Abdominal Pain Stated complaint: left side pain Time Seen by Provider: 05/19/24 17:19 Source: patient Limitations: no limitations History of Present Illness ED Provider: Gabriela Segura PA-C HPI narrative: 54-year-old male with a history of kidney stones, morbid obesity presents with left flank pain. Patient states around noon he developed left mid flank discomfort. Pain fluctuates in intensity, described as sharp at times, is nonradiating. Associated nausea. Denies vomiting, diarrhea, fever. Denies excessive use of alcohol. Denies dysuria or discoloration of his urine. Related Data Previous Rx's ?Medication ?Instructions ?Recorded acetaminophen 500 mg tablet 1,000 mg (2 x 500 mg) PO QID PRN 10/31/20 (Tylenol Extra Strength) fever or pain #14 tabs pyridoxine (vitamin B6) 100 mg 100 mg PO DAILY 90 days #90 tabs 05/27/21 tablet sennosides 8.6 mg capsule (senna) 8.6 mg PO DAILY PRN constipation 09/09/21 90 days #90 caps albuterol sulfate 2.5 mg/3 mL 2.5 mg (3 mL) inhalation Q4-6H PRN 06/08/23 (0.083 %) solution for nebulization shortness of breath or wheezing #90 mL omeprazole 20 mg capsule,delayed 20 mg PO DAILY 90 days #90 caps 06/13/23 release tadalafil 5 mg tablet 5 mg PO DAILY sexual activity 90 10/27/23 days #90 tabs clotrimazole 1 % topical solution 1 appl topical BID 4 weeks #30 mL 02/29/24 ketorolac 10 mg tablet 10 mg PO Q6H PRN pain #20 tabs 05/19/24 ondansetron HCl 4 mg tablet 4 mg PO Q8H PRN nausea and 05/19/24 vomiting #10 tabs tamsulosin 0.4 mg capsule (Flomax) 0.4 mg PO DAILY #7 caps 05/19/24 Allergies Allergy/AdvReac Type Severity Reaction Status Date / Time isosorbide Allergy Intermediate neck Verified 05/19/24 16:36 pain/headaches Review of Systems Review of Systems: Yes all other systems are reviewed and are negative Constitutional: Constitutional: Denies fever(s) Cardiovascular: Cardiovascular: Denies chest pain and Denies dyspnea Respiratory: Respiratory: Denies dyspnea Gastrointestinal: Gastrointestinal: Reports abdominal pain, Denies diarrhea, Reports nausea and Denies vomiting Genitourinary: Genitourinary: Denies dysuria [facility] Past Medical History Attestation statement: The following information was validated with the patient. Medical History Dizziness Family history of colon cancer Morbid obesity with BMI of 50.0-59.9, adult GERD (gastroesophageal reflux disease) Constipation Obstructive sleep apnea Diffuse large B cell lymphoma COVID-19 Brugada syndrome Asthma Hernia Lymphoma Surgical History History of umbilical hernia repair History of laryngoscopy H/O colonoscopy History of appendectomy Family History Family History Paternal Grandmother Cancer Father Colon cancer Social History Social History (Updated 03/27/24 @ 10:21 by Yusuf Arredondo) Housing: House Alcohol intake: current Alcohol intake frequency: holidays/special occasions only Patient Tobacco Use Status: Never used Tobacco Second Hand Smoke Exposure: No Advance Directives: No Advance Directives Information Provided: No Advance Directives Date on File: 07/13/17 service: No Current occupational status: employed 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 Cognitive needs: No Hearing needs: No Vision needs: No Physical Exam ED Vital Signs: Vital Signs - 24 hr 05/19/24 16:35 05/19/24 17:18 05/19/24 19:52 Temperature 97.3 F 97.8 F 97.8 F Pulse Rate 80 87 81 Respiratory Rate 18 16 18 Blood Pressure 133/81 130/82 137/82 Pulse Oximetry 96 98 96 Oxygen Delivery Method Room Air Room Air Room Air 05/19/24 23:22 Temperature Pulse Rate 88 Respiratory Rate 16 Blood Pressure 138/94 H Pulse Oximetry 96 Oxygen Delivery Method Room Air BMI result Body Mass Index 49.8 Const Other: Alert, well in appearance Orientation/consciousness: patient oriented x3 Resp Effort & Inspection: normal respiratory effort Cardio Other: Normal peripheral perfusion GI Other: Abdomen is soft, nondistended, obese, mild tenderness left upper to mid abdomen without guarding Back/Spine/Pelvis Other: No CVA tenderness Skin Other: Warm dry no rash Neuro General: patient oriented x3, no focal motor deficits and CN's II-XI intact bilaterally Psych Other: Calm cooperative Course Course Course Narrative: RME performed by Miranda Kaur PA-C. Patient is a 54 year old assigned male at presenting to the emergency department with LUQ abdominal pain. Patient states over the last few hours he has had left upper abdominal pain and nausea. Detailed physical exam and review of systems are deferred to the medical record coder. EKG, labs, swabs ordered. Patient placed back in the waiting room pending room availability and results. Medical Decision Making Medical Decision Making [facility] Narrative: 54-year-old male with a history of kidney stones, morbid obesity presents with left flank pain. Patient states around noon he developed left mid flank discomfort. Pain fluctuates in intensity, described as sharp at times, is nonradiating. Associated nausea. Denies vomiting, diarrhea, fever. Denies excessive use of alcohol. Denies dysuria or discoloration of his urine. Problem: Obesity, kidney stones History: Per patient I have considered the following differential diagnoses: Pyelonephritis, renal colic, pancreatitis, gastritis, biliary colic Plan: Patient is assessment began from triage, out in E,, he initially complains of left upper abdominal pain, thus I am considering biliary versus gastric versus pancreatic etiology as cause for symptoms. However, his exam was overall benign, screening labs including LFTs were obtained and are unremarkable. We will add a lipase. Patient is passing hematuria, however his urine is not infected, no CVA tenderness, no suspicion for pyelonephritis at this time. I am considering he is passing a stone, we will obtain a CT scan. At this time the patient is not nauseous in his pain is controlled. I have independently reviewed the following tests: Labs: No leukocytosis, not anemic, no electrolyte abnormality, creatinine baseline, urine not infected, is passing hematuria CT abdomen and pelvis:CT ABDOMEN AND PELVIS WITHOUT CONTRAST CLINICAL INFORMATION: [Flank pain COMPARISON: 03/24/2022 TECHNIQUE: Multidetector volumetric imaging was performed from the superior aspect of the liver through the pubic symphysis. Sagittal and coronal reformatted images were obtained on the technologist's workstation. This CT examination was performed using dose optimization techniques as appropriate, variously including the following: *Automated exposure control *Adjustment of mA and/or kV according to patient size (this includes techniques or standardized protocols for targeted exams where dose is matched to indication/reason for exam; i.e. extremities or head) *Use of iterative reconstruction technique DLP: 1075 mGy-cm FINDINGS: LUNG BASES: The visualized lung bases are unremarkable. LIVER, GALLBLADDER, AND BILIARY TREE: The liver is normal in size, shape, and attenuation. No focal hepatic lesion or biliary ductal dilatation is present. The gallbladder is unremarkable with no evidence of radiopaque gallstones, gallbladder wall thickening, or obvious pericholecystic inflammatory changes. PANCREAS: Unremarkable. SPLEEN: Unremarkable. ADRENAL GLANDS: Unremarkable. KIDNEYS AND URETERS: No hydronephrosis on the right. Multiple intrarenal calculi are noted largest measuring up to 5 mm upper pole cortex. On the left, there is moderate hydronephrosis due to a 5 mm proximal ureteral stone. No perinephric collection. No other focal lesion. BLADDER: Unremarkable. GASTROINTESTINAL TRACT: The small and large bowel are unremarkable. The appendix is unremarkable. ABDOMINAL WALL: No significant hernia is appreciated. LYMPH NODES: Normal. VASCULAR: Unremarkable. PELVIC VISCERA: Unremarkable. OSSEOUS STRUCTURES: Unremarkable. CT/CT abdomen pelvis wo IV con IMPRESSION: Left-sided hydronephrosis due to a 5 mm proximal ureteral stone. Fleischner guidelines were followed. Electronically signed by: Myles Cain MD 05/19/2024 10:45 PM EDT RP Discussed findings with the patient, we will be sending will return precautions, pain and antinausea medication, he has a urologist he can follow up with. Lab Data 05/19/24 17:03 05/19/24 17:03 Labs: Lab Results 05/19/24 05/19/24 05/19/24 Range/Units 17:03 17:09 17:27 WBC 6.0 (4.8-10.8) X10*3/uL RBC 5.14 (4.60-5.80) X10*6/uL Hgb 15.1 (14.0-18.0) g/dl Hct 45.2 (42.0-52.0) % MCV 87.9 (80.0-98.0) fL MCH 29.4 (27.0-33.0) pg MCHC 33.4 (31.0-36.0) g/dl RDW 13.5 (11.0-16.0) % Plt Count 209 (160-400) X10*3/uL MPV 10.2 (9.4-12.4) fL Immature Gran % (Auto) 0.2 (0.0-0.4) % Neut % (Auto) 56.3 (45-73) % Lymph % (Auto) 28.3 (20-40) % [place] % (Auto) 10.8 (2-11) % Eos % (Auto) 3.6 (0-4) % Baso % (Auto) 0.8 (0-2) % Lymph # (Auto) 1.7 (1.2-4.9) X10*3/uL [place] # (Auto) 0.7 (0.1-1.2) X10*3/uL Eos # (Auto) 0.2 (0.0-0.4) X10*3/uL Baso # (Auto) 0.1 (0.0-0.2) X10*3/uL Abs Immat Gran (auto) 0.01 (0.00-0.03) X10*3/uL Absolute Neuts (auto) 3.4 (2.0-8.3) x10*3/uL Absolute Nucleated RBC 0.000 (0.0-0.012) X10*3/uL Nucleated RBC % (auto) 0.0 (0.0-0.2) /100WBC Sodium 140 (135-145) mmol/L Potassium 4.3 (3.3-5.1) mmol/L Chloride 107 (96-108) mmol/L Carbon Dioxide 23 (22-29) mmol/L Anion Gap 14 (12-20) BUN 15 (9-16) mg/dL Creatinine 1.08 (0.5-1.4) mg/dL Estim Creat Clear Calc 113.6 Estimated GFR > 60 Random Glucose 94 (60-115) mg/dL Calcium 10.6 H D (8.4-10.2) mg/dL Magnesium 2.0 (1.6-2.6) mg/dL Total Bilirubin 0.5 (0.0-1.0) mg/dL AST 26 (5-37) U/L ALT 29 (0-40) U/L Alkaline Phosphatase 55 (39-117) U/L Troponin I High Sens < 2.7 (<3.5-35.0) ng/L Total Protein 7.6 (6.5-8.0) g/dL Albumin 4.1 (3.5-5.0) g/dL Lipase 28 (8-78) U/L Urine Color Dark Yellow Urine Appearance Clear Urine pH 5.5 (5.0-9.0) Ur Specific [place] >= 1.030 H (1.005-1.025) Urine Protein 30 (1+) H (Neg-Trace) mg/dL Urine Glucose (UA) Negative (Negative) mg/dL Urine Ketones Trace (Negative) mg/dL Urine Blood Large (3+) H (Negative) Urine Nitrite Negative (Negative) Ur Leukocyte Esterase Negative (Negative) Urine RBC >20 H (0-2) /HPF Urine WBC 0-5 (0-5) /HPF Ur Squamous Epith Cells 0-2 (0-2) /HPF Urine Bacteria None Seen (None Seen) Hyaline Casts 0-2 (0-2) /LPF Influenza Type A (PCR) NEGATIVE (Negative) Influenza Type B (PCR) NEGATIVE (Negative) RSV RNA Qual (PCR) NEGATIVE (Negative) SARS-CoV-2 RNA (RT-PCR) NEGATIVE (Negative) Discharge Plan Discharge Clinical Impression: Renal colic on left side Patient Disposition: Home, Self-Care Instructions: Renal Colic (ED) Additional Instructions: You were found to be passing a 5 mm stone on the left. Use the ketorolac as needed for pain. Use the Zofran as needed for nausea. Take the Flomax as directed. This medication will help induce urine flow. Return precautions, which would necessitate a medical assessment, would be if you were to develop a fever, vomiting that you can not stop, inability to urinate, or severe constant pain. Prescriptions: New tamsulosin [Flomax] 0.4 mg capsule 0.4 mg PO DAILY Qty: 7 0RF ketorolac 10 mg tablet 10 mg PO Q6H PRN (Reason: pain) Qty: 20 0RF Rx Instructions: maximum total duration of 5 days from all oral, intranasal, or parenteral formulations. The patient has had Toradol. ondansetron HCl 4 mg tablet 4 mg PO Q8H PRN (Reason: nausea and vomiting) Qty: 10 0RF No Action pyridoxine (vitamin B6) 100 mg tablet 100 mg PO DAILY 90 Days Qty: 90 1RF omeprazole 20 mg capsule,delayed release(DR/EC) 20 mg PO DAILY 90 Days Qty: 90 1RF acetaminophen [Tylenol Extra Strength] 500 mg tablet 1,000 mg PO QID PRN (Reason: fever or pain) Qty: 14 0RF albuterol sulfate 2.5 mg /3 mL (0.083 %) solution for nebulization 2.5 mg inhalation Q4-6H PRN (Reason: shortness of breath or wheezing) Qty: 90 0RF senna 8.6 mg capsule 8.6 mg PO DAILY PRN (Reason: constipation) 90 Days Qty: 90 3RF clotrimazole 1 % solution 1 appl topical BID 28 Days Qty: 30 2RF tadalafil 5 mg tablet 5 mg PO DAILY 90 Days Qty: 90 1RF Rx Instructions: [id number] [id number] Member [id number] Print Language: Romansh
[2024-05-19 17:17] LABS: MANUAL DIFF FLAG NO
[2024-05-19 17:18] VITALS: BP 130/82; PULSE 87; RESP 16; TEMP 36.6; O2SAT 98
[2024-05-19 17:20] LABS: Appearance Urine Clear; Color Urine Dark Yellow; Glucose Urine UA Negative (Negative); Leukocyte Esterase Urine Negative (Negative); Nitrite Urine Negative (Negative); PH 5.5 (5.0-9.0); Specific Gravity - Urine >= 1.030 (1.005-1.025); UMIC TRIGGER UACC YES; Urine Blood Large (3+) (Negative); Urine Ketones Trace mg/dL (Negative); Urine Protein 30 (1+) mg/dL (Neg-Trace)
[2024-05-19 17:21] LABS: Basophils Absolute Auto 0.1 X10*3/uL (0.0-0.2); Basophils Percent Auto 0.8 % (0-2); Eosinophils Absolute Auto 0.2 X10*3/uL (0.0-0.4); Eosinophils Percent Auto 3.6 % (0-4); Hematocrit 45.2 % (42.0-52.0); Hemoglobin 15.1 g/dl (14.0-18.0); Imm Gran Abs Auto 0.01 X10*3/uL (0.00-0.03); Imm Gran Pct Auto 0.2 % (0.0-0.4); Lymphocytes Absolute Auto 1.7 X10*3/uL (1.2-4.9); Lymphocytes Percent Auto 28.3 % (20-40); Mean Corpuscular HGB Conc 33.4 g/dl (31.0-36.0); Mean Corpuscular Hemoglobin 29.4 pg (27.0-33.0); Mean Corpuscular Volume 87.9 fL (80.0-98.0); Mean Platelet Volume 10.2 fL (9.4-12.4); Monocytes Absolute Auto 0.7 X10*3/uL (0.1-1.2); Monocytes Percent Auto 10.8 % (2-11); Neutrophils Absolute Auto 3.4 x10*3/uL (2.0-8.3); Neutrophils Percent Auto 56.3 % (45-73); Platelet Count 209 X10*3/uL (160-400); Red Blood Count 5.14 X10*6/uL (4.60-5.80); Red Cell Distribution Width 13.5 % (11.0-16.0)
[2024-05-19 17:27] LABS: Bacteria Urine None Seen (None Seen); Hyaline Casts Urine 0-2 /LPF (0-2); RBC Urine >20 /HPF (0-2); Squamous Epithelial Cell Urine 0-2 /HPF (0-2); WBC Urine 0-5 /HPF (0-5)
[2024-05-19 17:34] LABS: Alanine Aminotransferase 29 U/L (0-40); Albumin Level 4.1 g/dL (3.5-5.0); Alkaline Phosphatase 55 U/L (39-117); Anion Gap 14 (12-20); Aspartate Amino Transferase 26 U/L (5-37); Bilirubin Total 0.5 mg/dL (0.0-1.0); Blood Urea Nitrogen 15 mg/dL (9-16); Calcium 10.6 mg/dL (8.4-10.2); Carbon Dioxide 23 mmol/L (22-29); Chloride 107 mmol/L (96-108); Creatinine Clr Calc Pharmacy 113.6; Estimated Glomerular Filt Rate > 60; Glucose Random 94 mg/dL (60-115); Potassium 4.3 mmol/L (3.3-5.1); Sodium 140 mmol/L (135-145); Total Protein 7.6 g/dL (6.5-8.0)
[2024-05-19 17:46] LABS: Troponin-I High Sensitivity < 2.7 ng/L (<3.5-35.0)
[2024-05-19 17:49] LABS: Lipase 28 U/L (8-78)
[2024-05-19 17:57] LABS: Influenza A PCR NEGATIVE (Negative); Influenza B PCR NEGATIVE (Negative); Resp Syncy Virus RNA Qual PCR NEGATIVE (Negative); SARS COV2 PCR INHOUSE NEGATIVE (Negative)
[2024-05-19 19:52] VITALS: BP 137/82; PULSE 81; RESP 18; TEMP 36.6; O2SAT 96
--- NOTE | 2024-05-19 19:53 | MHC.EDTECH ---
This tech took over care of patient at 1900,rounds and vitals completed,patient is resting quietly family at bedside,call hernandez in reach
[2024-05-19 23:22] VITALS: BP 138/94; PULSE 88; RESP 16; O2SAT 96
[2024-05-19 23:29] VITALS: BP 138/94; PULSE 88; RESP 16; TEMP 36.7; O2SAT 96
[2024-05-19] MEDS: Tamsulosin HCL 0.4 MG CAPSULE PO (23:34)
== END 2024-05-19 23:35 | disposition home or self-care (01) ==
PROVIDERS: Physician Assistant Medical; Emergency Provider Emergency Medicine; PCP Internal Medicine
DX: N13.2 Hydronephrosis with renal and ureteral calculous obstruction (principal); R10.9 Unspecified abdominal pain; Z03.818 Encounter for observation for suspected exposure to other biological agents ruled out; Z79.899 Other long term (current) drug therapy; J45.909 Unspecified asthma, uncomplicated
CPT/HCPCS: 0241U; 36415; 74176; 80053; 81001; 83690; 83735; 84484; 85025; 93005; 99284; 99285

== ENCOUNTER 2024-05-22 14:00 | Emergency (ER) | payer OTHER, SELFPAY ==
--- NOTE | ~2024-05-22 | CT_ITS ---
EXAMINATION: CT ABDOMEN AND PELVIS WITHOUT CONTRAST CLINICAL INFORMATION: Left suprapubic pain. COMPARISON: CT abdomen/pelvis 05/19/2024. TECHNIQUE: Multidetector volumetric imaging was performed from the superior aspect of the liver through the pubic symphysis. Sagittal and coronal reformatted images were obtained on the technologist's workstation. This CT examination was performed using dose optimization techniques as appropriate, variously including the following: *Automated exposure control *Adjustment of mA and/or kV according to patient size (this includes techniques or standardized protocols for targeted exams where dose is matched to indication/reason for exam; i.e. extremities or head) *Use of iterative reconstruction technique DLP: 1090 mGy-cm FINDINGS: The lack of intravenous contrast limits evaluation of the solid visceral organs including the liver, spleen, pancreas, and kidneys. LUNG BASES: No focal consolidation or pleural effusion. A 3 mm right lower lobe pulmonary nodule (4:23) is unchanged compared to 2020, for which no additional imaging follow-up is recommended. LIVER, GALLBLADDER, AND BILIARY TREE: Decreased density of the liver parenchyma suggesting hepatic steatosis. Otherwise, liver is normal in size and morphology. No focal liver lesion in this limited noncontrast examination. No biliary ductal dilatation. The gallbladder is unremarkable with no evidence of radiopaque gallstones, gallbladder wall thickening, or obvious pericholecystic inflammatory changes. PANCREAS: Unchanged fatty infiltration of the proximal pancreas. SPLEEN: Unremarkable. ADRENAL GLANDS: Unremarkable. KIDNEYS AND URETERS: Mild left-sided hydroureteronephrosis with a 6 mm obstructive calculus in the distal left ureter at approximately 1 cm from the ureterovesical junction; this calculus was situated in the proximal ureter on recent CT. Degree of hydronephrosis has not significantly changed. Additional punctate nonobstructive calculus in the lower left kidney. No right-sided hydroureteronephrosis. Nonobstructive 5 mm calculus in the upper right kidney and nonobstructive 4 mm calculus in the lower right kidney. BLADDER: Unremarkable. GASTROINTESTINAL TRACT: The stomach and the small bowel are nondilated. Normal appendix. Colonic diverticulosis without significant pericolonic inflammatory changes. ABDOMINAL WALL: No significant hernia is appreciated. LYMPH NODES: Stable mildly prominent periportal lymph nodes. VASCULAR: Normal caliber abdominal aorta. PELVIC VISCERA: Unremarkable. OSSEOUS STRUCTURES: No acute or aggressive appearing osseous findings. CT/CT abdomen pelvis wo IV con IMPRESSION: 1. Mild left-sided hydroureteronephrosis with a 6 mm obstructive calculus in the distal left ureter; this calculus was previously seen in the proximal left ureter. 2. Nonobstructive bilateral renal calculi. 3. Hepatic steatosis. 4. Colonic diverticulosis without evidence of acute diverticulitis. Electronically signed by: Angelica Bustillo MD 05/22/2024 06:02 PM EDT
[2024-05-22 14:43] VITALS: BP 144/89; PULSE 81; RESP 18; TEMP 36.5; O2SAT 97; BMI 50.6
--- NOTE | 2024-05-22 14:48 | ED.GENADULT ---
HPI - General Adult General Chief complaint: Urogenital-Male Stated complaint: Abd pain History of Present Illness HPI narrative: Left before, patient of treatment by ED provider Related Data Previous Rx's ?Medication ?Instructions ?Recorded acetaminophen 500 mg tablet 1,000 mg (2 x 500 mg) PO QID PRN 10/31/20 (Tylenol Extra Strength) fever or pain #14 tabs pyridoxine (vitamin B6) 100 mg 100 mg PO DAILY 90 days #90 tabs 05/27/21 tablet sennosides 8.6 mg capsule (senna) 8.6 mg PO DAILY PRN constipation 09/09/21 90 days #90 caps albuterol sulfate 2.5 mg/3 mL 2.5 mg (3 mL) inhalation Q4-6H PRN 06/08/23 (0.083 %) solution for nebulization shortness of breath or wheezing #90 mL omeprazole 20 mg capsule,delayed 20 mg PO DAILY 90 days #90 caps 06/13/23 release tadalafil 5 mg tablet 5 mg PO DAILY sexual activity 90 10/27/23 days #90 tabs clotrimazole 1 % topical solution 1 appl topical BID 4 weeks #30 mL 02/29/24 ketorolac 10 mg tablet 10 mg PO Q6H PRN pain #20 tabs 05/19/24 ondansetron HCl 4 mg tablet 4 mg PO Q8H PRN nausea and 05/19/24 vomiting #10 tabs tamsulosin 0.4 mg capsule (Flomax) 0.4 mg PO DAILY #7 caps 05/19/24 Allergies Allergy/AdvReac Type Severity Reaction Status Date / Time isosorbide Allergy Intermediate neck Verified 05/23/24 09:13 pain/headaches PMFSH Past Medical History Medical History Dizziness Family history of colon cancer Morbid obesity with BMI of 50.0-59.9, adult GERD (gastroesophageal reflux disease) Constipation Obstructive sleep apnea Diffuse large B cell lymphoma COVID-19 Brugada syndrome Asthma Hernia Lymphoma Surgical History History of umbilical hernia repair History of laryngoscopy H/O colonoscopy History of appendectomy Family History Family History Paternal Grandmother Cancer Father Colon cancer Social History Social History Housing: House Alcohol intake: current Alcohol intake frequency: holidays/special occasions only Patient Tobacco Use Status: Never used Tobacco Smoked in Last 30 Days: No Second Hand Smoke Exposure: No Use of substances other than those prescribed or required for medical reasons: No Advance Directives: No Advance Directives Date on File: 07/13/17 service: No Current occupational status: employed 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 54-year-old male presents to ED for left suprapubic pain. Patient has known kidney stone was seen here recently. Patient states pain return with some nausea. Patient denies any gross hematuria. Exam negative for any CVA or flanks. Positive for left suprapubic tenderness on palpation. Labs UA CT scan ordered. Medical Decision Making Lab Data 05/22/24 15:20 05/22/24 15:20 Labs: Lab Results 05/22/24 Range/Units 15:20 WBC 5.6 (4.8-10.8) X10*3/uL RBC 4.65 (4.60-5.80) X10*6/uL Hgb 13.7 L (14.0-18.0) g/dl Hct 41.3 L (42.0-52.0) % MCV 88.8 (80.0-98.0) fL MCH 29.5 (27.0-33.0) pg MCHC 33.2 (31.0-36.0) g/dl RDW 13.6 (11.0-16.0) % Plt Count 188 (160-400) X10*3/uL MPV 10.4 (9.4-12.4) fL Immature Gran % (Auto) 0.0 (0.0-0.4) % Neut % (Auto) 56.9 (45-73) % Lymph % (Auto) 26.8 (20-40) % [place] % (Auto) 11.1 H (2-11) % Eos % (Auto) 4.3 H (0-4) % Baso % (Auto) 0.9 (0-2) % Lymph # (Auto) 1.5 (1.2-4.9) X10*3/uL [place] # (Auto) 0.6 (0.1-1.2) X10*3/uL Eos # (Auto) 0.2 (0.0-0.4) X10*3/uL Baso # (Auto) 0.1 (0.0-0.2) X10*3/uL Abs Immat Gran (auto) 0.00 (0.00-0.03) X10*3/uL Absolute Neuts (auto) 3.2 (2.0-8.3) x10*3/uL Absolute Nucleated RBC 0.000 (0.0-0.012) X10*3/uL Nucleated RBC % (auto) 0.0 (0.0-0.2) /100WBC Sodium 140 (135-145) mmol/L Potassium 4.2 (3.3-5.1) mmol/L Chloride 109 H (96-108) mmol/L Carbon Dioxide 26 (22-29) mmol/L Anion Gap 9 L (12-20) BUN 12 (9-16) mg/dL Creatinine 0.90 (0.5-1.4) mg/dL Estim Creat Clear Calc 137.8 Estimated GFR > 60 Random Glucose 108 (60-115) mg/dL Calcium 9.3 D (8.4-10.2) mg/dL Total Bilirubin 0.2 (0.0-1.0) mg/dL AST 23 (5-37) U/L ALT 26 (0-40) U/L Alkaline Phosphatase 54 (39-117) U/L Total Protein 6.9 (6.5-8.0) g/dL Albumin 3.7 (3.5-5.0) g/dL Urine Color Yellow Urine Appearance Clear Urine pH 6.0 (5.0-9.0) Ur Specific [place] 1.025 (1.005-1.025) Urine Protein Negative (Neg-Trace) mg/dL Urine Glucose (UA) Negative (Negative) mg/dL Urine Ketones Negative (Negative) mg/dL Urine Blood Trace H (Negative) Urine Nitrite Negative (Negative) Ur Leukocyte Esterase Negative (Negative) Urine RBC 6-10 H (0-2) /HPF Urine WBC 0-5 (0-5) /HPF Ur Squamous Epith Cells 0-2 (0-2) /HPF Urine Bacteria None Seen (None Seen) Hyaline Casts 0-2 (0-2) /LPF Discharge Plan Discharge Clinical Impression: Nephrolithiasis Patient Disposition: Left W/O Completing Treatment Prescriptions: No Action pyridoxine (vitamin B6) 100 mg tablet 100 mg PO DAILY 90 Days Qty: 90 1RF omeprazole 20 mg capsule,delayed release(DR/EC) 20 mg PO DAILY 90 Days Qty: 90 1RF acetaminophen [Tylenol Extra Strength] 500 mg tablet 1,000 mg PO QID PRN (Reason: fever or pain) Qty: 14 0RF tamsulosin [Flomax] 0.4 mg capsule 0.4 mg PO DAILY Qty: 7 0RF ketorolac 10 mg tablet 10 mg PO Q6H PRN (Reason: pain) Qty: 20 0RF Rx Instructions: maximum total duration of 5 days from all oral, intranasal, or parenteral formulations. The patient has had Toradol. ondansetron HCl 4 mg tablet 4 mg PO Q8H PRN (Reason: nausea and vomiting) Qty: 10 0RF albuterol sulfate 2.5 mg /3 mL (0.083 %) solution for nebulization 2.5 mg inhalation Q4-6H PRN (Reason: shortness of breath or wheezing) Qty: 90 0RF senna 8.6 mg capsule 8.6 mg PO DAILY PRN (Reason: constipation) 90 Days Qty: 90 3RF clotrimazole 1 % solution 1 appl topical BID 28 Days Qty: 30 2RF tadalafil 5 mg tablet 5 mg PO DAILY 90 Days Qty: 90 1RF Rx Instructions: [id number] [facility] [id number] Member [id number] Discharge Date/Time: 05/22/24 23:09
[2024-05-22 15:25] LABS: MANUAL DIFF FLAG NO
[2024-05-22 15:28] LABS: Appearance Urine Clear; Basophils Absolute Auto 0.1 X10*3/uL (0.0-0.2); Basophils Percent Auto 0.9 % (0-2); Color Urine Yellow; Eosinophils Absolute Auto 0.2 X10*3/uL (0.0-0.4); Eosinophils Percent Auto 4.3 % (0-4); Glucose Urine UA Negative (Negative); Hematocrit 41.3 % (42.0-52.0); Hemoglobin 13.7 g/dl (14.0-18.0); Leukocyte Esterase Urine Negative (Negative); Lymphocytes Absolute Auto 1.5 X10*3/uL (1.2-4.9); Lymphocytes Percent Auto 26.8 % (20-40); Mean Corpuscular HGB Conc 33.2 g/dl (31.0-36.0); Mean Corpuscular Hemoglobin 29.5 pg (27.0-33.0); Mean Corpuscular Volume 88.8 fL (80.0-98.0); Mean Platelet Volume 10.4 fL (9.4-12.4); Monocytes Absolute Auto 0.6 X10*3/uL (0.1-1.2); Monocytes Percent Auto 11.1 % (2-11); Neutrophils Absolute Auto 3.2 x10*3/uL (2.0-8.3); Neutrophils Percent Auto 56.9 % (45-73); Nitrite Urine Negative (Negative); Platelet Count 188 X10*3/uL (160-400); Red Blood Count 4.65 X10*6/uL (4.60-5.80); Red Cell Distribution Width 13.6 % (11.0-16.0); Specific Gravity - Urine 1.025 (1.005-1.025); UMIC TRIGGER UACC YES; Urine Blood Trace (Negative); Urine Ketones Negative (Negative); Urine Protein Negative (Neg-Trace); White Blood Count 5.6 X10*3/uL (4.8-10.8)
[2024-05-22 15:31] LABS: Bacteria Urine None Seen (None Seen); Hyaline Casts Urine 0-2 /LPF (0-2); Squamous Epithelial Cell Urine 0-2 /HPF (0-2); WBC Urine 0-5 /HPF (0-5)
[2024-05-22 15:40] LABS: Alanine Aminotransferase 26 U/L (0-40); Albumin Level 3.7 g/dL (3.5-5.0); Alkaline Phosphatase 54 U/L (39-117); Anion Gap 9 (12-20); Aspartate Amino Transferase 23 U/L (5-37); Bilirubin Total 0.2 mg/dL (0.0-1.0); Blood Urea Nitrogen 12 mg/dL (9-16); Calcium 9.3 mg/dL (8.4-10.2); Carbon Dioxide 26 mmol/L (22-29); Chloride 109 mmol/L (96-108); Creatinine Clr Calc Pharmacy 137.8; Estimated Glomerular Filt Rate > 60; Glucose Random 108 mg/dL (60-115); Potassium 4.2 mmol/L (3.3-5.1); Sodium 140 mmol/L (135-145); Total Protein 6.9 g/dL (6.5-8.0)
--- NOTE | 2024-05-22 23:09 | PC.NURSE ---
Pt no answer when called for reassessment.
== END 2024-05-22 23:09 | disposition left against medical advice (07) ==
PROVIDERS: Physician Assistant; Emergency Provider Emergency Medicine; PCP Internal Medicine
DX: N20.0 Calculus of kidney (principal); R10.2 Pelvic and perineal pain; Z79.899 Other long term (current) drug therapy
CPT/HCPCS: 36415; 74176; 80053; 81001; 85025; 99282; 99284

== ENCOUNTER 2024-05-23 08:56 | Day surgery (SDC) | payer OTHER, SELFPAY ==
[2024-05-23] VITALS (8 sets, daily range): BP systolic 135–172; BP diastolic 77–96; PULSE 77–93; RESP 14–19; TEMP 36.6–37; O2SAT 95–99; BMI 50.5
--- NOTE | ~2024-05-23 | US_ITS ---
EXAMINATION: US RETROPERITONEAL LIMITED, LEFT(RENAL ONLY) CLINICAL INFORMATION: Known distal ureteral stone. Rule out hydronephrosis. COMPARISON: None available. TECHNIQUE: Real-time ultrasound examination of the left kidney was performed. FINDINGS: LEFT KIDNEY: 14.2 x 6.1 x 4.9 cm (SAG x AP x TRV). The kidney appears unremarkable in size, contour, and echogenicity. Renal cortical thickness appears unremarkable. The technologist lemus an approximately 0.2-0.3 cm, echogenic structure in the mid left kidney which does not clearly demonstrate posterior shadowing. No calculi or focal parenchymal lesion identified. No hydronephrosis identified. Suspect 0.6 x 0.4 cm distal left ureteral stone, suboptimally evaluated by ultrasound. US/US renal LT IMPRESSION: No evidence of left hydronephrosis. Suspect 0.6 x 0.4 cm distal left ureteral stone, suboptimally evaluated by ultrasound. 0.2-0.3 cm, echogenic structure in the mid left kidney which does not clearly demonstrate posterior shadowing. It is uncertain whether this represents a tiny nonobstructing collecting system stone versus renal sinus fat. Electronically signed by: Rodrigo De La Garza MD 05/23/2024 01:39 PM EDT
--- NOTE | 2024-05-23 11:07 | ED.ABDPAIN ---
HPI - Abdominal Pain General Chief Complaint: Abdominal Pain Stated Complaint: l flank pain Time Seen by Provider: 05/23/24 11:04 Source: patient Mode of arrival: ambulatory Limitations: no limitations History of Present Illness ED Provider: CHARLES HPI narrative: 54 yo male with PMH of lymphoma dx with distal L ureteral stone on 05/19 and 05/22 initial 5mm and now 6mm obstructive sent home with flomax and toradol returns today with c/o L flank pain much worse this AM. No fevers, no vomiting. He notes the pain did get better while waiting and when he urinated he felt something scraping his urethra. The pain is resolved now and he thinks he passed the stone. MD elicited complaint: flank pain Pertinent past history: kidney stones Onset (ago): day(s) (few) Pain Consistency: intermittent Location: L flank Severity: moderate Quality: stabbing Radiation: LLQ Migration to: LLQ Exacerbating factors: nothing Relieving factors: nothing Context: history of similar episodes Treatments prior to arrival: prescription analgesics Related Data Previous Rx's ?Medication ?Instructions ?Recorded acetaminophen 500 mg tablet 1,000 mg (2 x 500 mg) PO QID PRN 10/31/20 (Tylenol Extra Strength) fever or pain #14 tabs pyridoxine (vitamin B6) 100 mg 100 mg PO DAILY 90 days #90 tabs 05/27/21 tablet sennosides 8.6 mg capsule (senna) 8.6 mg PO DAILY PRN constipation 09/09/21 90 days #90 caps albuterol sulfate 2.5 mg/3 mL 2.5 mg (3 mL) inhalation Q4-6H PRN 06/08/23 (0.083 %) solution for nebulization shortness of breath or wheezing #90 mL omeprazole 20 mg capsule,delayed 20 mg PO DAILY 90 days #90 caps 06/13/23 release tadalafil 5 mg tablet 5 mg PO DAILY sexual activity 90 10/27/23 days #90 tabs clotrimazole 1 % topical solution 1 appl topical BID 4 weeks #30 mL 02/29/24 ketorolac 10 mg tablet 10 mg PO Q6H PRN pain #20 tabs 05/19/24 ondansetron HCl 4 mg tablet 4 mg PO Q8H PRN nausea and 05/19/24 vomiting #10 tabs tamsulosin 0.4 mg capsule (Flomax) 0.4 mg PO DAILY #7 caps 05/19/24 Allergies Allergy/AdvReac Type Severity Reaction Status Date / Time isosorbide Allergy Intermediate neck Verified 05/23/24 09:13 pain/headaches Review of Systems Review of Systems Constitutional : No Fever, No Chills, No Fatigue ENT/Mouth : No sore throat, No Rhinorrhea Eyes: No Eye Pain, No Swelling, No Redness Cardiovascular : No Chest Pain, No SOB, No Dyspnea on Exertion Respiratory : No Cough, No Sputum Gastrointestinal : No Nausea, No Vomiting, No Diarrhea, No abdominal Pain, pos flank pain Genitourinary : No Dysuria, No Urinary Frequency, No Hematuria, Musculoskeletal : No joint pain, No Myalgias, No Joint Swelling Skin : No Skin Lesions, No rash Neuro : No Weakness, No Numbness, No Dizziness, no Headache Psych : No Anxiety/Panic, No Depression All other systems reviewed and are negative PMFSH Past Medical History Attestation statement: The following information was validated with the patient. Source: old records reviewed Medical History Dizziness Family history of colon cancer Morbid obesity with BMI of 50.0-59.9, adult GERD (gastroesophageal reflux disease) Constipation Obstructive sleep apnea Diffuse large B cell lymphoma COVID-19 Brugada syndrome Asthma Hernia Lymphoma Surgical History History of umbilical hernia repair History of laryngoscopy H/O colonoscopy History of appendectomy Family History Family History Paternal Grandmother Cancer Father Colon cancer Social History Social History Housing: House Alcohol intake: current Alcohol intake frequency: holidays/special occasions only Patient Tobacco Use Status: Never used Tobacco Smoked in Last 30 Days: No Second Hand Smoke Exposure: No Use of substances other than those prescribed or required for medical reasons: No Advance Directives: No Advance Directives Date on File: 07/13/17 service: No Current occupational status: employed 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 Oriented X3. No acute distress. Eyes: Pupils equal, round and reactive to light. ENT: Pharynx normal. Neck: Normal inspection. Neck supple. CVS: Normal heart rate and rhythm. Pulses normal. Respiratory: No respiratory distress. Breath sounds normal. Abdomen: Soft and nontender. Skin: Skin warm and dry. Normal skin color. Normal skin turgor. Extremities: No lower extremity edema. No calf ttp Neuro: Oriented X 3. No motor deficit. No sensory deficit. Medical Decision Making Medical Decision Making [facility] Narrative: 54 yo male with PMH of lymphoma dx with distal L ureteral stone on 05/19 and 05/22 initial 5mm and now 6mm obstructive sent home with flomax and toradol returns today with c/o resolved flank pain on L side after urinating and feeling a scrape in urethra he never saw a miranda or anything in the urine at this time basic labs and UA ordered along with US - suspect possible passage of kidney stone vs retained stone. He has no pain now Differential Diagnosis Differential Diagnoses: The differential diagnosis associated with the presentation includes retained stone, passage of ureteral stone Admission/Observation Consideration of admission/observation: Escalation of care including admission/observation considered admit for short stay surgery per Siva DOOLEY since last night just water today Consult Healthcare Provider Management of the patient was discussed with: Gas Inspector (Siva) Lab Data [facility] Lab Attestation statement: I reviewed the patient's lab results. 05/23/24 11:07 05/23/24 11:06 Labs: Lab Results 05/23/24 05/23/24 05/23/24 Range/Units 11:06 11:07 11:41 WBC 6.7 (4.8-10.8) X10*3/uL RBC 4.78 (4.60-5.80) X10*6/uL Hgb 13.9 L (14.0-18.0) g/dl Hct 42.2 (42.0-52.0) % MCV 88.3 (80.0-98.0) fL MCH 29.1 (27.0-33.0) pg MCHC 32.9 (31.0-36.0) g/dl RDW 13.6 (11.0-16.0) % Plt Count 185 (160-400) X10*3/uL MPV 10.4 (9.4-12.4) fL Immature Gran % (Auto) 0.3 (0.0-0.4) % Neut % (Auto) 67.6 (45-73) % Lymph % (Auto) 15.6 L (20-40) % [place] % (Auto) 12.8 H (2-11) % Eos % (Auto) 3.0 (0-4) % Baso % (Auto) 0.7 (0-2) % Lymph # (Auto) 1.1 L (1.2-4.9) X10*3/uL [place] # (Auto) 0.9 (0.1-1.2) X10*3/uL Eos # (Auto) 0.2 (0.0-0.4) X10*3/uL Baso # (Auto) 0.1 (0.0-0.2) X10*3/uL Abs Immat Gran (auto) 0.02 (0.00-0.03) X10*3/uL Absolute Neuts (auto) 4.6 (2.0-8.3) x10*3/uL Absolute Nucleated RBC 0.000 (0.0-0.012) X10*3/uL Nucleated RBC % (auto) 0.0 (0.0-0.2) /100WBC Sodium 141 (135-145) mmol/L Potassium 4.3 (3.3-5.1) mmol/L Chloride 110 H (96-108) mmol/L Carbon Dioxide 25 (22-29) mmol/L Anion Gap 10 L (12-20) BUN 11 (9-16) mg/dL Creatinine 0.90 (0.5-1.4) mg/dL Estim Creat Clear Calc 137.5 Estimated GFR > 60 Random Glucose 100 (60-115) mg/dL Calcium 9.5 (8.4-10.2) mg/dL Magnesium 1.9 (1.6-2.6) mg/dL Total Bilirubin 0.4 (0.0-1.0) mg/dL Direct Bilirubin 0.2 (0.0-0.5) mg/dL AST 24 (5-37) U/L ALT 29 (0-40) U/L Alkaline Phosphatase 54 (39-117) U/L Total Protein 7.0 (6.5-8.0) g/dL Albumin 3.8 (3.5-5.0) g/dL Urine Color Yellow Urine Appearance Clear Urine pH 6.0 (5.0-9.0) Ur Specific [place] 1.010 (1.005-1.025) Urine Protein Negative (Neg-Trace) mg/dL Urine Glucose (UA) Negative (Negative) mg/dL Urine Ketones Negative (Negative) mg/dL Urine Blood Trace H (Negative) Urine Nitrite Negative (Negative) Ur Leukocyte Esterase Negative (Negative) Urine RBC 0-2 (0-2) /HPF Urine WBC 0-5 (0-5) /HPF Ur Squamous Epith Cells 0-2 (0-2) /HPF Urine Bacteria None Seen (None Seen) Hyaline Casts 0-2 (0-2) /LPF Independent Interpretation I performed an independent interpretation of an: Ultrasound (+ stone present) Radiology Impression Discussion of test interpretation with radiology: I have reviewed the radiologist's reading. External Record Review External record reviewed: Inpatient record Discharge Plan Discharge Clinical Impression: Ureterolithiasis, Acute left flank pain Patient Disposition: Admitted as Observation Prescriptions: No Action pyridoxine (vitamin B6) 100 mg tablet 100 mg PO DAILY 90 Days Qty: 90 1RF omeprazole 20 mg capsule,delayed release(DR/EC) 20 mg PO DAILY 90 Days Qty: 90 1RF acetaminophen [Tylenol Extra Strength] 500 mg tablet 1,000 mg PO QID PRN (Reason: fever or pain) Qty: 14 0RF tamsulosin [Flomax] 0.4 mg capsule 0.4 mg PO DAILY Qty: 7 0RF ketorolac 10 mg tablet 10 mg PO Q6H PRN (Reason: pain) Qty: 20 0RF Rx Instructions: maximum total duration of 5 days from all oral, intranasal, or parenteral formulations. The patient has had Toradol. ondansetron HCl 4 mg tablet 4 mg PO Q8H PRN (Reason: nausea and vomiting) Qty: 10 0RF albuterol sulfate 2.5 mg /3 mL (0.083 %) solution for nebulization 2.5 mg inhalation Q4-6H PRN (Reason: shortness of breath or wheezing) Qty: 90 0RF senna 8.6 mg capsule 8.6 mg PO DAILY PRN (Reason: constipation) 90 Days Qty: 90 3RF clotrimazole 1 % solution 1 appl topical BID 28 Days Qty: 30 2RF tadalafil 5 mg tablet 5 mg PO DAILY 90 Days Qty: 90 1RF Rx Instructions: [id number] [facility] [id number] Member [id number] Print Language: Kenyan
[2024-05-23 11:12] LABS: MANUAL DIFF FLAG NO
[2024-05-23 11:20] LABS: Basophils Absolute Auto 0.1 X10*3/uL (0.0-0.2); Basophils Percent Auto 0.7 % (0-2); Eosinophils Absolute Auto 0.2 X10*3/uL (0.0-0.4); Hematocrit 42.2 % (42.0-52.0); Hemoglobin 13.9 g/dl (14.0-18.0); Imm Gran Abs Auto 0.02 X10*3/uL (0.00-0.03); Imm Gran Pct Auto 0.3 % (0.0-0.4); Lymphocytes Absolute Auto 1.1 X10*3/uL (1.2-4.9); Lymphocytes Percent Auto 15.6 % (20-40); Mean Corpuscular HGB Conc 32.9 g/dl (31.0-36.0); Mean Corpuscular Hemoglobin 29.1 pg (27.0-33.0); Mean Corpuscular Volume 88.3 fL (80.0-98.0); Mean Platelet Volume 10.4 fL (9.4-12.4); Monocytes Absolute Auto 0.9 X10*3/uL (0.1-1.2); Monocytes Percent Auto 12.8 % (2-11); Neutrophils Absolute Auto 4.6 x10*3/uL (2.0-8.3); Neutrophils Percent Auto 67.6 % (45-73); Platelet Count 185 X10*3/uL (160-400); Red Blood Count 4.78 X10*6/uL (4.60-5.80); Red Cell Distribution Width 13.6 % (11.0-16.0); White Blood Count 6.7 X10*3/uL (4.8-10.8)
--- NOTE | 2024-05-23 11:22 | PC.NURSE ---
patient presents to ED 5 ambulatory with steady gait through external triage with cc of kidney stones, patient states he was here the other day and diagnosed with kidney stones, states he is still having some pain in his back but denies any difficulty urinating or pain upon urination. denies fevers chills nausea vomiting or diarrhea. states his pain is better now that he is laying down but will sometimes get worse when he is moving around. blood work obtained in triage, ultrasound ordered by provider. plan of care is ongoing at this time
[2024-05-23 11:33] LABS: Alanine Aminotransferase 29 U/L (0-40); Albumin Level 3.8 g/dL (3.5-5.0); Alkaline Phosphatase 54 U/L (39-117); Anion Gap 10 (12-20); Aspartate Amino Transferase 24 U/L (5-37); Bilirubin Direct 0.2 mg/dL (0.0-0.5); Bilirubin Total 0.4 mg/dL (0.0-1.0); Blood Urea Nitrogen 11 mg/dL (9-16); Calcium 9.5 mg/dL (8.4-10.2); Carbon Dioxide 25 mmol/L (22-29); Chloride 110 mmol/L (96-108); Creatinine Clr Calc Pharmacy 137.5; Estimated Glomerular Filt Rate > 60; Glucose Random 100 mg/dL (60-115); Magnesium 1.9 mg/dL (1.6-2.6); Potassium 4.3 mmol/L (3.3-5.1); Sodium 141 mmol/L (135-145)
[2024-05-23 11:50] LABS: Appearance Urine Clear; Color Urine Yellow; Glucose Urine UA Negative (Negative); Leukocyte Esterase Urine Negative (Negative); Nitrite Urine Negative (Negative); UMIC TRIGGER UACC YES; Urine Blood Trace (Negative); Urine Ketones Negative (Negative); Urine Protein Negative (Neg-Trace)
[2024-05-23 12:07] LABS: Bacteria Urine None Seen (None Seen); Hyaline Casts Urine 0-2 /LPF (0-2); RBC Urine 0-2 /HPF (0-2); Squamous Epithelial Cell Urine 0-2 /HPF (0-2); WBC Urine 0-5 /HPF (0-5)
--- NOTE | 2024-05-23 12:13 | PC.NURSE ---
patient provided with water per ultrasound, will return to complete second part of scan
--- NOTE | 2024-05-23 14:45 | P.CNUR_ITS ---
History of Present Illness Consult details Consult date: 05/23/24 Narrative: CC: Left lower quadrant pain 54-year-old male Presents to ER with persistent left lower quadrant pain Third presentation No prior stones Background of B-cell lymphoma Creatinine 0.9, WBC 6.7 Imaging - Mild left-sided hydroureteronephrosis with a 6 mm obstructive calculus in the distal left ureter at approximately 1 cm from the ureterovesical junction; this calculus was situated in the proximal ureter on recent CT. Given persistent presentation would plan intervention Review of Systems 2 Constitutional: Constitutional: Reports as per HPI and Reports no additional constitutional complaints Cardiovascular: Cardiovascular: Reports as per HPI and Reports no additional cardiovascular complaints Respiratory: Respiratory: Reports as per HPI and Reports no additional respiratory complaints Gastrointestinal: Gastrointestinal: Reports as per HPI and Reports no additional gastrointestinal complaints Genitourinary: Genitourinary: Reports as per HPI Musculoskeletal: Musculoskeletal: Reports no additional musculoskeletal complaints and Reports as per HPI Neurologic: Reports system reviewed and no additional complaints, except as documented and Reports as per HPI PMFSH Past Medical History Medical History Dizziness Family history of colon cancer Morbid obesity with BMI of 50.0-59.9, adult GERD (gastroesophageal reflux disease) Constipation Obstructive sleep apnea Diffuse large B cell lymphoma COVID-19 Brugada syndrome Asthma Hernia Lymphoma Family History Family History Paternal Grandmother Cancer Father Colon cancer Surgical History Surgical History History of umbilical hernia repair History of laryngoscopy H/O colonoscopy History of appendectomy Social History Social History Housing: House Alcohol intake: current Alcohol intake frequency: holidays/special occasions only Patient Tobacco Use Status: Never used Tobacco Smoked in Last 30 Days: No Second Hand Smoke Exposure: No Use of substances other than those prescribed or required for medical reasons: No Advance Directives: No Advance Directives Date on File: 07/13/17 service: No Current occupational status: employed 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 Cognitive needs: No Hearing needs: No Vision needs: No Meds Allergies Allergy/AdvReac Type Severity Reaction Status Date / Time isosorbide Allergy Intermediate neck Verified 05/23/24 09:13 pain/headaches Active Medications: Current Medications Levofloxacin (Levaquin) 500 mg in 100 mls @ 100 mls/hr IV PREOP ONE Stop: 05/23/24 15:35 Acetaminophen (Ofirmev) 1,000 mg in 100 mls @ 400 mls/hr IV PREOP ONE Stop: 05/23/24 14:50 Physical Exam 2 Vital Signs: Vital Signs: Last Vital Signs Temp 98.6 F 05/23/24 09:11 Pulse 91 05/23/24 09:11 Resp 16 05/23/24 09:11 BP 172/79 H 05/23/24 09:11 Pulse Ox 95 05/23/24 09:11 O2 Del Method Room Air 05/23/24 09:11 BMI result Body Mass Index 50.5 Const: General: cooperative, healthy appearing, comfortable and no acute distress Orientation/consciousness: patient oriented x3 HEENT: Face and sinus: Yes normal facial exam Mouth: moist mucous membranes Neck: Neck: Yes normal visual inspection, Yes full ROM and Yes trachea midline Chest: Chest palpation & inspection: normal inspection of the chest Resp: Effort & Inspection: normal respiratory effort, able to speak in complete sentences and no respiratory distress GI: Inspection: Yes normal to inspection Back/Spine/Pelvis: Cervical Spine: normal cervical lordosis Thoracic/Lumbar Spine: thoracic and lumbar spine normal to inspection Skin: General skin exam: no rashes or lesions noted Neuro: General: patient oriented x3, tone normal and moves all extremities Extrem: General: Yes normal to inspection and Yes capillary refill normal Results Labs 05/23/24 11:07 05/23/24 11:06 Labs: Abnormal lab results 05/23/24 05/23/24 05/23/24 Range/Units 11:06 11:07 11:41 Hgb 13.9 L (14.0-18.0) g/dl Lymph % (Auto) 15.6 L (20-40) % [place] % (Auto) 12.8 H (2-11) % Lymph # (Auto) 1.1 L (1.2-4.9) X10*3/uL Chloride 110 H (96-108) mmol/L Anion Gap 10 L (12-20) Urine Blood Trace H (Negative) Short CBC 05/23/24 Range/Units 11:07 WBC 6.7 (4.8-10.8) X10*3/uL Hgb 13.9 L (14.0-18.0) g/dl Hct 42.2 (42.0-52.0) % Plt Count 185 (160-400) X10*3/uL BMP 05/23/24 11:06 Sodium 141 Potassium 4.3 Chloride 110 H Carbon Dioxide 25 BUN 11 Creatinine 0.90 Calcium 9.5 Liver Function 05/23/24 Range/Units 11:06 Total Bilirubin 0.4 (0.0-1.0) mg/dL Direct Bilirubin 0.2 (0.0-0.5) mg/dL AST 24 (5-37) U/L ALT 29 (0-40) U/L Alkaline Phosphatase 54 (39-117) U/L Albumin 3.8 (3.5-5.0) g/dL Urine 05/23/24 Range/Units 11:41 Urine Color Yellow Urine Appearance Clear Urine pH 6.0 (5.0-9.0) Ur Specific [place] 1.010 (1.005-1.025) Urine Protein Negative (Neg-Trace) mg/dL Urine Glucose (UA) Negative (Negative) mg/dL All other labs normal. Assessment and Plan (1) Ureterolithiasis: Status: Acute (2) Acute left flank pain: Status: Acute Plan Ureteroscopy We discussed the nature of the decision and reasonable alternatives for performing ureteroscopy. Options such as medical therapy were discussed. Interventions include chemical dissolution, ESWL, ureteroscopy with laser lithotripsy and stent placement, PCNL. The relative uncertainties and benefits related to each alternate procedure were adequately discussed. General surgical risks including, but not limited to - pain, bleeding, infection, myocardial infarction, pulmonary embolus, deep vein thrombosis and cerebrovascular accident which may result in further hospitalization were discussed. Full disclosure of the procedure as well as all major risks, benefits and complications were discussed including but not limited to damage to the urethra, bladder and kidney infection, damage to the ureter, stent migration or malposition, scarring to the renal pelvis, remnant stone fragments, subsequent stone passage with need for secondary procedures. The overall secondary procedure rate is approximately 10-15%. The overall clearance rate is approximately 90-95%. Success of the procedure in the short-term does not necessarily guarantee that long-term success will be maintained. Suitable follow up will need to be maintained. The patient showed understanding of discussion and wishes to proceed with - cystoscopy, retrograde, ureteroscopy, possible lithotripsy/stone basketing and stent on the left side Procedures Date of Service Date of Service: 05/23/24
[2024-05-23] MEDS: Acetaminophen 1,000 MG/100 ML PIGGYBACK 400 MG IV (15:18)
[2024-05-23] MEDS: levoFLOXacin/D5W 500 MG/100 ML PIGGYBACK 100 MG IV (15:19)
--- NOTE | 2024-05-23 17:00 | MHC.SHP ---
Pre-Procedural Eval Section A - 24 Hr Update-Section A only Date of Service: 05/23/24 The patient is an INPATIENT: No Changes since office visit: No Cold of Flu in the past 2 weeks, No New Medical Problems, No Changes in Medication and No Patient answered all questions The patient has been examined within 24 hours of the surgical procedure. The History & Physical has been completed within 30 days and I have reviewed it.: Yes Section B - Complete if H&P > 30 days Chief Complaint: l flank pain Details of Present Illness: Distal left ureteric stone Allergies: Allergies Allergy/AdvReac Type Severity Reaction Status Date / Time isosorbide Allergy Intermediate neck Verified 05/23/24 09:13 pain/headaches Review of Systems Sugical H&P ROS: Negative: Constitution, Cardiovascular, Respiratory, Neurological, Psychiatric, Hem-Onc, Allergic/Immunologic, Gastrointestinal, Genitourinary, Musculoskeletal, Integumentary, Endocrine and Eyes/Ears/Nose/Throat Exam Surgical H&P Exam: Normal: HEENT, Normal: Heart, Normal: Lungs, Normal: Extremities, Normal: Abdomen, Normal: Skin and Normal: Neurological Plan Diagnosis/Plan: Unchanged (Cystoscopy, left retrograde, left ureteroscopy with laser lithotripsy stent placement) I have reviewed the history and physical and performed a pertinent physical examination on my patient. No changes have occurred unless specified. Time Spent With Patient Time: Total time managing care of this patient today ____ minutes.
--- NOTE | 2024-05-23 17:03 | P.CONAN_ITS ---
HPI - Anesthesia Eval Consult details Narrative: Left ureter stone PMFSH Active Problems Active Problems: All Active Problems Acute left flank pain (Acute) Ureterolithiasis (Acute) COVID-19 (Acute) Onychomycosis (Acute) Hearing loss (Acute) Pain of right heel (Acute) Low testosterone (Acute) Low libido (Acute) Soft tissue injury of left knee (Acute) Nephrolithiasis (Acute) Annual physical exam (Acute) Tendinitis of left forearm (Acute) Preop cardiovascular exam (Acute) Colon cancer screening (Acute) Sprain of left shoulder joint (Acute) Elevated blood pressure reading without diagnosis of hypertension (Acute) Achilles tendinitis of right lower extremity (Acute) Family history of colon cancer (Acute) Diffuse large B cell lymphoma (Acute) Morbid obesity with BMI of 50.0-59.9, adult (Acute) Constipation (Acute) History of appendectomy (Acute) Lymphoma (Acute) Hernia (Acute) Past Medical History Medical History Dizziness Family history of colon cancer Morbid obesity with BMI of 50.0-59.9, adult GERD (gastroesophageal reflux disease) Constipation Obstructive sleep apnea Diffuse large B cell lymphoma COVID-19 Brugada syndrome Asthma Hernia Lymphoma Family History Family History Paternal Grandmother Cancer Father Colon cancer Family history of problems with anesthesia: No Surgical History Surgical History History of umbilical hernia repair History of laryngoscopy H/O colonoscopy History of appendectomy History of Problems with Anesthesia: No Social History Social History Housing: House Alcohol intake: current Alcohol intake frequency: holidays/special occasions only Patient Tobacco Use Status: Never used Tobacco Smoked in Last 30 Days: No Second Hand Smoke Exposure: No Use of substances other than those prescribed or required for medical reasons: No Advance Directives: No Advance Directives Date on File: 07/13/17 service: No Current occupational status: employed 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 Cognitive needs: No Hearing needs: No Vision needs: No Meds Allergies Allergy/AdvReac Type Severity Reaction Status Date / Time isosorbide Allergy Intermediate neck Verified 05/23/24 09:13 pain/headaches Exam Height,Weight and Vital Signs: Height 5 ft 8 in Weight 150.6 kg Last Vital Signs Temp 98.6 F 05/23/24 09:11 Pulse 91 05/23/24 09:11 Resp 16 05/23/24 09:11 BP 172/79 H 05/23/24 09:11 Pulse Ox 95 05/23/24 09:11 O2 Del Method Room Air 05/23/24 09:11 Pertinent Lab Results Pertinent Lab Results: Laboratory Tests 05/23/24 05/23/24 05/23/24 11:06 11:07 11:41 WBC 6.7 RBC 4.78 Hgb 13.9 L Hct 42.2 MCV 88.3 MCH 29.1 MCHC 32.9 RDW 13.6 Plt Count 185 MPV 10.4 Immature Gran % (Auto) 0.3 Neut % (Auto) 67.6 Lymph % (Auto) 15.6 L [place] % (Auto) 12.8 H Eos % (Auto) 3.0 Baso % (Auto) 0.7 Lymph # (Auto) 1.1 L [place] # (Auto) 0.9 Eos # (Auto) 0.2 Baso # (Auto) 0.1 Abs Immat Gran (auto) 0.02 Absolute Neuts (auto) 4.6 Absolute Nucleated RBC 0.000 Nucleated RBC % (auto) 0.0 Sodium 141 Potassium 4.3 Chloride 110 H Carbon Dioxide 25 Anion Gap 10 L BUN 11 Creatinine 0.90 Estim Creat Clear Calc 137.5 Estimated GFR > 60 Random Glucose 100 Calcium 9.5 Magnesium 1.9 Total Bilirubin 0.4 Direct Bilirubin 0.2 AST 24 ALT 29 Alkaline Phosphatase 54 Total Protein 7.0 Albumin 3.8 Urine Color Yellow Urine Appearance Clear Urine pH 6.0 Ur Specific [place] 1.010 Urine Protein Negative Urine Glucose (UA) Negative Urine Ketones Negative Urine Blood Trace H Urine Nitrite Negative Ur Leukocyte Esterase Negative Urine RBC 0-2 Urine WBC 0-5 Ur Squamous Epith Cells 0-2 Urine Bacteria None Seen Hyaline Casts 0-2 Airway Mallampati Class: II TM Dist: >3cm Neck ROM: Full Loose/Missing/Broken Teeth: No Heart: RRR Lungs: CTA Assessment and Plan Assessment Anesthesia Assessment: Anesthesia Plan Discussed and Chart Reviewed Final Anesthetic Review Family History of Problems with Anesthesia: No History of Problems with Anesthesia: No NPO: Yes ASA Class: III and Emergency Final Preanesthetic Review: No Changes in Pt Med Stat, Meds/Allgs Chart Reviewed, Consent Obtained/Reviewed and Anes Risks/Benef Reviewed Patient Risk: Intermediate Procedure Risk: Low Anesthetic Plan Anesthetic Plan: GA Disposition: Standard PACU
--- NOTE | 2024-05-23 17:49 | W.PM.OPN ---
Operative Note Operative Note Date of Service: 05/23/24 Narrative: PreOperative Diagnosis: Distal left ureteric stone Post Operative Diagnosis: Distal left ureteric stone Procedure: - cystoscopy, left retrograde - left dilatation of ureteric orifice under fluoroscopy - left ureteroscopy, laser lithotripsy, stone basketing - left stent placement Surgeon: Dr Simeon Paniagua Anesthesia: General Indications for procedure: Distal left ureteric stone presentation through emergency room x3 Procedure: After informed consent was verified the patient was brought to the operating room and placed in a supine position. Anesthesia was administered per protocol. The patient was placed in a modified dorsal lithotomy position and prepped and draped in a sterile fashion. Safety pause time-out and side of surgery were confirmed. Images were available for review. Antibiotic administration confirmed. A 22 Guyanese cystoscope was inserted per urethra. The urethra was without aabnormality. The bladder was normal in its entirety. Both ureteric orifices were seen in normal position. The left ureteric orifice was cannulated and a retrograde examination was performed. Filling defect distal portion ureter . A Sensor guidewire was placed up to the level of the renal pelvis under fluoroscopy. The rigid cystoscope was removed. A [place] dilator was placed over the Sensor guidewire and used to dilate the ureteric orifice under fluoroscopy. The dilator was removed. The semi rigid ureteral scope was placed alongside the Sensor guidewire. Stone was encountered in described position. Using a 365 micro holmium laser fiber the stone was broken into small pieces using a combination of hammer and dusting techiques. Stone fragments were removed from the ureter using a ZeroTip 2.4 Guyanese basket basket. Once the fragments were removed a decision was made to place a ureteric stent. Based on the height of the patient a 6 Fr x 24 stent was used. The string was removed from the stent prior to placement The rigid cystoscope was backloaded over the wire and advanced into the bladder. A 6 Guyanese by 24 cm double-J stent was placed into the renal pelvis and bladder under a combination of fluoroscopy and direct visualization. The bladder was emptied. The patient tolerated the procedure well and was extubated in the operating room. They were transferred in stable condition to the recovery area. Pathology: stones Drains: Double J stent as described above
[2024-05-23] MEDS: Phenazopyridine HCL 100 MG TABLET PO (19:11)
[2024-05-30 21:59] LABS: Stone Source LEFT URETERAL STONE
== END 2024-05-23 19:25 | disposition home or self-care (01) ==
LOC: HO.ED 11:04 → HO.SSS 13:56
PROVIDERS: Emergency Provider Emergency Medicine; PCP Internal Medicine; Visit Provider Urology
PROC: (CPT 52356; principal; 2024-05-23 19:00)
DX: N13.2 Hydronephrosis with renal and ureteral calculous obstruction (principal); J45.909 Unspecified asthma, uncomplicated; C83.30 Diffuse large B-cell lymphoma, unspecified site; K21.9 Gastro-esophageal reflux disease without esophagitis; G47.33 Obstructive sleep apnea (adult) (pediatric); E66.01 Morbid (severe) obesity due to excess calories; Z68.43 Body mass index [BMI] 50.0-59.9, adult; Z79.899 Other long term (current) drug therapy
CPT/HCPCS: 52356; 36415; 76775; 80048; 80076; 81001; 82365; 83735; 85025; 88300; 99284; 99285; C1758; C1769; C2617; J0131; J1885; J1956; J2003; J2704; J3010

== ENCOUNTER → 2024-05-23 13:54 | Outpatient (BNV) | payer OTHER, SELFPAY | PROVIDERS: Emergency Provider Emergency Medicine; PCP Internal Medicine; Visit Provider Urology | DX: N20.1 Calculus of ureter (principal); R10.9 Unspecified abdominal pain | CPT/HCPCS: 52356; 74420; 99284 ==

== ENCOUNTER 2024-06-14 12:48 | Outpatient (AMB) | payer OTHER, SELFPAY ==
--- NOTE | 2024-06-14 13:04 | MHC.OFFVIS ---
Intake Visit Reasons: cysto stent removal Intake Note: Patient is present for Cystoscopy/Stent Removal Urology Med: Vitamin B6, Tadalafil , Tamsulosin Antibiotic Allergy: None Blood Thinner: None URO G HD Disposable Cystoscope LOT:[id number] EXP: 09/15/2026 Allergies isosorbide Allergy (Intermediate, Verified 05/23/24 09:13) neck pain/headaches HPI Comments Details: Angel is a pleasant male. He is a patient of Dr. Alexandre. He is seen for the following urologic conditions - nephrolithiasis - hypogonadism Here for cysto stent removal Lab work - 11/05 T 345, FT 64, FSH 6.7, LH 3.0 Prior Low total testosterone but low normal free testosterone Indicative of probable peripheral conversion Says he has significant benefit from CPAP machine Hypogonadism Initial presentation with some decline in libido Known sleep apnea Prior cancer therapy Morbidly obese Lab work - 08/06 215, 11/05 T 345, FT 64, FSH 6.7, LH 3.0 Nephrolithiasis Prior history recurrent stone formation Prior B-cell lymphoma with chemotherapy Imaging - 11/02 CT scan 3 mm mid ureteric stone, 4 mm stones in right kidney, 4 mm stone left kidney - 02/02 renal ultrasound bilateral 4 mm stones - 04/05 CT scan distal right UVJ stone and 4 mm proximal renal stone - 04/06 renal ultrasound 4 mm right, 9 mm left Intervention - 06/07 left ureteroscopy Stone composition - Calcium Oxalate Monohydrate (Whewellite) 95%Carbonate Apatite ([place]llite) 5% Therapeutic plan - imaging surveillance [facility] Medical History Dizziness Family history of colon cancer Morbid obesity with BMI of 50.0-59.9, adult GERD (gastroesophageal reflux disease) Constipation Obstructive sleep apnea Diffuse large B cell lymphoma COVID-19 Brugada syndrome Asthma Hernia Lymphoma Surgical History History of umbilical hernia repair History of laryngoscopy H/O colonoscopy History of appendectomy Family History Paternal Grandmother Cancer Father Colon cancer Social History Housing: House Alcohol intake: current Alcohol intake frequency: holidays/special occasions only Patient Tobacco Use Status: Never used Tobacco Second Hand Smoke Exposure: No Advance Directives Date on File: 07/13/17 service: No Current occupational status: employed 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 Cognitive needs: No Hearing needs: No Vision needs: No Review of Systems Const Denies chills and Denies fever(s) Card Reports no additional complaints and Denies syncope Resp Denies cough GI Denies abdominal pain and Denies heartburn Reports as per HPI and Denies change in libido Neuro Denies syncope Psych Denies change in libido Endo Denies change in libido Physical Exam Const General: cooperative, healthy appearing, comfortable and no acute distress Orientation/consciousness: patient oriented x3 HEENT Face and sinus: Yes normal facial exam Mouth: moist mucous membranes Neck Neck: Yes normal visual inspection, Yes full ROM and Yes trachea midline Chest Chest palpation & inspection: normal inspection of the chest Resp Effort & Inspection: normal respiratory effort, able to speak in complete sentences and no respiratory distress GI Inspection: Yes normal to inspection Back/Spine/Pelvis Cervical Spine: normal cervical lordosis Thoracic/Lumbar Spine: thoracic and lumbar spine normal to inspection Skin General skin exam: no rashes or lesions noted Neuro General: patient oriented x3, gait normal, tone normal and moves all extremities Extrem General: Yes normal to inspection and Yes capillary refill normal Office Procedures Cystoscopy Consent Discussed risk and benefit or proposed procedure with the patient. Information consent for procedure given to the patient. Discussed technical aspects, risks, benefits and alternatives in full. Addressed all of the patient's questions and concerns regarding the procedure. The patient demonstrated knowledge and understanding. They wish to proceed with this procedure. Preparation The patient was prepped in the usual manner. A traffic counter was present and in the room. Genitalia was prepped with betadine solution in a sterile manner. Lidocaine Jelly 2% was placed into the urethra and 16Fr flexible Olympus cystoscope was inserted into the meatus after adequate lubrication. Procedure A well lubricated 16 Chinese cystoscope was placed No abnormality noted of urethra during placement Indwelling stent seen within bladder emerging from left ureteric orifices The stent was grasped with a 3 prong grasper and removed without difficulty The patient tolerated the procedure well [id number] with stent removal DISPOSABLE SCOPE URO-G FLEXIBLE SCOPE Procedure code (CPT) selection complete Office Meds lidocaine HCl 2 % mucosal jelly in applicator Performing Provider: Simeon Paniagua MD Performing Location: [facility] [place] [facility] Administered by: Pardeep Villa RN on 06/14/24 13:20 Dose Route Admin Location Dispensed Lot Number Expiration Date ND [employer] 10 mL intra-urethral 10 mL nitrofurantoin monohydrate/macrocrystals 100 mg capsule Performing Provider: Simeon Paniagua MD Performing Location: [facility] [place] [facility] Administered by: Pardeep Villa RN on 06/14/24 13:20 Dose Route Admin Location Dispensed Lot Number Expiration Date NDC [employer] 100 mg PO 1 cap naproxen 500 mg tablet Performing Provider: Simeon Paniagua MD Performing Location: [facility] [place] [facility] Administered by: Pardeep Villa RN on 06/14/24 13:20 Dose Route Admin Location Dispensed Lot Number Expiration Date ND [employer] 500 mg PO 1 tab Results AMB Urinalysis, Automated UA Leukoctes 70 Antwan/uL Last Edit by Regine Bowers [facility] on 06/14/24 13:13 UA Nitrite Negative Last Edit by Regine Bowers [facility] on 06/14/24 13:13 UA Urobilinogen 0.2 mg/dL Last Edit by Regine Bowers [facility] on 06/14/24 13:13 UA Protein 100 mg/dL Last Edit by Regine Bowers [facility] on 06/14/24 13:13 UA pH 6.0 Last Edit by Regine Bowers [facility] on 06/14/24 13:13 UA Blood 200 Amrik/uL Last Edit by Regine Bowers [facility] on 06/14/24 13:13 UA Specific [place] 1.020 Last Edit by Regine Bowers [facility] on 06/14/24 13:13 UA Ketone Negative Last Edit by Regine Bowers [facility] on 06/14/24 13:13 UA Bilirubin 0 mg/dL Last Edit by Regine Bowers [facility] on 06/14/24 13:13 UA Glucose 0 mg/dL Last Edit by Regine Bowers [facility] on 06/14/24 13:13 Results Reviewed Results Reviewed: Laboratory Last Values Urine pH (Auto) 6.0 06/14/24 13:05 Specific [place] (Auto) 1.020 06/14/24 13:05 Urine Protein (Auto) 100 mg/dL 06/14/24 13:05 Glucose (UA)(Auto) 0 mg/dL 06/14/24 13:05 Urine Ketones (Auto) Negative 06/14/24 13:05 Urine Blood (Auto) 200 Amrik/uL 06/14/24 13:05 Urine Nitrite (Auto) Negative 06/14/24 13:05 Urine Bilirubin (Auto) 0 mg/dL 06/14/24 13:05 Urine Urobilinogen (Auto) 0.2 mg/dL 06/14/24 13:05 Leukocyte Esterase (Auto) 70 Antwan/uL 06/14/24 13:05 Assessment & Plan Assessment & Plan (1) Nephrolithiasis: Code(s): N20.0 - Calculus of kidney Category: Medical (2) Ureterolithiasis: Code(s): N20.1 - Calculus of ureter Category: Medical Plan Add potassium citrate Orders: Orders AMB Urinalysis Automated Today Z13.9 - Encounter for screening, unspecified AMB Cystoscopy Today N20.1 - Calculus of ureter US renal BI 6 Months N20.1 - Calculus of ureter Medications: New potassium citrate ER 10 mEq PO BID 90 days 180 tabs 1RF N20.0 - Calculus of kidney, N20.1 - Calculus of ureter Patient Instructions: Imaging studies, laboratory and physical exam results were discussed and reviewed in detail. No major barriers to patient understanding were identified. An opportunity to ask questions regarding the treatment plan was provided. All questions were answered. The patient expressed understanding and agreement with the above treatment plan. The patient is aware they should contact our office by phone for worsening of their current condition or the appearance of new urologic symptoms. Compliance is encouraged with any medications and followup testing that is ordered. It is a privilege to participate in the urologic care of your patient. If you have any questions or concerns regarding treatment for the above conditions, or other urologic issues, please do not hesitate to contact me. The office telephone contact is [phone]. This note is constructed using voice recognition software. While every effort has been made to ensure accuracy spring salvage worker errors may have been included. Yours sincerely, Dr Simeon Paniagua MD, [facility] - Urology Providers of Expert, Compassionate Care for the Genitourinary System Coding Level of Care Code Est Pt Level 4 (71297) Diagnoses Nephrolithiasis N20.0 Ureterolithiasis N20.1 CPT Codes Cystoscopy - CPT: 93668-[id number] with stent removal ([id number])
== END 2024-06-14 13:36 | disposition home or self-care (01) ==
LOC: HO.HUSH 12:49
PROVIDERS: PCP Internal Medicine; Visit Provider Urology
DX: N20.0 Calculus of kidney (principal); N20.1 Calculus of ureter; Z13.9 Encounter for screening, unspecified
CPT/HCPCS: 52310

== ENCOUNTER → 2024-06-14 12:48 | Outpatient (BNVA) | payer OTHER, SELFPAY | PROVIDERS: PCP Internal Medicine; Visit Provider Urology | DX: Z48.816 Encounter for surgical aftercare following surgery on the genitourinary system (principal) | CPT/HCPCS: 52310; 81003 ==

== ENCOUNTER 2024-07-10 08:07 | Outpatient (AMB) | payer OTHER, SELFPAY ==
[2024-07-10 08:09] VITALS: BP 130/96; PULSE 68; O2SAT 96
--- NOTE | 2024-07-10 08:09 | AM.OFFWIN_ITS ---
Intake Vital Signs 07/10/24 08:09 Weight 334 lb BP 130/96 H Blood Pressure Location Rt brachial Position Sitting Pulse 68 Pulse Source Pulse Oximeter Pulse Oximetry (%) 96 Oxygen Delivery Method Room Air Intake Visit Reasons: EP-rt achilles tendon pain Intake Note: Patient here for right achilles pain that radiates to the lower back which has been painful for a few weeks and worsening. Patient Tobacco Use Status: Never used Tobacco Allergies isosorbide Allergy (Intermediate, Verified 07/10/24 08:17) neck pain/headaches Do you need a note to return to daycare/school/sports/work: Yes HPI HPI Comments History of Present Illness Details 54 y/o male patient who presents to the walk in clinic with c/o right Ankle pain for months now. Pt had an Ankle Xray back in February 2024 that showed possible Tendonitis but he never got a call back from anyone for results. Pt continues to have severe pain right ankle that radiates all the up his lower back. [facility] Medical History Dizziness Family history of colon cancer Morbid obesity with BMI of 50.0-59.9, adult GERD (gastroesophageal reflux disease) Constipation Obstructive sleep apnea Diffuse large B cell lymphoma COVID-19 Brugada syndrome Asthma Hernia Lymphoma Surgical History History of umbilical hernia repair History of laryngoscopy H/O colonoscopy History of appendectomy Family History Paternal Grandmother Cancer Father Colon cancer Social History Housing: House Alcohol intake: current Alcohol intake frequency: holidays/special occasions only Patient Tobacco Use Status: Never used Tobacco Second Hand Smoke Exposure: No Advance Directives Date on File: 07/13/17 service: No Current occupational status: employed 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 Cognitive needs: No Hearing needs: No Vision needs: No Review of Systems Const All systems reviewed & are unremarkable except as noted in HPI and below Physical Exam Vital Signs: Last Vital Signs Pulse 68 07/10/24 08:09 BP 130/96 H 07/10/24 08:09 Pulse Ox 96 07/10/24 08:09 Oxygen Delivery Method Room Air 07/10/24 08:09 Const General: cooperative and no acute distress Nutritional Appearance: obese Orientation/consciousness: patient oriented x3 Neuro General: patient oriented x3, gait normal and moves all extremities Extrem Left lower extremity: ankle Details: tenderness Location: of the medial malleolus and of the achilles tendon and normal ROM; no crepitus and foot Details: normal capillary refill, tenderness Location: of the dorsal foot and toes with normal ROM Psych Speech and movement: Normal speech and movement present Assessment & Plan Assessment & Plan (1) Pain of right heel: Code(s): M79.671 - Pain in right foot Plan: IceHot NSAIDs for pain relief Placed PT referral Will message PCP for Treatment plan. Orders: Orders PT Evaluation and Treatment Today M79.671 - Pain in right foot Coding Level of Care Code Est Pt Level 3 (69131) Diagnoses Pain of right heel M79.671 Time Spent (min) 15
== END 2024-07-10 08:39 | disposition home or self-care (01) ==
PROVIDERS: PCP Internal Medicine; Visit Provider Nurse Practitioner Family
DX: M79.671 Pain in right foot (principal)

== ENCOUNTER 2024-08-31 15:36 | Outpatient (AMB) | payer OTHER, SELFPAY ==
--- NOTE | 2024-08-31 15:40 | MHC.PC.OV ---
Vital Signs 08/31/24 15:43 Height 5 ft 8 in Weight 332 lb 2 oz BMI 50.5 BP 124/74 Blood Pressure Location Lt brachial Position Sitting Pulse 90 Pulse Source Pulse Oximeter Temp 97.5 F Temp Source Skin Pulse Oximetry (%) 97 Oxygen Delivery Method Room Air Intake Visit Reasons: 6 month f/u Intake Note: Patient is here to follow up on HTN, Lymphoma. Complaint stomach pain, diarrhea and vomiting. 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: No Manager Play: Not Required per policy Accompanied by: Self / Same As Patient Allergies isosorbide Allergy (Intermediate, Verified 08/31/24 21:16) neck pain/headaches Medication List - Last Reconciled 09/01/24 by Tj Alexandre MD acetaminophen (Tylenol Extra Strength) 1,000 mg (2 x 500 mg) PO QID PRN albuterol sulfate 2.5 mg (3 mL) inhalation Q4-6H PRN clotrimazole 1% 1 appl topical BID 4 weeks fluticasone propionate 50 mcg/actuation 2 sprays intranasal DAILY PRN 30 days ketorolac 10 mg PO Q6H PRN naproxen 500 mg PO BID PRN 7 days omeprazole 20 mg PO DAILY 90 days ondansetron HCl 4 mg PO Q8H PRN potassium citrate ER 10 mEq PO BID 90 days pyridoxine (vitamin B6) 100 mg PO DAILY 90 days sennosides (senna) 8.6 mg PO DAILY PRN 90 days tadalafil 5 mg PO DAILY 90 days tamsulosin (Flomax) 0.4 mg PO DAILY Tobacco use date assessed: 08/31/24 Dental Screening Dental Screen Date: 08/31/24 Did you have a dental visit in the last 12 months?: Yes Did you have a dental problem in the last 6 months where you did not have access to dental care?: No Was dental information given to patient?: Patient has dentist HPI 6 month f/u HPI Details Patient comes in today for his follow-up visit States that he feels okay except for recurrent nasal congestion lately He denies any fever or sore throat; denies any headaches or dizziness Denies any chest pains, no shortness of breath No nausea/vomiting, no abdominal pain No change in bowel habits noted Patient states that he has been experiencing frequent pain in his left foot, especially over the area near the 4th and 5th toes, for a few months now Recalls that he hurt his left foot a few months ago and that his foot was bruised and swollen for a while States that the swelling and bruising has since subsided but the pain would often recur especially after prolonged standing or walking PFSH Medical History Dizziness Family history of colon cancer Morbid obesity with BMI of 50.0-59.9, adult GERD (gastroesophageal reflux disease) Constipation Obstructive sleep apnea Diffuse large B cell lymphoma COVID-19 Brugada syndrome Asthma Hernia Lymphoma Surgical History History of umbilical hernia repair History of laryngoscopy H/O colonoscopy History of appendectomy Family History Paternal Grandmother Cancer Father Colon cancer Social History Housing: House Alcohol intake: current Alcohol intake frequency: holidays/special occasions only Patient Tobacco Use Status: Never used Tobacco e-Cigarette/Vaping Use: Never Used Second Hand Smoke Exposure: No Advance Directives Date on File: 07/13/17 service: No Current occupational status: employed 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 1. Little interest or pleasure in doing things: not at all 2. Feeling down, depressed, or hopeless: not at all 3. Trouble falling or staying asleep, or sleeping too much: not at all 4. Feeling tired or having little energy: not at all 5. Poor appetite or overeating: not at all 6. Feeling bad about yourself - or that you are a failure or have let yourself or your family down: not at all 7. Trouble concentrating on things, such as reading the newspaper or watching television: not at all 8. Moving or speaking so slowly that other people could have noticed. Or the opposite - being so fidgety or restless that you have been moving around a lot more than usual: not at all 9. Thoughts that you would be better off or of hurting yourself in some way: not at all Total score: 0 Depression Screening Interpretation: Negative Depression Screening Done: Yes 07679 - PHQ-9 Billing: Yes Source: Developed by Drs. Marko Prescott, Carmen Benson, Robby Jones and colleagues, with an educational alissa from [employer]. Thrive Questionnaire Date Thrive assessed: 08/31/24 I am a: Patient What is your living situation today?: I have a steady place to live Within the past 12 months, did the food you bought not last and you didn't have the money to get more?: Never true Within the past 12 months, did you worry whether your food would run out before you got money to buy more?: Never true Do you have trouble paying for medicines?: No Do you have trouble getting transportation to medical appointments?: No Do you have trouble paying your heating and electricity bill?: No Do you have trouble taking care of your child, family member or friend?: No Do you have trouble with day-to-day activities such as bathing, preparing meals, shopping, managing finances, etc.?: No Are you currently unemployed and looking for a job?: No Are you interested in more education?: No Please select the resources that you would like help with: None Currently or been in a relationship where the following occur: No concerns reported THRIVE Score: 0 AUDIT C Alcohol Use Questionnaire (AUDIT-C) 1. How often do you have a drink containing alcohol?: Never 3. How often do you have six or more drinks on one occasion?: Never Total Score: 0 Score Reviewed/Action Taken: Yes BETHANY-7 AMB Questionnaire BETHANY-7 Date BETHANY - 7 assessed: 08/31/24 Feeling nervous, anxious, or on edge: 0 = Not at all Not being able to stop or control worryin = Not at all Worrying too much about different things: 0 = Not at all Trouble relaxin = Not at all Being so restless that it is hard to sit still: 0 = Not at all Becoming easily annoyed or irritable: 0 = Not at all Feeling afraid as if something awful might happen: 0 = Not at all Total BETHANY-7 score (0-4 normal; 5-9 mild; 10-14 moderate; 15-21 severe): 0 Source: Developed by Drs. Marko Prescott, Carmen Benson, Robby Jones and colleagues, with an educational alissa from [employer]. Review of Systems Const Denies chills, Denies fatigue, Denies fever(s) and Denies headache(s) ENT Denies dysphagia, Denies dizziness, Denies otalgia, Denies headache(s), Reports hearing loss (recently, in both ears), Denies neck pain, Denies odynophagia and Denies sore throat Card Denies chest pain, Denies irregular heart rhythm, Denies palpitations and Denies dyspnea Resp Denies chest congestion, Denies cough and Denies dyspnea GI Denies abdominal pain, Denies constipation, Denies dysphagia, Denies heartburn, Denies diarrhea, Denies nausea, Denies odynophagia and Denies vomiting Denies difficulty urinating, Denies dysuria and Denies urinary frequency Musc Details: (+) recurrent pain in the left foot - see HPI Denies back pain, Denies arthralgias and Denies neck pain Skin/Breast Denies rash Neuro Denies dizziness, Denies headache(s) and Denies paresthesias Endo Denies fatigue and Denies palpitations Physical exam (Primary Care) Vital Signs: Last Vital Signs Temp 97.5 F 08/31/24 15:43 Pulse 90 08/31/24 15:43 BP 124/74 08/31/24 15:43 Pulse Ox 97 08/31/24 15:43 Oxygen Delivery Method Room Air 08/31/24 15:43 BMI result Body Mass Index 50.5 Tobacco/Smoking Status: Tobacco use Status Tobacco use date assessed 08/31/24 08/31/24 15:49 Patient Tobacco Use Status Never used Tobacco 08/31/24 15:49 e-Cigarette/Vaping Use Never Used 08/31/24 15:49 PHQ-9: PHQ-9 Score PHQ-9: Total score 0 08/31/24 21:18 Depression Screening Interpretation: Negative Thrive Assessment: Date of Thrive Assessment Date Thrive assessed 08/31/24 08/31/24 15:49 Currently or been in a relationship where the following occur: No concerns reported Const General: no acute distress and alert HENMT Ears: TM's normal bilaterally and EAC's normal Throat: Yes posterior oropharynx normal and Yes tonsils normal (no TP congestion) Neck Neck: Yes supple and No lymphadenopathy Thyroid: Thyroid normal Resp Auscultation: clear to auscultation bilaterally, no rales and no wheezes Cardio Rate: regular rate Rhythm: regular rhythm Heart sounds: no murmurs GI Palpation (GI): Soft to palpation and nontender Auscultation: normal bowel sounds General: Yes no CVA tenderness Back/Spine/Pelvis Back: no CVA tenderness Thoracic/Lumbar Spine: No lumbar spinal tenderness Skin Rashes: no rashes Extrem General: Yes no clubbing, cyanosis or edema Left lower extremity: foot Details: tenderness (around the area of the left 4th and 5th toes) and no edema; no ecchymosis Coding Level of Care Code Est Pt Level 4 (35243) Diagnoses Diffuse large B-cell lymphoma, unspecified body region C83.30 Lymphoma site: unspecified region Elevated blood pressure reading without diagnosis of hypertension R03.0 Nephrolithiasis N20.0 Constipation, unspecified constipation type K59.00 Constipation type: unspecified constipation type Allergic rhinitis, unspecified seasonality, unspecified trigger J30.9 Allergic rhinitis trigger: unspecified Allergic rhinitis seasonality: unspecified Left foot pain M79.672 Morbid obesity with BMI of 50.0-59.9, adult E66.01; Z68.43 Additional Codes PHQ-9 - 88186 - PHQ-9 Billing: Yes ([id number]) Assessment & Plan Assessment & Plan (1) Diffuse large B cell lymphoma: Comment: Diffuse large B-cell lymphoma, initially diagnosed in April 2007 - had a 10 x 4 cm anterior mediastinal mass Completed 8 cycles of R-CHOP on November 13, 2007 and has been doing well since with no recurrence (IN REMISSION) Code(s): C83.30 - Diffuse large B-cell lymphoma, unspecified site Category: Medical Qualifiers: Lymphoma site: unspecified region Qualified Code(s): C83.30 - Diffuse large B-cell lymphoma, unspecified site Plan: In remission Follow up with hematology/oncology (Dr. Lynn) for follow up and continuing surveillance (2) Elevated blood pressure reading without diagnosis of hypertension: Code(s): R03.0 - Elevated blood-pressure reading, without diagnosis of hypertension Category: Medical Plan: Reinforced low sodium diet His blood pressure appears to be much better lately Will send him for some follow up labs DENZEL (3) Nephrolithiasis: Code(s): N20.0 - Calculus of kidney Category: Medical Plan: S/P stenting for an obstructive left renal stone with left-sided hydronephrosis back in May 2024, with resolution of symptoms He is currently asymptomatic and doing well Continue Tamsulosin 0.4 mg Q HS Follow up with urology as scheduled (4) Constipation: Code(s): K59.00 - Constipation, unspecified Category: Medical Qualifiers: Constipation type: unspecified constipation type Qualified Code(s): K59.00 - Constipation, unspecified Plan: Reinforced increased oral fluids and dietary fiber Continue Senna 8.6 mg QD He was scheduled for a colonoscopy back in January 2022 but this was canceled pending clearance by cardiology due to patient's history of Brugada syndrome He was eventually seen by Cardiology in February 2022 and was advised that his EKG showed some changes suggestive of Brugada syndrome but patient does not have the disease; he was cleared by cardiology for colonoscopy in February 2022 He was referred back to Dr. Gale and was scheduled for his colonoscopy sometime in December 2022 but he ended up in the ER then for gastroenteritis and his procedure was again canceled He has been referred back to Dr. Gale by Dr. Lynn for colonoscopy and this is still awaiting scheduling (5) Allergic rhinitis: Code(s): J30.9 - Allergic rhinitis, unspecified Category: Medical Qualifiers: Allergic rhinitis trigger: unspecified Allergic rhinitis seasonality: unspecified Qualified Code(s): J30.9 - Allergic rhinitis, unspecified Plan: Will start him on Fluticasone 50 mcg nasal spray QD PRN (6) Left foot pain: Code(s): M79.672 - Pain in left foot Category: Medical Plan: Will send patient for x-rays of the left foot for further evaluation (7) Morbid obesity with BMI of 50.0-59.9, adult: Code(s): E66.01 - Morbid (severe) obesity due to excess calories; Z68.43 - Body mass index [BMI] 50.0-59.9, adult Category: Medical Plan: Reinforced diet/exerxise as tolerated/lose weight Plan To return in 6 months for his next annual physical examination Orders: Orders Complete Blood Count Auto Diff 08/31/24 D64.9 - Anemia, unspecified Vitamin D 25-OH Total 08/31/24 E55.9 - Vitamin D deficiency, unspecified UA CC w/rflx Micro + Cult 08/31/24 R30.0 - Dysuria Hemoglobin A1c 08/31/24 R73.01 - Impaired fasting glucose XR foot LT min 3V 08/31/24 M79.672 - Pain in left foot Comprehensive Lane. Panel Fast 08/31/24 E78.00 - Pure hypercholesterolemia, unspecified Lipid Panel 08/31/24 E78.00 - Pure hypercholesterolemia, unspecified Medications: New fluticasone propionate 50 mcg/actuation administer into each nostril 2 sprays intranasal DAILY 30 days PRN 16 grams 5RF allergy symptoms
[2024-08-31 15:43] VITALS: BP 124/74; PULSE 90; TEMP 36.4; O2SAT 97; BMI 50.5
== END 2024-08-31 16:40 | disposition home or self-care (01) ==
PROVIDERS: PCP Internal Medicine; Visit Provider Internal Medicine
DX: C83.30 Diffuse large B-cell lymphoma, unspecified site (principal); R03.0 Elevated blood-pressure reading, without diagnosis of hypertension; N20.0 Calculus of kidney; K59.00 Constipation, unspecified; J30.9 Allergic rhinitis, unspecified; M79.672 Pain in left foot; E66.01 Morbid (severe) obesity due to excess calories; Z68.43 Body mass index [BMI] 50.0-59.9, adult

== ENCOUNTER → 2024-08-31 15:36 | Outpatient (BNVA) | payer OTHER, SELFPAY | PROVIDERS: PCP Internal Medicine; Visit Provider Internal Medicine | DX: C83.3A Diffuse large B-cell lymphoma, in remission (principal); R03.0 Elevated blood-pressure reading, without diagnosis of hypertension; N20.0 Calculus of kidney; K59.00 Constipation, unspecified; J30.9 Allergic rhinitis, unspecified; M79.672 Pain in left foot; E66.01 Morbid (severe) obesity due to excess calories; Z68.43 Body mass index [BMI] 50.0-59.9, adult; Z79.899 Other long term (current) drug therapy | CPT/HCPCS: 96127 ==

== ENCOUNTER 2024-09-07 06:59 | Outpatient (REF) | payer OTHER, SELFPAY ==
--- NOTE | ~2024-09-07 | XR_ITS ---
CLINICAL HISTORY: M79.672 - Pain in left foot 3 view left foot Comparison: None Findings: Bones intact. No dislocations. No significant arthritic change or erosions. Nonspecific dorsal and plantar calcaneal spurs. No ankle effusion. No radiopaque foreign body. IMPRESSION: 1. No acute findings. This document has been electronically signed by: Javon Mcghee MD on 09/08/2024 07:28:55
[2024-09-07 07:17] LABS: MANUAL DIFF FLAG NO
[2024-09-07 08:22] LABS: Basophils Percent Auto 0.6 % (0-2); Eosinophils Absolute Auto 0.2 X10*3/uL (0.0-0.4); Eosinophils Percent Auto 4.2 % (0-4); Hematocrit 40.3 % (42.0-52.0); Hemoglobin 13.3 g/dl (14.0-18.0); Imm Gran Abs Auto 0.01 X10*3/uL (0.00-0.03); Imm Gran Pct Auto 0.2 % (0.0-0.4); Lymphocytes Absolute Auto 1.5 X10*3/uL (1.2-4.9); Lymphocytes Percent Auto 29.2 % (20-40); Mean Corpuscular Hemoglobin 28.8 pg (27.0-33.0); Mean Corpuscular Volume 87.2 fL (80.0-98.0); Mean Platelet Volume 10.3 fL (9.4-12.4); Monocytes Absolute Auto 0.6 X10*3/uL (0.1-1.2); Monocytes Percent Auto 11.1 % (2-11); Neutrophils Absolute Auto 2.8 x10*3/uL (2.0-8.3); Neutrophils Percent Auto 54.7 % (45-73); Platelet Count 195 X10*3/uL (160-400); Red Blood Count 4.62 X10*6/uL (4.60-5.80); Red Cell Distribution Width 13.7 % (11.0-16.0)
[2024-09-07 08:28] LABS: Estimated Average Glucose 146 mg/dL; Hemoglobin A1C 176.0815 umol/L; Hemoglobin A1c % 6.7 % (<6.0); Total Hemoglobin (HGBA1C) 3556.9599 umol/L
[2024-09-07 08:29] LABS: Appearance Urine Turbid; Color Urine Yellow; Glucose Urine UA Negative (Negative); Leukocyte Esterase Urine Negative (Negative); Nitrite Urine Negative (Negative); Specific Gravity - Urine >= 1.030 (1.005-1.025); Urine Blood Negative (Negative); Urine Ketones Negative (Negative); Urine Protein Trace mg/dL (Neg-Trace)
[2024-09-07 08:50] LABS: Alanine Aminotransferase 49 U/L (0-40); Albumin Level 3.6 g/dL (3.5-5.0); Anion Gap 10 (12-20); Aspartate Amino Transferase 45 U/L (5-37); Bilirubin Total 0.4 mg/dL (0.0-1.0); Blood Urea Nitrogen 12 mg/dL (9-16); Carbon Dioxide 25 mmol/L (22-29); Chloride 109 mmol/L (96-108); Cholesterol 120 mg/dL (<200); Estimated Glomerular Filt Rate > 60; Glucose Fasting 114 mg/dL (60-99); HDL Cholesterol 31 mg/dL (>40); LDL Cholesterol Calculated 79 mg/dL (<100); Sodium 140 mmol/L (135-145); Total Protein 7.2 g/dL (6.5-8.0); Triglycerides 50 mg/dL (<150)
[2024-09-07 09:13] LABS: Vitamin D 25-OH Total 23.3 ng/mL (>30)
[2024-09-07 14:20] LABS: Alkaline Phosphatase 44 U/L (39-117)
== END 2024-09-07 07:00 | disposition home or self-care (01) ==
LOC: HO.LAB 06:59
PROVIDERS: PCP Internal Medicine; Visit Provider Internal Medicine
DX: D64.9 Anemia, unspecified (principal); R30.0 Dysuria; R73.01 Impaired fasting glucose; E78.00 Pure hypercholesterolemia, unspecified; E55.9 Vitamin D deficiency, unspecified; M79.672 Pain in left foot
CPT/HCPCS: 36415; 73630; 80053; 80061; 81003; 82306; 83036; 85025

== ENCOUNTER → 2024-09-07 07:21 | Outpatient (BNV) | payer OTHER, SELFPAY | PROVIDERS: PCP Internal Medicine; Visit Provider Specialist | DX: M79.672 Pain in left foot (principal) | CPT/HCPCS: 73630 ==

== ENCOUNTER 2024-09-25 08:53 | Outpatient (AMB) | payer OTHER, SELFPAY ==
[2024-09-25 09:05] VITALS: BP 138/80; PULSE 90; RESP 18; TEMP 36.8; O2SAT 98; BMI 51.4
--- NOTE | 2024-09-25 09:05 | MHC.OFFWIV ---
Intake Vital Signs 09/25/24 09:05 Height 5 ft 8 in Weight 338 lb BMI 51.4 BP 138/80 Blood Pressure Location Rt brachial Position Sitting Respiration 18 Pulse 90 Pulse Source Pulse Oximeter Temp 98.2 F Temp Source Oral Pulse Oximetry (%) 98 Oxygen Delivery Method Room Air Intake Visit Reasons: EP [place] eye? Patient Tobacco Use Status: Never used Tobacco Allergies isosorbide Allergy (Intermediate, Verified 09/25/24 09:07) neck pain/headaches Medication List - Last Reconciled 09/25/24 by Mounika Carlos MD acetaminophen (Tylenol Extra Strength) 1,000 mg (2 x 500 mg) PO QID PRN albuterol sulfate 2.5 mg (3 mL) inhalation Q4-6H PRN clotrimazole 1% 1 appl topical BID 4 weeks fluticasone propionate 50 mcg/actuation 2 sprays intranasal DAILY PRN 30 days ketorolac 10 mg PO Q6H PRN naproxen 500 mg PO BID PRN 7 days omeprazole 20 mg PO DAILY 90 days ondansetron HCl 4 mg PO Q8H PRN potassium citrate ER 10 mEq PO BID 90 days pyridoxine (vitamin B6) 100 mg PO DAILY 90 days sennosides (senna) 8.6 mg PO DAILY PRN 90 days tadalafil 5 mg PO DAILY 90 days tamsulosin (Flomax) 0.4 mg PO DAILY Do you need a note to return to daycare/school/sports/work: Yes HPI EP [place] eye? HPI Details Chief Complaint The patient presents with conjunctival inflammation History of Present Illness - The patient is a 54-year-old male presenting with eye discomfort and discharge. - Eye symptoms began in the morning, with noticeable discomfort and discharge. - The patient reports a scratchy feeling in the eyes, without itchiness. - Vision remains unaffected, with no use of contact lenses. - The symptoms presented suddenly, with some relief noted during the day. - No past occurrences of similar symptoms or related ocular issues have been reported. Patient Instructions - Begin using antibiotic eye drops as prescribed. Polytrim eye drops - Continue the medication for the full duration specified, even if symptoms improve early. - Return for medical evaluation if symptoms worsen or do not improve within 48 hours. - You may contact an eyelet machine operator if required. - A work exemption note has been provided; use it as needed. Review of Systems - Ophthalmologic: Reports scratchy sensation in eyes, denies itchiness, discharge present. - Sensory: Reports no visual impairment, denies use of contact lenses. 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 headache no blurring of vision skin: No rash extremities: As per history [facility] Medical History Dizziness Family history of colon cancer Morbid obesity with BMI of 50.0-59.9, adult GERD (gastroesophageal reflux disease) Constipation Obstructive sleep apnea Diffuse large B cell lymphoma COVID-19 Brugada syndrome Asthma Hernia Lymphoma Surgical History History of umbilical hernia repair History of laryngoscopy H/O colonoscopy History of appendectomy Family History Paternal Grandmother Cancer Father Colon cancer Social History Housing: House Alcohol intake: current Alcohol intake frequency: holidays/special occasions only Patient Tobacco Use Status: Never used Tobacco e-Cigarette/Vaping Use: Never Used Second Hand Smoke Exposure: No Advance Directives Date on File: 07/13/17 service: No Current occupational status: employed 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 Cognitive needs: No Hearing needs: No Vision needs: No Physical Exam Vital Signs: Last Vital Signs Temp 98.2 F 09/25/24 09:05 Pulse 90 09/25/24 09:05 Resp 18 09/25/24 09:05 BP 138/80 09/25/24 09:05 Pulse Ox 98 09/25/24 09:05 Oxygen Delivery Method Room Air 09/25/24 09:05 BMI result Body Mass Index 51.4 Const General: no acute distress Orientation/consciousness: patient oriented x3 HEENT Other: Both eyes conjunctiva injected, sclera clear, no photophobia, no pain with palpation, BAN, EOMI Resp Effort & Inspection: normal respiratory effort and able to speak in complete sentences Neuro General: patient oriented x3 Psych Mental Status: mental status grossly normal Assessment & Plan Assessment & Plan (1) Acute conjunctivitis, bilateral: Code(s): H10.33 - Unspecified acute conjunctivitis, bilateral Qualifiers: Acute conjunctivitis type: unspecified Qualified Code(s): H10.33 - Unspecified acute conjunctivitis, bilateral Plan Chief Complaint The patient presents with conjunctival inflammation History of Present Illness - The patient is a 54-year-old male presenting with eye discomfort and discharge. - Eye symptoms began in the morning, with noticeable discomfort and discharge. - The patient reports a scratchy feeling in the eyes, without itchiness. - Vision remains unaffected, with no use of contact lenses. - The symptoms presented suddenly, with some relief noted during the day. - No past occurrences of similar symptoms or related ocular issues have been reported. Patient Instructions - Begin using antibiotic eye drops as prescribed. Polytrim eye drops - Continue the medication for the full duration specified, even if symptoms improve early. - Return for medical evaluation if symptoms worsen or do not improve within 48 hours. - You may contact an eyelet machine operator if required. - A work exemption note has been provided; use it as needed. Medications: New polymyxin B sulf-trimethoprim 10,000 unit- 1 mg/mL while awake; do not exceed 6 doses in 24 hours 1 drp ophthalmic (eye) QID 10 mL 0RF 5 days Coding Level of Care Code Est Pt Level 3 (55890) Diagnoses Acute conjunctivitis of both eyes, unspecified acute conjunctivitis type H10.33 Acute conjunctivitis type: unspecified
== END 2024-09-25 09:13 | disposition home or self-care (01) ==
PROVIDERS: PCP Internal Medicine; Visit Provider Internal Medicine
DX: H10.33 Unspecified acute conjunctivitis, bilateral (principal)

== ENCOUNTER → 2024-09-25 08:53 | Outpatient (BNVA) | payer OTHER, SELFPAY | PROVIDERS: PCP Internal Medicine ==

== ENCOUNTER 2024-11-06 06:10 | Emergency (ER) | payer OTHER, SELFPAY ==
--- NOTE | ~2024-11-06 | XR_ITS ---
CLINICAL HISTORY: pain after lifting, down L leg Exam: AP, lateral, and spot lateral views of the lumbar spine. Comparison: None. Findings: Bony alignment of the lumbar vertebral bodies is anatomic. No acute fracture. Disc space heights are well preserved. Vyfi-wc-yloaxsoa facet joint degenerative change from L3-4 inferiorly. Degenerative change of the sacroiliac joints bilaterally. Impression: No acute finding. Consider MRI for further evaluation if the patient has persistent or worsening symptoms given the clinical history provided of back pain and left radiculopathy after lifting injury. This document has been electronically signed by: Jeremie Mancilla MD on 11/06/2024 07:16:18
[2024-11-06 06:14] VITALS: BP 132/83; PULSE 96; RESP 20; TEMP 36.5; O2SAT 96; BMI 49.1
--- NOTE | 2024-11-06 07:04 | ED_ITS ---
HPI - Back Pain/Injury General Chief Complaint: Back Pain/Injury Stated Complaint: back inj at work Time Seen by Provider: 11/06/24 06:29 Source: patient, RN notes reviewed and old records reviewed Mode of arrival: ambulatory Limitations: no limitations History of Present Illness ED Provider: Cesario HPI Narrative: Patient is a 54-year-old male with history of B cell lymphoma, obesity pr esenting to the ED with complaint of lower back pain after lifting a soiled linen bag out of the hughes at work. Reports pain is to mid lower back, radiates down left leg to the knee. Denies saddle anesthesia or bowel/bladder incontinence. Denies weakness, numbness, tingling to lower extremities. Did not take any medications prior to arrival. Denies prior back surgeries or injury. MD elicited complaint: back pain Radiation: left upper leg Exacerbating factors: movement Context: while lifting Work related injury: Yes Related Data Previous Rx's ?Medication ?Instructions ?Recorded acetaminophen 500 mg tablet 1,000 mg (2 x 500 mg) PO QID PRN 10/31/20 (Tylenol Extra Strength) fever or pain #14 tabs pyridoxine (vitamin B6) 100 mg 100 mg PO DAILY 90 days #90 tabs 05/27/21 tablet sennosides 8.6 mg capsule (senna) 8.6 mg PO DAILY PRN constipation 09/09/21 90 days #90 caps albuterol sulfate 2.5 mg/3 mL 2.5 mg (3 mL) inhalation Q4-6H PRN 06/08/23 (0.083 %) solution for nebulization shortness of breath or wheezing #90 mL clotrimazole 1 % topical solution 1 appl topical BID 4 weeks #30 mL 02/29/24 ketorolac 10 mg tablet 10 mg PO Q6H PRN pain #20 tabs 05/19/24 ondansetron HCl 4 mg tablet 4 mg PO Q8H PRN nausea and 05/19/24 vomiting #10 tabs tamsulosin 0.4 mg capsule (Flomax) 0.4 mg PO DAILY #7 caps 05/19/24 naproxen 500 mg tablet 500 mg PO BID PRN pain 7 days #14 05/23/24 tabs potassium citrate 10 mEq (1,080 10 meq PO BID 90 days #180 tabs 10/31/24 mg) tablet,extended release omeprazole 20 mg capsule,delayed 20 mg PO DAILY 90 days #90 caps 06/16/24 release tadalafil 5 mg tablet 5 mg PO DAILY sexual activity 90 06/18/24 days #90 tabs fluticasone propionate 50 2 spray intranasal DAILY PRN 08/31/24 mcg/actuation nasal allergy symptoms 30 days #16 grams spray,suspension polymyxin B sulfate 10,000 1 drp ophthalmic (eye) QID 5 days 09/25/24 unit-trimethoprim 1 mg/mL eye drops #10 mL cyclobenzaprine 10 mg tablet 10 mg PO TID PRN muscle spasm #10 11/06/24 tabs lidocaine 5 % topical patch 1 patch topical DAILY #15 ea 11/06/24 naproxen 500 mg tablet 500 mg PO BID #28 tabs 11/06/24 Allergies Allergy/AdvReac Type Severity Reaction Status Date / Time isosorbide Allergy Intermediate neck Verified 11/06/24 06:15 pain/headaches Review of Systems Review of Systems: As per HPI Yes all other systems are reviewed and are negative Constitutional: Constitutional: Reports as per HPI PMFSH Past Medical History Medical History Dizziness Family history of colon cancer Morbid obesity with BMI of 50.0-59.9, adult GERD (gastroesophageal reflux disease) Constipation Obstructive sleep apnea Diffuse large B cell lymphoma COVID-19 Brugada syndrome Asthma Hernia Lymphoma Surgical History History of umbilical hernia repair History of laryngoscopy H/O colonoscopy History of appendectomy Family History Family History Paternal Grandmother Cancer Father Colon cancer Social History Social History Housing: House Alcohol intake: current Alcohol intake frequency: holidays/special occasions only Patient Tobacco Use Status: Never used Tobacco Smoked in Last 30 Days: No e-Cigarette/Vaping Use: Never Used Second Hand Smoke Exposure: No Use of substances other than those prescribed or required for medical reasons: No Advance Directives: No Advance Directives Information Provided: Yes Advance Directives Date on File: 07/13/17 Do you have a plan to hurt others: No Plan service: No Current occupational status: employed 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 Blood pressure normal. Heart rate normal. Respiratory rate normal. Temperature normal. Oxygen saturation normal. Const: General: cooperative, healthy appearing and no acute distress Orientation/consciousness: oriented to person, oriented to place, oriented to time and patient oriented x3 Limitations: no limitations HEENT: Head: Yes normocephalic and Yes atraumatic Ears: external ears normal General nose exam: Normal external nose present Face and sinus: Yes face symmetric Mouth: oropharynx normal and moist mucous membranes Throat: Yes uvula midline Eyes: Pupils: Equal, round and reactive pupils present Neck: Neck: Yes normal visual inspection and Yes supple Resp: Effort & Inspection: normal respiratory effort and able to speak in complete sentences Auscultation: clear to auscultation bilaterally Cardio: Rate: regular rate Rhythm: regular rhythm Heart sounds: S1 normal heart sound present and S2 normal heart sound present GI: Palpation (GI): Soft to palpation and nontender Auscultation: normoactive bowel sounds : General: Yes no CVA tenderness Back/Spine/Pelvis: Back: no CVA tenderness Thoracic/Lumbar Spine: thoracic and lumbar spine normal to inspection, thoraco-lumbar ROM normal, straight leg raise negative bilaterally, pain with thoraco-lumbar ROM, paraspinal muscle tenderness bilaterally in the upper lumbar and in the mid lumbar, No thoracic spinal tenderness and No lumbar spinal tenderness Skin: General skin exam: elasticity normal and turgor normal Neuro: General: oriented to person, oriented to place, oriented to time, patient oriented x3, gait normal, tone normal, moves all extremities, Normal light touch and pain sensation, no focal motor deficits, CN's II-XI intact bilaterally and deep tendon reflexes 2+ bilaterally Cranial nerves: Yes Equal, round and reactive pupils present Cognition (Neuro): normal cognition Motor exam (neuro): 5/5 motor strength present throughout, Normal motor muscle tone present throughout and Motor abnormalities not present Extrem: General: Yes full ROM, Yes no pedal edema and Yes no calf tenderness Psych: Mental Status: mental status grossly normal Affect: normal affect Thought process: Normal thought process present Medical Decision Making Medical Decision Making [facility] Narrative: Patient is a 54-year-old male with history of B cell lymphoma, obesity presenting to the ED with complaint of lower back pain after lifting a soiled linen bag out of the hughes at work. On exam patient is awake, A+Ox3, VS WNL, afebrile, normal neurological exam without focal deficits, physical exam findings as above. Given reported symptoms and physical exam findings, initial differential includes but is not limited to initial differential includes lumbar strain, lumbar radiculopathy, degenerative disc disease, disc herniation, spinal stenosis, spondylosis. Less likely vertebral fracture. Do not suspect malignancy/mass, SEA, cauda equina/cord compression. X-ray lumbar spine notable for no acute abnormalities. My interpretation is in agreement with the radiologist's interpretation. Results discussed with patient and all questions answered. Will treat with cyclobenzaprine, lidocaine patches, naproxen. Will refer to [facility] for follow up. Return precautions discussed. Patient verbalized understanding of and agreement with plan. Differential Diagnosis Differential Diagnoses: The differential diagnosis associated with the presentation includes As per [facility] Independent Interpretation I performed an independent interpretation of an: Plain X-Ray Interpretation: X-ray lumbar spine is without acute abnormalities. Radiology Impression Discussion of test interpretation with radiology: I have reviewed the radiologist's reading. Radiologist Impression: CLINICAL HISTORY: pain after lifting, down L leg Exam: AP, lateral, and spot lateral views of the lumbar spine. Comparison: None. Findings: Bony alignment of the lumbar vertebral bodies is anatomic. No acute fracture. Disc space heights are well preserved. [id number] facet joint degenerative change from L3-4 inferiorly. Degenerative change of the sacroiliac joints bilaterally. Impression: No acute finding. Consider MRI for further evaluation if the patient has persistent or worsening symptoms given the clinical history provided of back pain and left radiculopathy after lifting injury. External Record Review External record reviewed: Inpatient record, Office record and Outpatient record Prescription Management I considered prescription management with: Pain Medication and Other Discharge Plan Discharge Clinical Impression: Lumbar strain Patient Disposition: Home, Self-Care Instructions: Low Back Strain (ED), Acute Low Back Pain (ED), Lower Back Exercises (ED), Core Strengthening Exercises (ED) Additional Instructions: You were evaluated in the emergency department today for back pain. Your evaluation did not show signs of medical conditions requiring emergent intervention at this time. You have been prescribed naproxen to decrease pain and inflammation. You have been prescribed a muscle relaxer called Flexeril (cyclobenzaprine) which you may take every 8 hours as needed for spasms. Do not drive, drink alcohol, or operate heavy machinery while taking this as it can cause drowsiness. You have been prescribed 5% topical lidocaine patches which you can wear for up to 12 hours in a 24 hour period. Do not apply heat directly over the patches. Please schedule an appointment for follow-up with your primary care physician this week for further evaluation of your symptoms. Return to the emergency department if you experience worsening back pain, difficulty walking, fevers, numbness, tingling, incontinence, groin numbness or tingling, or any other concerning symptoms. Follow up with [facility] as needed. [facility] [address] [place] [address] Prescriptions: New naproxen 500 mg tablet 500 mg PO BID Qty: 28 0RF cyclobenzaprine 10 mg tablet 10 mg PO TID PRN (Reason: muscle spasm) Qty: 10 0RF lidocaine 5 % adhesive patch,medicated 1 patch topical DAILY Qty: 15 0RF Rx Instructions: leave on most painful area for up to 12 hrs No Action pyridoxine (vitamin B6) 100 mg tablet 100 mg PO DAILY 90 Days Qty: 90 1RF omeprazole 20 mg capsule,delayed release(DR/EC) 20 mg PO DAILY 90 Days Qty: 90 5RF tadalafil 5 mg tablet 5 mg PO DAILY 90 Days Qty: 90 5RF Rx Instructions: [id number] [facility] [id number] Member [id number] acetaminophen [Tylenol Extra Strength] 500 mg tablet 1,000 mg PO QID PRN (Reason: fever or pain) Qty: 14 0RF naproxen 500 mg tablet 500 mg PO BID PRN (Reason: pain) 7 Days Qty: 14 0RF tamsulosin [Flomax] 0.4 mg capsule 0.4 mg PO DAILY Qty: 7 0RF ketorolac 10 mg tablet 10 mg PO Q6H PRN (Reason: pain) Qty: 20 0RF Rx Instructions: maximum total duration of 5 days from all oral, intranasal, or parenteral formulations. The patient has had Toradol. ondansetron HCl 4 mg tablet 4 mg PO Q8H PRN (Reason: nausea and vomiting) Qty: 10 0RF albuterol sulfate 2.5 mg /3 mL (0.083 %) solution for nebulization 2.5 mg inhalation Q4-6H PRN (Reason: shortness of breath or wheezing) Qty: 90 0RF senna 8.6 mg capsule 8.6 mg PO DAILY PRN (Reason: constipation) 90 Days Qty: 90 3RF clotrimazole 1 % solution 1 appl topical BID 28 Days Qty: 30 2RF fluticasone propionate 50 mcg/actuation spray,suspension 2 spray intranasal DAILY PRN (Reason: allergy symptoms) 30 Days Qty: 16 5RF Rx Instructions: administer into each nostril polymyxin B sulf-trimethoprim 10,000 unit- 1 mg/mL drops 1 drp ophthalmic (eye) QID 5 Days Qty: 10 0RF Rx Instructions: while awake; do not exceed 6 doses in 24 hours potassium citrate 10 mEq (1,080 mg) tablet extended release 10 meq PO BID 90 Days Qty: 180 1RF Stand Alone Forms: Work/School Release Print Language: Malian
[2024-11-06 07:34] VITALS: BP 132/83; PULSE 96; RESP 20; TEMP 36.5; O2SAT 96
[2024-11-06] MEDS: Ketorolac Tromethamine 30 MG/ML VIAL IM (07:40)
[2024-11-06] MEDS: Acetaminophen 325 MG TABLET 975 MG PO (07:40)
== END 2024-11-06 07:44 | disposition home or self-care (01) ==
PROVIDERS: Emergency Provider Emergency Medicine Emergency Medical Services; PCP Internal Medicine
DX: S39.012A Strain of muscle, fascia and tendon of lower back, initial encounter (principal); X50.0XXA Overexertion from strenuous movement or load, initial encounter; Y93.89 Activity, other specified; Y92.9 Unspecified place or not applicable; Y99.0 Civilian activity done for income or pay; M79.605 Pain in left leg
CPT/HCPCS: 72100; 96372; 99284; J1885

== ENCOUNTER → 2024-11-06 06:46 | Outpatient (BNV) | payer OTHER, SELFPAY | PROVIDERS: Emergency Provider Emergency Medicine Emergency Medical Services; PCP Internal Medicine; Visit Provider Radiology Diagnostic Radiology | DX: M54.50 Low back pain, unspecified (principal) | CPT/HCPCS: 72100 ==

== ENCOUNTER 2024-12-04 12:13 | Outpatient (REF) | payer OTHER, SELFPAY ==
--- NOTE | ~2024-12-04 | US_ITS ---
EXAMINATION: ULTRASOUND RENAL, BILATERALLY. CLINICAL INFORMATION: Calculus of ureter. COMPARISON: May 23, 2024 and April 15, 2023. Correlated to CT dated May 22, 2024. TECHNIQUE: Real-time ultrasound of the kidneys using grayscale and color Doppler technique. FINDINGS: Right kidney: 12 x 5 x 6 cm. Normal echotexture. Normal renal cortical thickness. No hydronephrosis. No solid or cystic lesion. Left kidney: 13 x 6 x 5 cm. Normal echotexture. Normal renal cortical thickness. No hydronephrosis. There is a 4 mm complex anechoic lesion with peripheral hyperechoic areas centered in the midportion of the corticomedullary junction. No flow on color Doppler interrogation. US/US renal BI IMPRESSION: No hydronephrosis. Complex probably partially calcified fibroid or cystic lesion, left kidney. Electronically signed by: Nicolás Arteaga MD 12/05/2024 12:16 PM EDT
== END 2024-12-04 12:14 | disposition home or self-care (01) ==
LOC: HO.US 12:13
PROVIDERS: PCP Internal Medicine; Visit Provider Urology
DX: N20.1 Calculus of ureter (principal)
CPT/HCPCS: 76775

== ENCOUNTER → 2024-12-04 12:16 | Outpatient (BNV) | payer OTHER, SELFPAY | PROVIDERS: PCP Internal Medicine; Visit Provider Radiology Diagnostic Radiology | DX: N20.1 Calculus of ureter (principal) | CPT/HCPCS: 76775 ==

== ENCOUNTER 2024-12-12 13:27 | Outpatient (AMB) | payer OTHER, SELFPAY ==
--- NOTE | 2024-12-12 13:33 | MHC.OFFVIS ---
Intake Visit Reasons: 6 month follow up/ US Intake Note: Patient is present for 6M/US Urology Medication: VITAMIN B6,TADALAFIL,POTASSIUM CITRATE,TAMSULOSIN Antibiotic Allergy:NONE Blood Thinner:NONE Special Procedure Tech Required: No Allergies isosorbide Allergy (Intermediate, Verified 12/12/24 13:37) neck pain/headaches HPI Comments Details: Angel is a pleasant male. He is a patient of Dr. Alexandre. He is seen for the following urologic conditions - nephrolithiasis - hypogonadism Follow-up nephrolithiasis and hypogonadism Good response to combination potassium citrate and vitamin B6 Remains on daily 5 mg tadalafil Has significant balanitis. Recommend clotrimazole with betamethasone cream. This is a presenting symptomatology of diabetes. Also noting urinary frequency. This would go along with glucosuria. Last HbA1c 6.7 his diagnostic. Repeat HbA1c is this is three-month old. Lab work - 11/05 T 345, FT 64, FSH 6.7, LH 3.0 Prior Low total testosterone but low normal free testosterone Indicative of probable peripheral conversion Says he has significant benefit from CPAP machine Hypogonadism in setting of diabetes would recommend testosterone recovery Initial presentation with some decline in libido Known sleep apnea Prior cancer therapy Morbidly obese Lab work - 08/06 215, 11/05 T 345, FT 64, FSH 6.7, LH 3.0 Nephrolithiasis Prior history recurrent stone formation Prior B-cell lymphoma with chemotherapy Imaging - 11/02 CT scan 3 mm mid ureteric stone, 4 mm stones in right kidney, 4 mm stone left kidney - 02/02 renal ultrasound bilateral 4 mm stones - 04/05 CT scan distal right UVJ stone and 4 mm proximal renal stone - 04/06 renal ultrasound 4 mm right, 9 mm left - 01/05 renal ultrasound no stone seen Intervention - 06/07 left ureteroscopy Stone composition - Calcium Oxalate Monohydrate (Whewellite) 95%Carbonate Apatite (Dahllite) 5% Therapeutic plan - imaging surveillance [facility] Medical History Dizziness Family history of colon cancer Morbid obesity with BMI of 50.0-59.9, adult GERD (gastroesophageal reflux disease) Constipation Obstructive sleep apnea Diffuse large B cell lymphoma COVID-19 Brugada syndrome Asthma Hernia Lymphoma Surgical History History of umbilical hernia repair History of laryngoscopy H/O colonoscopy History of appendectomy Family History Paternal Grandmother Cancer Father Colon cancer Social History Housing: House Alcohol intake: current Alcohol intake frequency: holidays/special occasions only Patient Tobacco Use Status: Never used Tobacco e-Cigarette/Vaping Use: Never Used Second Hand Smoke Exposure: No Advance Directives Date on File: 07/13/17 service: No Current occupational status: employed 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 Cognitive needs: No Hearing needs: No Vision needs: No Review of Systems Const Denies chills and Denies fever(s) Card Reports no additional complaints and Denies syncope Resp Denies cough GI Denies abdominal pain and Denies heartburn Reports as per HPI and Denies change in libido Neuro Denies syncope Psych Denies change in libido Endo Denies change in libido Physical Exam Const General: cooperative, healthy appearing, comfortable and no acute distress Orientation/consciousness: patient oriented x3 HEENT Face and sinus: Yes normal facial exam Mouth: moist mucous membranes Neck Neck: Yes normal visual inspection, Yes full ROM and Yes trachea midline Chest Chest palpation & inspection: normal inspection of the chest Resp Effort & Inspection: normal respiratory effort, able to speak in complete sentences and no respiratory distress GI Inspection: Yes normal to inspection Back/Spine/Pelvis Cervical Spine: normal cervical lordosis Thoracic/Lumbar Spine: thoracic and lumbar spine normal to inspection Skin General skin exam: no rashes or lesions noted Neuro General: patient oriented x3, gait normal, tone normal and moves all extremities Extrem General: Yes normal to inspection and Yes capillary refill normal Assessment & Plan Assessment & Plan (1) Nephrolithiasis: Code(s): N20.0 - Calculus of kidney Category: Medical (2) Ureterolithiasis: Code(s): N20.1 - Calculus of ureter Category: Medical (3) Diabetes: Code(s): E11.9 - Type 2 diabetes mellitus without complications Category: Medical (4) Balanitis: Code(s): N48.1 - Balanitis Category: Medical Plan Repeat HbA1c Start closure amoxicillin Repeat lab work Six-month follow-up renal ultrasound Orders: Orders US renal BI 6 Months N20.1 - Calculus of ureter Hemoglobin A1c Today E11.9 - Type 2 diabetes mellitus without complications Medications: New clotrimazole-betamethasone 1-0.05 % Apply thin coat 2 times per day 1 appl topical BID 45 grams 0RF 4 weeks N48.1 - Balanitis Changed From pyridoxine (vitamin B6) 100 mg PO DAILY 90 days 90 tabs 1RF N20.0 - Calculus of kidney To pyridoxine (vitamin B6) 50 mg PO DAILY 90 tabs 1RF 90 days N20.0 - Calculus of kidney Refilled potassium citrate ER 10 mEq PO BID 180 tabs 1RF 90 days N20.0 - Calculus of kidney, N20.1 - Calculus of ureter tadalafil [id number] [facility] [id number] Member [id number] 5 mg PO DAILY 90 tabs 1RF sexual activity 90 days R68.82 - Decreased libido Discontinued naproxen Discontinued Reason: Patient Completed Course 500 mg PO BID 7 days PRN 14 tabs 0RF pain clotrimazole 1% Discontinued Reason: Patient Completed Course 1 appl topical BID 4 weeks 30 mL 2RF Patient Instructions: This note is constructed using voice recognition software. While every effort has been made to ensure accuracy speedboat operator errors may have been included. Imaging studies, laboratory and physical exam results were discussed and reviewed in detail. No major barriers to patient understanding were identified. An opportunity to ask questions regarding the treatment plan was provided. All questions were answered. The patient expressed understanding and agreement with the above treatment plan. The patient is aware they should contact our office by phone for worsening of their current condition or the appearance of new urologic symptoms. Compliance is encouraged with any medications and followup testing that is ordered. It is a privilege to participate in the urologic care of your patient. If you have any questions or concerns regarding treatment for the above conditions, or other urologic issues, please do not hesitate to contact me. The office telephone contact is [phone]. Sincerely, Dr Simeon Paniagua MD, [facility] - Urology Compassionate Specialist Care for the Genitourinary System Coding Level of Care Code Est Pt Level 4 (46602) Diagnoses Nephrolithiasis N20.0 Ureterolithiasis N20.1 Diabetes E11.9 Balanitis N48.1
== END 2024-12-12 15:06 | disposition home or self-care (01) ==
LOC: HO.HUSH 13:28
PROVIDERS: PCP Internal Medicine; Visit Provider Urology
DX: N20.0 Calculus of kidney (principal); N20.1 Calculus of ureter; E11.9 Type 2 diabetes mellitus without complications; N48.1 Balanitis
CPT/HCPCS: 99214

== ENCOUNTER 2024-12-13 13:18 | Outpatient (REF) | payer OTHER, SELFPAY ==
[2024-12-13 14:44] LABS: Estimated Average Glucose 266 mg/dL; Hemoglobin A1C 352.2064 umol/L; Hemoglobin A1c % 10.9 % (<6.0); Total Hemoglobin (HGBA1C) 3683.7734 umol/L
[2024-12-13 15:04] LABS: Prostate Specific Antigen 0.33 ng/mL (<0.05-4.0)
[2024-12-18 12:43] LABS: Testosterone, Total 119 ng/dL (250-1100)
== END 2024-12-13 13:19 | disposition home or self-care (01) ==
LOC: HO.LAB 13:18
PROVIDERS: PCP Internal Medicine; Visit Provider Urology
DX: R79.89 Other specified abnormal findings of blood chemistry (principal); E11.9 Type 2 diabetes mellitus without complications; Z12.5 Encounter for screening for malignant neoplasm of prostate
CPT/HCPCS: 36415; 83036; 84153; 84403

== ENCOUNTER → 2025-03-18 23:03 | Outpatient (BNV) | payer OTHER, SELFPAY | PROVIDERS: Emergency Provider Emergency Medicine; PCP Internal Medicine; Visit Provider Radiology Diagnostic Radiology | DX: R07.9 Chest pain, unspecified (principal) | CPT/HCPCS: 71045 ==

== ENCOUNTER 2025-03-18 23:49 | Emergency (ER) | payer OTHER, SELFPAY ==
--- NOTE | ~2025-03-18 | XR_ITS ---
CLINICAL HISTORY: cp Chest X-ray, 1 View COMPARISON: CR/MN/SR - XR CHEST 2 VIEWS - 03/09/24 08:14 EDT FINDINGS: No consolidation. No pleural effusion. No pneumothorax. No cardiomegaly. No acute fracture. IMPRESSION: No acute findings. This document has been electronically signed by: Wallace Alfaro MD on 03/19/2025 01:18:31
--- NOTE | 2025-03-18 23:51 | ECG_ITS ---
Test Reason : CP Blood Pressure : */* mmHG Vent. Rate : 113 BPM Atrial Rate : 113 BPM P-R Int : 174 ms QRS Dur : 112 ms QT Int : 364 ms P-R-T Axes : -3 264 31 degrees QTcB Int : 499 ms Sinus tachycardia Brugada pattern, type 1 Inferior-posterior infarct (cited on or before 21-Jul-2021) Abnormal ECG When compared with ECG of 19-May-2024 16:45, T wave inversion now evident in Anterior leads Referred By: Generic ED Physician Electronically Signed By: SOWMYA CRUM
[2025-03-18 23:52] VITALS: BP 122/82; PULSE 117; RESP 16; TEMP 36.6; O2SAT 198; BMI 50.2
[2025-03-19 00:34] LABS: MANUAL DIFF FLAG NO
[2025-03-19 00:35] LABS: Hematocrit 42.6 % (42.0-52.0); Hemoglobin 14.7 g/dl (14.0-18.0); Imm Gran Abs Auto 0.01 X10*3/uL (0.00-0.03); Imm Gran Pct Auto 0.2 % (0.0-0.4); Lymphocytes Absolute Auto 1.6 X10*3/uL (1.2-4.9); Mean Corpuscular HGB Conc 34.5 g/dl (31.0-36.0); Mean Corpuscular Hemoglobin 29.2 pg (27.0-33.0); Mean Corpuscular Volume 84.5 fL (80.0-98.0); NRBC Abs Auto 0.000 X10*3/uL (0.0-0.012); NRBC Pct Auto 0.0 /100WBC (0.0-0.2); Platelet Count 157 X10*3/uL (160-400); Red Blood Count 5.04 X10*6/uL (4.60-5.80); White Blood Count 5.4 X10*3/uL (4.8-10.8)
[2025-03-19 00:58] LABS: Troponin-I High Sensitivity < 2.7 ng/L (<3.5-35.0)
[2025-03-19 01:02] LABS: Alanine Aminotransferase 58 U/L (0-40); Albumin Level 3.8 g/dL (3.5-5.0); Alkaline Phosphatase 74 U/L (39-117); Anion Gap 12 (12-20); Aspartate Amino Transferase 31 U/L (5-37); Blood Urea Nitrogen 12 mg/dL (9-16); Calcium 9.4 mg/dL (8.4-10.2); Carbon Dioxide 24 mmol/L (22-29); Chloride 103 mmol/L (96-108); Creatinine Clr Calc Pharmacy 146.8; Estimated Glomerular Filt Rate > 60; Potassium 4.1 mmol/L (3.3-5.1); Sodium 135 mmol/L (135-145); Total Protein 7.0 g/dL (6.5-8.0)
[2025-03-19 02:24] VITALS: BP 121/82; PULSE 87; RESP 20; TEMP 36.8; O2SAT 95
[2025-03-19] MEDS: Lactated Ringers 1,000 ML 999 ML IV ×2 (02:51)
[2025-03-19 03:44] VITALS: BP 111/61; PULSE 78; RESP 19; TEMP 36.5; O2SAT 96
[2025-03-19 03:59] LABS: D Dimer High Sensitivity < 150 NG/ML
[2025-03-19 05:17] LABS: Glucose, Whole Blood 261 mg/dL (60-115)
--- NOTE | 2025-03-19 05:28 | ED_ITS ---
HPI - Dizziness General Chief Complaint: Dizziness Stated Complaint: Dizziness Time Seen by Provider: 03/19/25 01:02 Source: patient Mode of arrival: ambulatory Limitations: no limitations History of Present Illness ED Provider: Dr. Sultana Emmanuel HPI Narrative: Workup today is reassuring. No evidence of infection. Suspect her dyspareunia is related to the and I did encourage her to follow-up with a e marketing specialist. She has a non peritoneal abdomen and is resting comfortably after cyclobenzaprine and dicyclomine. As far as the Trauma 2 days ago, I suspect she has a residual concussion. She has no evidence of trauma on my exam. I see no indication for further imaging. Using shared decision making, plan for discharge home to follow-up with primary care and/or specialist. Patient understands and agrees with plan for discharge. Discharged home in stable condition. Related Data Home Medications ?Medication ?Instructions ?Recorded ?Confirmed lidocaine 5 % topical patch 1 patch topical DAILY PRN 03/22/25 03/27/25 naproxen 500 mg tablet 500 mg PO BID PRN 03/22/25 0 03/27/25 Previous Rx's ?Medication ?Instructions ?Recorded acetaminophen 500 mg tablet 1,000 mg (2 x 500 mg) PO Q ID PRN 10/31/20 (Tylenol Extra Strength) fever or pain #14 tabs sennosides 8.6 mg capsule (senna) 8.6 mg PO DAILY PRN constipation 09/09/21 90 days #90 caps albuterol sulfate 2.5 mg/3 mL 2.5 mg (3 mL) inhalation Q4-6H PRN 06/08/23 (0.083 %) solution for nebulization shortness of breat h or wheezing #90 mL omeprazole 20 mg capsule,delayed 20 mg PO DAILY 90 day s #90 caps 06/16/24 release fluticasone propionate 50 2 spray intranasal DAILY PRN 08/31/24 mcg/actuation nasal allergy symptoms 30 days #16 grams spray,suspension cyclobenzaprine 10 mg tablet 10 mg PO TID PRN muscle s pasm #10 11/06/24 tabs clotrimazole-betamethasone 1 1 appl topical BID 4 week s #45 12/12/24 %-0.05 % topical cream grams potassium citrate 10 mEq (1,080 10 meq PO BID 90 days #180 tabs 12/12/24 mg) tablet,extended release pyridoxine (vitamin B6) 50 mg 50 mg PO DAILY 90 days # 90 tabs 12/12/24 tablet tadalafil 5 mg tablet 5 mg PO DAILY sexual activit y 90 12/12/24 days #90 tabs Januvia 100 mg tablet (sitagliptin 100 mg PO DAILY 90 days #90 tabs 03/27/25 phosphate) metformin 500 mg tablet 500 mg PO BID 90 days #180 t abs 03/27/25 Allergies Allergy/AdvReac Type Severity Reaction Status Date / Time isosorbide Allergy Intermediate neck Verified 03/27/25 09:22 pain/headaches Review of Systems 2 Review of Systems: as per HPI, full review of systems performed and negative but for the above mentioned pertinent positives and negatives. [facility] Past Medical History [facility] Narrative: Denies alcohol, tobacco or illicit substance use Medical History Morbid obesity with BMI of 45.0-49.9, adult Diabetes mellitus Dizziness Family history of colon cancer Morbid obesity with BMI of 50.0-59.9, adult GERD (gastroesophageal reflux disease) Constipation Obstructive sleep apnea Diffuse large B cell lymphoma COVID-19 Brugada syndrome Asthma Hernia Lymphoma Surgical History History of umbilical hernia repair History of laryngoscopy H/O colonoscopy History of appendectomy Family History Family History Paternal Grandmother Cancer Father Colon cancer Social History Social History Housing: House Alcohol intake: current Alcohol intake frequency: holidays/special occasions only Patient Tobacco Use Status: Never used Tobacco e-Cigarette/Vaping Use: Never Used Second Hand Smoke Exposure: No Advance Directives Date on File: 07/13/17 service: No Current occupational status: employed 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 SKIN: Normal skin color for ethnicity, warm, dry, no rashes noted. HEENT:? Normocephalic, atraumatic, no stridor, dry mucous membranes, dentition intact, EOMI. NECK: Soft, supple, full ROM, midline structures nontender, no step-offs, no deformities, no lymphadenopathy. CHEST: Heart regular tachycardia, no murmurs, symmetric chest rise and fall. PULMONARY: Clear to auscultation bilaterally, diminished at the bases, no labored breathing, no wheezes/rhales/rhonchi. ABDOMINAL: Soft, nondistended, nontender, positive bowel sounds in all quadrants. : Deferred. MUSCULOSKELETAL: Normal tone, full range of motion, no deformities, no peripheral edema. NEURO: Alert and oriented x3, CN II through XII intact, equal strength and sensation bilateral upper and lower extremities, no focal neurologic deficits.? PSYCHIATRIC: Flat affect, fluid speech, good eye contact and appropriate demeanor. Vital Signs: Vital Signs: Last Vital Signs Temp 97.7 F 03/19/25 05:35 Pulse 78 03/19/25 05:35 Resp 19 03/19/25 05:35 BP 111/61 03/19/25 05:35 Pulse Ox 96 03/19/25 05:35 O2 Del Method Room Air 03/19/25 05:35 BMI result Body Mass Index 50.2 Medications Administered Discontinued Medications Generic Name Dose Route Start Last Admin Trade Name Freq PRN Reason Stop Dose Admin Lactated Ringer's 1,000 mls @ 999 mls/hr 03/19/25 02:38 03/19/25 05:11 Lr IV 03/19/25 02:39 Infused .Q1H1M ONE Infusion Lactated Ringer's 1,000 mls @ 999 mls/hr 03/19/25 02:39 03/19/25 05:11 Lr IV 03/19/25 03:39 Infused .Q1H1M ONE Infusion Medical Decision Making Medical Decision Making [facility] Narrative: Patient presents today with a chief complaint of dizziness. Differential diagnosis is extremely broad and includes posterior circulation deficits causing vestibular basilar symptoms, anemia, hypovolemia, middle or inner ear problems, intracranial abnormality such as stroke bleed or tumor, electrolyte abnormalities, cardiac arrhythmia, among many others. This patient does not have any focal neurological findings at this time. Heart rate is improving after IV fluids. Patient is notably hyperglycemic with blood sugar of 456. He has no history of diabetes that he is aware of. He does see a doctor regularly. Brugada seen on EKG but no arrhythmia while being monitored in the emergency department today. Blood sugar significantly improved after fluids down to 261. While still high, I suggested he follow-up with his primary care doctor tomorrow to get started on a medication regimen such as metformin or perhaps even insulins. He is not currently in DKA. He is low risk Wells criteria but given his symptoms of tachycardia and dizziness with associated chest tightness, I did order a D-dimer which is negative. Using shared decision making, patient decided to go home to follow up with primary care as an outpatient which I think is reasonable. He has improved substantially here in the emergency department and I feel that dehydration was a big part of his issue today. We discussed return precautions at length. 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 Discharged home in stable condition. Differential Diagnosis Differential Diagnoses: The differential diagnosis associated with the presentation includes (as above) Admission/Observation Consideration of admission/observation: Escalation of care including admission/observation considered Lab Data MDM Lab Attestation statement: I reviewed the patient's lab results. 03/19/25 00:29 03/19/25 00:29 Labs: Lab Results 03/19/25 03/19/25 03/19/25 Range/Units 00:29 03:20 05:13 WBC 5.4 (4.8-10.8) X10*3/uL RBC 5.04 (4.60-5.80) X10*6/uL Hgb 14.7 (14.0-18.0) g/dl Hct 42.6 (42.0-52.0) % MCV 84.5 (80.0-98.0) fL MCH 29.2 (27.0-33.0) pg MCHC 34.5 (31.0-36.0) g/dl RDW 13.2 (11.0-16.0) % Plt Count 157 L (160-400) X10*3/uL MPV 11.3 (9.4-12.4) fL Immature Gran % (Auto) 0.2 (0.0-0.4) % Neut % (Auto) 56.5 (45-73) % Lymph % (Auto) 28.7 (20-40) % Wise % (Auto) 11.6 H (2-11) % Eos % (Auto) 2.4 (0-4) % Baso % (Auto) 0.6 (0-2) % Lymph # (Auto) 1.6 (1.2-4.9) X10*3/uL Wise # (Auto) 0.6 (0.1-1.2) X10*3/uL Eos # (Auto) 0.1 (0.0-0.4) X10*3/uL Baso # (Auto) 0.0 (0.0-0.2) X10*3/uL Abs Immat Gran (auto) 0.01 (0.00-0.03) X10*3/uL Absolute Neuts (auto) 3.1 (2.0-8.3) x10*3/uL Absolute Nucleated RBC 0.000 (0.0-0.012) X10*3/uL Nucleated RBC % (auto) 0.0 (0.0-0.2) /100WBC D-Dimer High Sensitivty < 150 NG/ML Sodium 135 (135-145) mmol/L Potassium 4.1 (3.3-5.1) mmol/L Chloride 103 (96-108) mmol/L Carbon Dioxide 24 (22-29) mmol/L Anion Gap 12 (12-20) BUN 12 (9-16) mg/dL Creatinine 0.84 (0.5-1.4) mg/dL Estim Creat Clear Calc 146.8 Estimated GFR > 60 POC Glucose 261 H (60-115) mg/dL Random Glucose 456 H* (60-115) mg/dL Calcium 9.4 (8.4-10.2) mg/dL Total Bilirubin 0.3 (0.0-1.0) mg/dL AST 31 (5-37) U/L ALT 58 H (0-40) U/L Alkaline Phosphatase 74 (39-117) U/L Troponin I High Sens < 2.7 (<3.5-35.0) ng/L Total Protein 7.0 (6.5-8.0) g/dL Albumin 3.8 (3.5-5.0) g/dL Independent Interpretation I performed an independent interpretation of an: EKG (brugada syndrome is known) Chronic Conditions Patient?s care impacted by: Other (Brugada syndrome, asthma) Scores Wells PE Heart rate > 100 p/min: 1.5 Score: 1.5 2-tier Risk: unlikely risk (5%) 3-tier Risk: low risk (3.4%) Discharge Plan Discharge Clinical Impression: Near syncope, Tachycardia, Hyperglycemia, Acute dehydration Patient Disposition: Home, Self-Care Instructions: Dehydration (ED), Near Syncope (ED) Additional Instructions: Follow-up with your 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 Return to the emergency department immediately with any new or worsening symptoms including: Chest pain, difficulty breathing, passing out, fevers greater than 100?, inability to tolerate food or drink, any new symptom that concerns you. Call 911 with any medical emergency. Your blood sugars are extremely high today. The signals that you may be developing diabetes. Follow-up with your primary care doctor to have your A1c checked. Try to force her fluids over the next several days to stay hydrated. Avoid sugary foods as much as possible. Prescriptions: No Action omeprazole 20 mg capsule,delayed release(DR/EC) 20 mg PO DAILY 90 Days Qty: 90 5RF acetaminophen [Tylenol Extra Strength] 500 mg tablet 1,000 mg PO QID PRN (Reason: fever or pain) Qty: 14 0RF cyclobenzaprine 10 mg tablet 10 mg PO TID PRN (Reason: muscle spasm) Qty: 10 0RF albuterol sulfate 2.5 mg /3 mL (0.083 %) solution for nebulization 2.5 mg inhalation Q4-6H PRN (Reason: shortness of breath or wheezing) Qty: 90 0RF senna 8.6 mg capsule 8.6 mg PO DAILY PRN (Reason: constipation) 90 Days Qty: 90 3RF fluticasone propionate 50 mcg/actuation spray,suspension 2 spray intranasal DAILY PRN (Reason: allergy symptoms) 30 Days Qty: 16 5RF Rx Instructions: administer into each nostril clotrimazole-betamethasone 1-0.05 % cream 1 appl topical BID 28 Days Qty: 45 0RF Rx Instructions: Apply thin coat 2 times per day potassium citrate 10 mEq (1,080 mg) tablet extended release 10 meq PO BID 90 Days Qty: 180 1RF tadalafil 5 mg tablet 5 mg PO DAILY 90 Days Qty: 90 1RF Rx Instructions: [id number] [facility] [id number] Member [id number] pyridoxine (vitamin B6) 50 mg tablet 50 mg PO DAILY 90 Days Qty: 90 1RF naproxen 500 mg tablet 500 mg PO BID PRN lidocaine 5 % adhesive patch,medicated 1 patch topical DAILY PRN Rx Instructions: leave on most painful area for up to 12 hrs Januvia 100 mg tablet 100 mg PO DAILY 90 Days Qty: 90 1RF metformin 500 mg tablet 500 mg PO BID 90 Days Qty: 180 1RF Rx Instructions: Take with food Interventions: ED Discharge Assessment Last Done: 03/19/25 05:35 Discharge Date/Time: 03/19/25 05:36 Print Language: Latvian
[2025-03-19 05:35] VITALS: BP 111/61; PULSE 78; RESP 19; TEMP 36.5; O2SAT 96
== END 2025-03-19 05:36 | disposition home or self-care (01) ==
PROVIDERS: Emergency Provider Emergency Medicine; PCP Internal Medicine
DX: R42 Dizziness and giddiness (principal)
CPT/HCPCS: 36415; 71045; 80053; 82947; 84484; 85025; 85379; 93005; 96360; 96361; 99284; J7120

== ENCOUNTER → 2025-03-18 23:51 | Outpatient (BNV) | payer OTHER, SELFPAY | PROVIDERS: Emergency Provider Emergency Medicine; PCP Internal Medicine; Visit Provider Internal Medicine | DX: I25.2 Old myocardial infarction (principal); R00.0 Tachycardia, unspecified | CPT/HCPCS: 93010 ==

== ENCOUNTER 2025-03-22 13:24 | Outpatient (AMB) | payer OTHER, SELFPAY ==
[2025-03-22 14:01] VITALS: BP 114/80; PULSE 101; TEMP 36.6; O2SAT 97; BMI 48.5
--- NOTE | 2025-03-22 14:01 | AM.OFFWIN_ITS ---
Intake Vital Signs 03/22/25 14:01 Height 5 ft 8 in Weight 319 lb BMI 48.5 BP 114/80 Blood Pressure Location Lt brachial Position Sitting Pulse 101 H Pulse Source Pulse Oximeter Temp 97.9 F Temp Source Oral Pulse Oximetry (%) 97 Oxygen Delivery Method Room Air Intake Visit Reasons: EP High Blood Sugar? Intake Note: Pt reports bs 400+, was recentyly at [facility] Patient Tobacco Use Status: Never used Tobacco Allergies isosorbide Allergy (Intermediate, Verified 03/22/25 14:04) neck pain/headaches Do you need a note to return to daycare/school/sports/work: No HPI HPI Comments History of Present Illness Details This is a 54-year-old male with a past medical history of g astroesophageal reflux disease, ?prediabetes?, lymphoma and asthma presenting for evaluation of hyperglycemia. Patient reports polyuria and polydipsia over the past 1 month. Patient was seen in the emergency department on March 19 after he felt lightheaded. Patient's blood glucose at that time was 456 and in December 2024 he had an A1c performed which was 10.9%. Patient is not currently on any medication for management of hyperglycemia. Patient has an appointment with his primary care physician on April 02. ON LICENSE OF [facility] Medical History Dizziness Family history of colon cancer Morbid obesity with BMI of 50.0-59.9, adult GERD (gastroesophageal reflux disease) Constipation Obstructive sleep apnea Diffuse large B cell lymphoma COVID-19 Brugada syndrome Asthma Hernia Lymphoma Surgical History History of umbilical hernia repair History of laryngoscopy H/O colonoscopy History of appendectomy Family History Paternal Grandmother Cancer Father Colon cancer Social History Housing: House Alcohol intake: current Alcohol intake frequency: holidays/special occasions only Patient Tobacco Use Status: Never used Tobacco e-Cigarette/Vaping Use: Never Used Second Hand Smoke Exposure: No Advance Directives Date on File: 07/13/17 service: No Current occupational status: employed 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 Cognitive needs: No Hearing needs: No Vision needs: No Review of Systems Const All systems reviewed & are unremarkable except as noted in HPI and below Reports no additional complaints, Denies body aches, Denies chills, Denies fatigue and Denies fever(s) Eyes Reports no additional complaints ENT Reports no additional complaints Card Reports no additional complaints, Denies chest pain and Denies dyspnea Resp Denies dyspnea GI Denies nausea and Denies vomiting Musc Reports no additional complaints Endo Denies fatigue, Reports polydipsia and Reports polyuria Eric/Lymph Reports no additional complaints Aller/Immun Reports no additional complaints Physical Exam Vital Signs: Last Vital Signs Temp 97.9 F 03/22/25 14:01 Pulse 101 H 03/22/25 14:01 BP 114/80 03/22/25 14:01 Pulse Ox 97 03/22/25 14:01 Oxygen Delivery Method Room Air 03/22/25 14:01 BMI result Body Mass Index 48.5 Patient is tachycardic. Repeat pulse 92 beats per minute. Const General: cooperative, comfortable, no acute distress, well developed, alert, awake and Physically active; No acute distress, diaphoretic or ill appearing Nutritional Appearance: obese Orientation/consciousness: patient oriented x3 Limitations: no limitations Resp Effort & Inspection: normal respiratory effort, not labored and not tachypneic Auscultation: clear to auscultation bilaterally Cardio Rate: regular rate Rhythm: regular rhythm GI Palpation (GI): Soft to palpation and nontender Skin General skin exam: no rashes or lesions noted Neuro General: patient oriented x3 Psych Appearance: grossly normal Mental Status: mental status grossly normal Insight: Good insight present (Psych) Judgement: Good judgement present (Psych) Results Reviewed Results Reviewed: Blood glucose 332, urinalysis reveals glucosuria. Assessment & Plan Assessment & Plan (1) Diabetes mellitus, new onset: Comment: Patient has follow up scheduled with his primary care physician on April 02, 2025. Patient will be started on metformin 500 mg b.i.d.. Code(s): E11.9 - Type 2 diabetes mellitus without complications Plan: Metformin 500 mg b.i.d., increase water intake daily. Orders: Orders AMB Random Glucose (hemocue) Today Z13.9 - Encounter for screening, unspecified AMB Urinalysis Automated Today Z13.9 - Encounter for screening, unspecified Medications: New metformin Take with food 500 mg PO BID 28 tabs 0RF Coding Level of Care Code Est Pt Level 4 (84481) Diagnoses Diabetes mellitus, new onset E11.9 Time Spent (min) 25
== END 2025-03-22 14:59 | disposition home or self-care (01) ==
PROVIDERS: PCP Internal Medicine; Visit Provider Physician Assistant
DX: E11.9 Type 2 diabetes mellitus without complications (principal); Z13.9 Encounter for screening, unspecified

== ENCOUNTER → 2025-03-22 13:24 | Outpatient (BNVA) | payer OTHER, SELFPAY | PROVIDERS: PCP Internal Medicine; Visit Provider Physician Assistant | DX: E11.9 Type 2 diabetes mellitus without complications (principal); K21.9 Gastro-esophageal reflux disease without esophagitis; J45.909 Unspecified asthma, uncomplicated | CPT/HCPCS: 81003; 82948 ==

== ENCOUNTER 2025-03-27 08:44 | Outpatient (REF) | payer OTHER, SELFPAY ==
--- NOTE | ~2025-03-27 | XR_ITS ---
EXAMINATION: XR FOOT 3 OR MORE VIEWS LEFT HISTORY: M79.672 - Pain in left foot COMPARISON: Comparison is made with the prior examination dated 09/07/2024. FINDINGS: Three views of the left foot are submitted. Osseous mineralization is normal. There is no fracture or dislocation. The joint spaces are preserved. There are calcaneal spurs at the plantar aspect and at the insertion of the Achilles tendon. The soft tissues are unremarkable. XR/XR foot LT min 3V IMPRESSION: Calcaneal spurs as described. Otherwise unremarkable examination of the left foot. Electronically signed by: Marko Alvarez MD 03/27/2025 10:27 AM EDT
[2025-03-27 10:07] LABS: MANUAL DIFF FLAG NO
[2025-03-27 10:45] LABS: Hematocrit 44.2 % (42.0-52.0); Hemoglobin 14.6 g/dl (14.0-18.0); Imm Gran Abs Auto 0.02 X10*3/uL (0.00-0.03); Imm Gran Pct Auto 0.3 % (0.0-0.4); Lymphocytes Absolute Auto 1.8 X10*3/uL (1.2-4.9); Mean Corpuscular HGB Conc 33.0 g/dl (31.0-36.0); Mean Corpuscular Hemoglobin 28.7 pg (27.0-33.0); Mean Corpuscular Volume 86.8 fL (80.0-98.0); NRBC Abs Auto 0.000 X10*3/uL (0.0-0.012); NRBC Pct Auto 0.0 /100WBC (0.0-0.2); Platelet Count 168 X10*3/uL (160-400); Red Blood Count 5.09 X10*6/uL (4.60-5.80); White Blood Count 5.9 X10*3/uL (4.8-10.8)
[2025-03-27 11:03] LABS: Appearance Urine Clear; Glucose Urine UA >=1000 mg/dL (Negative); PH 5.5 (5.0-9.0); Specific Gravity - Urine >= 1.030 (1.005-1.025); UMIC TRIGGER UACC YES
[2025-03-27 11:23] LABS: Hemoglobin A1C 663.2750 umol/L; Total Hemoglobin (HGBA1C) 5513.4515 umol/L
[2025-03-27 11:33] LABS: Alanine Aminotransferase 61 U/L (0-40); Albumin Level 3.9 g/dL (3.5-5.0); Alkaline Phosphatase 66 U/L (39-117); Anion Gap 10 (12-20); Aspartate Amino Transferase 46 U/L (5-37); Blood Urea Nitrogen 16 mg/dL (9-16); Calcium 9.7 mg/dL (8.4-10.2); Carbon Dioxide 25 mmol/L (22-29); Chloride 104 mmol/L (96-108); Cholesterol 151 mg/dL (<200); Estimated Glomerular Filt Rate > 60; HDL Cholesterol 32 mg/dL (>40); Potassium 4.0 mmol/L (3.3-5.1); Sodium 135 mmol/L (135-145); Total Protein 7.0 g/dL (6.5-8.0); Triglycerides 125 mg/dL (<150)
[2025-03-27 11:52] LABS: Folate 10.4 ng/mL (> or = 4.0); Vitamin B12 471 pg/mL (200-900)
[2025-03-27 12:02] LABS: Microalbum/Creatinine Ratio Ur 7.2 ug/mg cr (<30)
== END 2025-03-27 08:45 | disposition home or self-care (01) ==
LOC: HO.LAB 08:44
PROVIDERS: PCP Internal Medicine; Visit Provider Internal Medicine
DX: Z00.00 Encounter for general adult medical examination without abnormal findings (principal); E55.9 Vitamin D deficiency, unspecified; E53.8 Deficiency of other specified B group vitamins; E78.00 Pure hypercholesterolemia, unspecified; E11.65 Type 2 diabetes mellitus with hyperglycemia; C83.30 Diffuse large B-cell lymphoma, unspecified site; R03.0 Elevated blood-pressure reading, without diagnosis of hypertension; N20.0 Calculus of kidney; K59.00 Constipation, unspecified; J30.9 Allergic rhinitis, unspecified; M79.672 Pain in left foot; E66.01 Morbid (severe) obesity due to excess calories; Z68.42 Body mass index [BMI] 45.0-49.9, adult; Z71.3 Dietary counseling and surveillance
CPT/HCPCS: 36415; 73630; 80053; 80061; 81001; 81003; 82043; 82306; 82570; 82607; 82746; 83036; 84443; 84681; 85025; 86341; 96127

== ENCOUNTER 2025-03-27 08:44 | Outpatient (AMB) | payer OTHER, SELFPAY ==
--- NOTE | 2025-03-27 08:52 | MHC.PC.OV ---
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 Required: No Accompanied by: Self / Same As Patient Allergies isosorbide Allergy (Intermediate, Verified 03/27/25 09:22) neck pain/headaches Medication List - Last Reconciled 03/27/25 by Tj Alexandre MD acetaminophen (Tylenol Extra Strength) 1,000 mg (2 x 500 mg) PO QID PRN albuterol sulfate 2.5 mg (3 mL) inhalation Q4-6H PRN clotrimazole-betamethasone 1-0.05 % 1 appl topical BID 4 weeks cyclobenzaprine 10 mg PO TID PRN fluticasone propionate 50 mcg/actuation 2 sprays intranasal DAILY PRN 30 days lidocaine 5% 1 patch topical DAILY PRN metformin 500 mg PO BID naproxen 500 mg PO BID PRN omeprazole 20 mg PO DAILY 90 days potassium citrate ER 10 mEq PO BID 90 days pyridoxine (vitamin B6) 50 mg PO DAILY 90 days sennosides (senna) 8.6 mg PO DAILY PRN 90 days tadalafil 5 mg PO DAILY 90 days Tobacco use date assessed: 03/27/25 Dental Screening Dental Screen Date: 03/27/25 Did you have a dental visit in the last 12 months?: Yes Did you have a dental problem in the last 6 months where you did not have access to dental care?: No Was dental information given to patient?: Patient has dentist [place] [facility] [place] HPI Details Patient comes in today for his follow up visit He went to the ER last week for increased dizziness frequently lately and was found to have a significantly elevated blood sugar level as well as dehydration He was given some IV fluid hydration and due to his near syncopal symptoms, was advised to see PCP and also cardiology DENZEL for further evaluation Patient went to the walk-in clinic a couple of days later for a persistently elevated blood sugar level and was subsequently started on Metformin BID and instructed to follow up with his PCP [facility] Patient states that he currently feels okay He just got off from work now (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[facility] [place] and feels tired and ready to go to bed He denies any headaches or dizziness over the past few days and states that his previous symptoms of frequent dry mouth seems to be improving lately Denies any chest pains, no increased SOB No nausea/vomiting, no abdominal pain No change in bowel habits noted [facility] Medical History (Updated 03/27/25 @ 11:41 by Tj Alexandre MD) Morbid obesity with BMI of 45.0-49.9, adult Diabetes mellitus Dizziness Family history of colon cancer Morbid obesity with BMI of 50.0-59.9, adult GERD (gastroesophageal reflux disease) Constipation Obstructive sleep apnea Diffuse large B cell lymphoma COVID-19 Brugada syndrome Asthma Hernia Lymphoma Surgical History History of umbilical hernia repair History of laryngoscopy H/O colonoscopy History of appendectomy Family History Paternal Grandmother Cancer Father Colon cancer Social History Housing: House Alcohol intake: current Alcohol intake frequency: holidays/special occasions only Patient Tobacco Use Status: Never used Tobacco e-Cigarette/Vaping Use: Never Used Second Hand Smoke Exposure: No Advance Directives Date on File: 07/13/17 service: No Current occupational status: employed 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 1. Little interest or pleasure in doing things: not at all 2. Feeling down, depressed, or hopeless: not at all 3. Trouble falling or staying asleep, or sleeping too much: not at all 4. Feeling tired or having little energy: not at all 5. Poor appetite or overeating: not at all 6. Feeling bad about yourself - or that you are a failure or have let yourself or your family down: not at all 7. Trouble concentrating on things, such as reading the newspaper or watching television: not at all 8. Moving or speaking so slowly that other people could have noticed. Or the opposite - being so fidgety or restless that you have been moving around a lot more than usual: not at all 9. Thoughts that you would be better off or of hurting yourself in some way: not at all Total score: 0 Depression Screening Interpretation: Negative Depression Screening Done: Yes 60900 - PHQ-9 Billing: Yes Source: Developed by Drs. Marko Prescott, Carmen Benson, Robby Jones and colleagues, with an educational alissa from [employer]. Thrive Questionnaire Date Thrive assessed: 03/27/25 I am a: Patient What is your living situation today?: I have a steady place to live Within the past 12 months, did the food you bought not last and you didn't have the money to get more?: Never true Within the past 12 months, did you worry whether your food would run out before you got money to buy more?: Never true Do you have trouble paying for medicines?: No Do you have trouble getting transportation to medical appointments?: No Do you have trouble paying your heating and electricity bill?: No Do you have trouble taking care of your child, family member or friend?: No Do you have trouble with day-to-day activities such as bathing, preparing meals, shopping, managing finances, etc.?: No Are you currently unemployed and looking for a job?: No Are you interested in more education?: No Please select the resources that you would like help with: None Currently or been in a relationship where the following occur: No concerns reported THRIVE Score: 0 AUDIT C Alcohol Use Questionnaire (AUDIT-C) 1. How often do you have a drink containing alcohol?: Never 3. How often do you have six or more drinks on one occasion?: Never Total Score: 0 Score Reviewed/Action Taken: Yes BETHANY-7 AMB Questionnaire BETHANY-7 Date BETHANY - 7 assessed: 03/27/25 Feeling nervous, anxious, or on edge: 0 = Not at all Not being able to stop or control worryin = Not at all Worrying too much about different things: 1 = Several days Trouble relaxin = Not at all Being so restless that it is hard to sit still: 0 = Not at all Becoming easily annoyed or irritable: 0 = Not at all Feeling afraid as if something awful might happen: 0 = Not at all Total BETHANY-7 score (0-4 normal; 5-9 mild; 10-14 moderate; 15-21 severe): 1 Source: Developed by Drs. Marko Prescott, Carmen Benson, Robby Jones and colleagues, with an educational alissa from [employer]. Review of Systems Const Denies chills, Reports fatigue, Denies fever(s) and Denies headache(s) ENT Denies dysphagia, Reports dizziness (last week but no dizziness currently), Reports dry mouth (improving presently), Denies otalgia, Denies headache(s), Reports hearing loss (recently, in both ears), Denies neck pain, Denies odynophagia and Denies sore throat Card Denies chest pain, Denies irregular heart rhythm, Denies palpitations and Denies dyspnea Resp Denies chest congestion, Denies cough and Denies dyspnea GI Denies abdominal pain, Denies constipation, Denies dysphagia, Denies heartburn, Denies diarrhea, Denies nausea, Denies odynophagia and Denies vomiting Denies difficulty urinating, Denies dysuria, Reports nocturia and Reports urinary frequency Musc Details: (+) recurrent pain in the left foot (heel) Denies back pain, Denies arthralgias and Denies neck pain Skin/Breast Denies rash Neuro Reports dizziness (last week but no dizziness currently), Denies headache(s) and Denies paresthesias Endo Reports fatigue and Denies palpitations Physical exam (Primary Care) Vital Signs: Last Vital Signs Pulse 83 03/27/25 08:55 BP 132/86 03/27/25 08:55 Pulse Ox 96 03/27/25 08:55 Oxygen Delivery Method Room Air 03/27/25 08:55 BMI result Body Mass Index 48.5 Tobacco/Smoking Status: Tobacco use Status Tobacco use date assessed 03/27/25 03/27/25 08:57 Patient Tobacco Use Status Never used Tobacco 03/27/25 08:57 e-Cigarette/Vaping Use Never Used 03/27/25 08:57 PHQ-9: PHQ-9 Score PHQ-9: Total score 0 03/27/25 09:43 Depression Screening Interpretation: Negative Thrive Assessment: Date of Thrive Assessment Date Thrive assessed 03/27/25 03/27/25 08:57 Currently or been in a relationship where the following occur: No concerns reported Const General: no acute distress and alert [facility] Throat: Yes posterior oropharynx normal and Yes tonsils normal (no TP congestion) Neck Neck: Yes supple and No lymphadenopathy Thyroid: Thyroid normal Resp Auscultation: clear to auscultation bilaterally, no rales and no wheezes Cardio Rate: regular rate Rhythm: regular rhythm Heart sounds: no murmurs GI Palpation (GI): Soft to palpation and nontender Auscultation: normal bowel sounds General: Yes no CVA tenderness Back/Spine/Pelvis Back: no CVA tenderness Thoracic/Lumbar Spine: No lumbar spinal tenderness Skin Rashes: no rashes Extrem General: Yes no clubbing, cyanosis or edema Left lower extremity: foot Details: tenderness (around the area of the left 4th and 5th toes) Location: of the calcaneus and no edema; no ecchymosis Results Reviewed Results Reviewed: Laboratory Tests 12/13/24 03/19/25 03/22/25 13:26 00:29 14:52 WBC 5.4 Hgb 14.7 Hct 42.6 Plt Count 157 L Sodium 135 Potassium 4.1 Creatinine 0.84 Estimated GFR > 60 Random Glucose 456 H* Random Glu (Clinic) 332 H* Hemoglobin A1c % 10.9 H Calcium 9.4 AST 31 ALT 58 H Urine Protein (Auto) 0 Glucose (UA)(Auto) 1000 H* Urine Ketones (Auto) Negative Coding Level of Care Code Est Pt Level 4 (79158) Complex EM visit Add On G2211 Diagnoses Type 2 diabetes mellitus with hyperglycemia, without long-term current use of insulin E11.65 Diabetes mellitus type: type 2 Diabetes mellitus ocean transportation intermediary insulin use: without ocean transportation intermediary use Diabetes mellitus complication status: with hyperglycemia Diffuse large B-cell lymphoma, unspecified body region C83.30 Lymphoma site: unspecified region Elevated blood pressure reading without diagnosis of hypertension R03.0 Nephrolithiasis N20.0 Constipation, unspecified constipation type K59.00 Constipation type: unspecified constipation type Allergic rhinitis, unspecified seasonality, unspecified trigger J30.9 Allergic rhinitis trigger: unspecified Allergic rhinitis seasonality: unspecified Left foot pain M79.672 Morbid obesity with BMI of 45.0-49.9, adult E66.01; Z68.42 Additional Codes PHQ-9 - 71368 - PHQ-9 Billing: Yes ([id number]) Assessment & Plan Assessment & Plan (1) Diabetes mellitus: Code(s): E11.9 - Type 2 diabetes mellitus without complications Category: Medical Qualifiers: Diabetes mellitus type: type 2 Diabetes mellitus ocean transportation intermediary insulin use: without assisted use Diabetes mellitus complication status: with hyperglycemia Qualified Code(s): E11.65 - Type 2 diabetes mellitus with hyperglycemia Plan: Patient was just started on Metformin at the walk-in clinic a few days ago and is advised to continue on Metformin 500 mg BID Will start him additionally on Januvia 100 mg QD - he is instructed to reach out to us DENZEL if he cannot get his Rx filled due to formulary restrictions Discussed diabetic diet Will send him to the lab for some additional tests - will check his C-peptide level and BETHANY Ab to assess for insulin requirement ahd if these come back negative/normal, can continue with oral hypoglycemics for now (2) Diffuse large B cell lymphoma: Comment: Diffuse large B-cell lymphoma, initially diagnosed in April 2007 - had a 10 x 4 cm anterior mediastinal mass Completed 8 cycles of R-CHOP on November 13, 2007 and has been doing well since with no recurrence (IN REMISSION) Code(s): C83.30 - Diffuse large B-cell lymphoma, unspecified site Category: Medical Qualifiers: Lymphoma site: unspecified region Qualified Code(s): C83.30 - Diffuse large B-cell lymphoma, unspecified site Plan: Patient remains in remission Follow up with hematology/oncology (Dr. Lynn) for follow up and continuing surveillance (3) Elevated blood pressure reading without diagnosis of hypertension: Code(s): R03.0 - Elevated blood-pressure reading, without diagnosis of hypertension Category: Medical Plan: Reinforced low sodium diet His blood pressure is again slightly elevated today - advised goal of systolic BP of 120 mm or less Discussed with patient that we will likely start him anyway on Lisinopril or Losartan at his next visit for renoprotection in diabetics and this should also better help keep his blood pressure in check (4) Nephrolithiasis: Code(s): N20.0 - Calculus of kidney Category: Medical Plan: S/P stenting for an obstructive left renal stone with left-sided hydronephrosis back in May 2024, with resolution of symptoms He currently remains asymptomatic and has been doing well Continue Tamsulosin 0.4 mg Q HS Follow up with urology as scheduled (5) Constipation: Code(s): K59.00 - Constipation, unspecified Category: Medical Qualifiers: Constipation type: unspecified constipation type Qualified Code(s): K59.00 - Constipation, unspecified Plan: Reinforced increased oral fluids and dietary fiber intake Continue Senna 8.6 mg QD He was scheduled for a colonoscopy back in January 2022 but this was canceled pending clearance by cardiology due to patient's history of Brugada syndrome He was eventually seen by Cardiology in February 2022 and was advised that his EKG showed some changes suggestive of Brugada syndrome but patient does not have the disease; he was cleared by cardiology for colonoscopy in February 2022 He was referred back to Dr. Gale and was scheduled for his colonoscopy sometime in December 2022 but he ended up in the ER then for gastroenteritis and his procedure was again canceled He has been referred back to Dr. Gale by Dr. 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 Will send patient for x-rays of the left foot again for further evaluation (8) Morbid obesity with BMI of 45.0-49.9, adult: Code(s): E66.01 - Morbid (severe) obesity due to excess calories; Z68.42 - Body mass index [BMI] 45.0-49.9, adult Category: Medical Plan: Reinforced diet/exercise as tolerated/lose weight - he has lost some weight recently, likely due to his uncontrolled hyperglycemia Plan To return as scheduled next month for his annual physical examination Orders: Orders Glutamic acid decarboxylase Ab Today E11.9 - Type 2 diabetes mellitus without complications XR foot LT min 3V Today M79.672 - Pain in left foot Complete Blood Count Auto Diff Today D64.9 - Anemia, unspecified, Z00.00 - Encounter for general adult medical examination without abnormal findings Comprehensive Arma. Panel Fast Today E78.00 - Pure hypercholesterolemia, unspecified, Z00.00 - Encounter for general adult medical examination without abnormal findings Hemoglobin A1c Today E11.9 - Type 2 diabetes mellitus without complications, Z00.00 - Encounter for general adult medical examination without abnormal findings Microalbumin, Random (w Creat) Today E11.9 - Type 2 diabetes mellitus without complications, Z00.00 - Encounter for general adult medical examination without abnormal findings TSH reflex Free T4 Today E78.00 - Pure hypercholesterolemia, unspecified, Z00.00 - Encounter for general adult medical examination without abnormal findings UA CC w/rflx Micro + Cult Today R30.0 - Dysuria, Z00.00 - Encounter for general adult medical examination without abnormal findings C Peptide Today E11.9 - Type 2 diabetes mellitus without complications Lipid Panel Today E78.00 - Pure hypercholesterolemia, unspecified, Z00.00 - Encounter for general adult medical examination without abnormal findings Vitamin D 25-OH Total Today E55.9 - Vitamin D deficiency, unspecified, Z00.00 - Encounter for general adult medical examination without abnormal findings Vitamin B12 and Folate Today E53.8 - Deficiency of other specified B group vitamins, Z00.00 - Encounter for general adult medical examination without abnormal findings Medications: New Januvia (sitagliptin phosphate) 100 mg PO DAILY 90 tabs 1RF 90 days NS Changed From metformin Take with food 500 mg PO BID 28 tabs 0RF To metformin Take with food 500 mg PO BID 180 tabs 1RF 90 days
[2025-03-27 08:55] VITALS: BP 132/86; PULSE 83; O2SAT 96; BMI 48.5
== END 2025-03-27 09:37 | disposition home or self-care (01) ==
LOC: HO.HMCH 08:44
PROVIDERS: PCP Internal Medicine; Visit Provider Internal Medicine
DX: E11.65 Type 2 diabetes mellitus with hyperglycemia (principal); C83.30 Diffuse large B-cell lymphoma, unspecified site; E66.01 Morbid (severe) obesity due to excess calories; Z68.42 Body mass index [BMI] 45.0-49.9, adult; R03.0 Elevated blood-pressure reading, without diagnosis of hypertension; N20.0 Calculus of kidney; K59.00 Constipation, unspecified; J30.9 Allergic rhinitis, unspecified; M79.672 Pain in left foot

== ENCOUNTER → 2025-03-27 10:09 | Outpatient (BNV) | payer OTHER, SELFPAY | PROVIDERS: PCP Internal Medicine; Visit Provider Radiology Diagnostic Radiology | DX: M77.32 Calcaneal spur, left foot (principal) | CPT/HCPCS: 73630 ==

== ENCOUNTER 2025-04-29 13:22 | Outpatient (AMB) | payer OTHER, SELFPAY ==
[2025-04-29 14:01] VITALS: BP 106/70; PULSE 88; TEMP 36.6; O2SAT 95; BMI 48.0
--- NOTE | 2025-04-29 14:01 | AM.OFFWIN_ITS ---
Intake Vital Signs 04/29/25 14:01 Height 5 ft 8 in Weight 316 lb BMI 48.0 BP 106/70 Blood Pressure Location Rt brachial Position Sitting Pulse 88 Pulse Source Pulse Oximeter Temp 98 F Temp Source Oral Pulse Oximetry (%) 95 Oxygen Delivery Method Room Air Intake Visit Reasons: EP LT foot pain. burning sensation Intake Note: pt presents with left foot pain, burning sensation and swelling x3 weeks. xrays done 03/27/25 Patient Tobacco Use Status: Never used Tobacco Allergies isosorbide Allergy (Intermediate, Verified 04/29/25 14:05) neck pain/headaches Do you need a note to return to daycare/school/sports/work: Yes HPI HPI Comments History of Present Illness Details 55 y/o Male patient who presents to the walk in clinic with c/o Left Foot Pain. Reports the pain located at the Bottom of his Foot. Pain is worsen with standing and walking. He has changed his shoes few times with no much relief. Recent Foot Xrays ordered by PCP - unremarkable. [facility] Medical History (Updated 04/29/25 @ 14:32 by Chelo Coleman NP) Plantar fasciitis of left foot Morbid obesity with BMI of 45.0-49.9, adult Diabetes mellitus Dizziness Family history of colon cancer Morbid obesity with BMI of 50.0-59.9, adult GERD (gastroesophageal reflux disease) Constipation Obstructive sleep apnea Diffuse large B cell lymphoma COVID-19 Brugada syndrome Asthma Hernia Lymphoma Surgical History History of umbilical hernia repair History of laryngoscopy H/O colonoscopy History of appendectomy Family History Paternal Grandmother Cancer Father Colon cancer Social History Housing: House Alcohol intake: current Alcohol intake frequency: holidays/special occasions only Patient Tobacco Use Status: Never used Tobacco e-Cigarette/Vaping Use: Never Used Second Hand Smoke Exposure: No Advance Directives Date on File: 07/13/17 service: No Current occupational status: employed 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 Cognitive needs: Yes Hearing needs: No Vision needs: Yes Review of Systems Const All systems reviewed & are unremarkable except as noted in HPI and below Physical Exam Vital Signs: Last Vital Signs Temp 98 F 04/29/25 14:01 Pulse 88 04/29/25 14:01 BP 106/70 04/29/25 14:01 Pulse Ox 95 04/29/25 14:01 Oxygen Delivery Method Room Air 04/29/25 14:01 BMI result Body Mass Index 48.0 Const General: no acute distress Nutritional Appearance: obese morbidly obese Orientation/consciousness: patient oriented x3 Neuro General: patient oriented x3, gait normal and moves all extremities Extrem Right lower extremity: normal to inspection and full ROM Left lower extremity: foot Details: normal capillary refill, normal to inspection, tenderness Location: of the plantar foot Location: distally, toes with normal ROM and no edema; no unusual warmth and no crepitus Psych Speech and movement: Normal speech and movement present Assessment & Plan Assessment & Plan (1) Plantar fasciitis of left foot: Code(s): M72.2 - Plantar fascial fibromatosis Plan: Advised to wear comfortable shoes. Ordered Naproxen Advised simple home exercise for stretching Advised to soak his feet in Cold or warm water F/U with PCP if pain not better. Medications: Changed From naproxen 500 mg PO BID PRN M72.2 - Plantar fascial fibromatosis To naproxen 500 mg PO BID 30 tabs 0RF PAIN M72.2 - Plantar fascial fibromatosis Coding Level of Care Code Est Pt Level 4 (86355) Diagnoses Plantar fasciitis of left foot M72.2 Time Spent (min) 20
== END 2025-04-29 14:35 | disposition home or self-care (01) ==
PROVIDERS: PCP Internal Medicine; Visit Provider Nurse Practitioner Family
DX: M72.2 Plantar fascial fibromatosis (principal)

== ENCOUNTER 2025-05-03 08:47 | Outpatient (AMB) | payer OTHER, SELFPAY ==
[2025-05-03 08:51] VITALS: BP 126/84; PULSE 88; O2SAT 98; BMI 48.5
--- NOTE | 2025-05-03 08:51 | MHC.PC.OV ---
Vital Signs 05/03/25 08:51 Height 5 ft 8 in Weight 319 lb 2 oz BMI 48.5 BP 126/84 Blood Pressure Location Lt brachial Position Sitting Pulse 88 Pulse Source Pulse Oximeter Pulse Oximetry (%) 98 Oxygen Delivery Method Room Air Intake Visit Reasons: Annual Exam Director Behavioral Health Required: No Accompanied by: Self / Same As Patient Allergies isosorbide Allergy (Intermediate, Verified 05/03/25 09:15) neck pain/headaches Medication List - Last Reconciled 05/03/25 by Tj Alexandre MD acetaminophen (Tylenol Extra Strength) 1,000 mg (2 x 500 mg) PO QID PRN albuterol sulfate 2.5 mg (3 mL) inhalation Q4-6H PRN clotrimazole-betamethasone 1-0.05 % 1 appl topical BID 4 weeks cyclobenzaprine 10 mg PO TID PRN fluticasone propionate 50 mcg/actuation 2 sprays intranasal DAILY PRN 30 days Januvia (sitagliptin phosphate) 100 mg PO DAILY 90 days NS lidocaine 5% 1 patch topical DAILY PRN metformin 500 mg PO BID 90 days naproxen 500 mg PO BID omeprazole 20 mg PO DAILY 90 days potassium citrate ER 10 mEq PO BID 90 days pyridoxine (vitamin B6) 50 mg PO DAILY 90 days sennosides (senna) 8.6 mg PO DAILY PRN 90 days tadalafil 5 mg PO DAILY 90 days Tobacco use date assessed: 05/03/25 Dental Screening Dental Screen Date: 05/03/25 Did you have a dental visit in the last 12 months?: Yes Did you have a dental problem in the last 6 months where you did not have access to dental care?: No Was dental information given to patient?: Patient has dentist HPI Annual Exam HPI Details Patient comes in today for his annual physical examination States that he feels okay except for his recurrent left foot pain although his foot pain has calmed down at present He denies any headaches or dizziness Denies any chest pains, no SOB No nausea/vomiting, no abdominal pain No change in bowel habits noted Denies any acute urinary symptoms He had his follow up labs done last month - to discuss his results He is past due for his repeat colonoscopy - he last had his colonoscopy done [place] [address] Gale and was recommended to get repeat colonoscopy in 5 years (2011) due to family Hx but he has not had one done since [facility] Medical History (Updated 05/03/25 @ 09:30 by Tj Alexandre MD) Newly diagnosed diabetes Plantar fasciitis of left foot Morbid obesity with BMI of 45.0-49.9, adult Diabetes mellitus Dizziness Family history of colon cancer Morbid obesity with BMI of 50.0-59.9, adult GERD (gastroesophageal reflux disease) Constipation Obstructive sleep apnea Diffuse large B cell lymphoma COVID-19 Brugada syndrome Asthma Hernia Lymphoma Surgical History (Updated 05/03/25 @ 09:18 by Tj Alexandre MD) History of colonoscopy History of umbilical hernia repair History of laryngoscopy History of appendectomy Family History Paternal Grandmother Cancer Father Colon cancer Social History Housing: House Alcohol intake: current Alcohol intake frequency: holidays/special occasions only Patient Tobacco Use Status: Never used Tobacco e-Cigarette/Vaping Use: Never Used Second Hand Smoke Exposure: No Advance Directives Date on File: 07/13/17 service: No Current occupational status: employed 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 Depression Screening Interpretation: Negative Depression Screening Done: Yes Source: Developed by Drs. Marko Prescott, Carmen Benson, Robby Jones and colleagues, with an educational alissa from [employer]. Thrive Questionnaire Date Thrive assessed: 03/27/25 I am a: Patient What is your living situation today?: I have a steady place to live Within the past 12 months, did the food you bought not last and you didn't have the money to get more?: Never true Within the past 12 months, did you worry whether your food would run out before you got money to buy more?: Never true Do you have trouble paying for medicines?: No Do you have trouble getting transportation to medical appointments?: No Do you have trouble paying your heating and electricity bill?: No Do you have trouble taking care of your child, family member or friend?: No Do you have trouble with day-to-day activities such as bathing, preparing meals, shopping, managing finances, etc.?: No Are you currently unemployed and looking for a job?: No Are you interested in more education?: No Please select the resources that you would like help with: None Currently or been in a relationship where the following occur: No concerns reported THRIVE Score: 0 AUDIT C Alcohol Use Questionnaire (AUDIT-C) 1. How often do you have a drink containing alcohol?: Never 3. How often do you have six or more drinks on one occasion?: Never Total Score: 0 Score Reviewed/Action Taken: Yes BETHANY-7 AMB Questionnaire BETHANY-7 Date BETHANY - 7 assessed: 03/27/25 Source: Developed by Drs. Marko Prescott, Carmen Benson, Robby Jones and colleagues, with an educational alissa from [employer]. Review of Systems Const Denies chills, Denies fatigue, Denies fever(s), Denies headache(s), Denies malaise and Denies weakness Eyes Denies blurry vision, Denies change in vision, Denies irritation and Denies itchy eyes ENT Denies dysphagia, Denies dizziness, Denies otalgia, Denies headache(s), Denies nasal congestion, Denies neck pain, Denies odynophagia and Denies sore throat Card Denies chest pain, Denies rapid heart rate, Denies irregular heart rhythm, Denies palpitations and Denies dyspnea Resp Denies chest congestion, Denies cough, Denies dyspnea and Denies wheezing GI Denies abdominal pain, Denies bloating, Denies constipation, Denies dysphagia, Denies heartburn, Denies diarrhea, Denies nausea, Denies odynophagia and Denies vomiting Denies hematuria, Denies difficulty urinating, Denies dysuria, Denies urinary frequency and Denies urinary urgency Musc Details: (+) on and off pain over the bottom of the left foot - better currently Denies back pain, Denies arthralgias, Denies joint swelling, Denies muscle weakness and Denies neck pain Skin/Breast Denies change in pigmentation, Denies lesions, Denies rash and Denies unusual bruising Neuro Denies dizziness, Denies headache(s), Denies paresthesias and Denies weakness Endo Denies fatigue and Denies palpitations Aller/Immun Denies itchy eyes and Denies wheezing Physical exam (Primary Care) Vital Signs: Last Vital Signs Pulse 88 05/03/25 08:51 BP 126/84 05/03/25 08:51 Pulse Ox 98 05/03/25 08:51 Oxygen Delivery Method Room Air 05/03/25 08:51 BMI result Body Mass Index 48.5 Tobacco/Smoking Status: Tobacco use Status Tobacco use date assessed 05/03/25 05/03/25 08:56 Patient Tobacco Use Status Never used Tobacco 05/03/25 08:56 e-Cigarette/Vaping Use Never Used 05/03/25 08:56 Depression Screening Interpretation: Negative Thrive Assessment: Date of Thrive Assessment Date Thrive assessed 03/27/25 05/03/25 08:56 Currently or been in a relationship where the following occur: No concerns reported Const General: no acute distress, alert and awake Orientation/consciousness: patient oriented x3 HENMT Head: Yes normocephalic and Yes atraumatic Ears: external ears normal, TM's normal bilaterally and EAC's normal General nose exam: No nasal discharge present Face and sinus: Yes normal facial exam and Yes sinuses nontender Teeth and gingiva: dentition normal Throat: Yes posterior oropharynx normal and Yes tonsils normal (no TP congestion) Eyes Eyelids: Yes eyelids normal Conjunctivae: conjunctivae normal Pupils: Equal, round and reactive pupils present EOM: EOMs intact bilaterally Neck Neck: Yes supple and No lymphadenopathy Thyroid: Thyroid normal Resp Auscultation: clear to auscultation bilaterally, no rales and no wheezes Cardio Rate: regular rate Rhythm: regular rhythm Heart sounds: no murmurs GI Palpation (GI): Soft to palpation, nontender and No hepatosplenomegaly present Auscultation: normal bowel sounds General: Yes no CVA tenderness Back/Spine/Pelvis Back: no CVA tenderness Thoracic/Lumbar Spine: thoracic and lumbar spine normal to inspection Skin Lesions: no lesions Rashes: no rashes Neuro General: patient oriented x3, moves all extremities, no focal motor deficits and CN's II-XI intact bilaterally Cranial nerves: Yes Equal, round and reactive pupils present Cognition (Neuro): normal cognition Gait exam (Neuro): Normal gait present Extrem General: Yes no clubbing, cyanosis or edema Left lower extremity: foot Details: tenderness (mild) Location: of the calcaneus Details: point tenderness Results Reviewed Results Reviewed: Laboratory Tests 03/27/25 03/27/25 09:55 10:03 WBC 5.9 Hgb 14.6 Hct 44.2 Plt Count 168 Sodium 135 Potassium 4.0 Creatinine 0.82 Estimated GFR > 60 Fasting Glucose 292 H Hemoglobin A1c % 13.2 H C-Peptide 5.58 H Calcium 9.7 AST 46 H ALT 61 H Triglycerides 125 Cholesterol 151 LDL Cholesterol, Calc 94 HDL Cholesterol 32 L Vitamin B12 471 25-OH Vitamin D Total 22.2 L TSH 1.26 Ur Specific [place] >= 1.030 H Urine Protein Negative Urine Glucose (UA) >=1000 H Urine Blood Negative Urine Nitrite Negative Ur Leukocyte Esterase Negative BETHANY Antibody <5 Coding Level of Care Code Est Pt Prev Care 40-64y(48921) Diagnoses Annual physical exam Z00.00 Newly diagnosed diabetes E11.9 Diffuse large B-cell lymphoma, unspecified body region C83.30 Lymphoma site: unspecified region Elevated blood pressure reading without diagnosis of hypertension R03.0 Constipation, unspecified constipation type K59.00 Constipation type: unspecified constipation type Calcaneal spur, left foot M77.32 Nephrolithiasis N20.0 Allergic rhinitis, unspecified seasonality, unspecified trigger J30.9 Allergic rhinitis trigger: unspecified Allergic rhinitis seasonality: unspecified Morbid obesity with BMI of 45.0-49.9, adult E66.01; Z68.42 Assessment & Plan Assessment & Plan (1) Annual physical exam: Code(s): Z00.00 - Encounter for general adult medical examination without abnormal findings Category: Medical Plan: Results of his labs done last month reviewed and discussed with patient He is past due for his repeat colonoscopy - last had colonoscopy done in 2006 (Dr. Gale) and was recommended to get repeat colonoscopy in 5 years (2011) due to family Hx but he has not had one done since (2) Newly diagnosed diabetes: Code(s): E11.9 - Type 2 diabetes mellitus without complications Category: Medical Plan: Patient was just diagnosed with diabetes recently and started on Metformin at the walk-in clinic early last month He was started additionally on Januvia 100 mg QD at his last appointment on 03/27/2025 Feels that he is doing better on his current Rx as some of his previous symptoms of fatigue, polydipsia and polyphagia seem to have improved a lot over the past month and he appears to be tolerating his current Rx without any problems Reinforced diabetic diet His labs done last month came back with normal C-peptide levels and negative BETHANY Ab Will now try to increase his Metformin to 1000 mg BID; continue Januvia 100 mg QD Will also refer him for diabetic teaching, incuding how to check and monitor his blood sugars on his own regularly to help guide his Tx (3) Diffuse large B cell lymphoma: Comment: Diffuse large B-cell lymphoma, initially diagnosed in April 2007 - had a 10 x 4 cm anterior mediastinal mass Completed 8 cycles of R-CHOP on November 13, 2007 and has been doing well since with no recurrence (IN REMISSION) Code(s): C83.30 - Diffuse large B-cell lymphoma, unspecified site Category: Medical Qualifiers: Lymphoma site: unspecified region Qualified Code(s): C83.30 - Diffuse large B-cell lymphoma, unspecified site Plan: Patient remains in remission Follow up with hematology/oncology (Dr. Lynn) for follow up and continuing surveillance (4) Elevated blood pressure reading without diagnosis of hypertension: Code(s): R03.0 - Elevated blood-pressure reading, without diagnosis of hypertension Category: Medical Plan: Reinforced low sodium diet - goal is systolic BP of 120 mm or less His blood pressure has been much better lately We will consider starting him on low dose Lisinopril or Losartan in the near future for renoprotection (in diabetics) and this should also better help keep his blood pressure in check (5) Constipation: Code(s): K59.00 - Constipation, unspecified Category: Medical Qualifiers: Constipation type: unspecified constipation type Qualified Code(s): K59.00 - Constipation, unspecified Plan: Reinforced increased oral fluids and dietary fiber intake Continue Senna 8.6 mg QD He was scheduled for a colonoscopy back in January 2022 but this was canceled pending clearance by cardiology due to patient's history of Brugada syndrome He was eventually seen by Cardiology in February 2022 and was advised that his EKG showed some changes suggestive of Brugada syndrome but patient does not have the disease; he was cleared by cardiology for colonoscopy in February 2022 He was referred back to Dr. Gale and was scheduled for his colonoscopy sometime in December 2022 but he ended up in the ER then for gastroenteritis and his procedure was again canceled He has been referred back to Dr. Gale by Dr. Lynn for colonoscopy and this is still pending at this time Will renew referral to Dr. Gale again for repeat colonoscopy (6) Calcaneal spur, left foot: Code(s): M77.32 - Calcaneal spur, left foot Category: Medical Plan: X-rays of the left foot done recently revealed (+) calcaneal spurs Patient was experiencing increased pain over the bottom of his foot recently but states that the pain seems to have calmed down lately Will refer him to podiatry for further evaluation and management and also for his annual diabetic foot exam (7) Nephrolithiasis: Code(s): N20.0 - Calculus of kidney Category: Medical Plan: S/P stenting for an obstructive left renal stone with left-sided hydronephrosis back in May 2024, with resolution of symptoms He currently remains asymptomatic and has been doing well Continue Tamsulosin 0.4 mg Q HS Follow up with urology as scheduled (8) Allergic rhinitis: Code(s): J30.9 - Allergic rhinitis, unspecified Category: Medical Qualifiers: Allergic rhinitis trigger: unspecified Allergic rhinitis seasonality: unspecified Qualified Code(s): J30.9 - Allergic rhinitis, unspecified Plan: Continue Fluticasone 50 mcg nasal spray QD PRN (9) Morbid obesity with BMI of 45.0-49.9, adult: Code(s): E66.01 - Morbid (severe) obesity due to excess calories; Z68.42 - Body mass index [BMI] 45.0-49.9, adult Category: Medical Plan: Reinforced diet/exercise as tolerated/lose weight Plan Follow up in 3 months Orders: Orders Comprehensive [place]. Panel Fast 3 Months E78.00 - Pure hypercholesterolemia, unspecified Microalbumin, Random (w Creat) 3 Months E11.9 - Type 2 diabetes mellitus without complications Complete Blood Count Auto Diff 3 Months D64.9 - Anemia, unspecified Lipid Panel 3 Months E78.00 - Pure hypercholesterolemia, unspecified Hemoglobin A1c 3 Months E11.9 - Type 2 diabetes mellitus without complications UA CC w/rflx Micro + Cult 3 Months R30.0 - Dysuria Vitamin D 25-OH Total 3 Months E55.9 - Vitamin D deficiency, unspecified Referrals Podiatry Referral E11.9 - Type 2 diabetes mellitus without complications, M77.32 - Calcaneal spur, left foot Gastroenterology Referral Z12.11 - Encounter for screening for malignant neoplasm of colon Diabetes Education Referral E11.9 - Type 2 diabetes mellitus without complications Medications: Changed From metformin Take with food 500 mg PO BID 90 days 180 tabs 1RF To metformin Take with food 1,000 mg PO BID 180 tabs 1RF 90 days
== END 2025-05-03 09:38 | disposition home or self-care (01) ==
LOC: HO.HMCH 08:47
PROVIDERS: PCP Internal Medicine; Visit Provider Internal Medicine
DX: Z00.00 Encounter for general adult medical examination without abnormal findings (principal); E11.9 Type 2 diabetes mellitus without complications; E66.01 Morbid (severe) obesity due to excess calories; Z68.42 Body mass index [BMI] 45.0-49.9, adult; C83.30 Diffuse large B-cell lymphoma, unspecified site; R03.0 Elevated blood-pressure reading, without diagnosis of hypertension; K59.00 Constipation, unspecified; M77.32 Calcaneal spur, left foot; N20.0 Calculus of kidney; J30.9 Allergic rhinitis, unspecified

== ENCOUNTER 2025-05-20 08:58 | Outpatient (AMB) | payer OTHER, SELFPAY ==
--- NOTE | 2025-05-20 09:28 | AM.OFFWIN_ITS ---
Intake Vital Signs 05/20/25 09:29 Height 5 ft 8 in Weight 320 lb BMI 48.7 BP 112/76 Blood Pressure Location Lt brachial Position Sitting Pulse 91 Pulse Source Pulse Oximeter Temp 98.5 F Temp Source Oral Pulse Oximetry (%) 96 Oxygen Delivery Method Room Air Intake Visit Reasons: EP sinus infection Intake Note: pt presents with sinus pressure/pain and dryness Patient Tobacco Use Status: Never used Tobacco Allergies isosorbide Allergy (Intermediate, Verified 05/20/25 09:30) neck pain/headaches Do you need a note to return to daycare/school/sports/work: Yes HPI HPI Comments History of Present Illness Details History of Present Illness - The patient is a 55-year-old male pres enting with sinus congestion and associated symptoms. - The sinus congestion has been ongoing for several days, with no known allergies contributing to the condition. - He has been having sinus pain and geovanni estion, mainly in the forehead and worse when he bends forward. - The patient reports using Flonase for sinus relief, with symptoms remaining dry and no purulent discharge noted. - Ear discomfort has been present since the morning, with no associated throat pain or fever. - The patient denies any history of smok ing and reports occasional dizziness. - He denies fever, chills, cough, sore t hroat, CP, SOB, abd pain, n/v/d. - He has no sick contacts. - He has no recent travel. Physical Exam General: Cooperative, healthy appearing, comfortable, no acute distress and well developed Head: Normal to inspection Ears: Hearing grossly normal bilaterally. No tragus or mastoid tenderness noted. Auditory canals clear bilaterally. TM's normal, not bulging. No fluid noted. Nose: Normal external nose present. Moist mucosa. Turbinates normal bilaterally, not boggy. Face and sinus: Tenderness to palpation of the frontal and maxillary sinuses bilaterally. Neck: Normal visual inspection and Yes full ROM. No lymphadenopathy noted. Respiratory: Normal respiratory effort and able to speak in complete sentences. Clear to auscultation bilaterally Cardiovascular: Regular rate and rhythm. Normal S1 and S2 GI: Normal to inspection. Soft to palpation and nontender, nondistended. No guarding noted. Skin: No rashes or lesions noted [facility] Medical History (Updated 05/03/25 @ 09:30 by Tj Alexandre MD) Newly diagnosed diabetes Plantar fasciitis of left foot Morbid obesity with BMI of 45.0-49.9, adult Diabetes mellitus Dizziness Family history of colon cancer Morbid obesity with BMI of 50.0-59.9, adult GERD (gastroesophageal reflux disease) Constipation Obstructive sleep apnea Diffuse large B cell lymphoma COVID-19 Brugada syndrome Asthma Hernia Lymphoma Surgical History (Updated 05/03/25 @ 09:18 by Tj Alexandre MD) History of colonoscopy History of umbilical hernia repair History of laryngoscopy History of appendectomy Family History Paternal Grandmother Cancer Father Colon cancer Social History Housing: House Alcohol intake: current Alcohol intake frequency: holidays/special occasions only Patient Tobacco Use Status: Never used Tobacco e-Cigarette/Vaping Use: Never Used Second Hand Smoke Exposure: No Advance Directives Date on File: 07/13/17 service: No Current occupational status: employed Current occupation: [employer] Cognitive needs: Yes Hearing needs: No Vision needs: Yes Physical Exam Vital Signs: Last Vital Signs Temp 98.5 F 05/20/25 09:29 Pulse 91 05/20/25 09:29 BP 112/76 05/20/25 09:29 Pulse Ox 96 05/20/25 09:29 Oxygen Delivery Method Room Air 05/20/25 09:29 BMI result Body Mass Index 48.7 Assessment & Plan Assessment & Plan (1) Sinusitis: Code(s): J32.9 - Chronic sinusitis, unspecified Qualifiers: Chronicity: acute Recurrence: non-recurrent Sinusitis location: frontal Qualified Code(s): J01.10 - Acute frontal sinusitis, unspecified Plan Most likely sinusitis vs URI vs allergic rhinitis plan - steam shower - tylenol or motrin as needed for pain or fever - Augmentin BID for 7 days - prednisone burst for 5 days - Take zyrtec D daily - continue with Flonase - follow up with PCP Medications: New amoxicillin-pot clavulanate 875-125 mg 1 tab PO Q12H 14 tabs 0RF prednisone 40 mg (2 x 20 mg) PO DAILY 10 tabs 0RF 5 days cetirizine-pseudoephedrine 5-120 mg ER 1 tab PO BID 14 tabs 0RF 7 days Coding Level of Care Code Est Pt Level 3 (43931) Diagnoses Acute non-recurrent frontal sinusitis J01.10 Chronicity: acute Recurrence: non-recurrent Sinusitis location: frontal
[2025-05-20 09:29] VITALS: BP 112/76; PULSE 91; TEMP 36.9; O2SAT 96; BMI 48.7
== END 2025-05-20 10:11 | disposition home or self-care (01) ==
PROVIDERS: PCP Internal Medicine; Visit Provider Physician Assistant Medical
DX: J01.10 Acute frontal sinusitis, unspecified (principal)

== ENCOUNTER 2025-05-21 12:28 | Outpatient (AMB) | payer OTHER, SELFPAY ==
[2025-05-21 12:57] VITALS: BMI 48.2
--- NOTE | 2025-05-21 12:57 | A.OFFVIS_ITS ---
Vital Signs 05/21/25 12:57 Height 5 ft 8 in Weight 317 lb BMI 48.2 Intake Visit Reasons: Left Heel Spur/Diabetic Foot Exam Intake Note: Angel is a 55 year old male who presents today as a new patient for a Bilateral Diabetic Foot Exam and complaints of Left Heel Pain. Patient reports that he has had ongoing intermittent pain of the Left Heel. Xrays were taken which showed calcaneal bone spurs. Patient reports he has not met with his cone examiner so he has no supplies at home to check his sugars however on 03/27/25 his glucose was 292 and his A1C was 13.2%. Patient denies numbness and tingling in his feet but he notes occasional burning on his left foot where his bone spurs are located. He mentions last year he had bumped his foot to a table and now he has pain on the top of his foot between his 3rd-5th toe. Allergies isosorbide Allergy (Intermediate, Verified 05/21/25 12:57) neck pain/headaches HPI HPI Left Heel Spur/Diabetic Foot Exam: Details: The patient is a 55-year-old male past medical history of newly diagnosed diabe francine mellitus type 2, GERD, presenting with chronic left heel pain and diabetic foot evaluation. He has been recently diagnosed with diabetes mellitus with an A1c of 13.5%, and is scheduled to see an cone examiner. He denies any symptoms of burning numbness or tingling to his feet. Denies history of infections to his feet. He does have a history of bilateral ingrown toenails which was treated years ago with partial nail avulsions. He has not had a new infection since then. The patient reports chronic left heel pain, which is exacerbated by weight- bearing activities. He saw another provider who recommended stretching exercises and rolling his foot with a frozen water bottle, which he has not done. Medications: - Januvia (Sitagliptin) for diabetes management Social History: - Employment: Works third shift, which may impact lifestyle and health management Family History: - Mother had diabetes and from a heart attack [facility] Medical History (Updated 05/21/25 @ 14:27 by Stephon Almazan DPM) Newly diagnosed diabetes Plantar fasciitis of left foot Morbid obesity with BMI of 45.0-49.9, adult Diabetes mellitus Dizziness Family history of colon cancer Morbid obesity with BMI of 50.0-59.9, adult GERD (gastroesophageal reflux disease) Constipation Obstructive sleep apnea Diffuse large B cell lymphoma COVID-19 Brugada syndrome Asthma Hernia Lymphoma Surgical History (Updated 05/03/25 @ 09:18 by Tj Alexandre MD) History of colonoscopy History of umbilical hernia repair History of laryngoscopy History of appendectomy Family History Paternal Grandmother Cancer Father Colon cancer Social History Housing: House Alcohol intake: current Alcohol intake frequency: holidays/special occasions only Patient Tobacco Use Status: Never used Tobacco e-Cigarette/Vaping Use: Never Used Second Hand Smoke Exposure: No Advance Directives Date on File: 07/13/17 service: No Current occupational status: employed 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 Derm: Skin: Dry annular scaling plantar feet bilaterally. Interdigital spaces: Left 2nd, 3rd, and 4th interspace macerations; no open wounds. Nails: No onychomycosis. Left medial and lateral nail borders are ingrown, no tenderness or erythema or signs of infection. Neuro: [place]-varun monofilament (10g) test 10/10 intact to right foot, 10/10 intact to left foot. Msk: Moderate tenderness on palpation of the plantar aspect of the left 3rd metatarsophalangeal joint with mild pain on maximum dorsiflexion. Deformities: Short left 3rd digit overlapping the 2nd and 4th digits. Muscle strength: 5/5 in all muscle groups. Gait: Normal, no antalgic or steppage gait observed. Footwear Assessment: Shoes inspected; appropriate fit, no excessive wear, or foreign objects noted. Office Procedures AMB Podiatry Dressing Details of Procedure: Procedure: Strapping of the foot/toe Indication: Left lower extremity plantar plate injury Description: A 1/4 felt pad was cut and fabricated to a metatarsal pad with an off-loading center for the 3rd MTP and applied. Tolerance: Patient tolerated procedure well, no immediate complications. 50257 Strapping of foot/toe Procedure code (CPT) selection complete Results Reviewed Results Reviewed: Laboratory Tests 03/27/25 10:03 Hemoglobin A1c % 13.2 H Assessment & Plan Assessment & Plan (1) Diabetes mellitus, new onset: Comment: started on metformin 500 mg b.i.d.. Code(s): E11.9 - Type 2 diabetes mellitus without complications Category: Medical Plan: Risk Stratification: No current ulceration, infection, or pre-ulcerative lesion. No loss of protective sensation or peripheral arterial disease. No plans for fur ther testing/referrals for non-invasive vascular studies. Patient is at low risk for diabetic foot complications at this time. Recommendations: Continue routine foot care and daily self-inspection. Recommend moisturizing daily. Recommend supportive proper fitting shoe-wear. The patient may require diabetic shoes in the future. Reinforced diabetic foot education and risks from peripheral neuropathy. (2) Plantar fasciitis of left foot: Code(s): M72.2 - Plantar fascial fibromatosis Category: Medical Plan: * Discussed etiology of the patient's foot pain. Differential diagnosis includes plantar fasciitis, neuritis, tendinitis. * Patient educated on the nature and etiology of plantar fasciitis, which involves inflammation and microtearing of the plantar fascia due to repetitive stress and overuse. * The patient was counseled on conservative management of plantar fasciitis, including daily stretching exercises targeting the plantar fascia and Achilles tendon, use of supportive and properly fitting footwear, and consideration of custom or prefabricated orthotics to improve foot biomechanics. * Discussed that if symptoms persist despite these measures, further interventions such as corticosteroid injections may be considered, however given his hyperglycemia, he was recommended waiting until his A1c improves to under 7% at the minimum. * Instructed the patient on home stretching and range of motion exercises including calf-stretches, frozen water bottle therapy, band-therapy. A handout was given. * Patient deferred physical therapy referral at this time. * Recommended supportive shoe-wear with arch-supports to avoid increased loading on the patient's plantar fascia band. He was recommended [employer] brand shoes. * Patient may require orthotics versus custom orthotics in the near future. * Follow up in 3 weeks (3) Achilles tendinitis of right lower extremity: Code(s): M76.61 - Achilles tendinitis, right leg Category: Medical Plan: * Recommended range of motion and stretching exercises. * May require physical therapy (4) Tinea pedis: Code(s): B35.3 - Tinea pedis Category: Medical Qualifiers: Laterality: bilateral Qualified Code(s): B35.3 - Tinea pedis Plan: * Rx clotrimazole ointment. (5) Capsulitis of left foot: Comment: Left 3rd metatarsophalangeal joint Code(s): M77.8 - Other enthesopathies, not elsewhere classified Category: Medical Plan: * A metatarsal pad was fabricated and dispensed. * Will recommend gel metatarsal pads if he finds relief from the felt pad dispensed today. Orders: Orders AMB Podiatry Dressing Today M77.8 - Other enthesopathies, not elsewhere classified Medications: New clotrimazole 1% Applied to the bottom of feet daily. 1 appl topical BID 30 grams 3RF Athlete's foot 4 weeks B35.3 - Tinea pedis Coding Level of Care Code New Pt Level 4 (36039) Diagnoses Diabetes mellitus, new onset E11.9 Plantar fasciitis of left foot M72.2 Achilles tendinitis of right lower extremity M76.61 Tinea pedis of both feet B35.3 Laterality: bilateral Capsulitis of left foot M77.8 CPT Codes Podiatry Dressing - CPT: 12931 Strapping of foot/toe ([id number])
== END 2025-05-21 13:26 | disposition home or self-care (01) ==
LOC: HO.HPODS 12:29
PROVIDERS: PCP Internal Medicine; Visit Provider Student in an Organized Health Care Education/Training Program
DX: E11.9 Type 2 diabetes mellitus without complications (principal); M72.2 Plantar fascial fibromatosis; M76.61 Achilles tendinitis, right leg; B35.3 Tinea pedis; M77.8 Other enthesopathies, not elsewhere classified
CPT/HCPCS: 29550; 99203

== ENCOUNTER → 2025-05-21 12:28 | Outpatient (BNVA) | payer OTHER, SELFPAY | PROVIDERS: PCP Internal Medicine; Visit Provider Student in an Organized Health Care Education/Training Program | DX: M72.2 Plantar fascial fibromatosis (principal); M77.8 Other enthesopathies, not elsewhere classified | CPT/HCPCS: 29550 ==

== ENCOUNTER 2025-06-10 13:42 | Outpatient (REF) | payer OTHER, SELFPAY ==
--- NOTE | ~2025-06-10 | US_ITS ---
EXAMINATION: US KIDNEY BILATERAL HISTORY: N20.1 - Calculus of ureter TECHNIQUE: Real-time grayscale ultrasound imaging of the kidneys was performed and images were reviewed. COMPARISON: Comparison is made with the prior examination dated 12/04/2024. FINDINGS: Right kidney: The right kidney measures 12.5 x 5.4 x 6.5 cm. Renal parenchymal echotexture and thickness are normal. There are no masses. There is a nonobstructing calculus at the upper pole measuring 8 x 5 x 5 mm. There is no hydronephrosis. Left Kidney: The left kidney measures 13.0 x 5.3 x 4.4 cm. Renal parenchymal echotexture and thickness are normal. There are no masses. There is a nonobstructing calculus at the lower pole measuring 2 mm. There is no hydronephrosis. US/US renal BI IMPRESSION: Bilateral nephrolithiasis as described. Electronically signed by: Marko Alvarez MD 06/10/2025 02:12 PM EDT
== END 2025-06-10 13:43 | disposition home or self-care (01) ==
LOC: HO.HMGCX 13:42
PROVIDERS: PCP Internal Medicine; Visit Provider Urology
DX: N20.1 Calculus of ureter (principal)
CPT/HCPCS: 76775

== ENCOUNTER → 2025-06-10 13:43 | Outpatient (BNV) | payer OTHER, SELFPAY | PROVIDERS: PCP Internal Medicine; Visit Provider Radiology Diagnostic Radiology | DX: N20.0 Calculus of kidney (principal) | CPT/HCPCS: 76775 ==

== ENCOUNTER 2025-06-11 13:51 | Outpatient (AMB) | payer OTHER, SELFPAY ==
--- NOTE | 2025-06-11 14:00 | A.OFFVIS_ITS ---
Vital Signs 06/11/25 14:13 Height 5 ft 8 in Weight 317 lb BMI 48.2 Intake Visit Reasons: F/U Left Heel Spur/Diabetic Foot Exam Intake Note: Angel is a 55 year old male who presents to the office today for a 3 week follow up for Left Heel Spur/diabetic foot exam. At last visit A metatarsal pad was fabricated and dispensed. Pt was also prescribed clotrimazole to be applied to his feet. Pt states his pain has improved slightly and he has purchased supportive shoe wear and found it has helped as well Allergies isosorbide Allergy (Intermediate, Verified 06/11/25 14:14) neck pain/headaches HPI HPI F/U Left Heel Spur/Diabetic Foot Exam: Details: The patient is a 55-year-old male past medical history of newly diagnosed diabetes mellitus type 2, GERD, returning for 3 week follow up of left heel pain. Patient states he has been doing his stretching exercises almost everyday and has noticed improvement in his pain. He is also using new [employer] shoes. He found relief from the metatarsal pad dispensed last visit. He is also applying the clotrimazole ointment. History: He has been recently diagnosed with diabetes mellitus with an A1c of 13.5%, and is scheduled to see an county sheriff. He denies any symptoms of burning numbness or tingling to his feet. Denies history of infections to his feet. He does have a history of bilateral ingrown toenails which was treated years ago with partial nail avulsions. He has not had a new infection since then. The patient reports chronic left heel pain, which is exacerbated by weight- bearing activities. He saw another provider who recommended stretching exercises and rolling his foot with a frozen water bottle, which he has not done. Medications: - Januvia (Sitagliptin) for diabetes management Social History: - Employment: Works third shift, which may impact lifestyle and health m anagement Family History: - Mother had diabetes and from a heart attack [facility] Medical History (Updated 05/21/25 @ 14:27 by Stephon Almazan DPM) Newly diagnosed diabetes Plantar fasciitis of left foot Morbid obesity with BMI of 45.0-49.9, adult Diabetes mellitus Dizziness Family history of colon cancer Morbid obesity with BMI of 50.0-59.9, adult GERD (gastroesophageal reflux disease) Constipation Obstructive sleep apnea Diffuse large B cell lymphoma COVID-19 Brugada syndrome Asthma Hernia Lymphoma Surgical History (Updated 05/03/25 @ 09:18 by Tj Alexandre MD) History of colonoscopy History of umbilical hernia repair History of laryngoscopy History of appendectomy Family History Paternal Grandmother Cancer Father Colon cancer Social History Housing: House Alcohol intake: current Alcohol intake frequency: holidays/special occasions only Patient Tobacco Use Status: Never used Tobacco e-Cigarette/Vaping Use: Never Used Second Hand Smoke Exposure: No Advance Directives Date on File: 07/13/17 service: No Current occupational status: employed 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 Derm: Skin: Dry annular scaling plantar feet bilaterally, improved. Interdigital spaces: Left 2nd, 3rd, and 4th interspace macerations; no open wou nds. Nails: No onychomycosis. Left medial and lateral nail borders are ingrown, no tenderness or erythema or signs of infection. Neuro: [place]-varun monofilament (10g) test 10/10 intact to right foot, 10/10 intact to left foot. Msk: No tenderness to the left heel or Achilles tendon insertion. No tenderness on palpation of the plantar aspect of the left 3rd metatarsophalangeal joint with mild pain on maximum dorsiflexion. Deformities: Short left 3rd digit overlapping the 2nd and 4th digits. Muscle strength: 5/5 in all muscle groups. Gait: Normal, no antalgic or steppage gait observed. Footwear Assessment: Shoes inspected; appropriate fit, no excessive wear, or foreign objects noted. Assessment & Plan Assessment & Plan (1) Plantar fasciitis of left foot: Code(s): M72.2 - Plantar fascial fibromatosis Category: Medical Plan: * Discussed etiology of the patient's foot pain. Differential diagnosis includes plantar fasciitis, neuritis, tendinitis. * Patient educated on the nature and etiology of plantar fasciitis, which involves inflammation and microtearing of the plantar fascia due to repetitive stress and overuse. * The patient was counseled on conservative management of plantar fasciitis, including daily stretching exercises targeting the plantar fascia and Achilles tendon, use of supportive and properly fitting footwear, and consideration of custom or prefabricated orthotics to improve foot biomechanics. * Continue at home stretching and range of motion exercises including calf- stretches, frozen water bottle therapy, band-therapy. A handout was given. * Patient deferred physical therapy referral at this time. * Recommended supportive shoe-wear with arch-supports to avoid increased loading on the patient's plantar fascia band. He was recommended [employer] brand shoes. * Patient may require orthotics versus custom orthotics in the near future. * Follow up in 3 months (2) Achilles tendinitis of right lower extremity: Code(s): M76.61 - Achilles tendinitis, right leg Category: Medical Plan: * Continue range of motion and stretching exercises. (3) Tinea pedis: Code(s): B35.3 - Tinea pedis Category: Medical Qualifiers: Laterality: bilateral Qualified Code(s): B35.3 - Tinea pedis Plan: * Continue clotrimazole ointment. (4) Capsulitis of left foot: Comment: Left 3rd metatarsophalangeal joint Code(s): M77.8 - Other enthesopathies, not elsewhere classified Category: Medical Plan: * Recommend gel metatarsal pads. Coding Level of Care Code Est Pt Level 3 (93678) Diagnoses Plantar fasciitis of left foot M72.2 Achilles tendinitis of right lower extremity M76.61 Tinea pedis of both feet B35.3 Laterality: bilateral Capsulitis of left foot M77.8 Time Spent (min) 25
[2025-06-11 14:13] VITALS: BMI 48.2
== END 2025-06-11 14:08 | disposition home or self-care (01) ==
LOC: HO.HPODS 13:51
PROVIDERS: PCP Internal Medicine; Visit Provider Student in an Organized Health Care Education/Training Program
DX: M72.2 Plantar fascial fibromatosis (principal); M76.61 Achilles tendinitis, right leg; B35.3 Tinea pedis; M77.8 Other enthesopathies, not elsewhere classified
CPT/HCPCS: 99213

== ENCOUNTER 2025-06-14 12:32 | Outpatient (AMB) | payer OTHER, SELFPAY ==
--- NOTE | 2025-06-14 12:33 | A.OFFVIS_ITS ---
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 He is a patient of Dr. Alexandre. He is seen for the following urologic conditions - nephrolithiasis - hypogonadism - diabetes induced balanitis Follow-up nephrolithiasis and hypogonadism HBA1c 04/08 13% - would not perform circumcision until HbA1c below 8.5 Lab work - 11/05 T 345, FT 64, FSH 6.7, LH 3.0 Prior Low total testosterone but low normal free testosterone Indicative of probable peripheral conversion Says he has significant benefit from CPAP machine Hypogonadism in setting of diabetes would recommend testosterone recovery Initial presentation with some decline in libido Known sleep apnea Prior cancer therapy Morbidly obese Lab work - 08/06 215, 11/05 T 345, FT 64, FSH 6.7, LH 3.0 Nephrolithiasis Prior history recurrent stone formation Prior B-cell lymphoma with chemotherapy Imaging - 11/02 CT scan 3 mm mid ureteric stone, 4 mm stones in right kidney, 4 mm stone left kidney - 02/02 renal ultrasound bilateral 4 mm stones - 04/05 CT scan distal right UVJ stone and 4 mm proximal renal stone - 04/06 renal ultrasound 4 mm right, 9 mm left - 01/05 renal ultrasound no stone seen Intervention - 06/07 left ureteroscopy Stone composition - Calcium Oxalate Monohydrate ([place]) 95%Carbonate Apatite ([place]) 5% Therapeutic plan - imaging surveillance [facility] Medical History (Updated 05/21/25 @ 14:27 by Stephon Almazan DPM) Newly diagnosed diabetes Plantar fasciitis of left foot Morbid obesity with BMI of 45.0-49.9, adult Diabetes mellitus Dizziness Family history of colon cancer Morbid obesity with BMI of 50.0-59.9, adult GERD (gastroesophageal reflux disease) Constipation Obstructive sleep apnea Diffuse large B cell lymphoma COVID-19 Brugada syndrome Asthma Hernia Lymphoma Surgical History (Updated 05/03/25 @ 09:18 by Tj Alexandre MD) History of colonoscopy History of umbilical hernia repair History of laryngoscopy History of appendectomy Family History Paternal Grandmother Cancer Father Colon cancer Social History Housing: House Alcohol intake: current Alcohol intake frequency: holidays/special occasions only Patient Tobacco Use Status: Never used Tobacco e-Cigarette/Vaping Use: Never Used Second Hand Smoke Exposure: No Advance Directives Date on File: 07/13/17 service: No Current occupational status: employed 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 Cognitive needs: Yes Hearing needs: No Vision needs: Yes Review of Systems Const Denies chills and Denies fever(s) Card Reports no additional complaints and Denies syncope Resp Denies cough GI Denies abdominal pain and Denies heartburn Reports as per HPI and Denies change in libido Neuro Denies syncope Psych Denies change in libido Endo Denies change in libido Physical Exam Const General: cooperative, healthy appearing, comfortable and no acute distress Orientation/consciousness: patient oriented x3 HEENT Face and sinus: Yes normal facial exam Mouth: moist mucous membranes Neck Neck: Yes normal visual inspection, Yes full ROM and Yes trachea midline Chest Chest palpation & inspection: normal inspection of the chest Resp Effort & Inspection: normal respiratory effort, able to speak in complete sentences and no respiratory distress GI Inspection: Yes normal to inspection Back/Spine/Pelvis Cervical Spine: normal cervical lordosis Thoracic/Lumbar Spine: thoracic and lumbar spine normal to inspection Skin General skin exam: no rashes or lesions noted Neuro General: patient oriented x3, gait normal, tone normal and moves all extremities Extrem General: Yes normal to inspection and Yes capillary refill normal Assessment & Plan Assessment & Plan (1) Nephrolithiasis: Code(s): N20.0 - Calculus of kidney Category: Medical (2) Balanitis: Code(s): N48.1 - Balanitis Category: Medical Plan Six-month follow-up renal ultrasound Orders: Orders US renal BI 6 Months N20.1 - Calculus of ureter Patient Instructions: This note is constructed using voice recognition software. While every effort has been made to ensure accuracy supervisor electronic testing errors may have been included. Imaging studies, laboratory and physical exam results were discussed and reviewed in detail. No major barriers to patient understanding were identified. An opportunity to ask questions regarding the treatment plan was provided. All questions were answered. The patient expressed understanding and agreement with the above treatment plan. The patient is aware they should contact our office by phone for worsening of their current condition or the appearance of new urologic symptoms. Compliance is encouraged with any medications and followup testing that is ordered. It is a privilege to participate in the urologic care of your patient. If you have any questions or concerns regarding treatment for the above conditions, or other urologic issues, please do not hesitate to contact me. The office telephone contact is [phone]. Sincerely, Dr Simeon Paniagua MD, [facility] - Urology Compassionate Specialist Care for the Genitourinary System Coding Level of Care Code Est Pt Level 3 (18806) Complex EM visit Add On G2211 Diagnoses Nephrolithiasis N20.0 Balanitis N48.1
== END 2025-06-14 13:10 | disposition home or self-care (01) ==
PROVIDERS: PCP Internal Medicine; Visit Provider Urology
DX: N20.0 Calculus of kidney (principal); N48.1 Balanitis
CPT/HCPCS: 99213

== ENCOUNTER 2025-06-17 12:25 | Outpatient (AMB) | payer OTHER, SELFPAY ==
--- NOTE | 2025-06-17 13:28 | MHC.AMDMED ---
Intake Intake Visit Reasons: Type 2 diabetes mellitus without complications Obstetrician Gynecologist Required: No Accompanied by: Self / Same As Patient Allergies isosorbide Allergy (Intermediate, Verified 06/14/25 12:36) neck pain/headaches HPI Comprehensive Diabetes Asmnt Most Recent Diabetes Results: Microalb/Creat Ratio, (<30) 7.2 ug/mg cr 03/27/25 Cholesterol, (<200) 151 mg/dL 03/27/25 HDL Cholesterol, (>40) 32 mg/dL L 03/27/25 Triglycerides, (<150) 125 mg/dL 03/27/25 Creatinine, (0.5-1.4) 0.82 mg/dL 03/27/25 BUN, (9-16) 16 mg/dL 03/27/25 Sodium, (135-145) 135 mmol/L 03/27/25 Potassium, (3.3-5.1) 4.0 mmol/L 03/27/25 Chloride, (96-108) 104 mmol/L 03/27/25 Carbon Dioxide, (22-29) 25 mmol/L 03/27/25 Calcium, (8.4-10.2) 9.7 mg/dL 03/27/25 AST, (5-37) 46 U/L H 03/27/25 ALT, (0-40) 61 U/L H 03/27/25 Total Protein, (6.5-8.0) 7.0 g/dL 03/27/25 Albumin, (3.5-5.0) 3.9 g/dL 03/27/25 [facility] Medical History (Updated 05/21/25 @ 14:27 by Stephon Almazan DPM) Newly diagnosed diabetes Plantar fasciitis of left foot Morbid obesity with BMI of 45.0-49.9, adult Diabetes mellitus Dizziness Family history of colon cancer Morbid obesity with BMI of 50.0-59.9, adult GERD (gastroesophageal reflux disease) Constipation Obstructive sleep apnea Diffuse large B cell lymphoma COVID-19 Brugada syndrome Asthma Hernia Lymphoma Surgical History (Updated 05/03/25 @ 09:18 by Tj Alexandre MD) History of colonoscopy History of umbilical hernia repair History of laryngoscopy History of appendectomy Family History Paternal Grandmother Cancer Father Colon cancer Social History Housing: House Alcohol intake: current Alcohol intake frequency: holidays/special occasions only Patient Tobacco Use Status: Never used Tobacco e-Cigarette/Vaping Use: Never Used Second Hand Smoke Exposure: No Advance Directives Date on File: 07/13/17 service: No Current occupational status: employed 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 Cognitive needs: Yes Hearing needs: No Vision needs: Yes Assessment & Plan Assessment & Plan (1) Diabetes mellitus, new onset: Comment: started on metformin 500 mg b.i.d.. Code(s): E11.9 - Type 2 diabetes mellitus without complications Plan: Diabetes self-management education and support participation record Assessment/scale: 1= needs instructed? 2= needs review? 3= comprehend keep point? 4= demonstrates understanding/ competent? NC= Not Covered Topics Learning Objective: Initial visit Initial or post srvc Initial or post srvc Initial or post srvc Initial or post srvc Initial or post srvc Post srvc Comments Pre Edu-assessment/plan Outcome or reassess Outcome or reassess Outcome or reassess Outcome or reassess Outcome or reassess Outcome or reassess Diabetes pathophysiology 1 Healthy eating 1 Being active 1 Taking medication 2 Monitoring glucose 1 Acute complication 1 Chronic complicated 1 Lifestyle and healthy coping 1 Diabetes distress in support 1 ?Diabetes pathophysiology: ?Defined diabetes med identify own type of diabetes; list 3 options for treating diabetes Healthy eating: ?Described effect of type, amount and ?timing of food on blood glucose; list 3 methods for planning meal Being active: ?State effect of exercise on blood glucose level Taking medication: ?State effect of diabetes medications on diabetes; name diabetes medications taking, action and side effects Monitoring glucose: ?Identify recommended blood glucose targets and personal target Acute complication: ?List symptoms and treatment of hyper and hypoglycemia, DKA, sick day guidelines and guidelines for severe weather or situations of crisis and diabetes supply manage Chronic complication: ?To find the relationship of blood glucose levels to long-term complications of diabetes in screening and preventative measures Lifestyle and healthy coping: ?Described lifestyle and healthy coping strategies to rule out diabetes self-management Diabetes to stress and support: ?Recognize Diabetes to stress and be able to identified support options Meter Teaching Patient presents today for a nursing visit for glucometer teaching. Type of Meter: OneTouch Verio Request for OneTouch Verio strips Delica lancets sent to patient's PCP Patient Education: Patient was instructed and provided with demonstration of the following: Setting date/time Turning meter on/off Retrieving blood glucose log Handwashing Test sites Site rotation Use of lancing device Testing blood glucose Removing and disposing needle from lancing device Safe disposal of sharps Target blood sugar Signs/ symptoms/treatment of hypoglycemia/hyperglycemia Frequency of testing Patient verbalized understanding of education provided and was able to demonstrate proper use of lancing device and glucometer. All questions were answered and patient was advised to contact the office with any questions or concerns Learning objectives: The patient was provided with verbal and written education on the following topics as outlined below. The patient met all learning objectives and was able to verbalize understanding and provide teach back of education topics discussed . The patient was provided with the opportunity to ask questions and all questions were answered. Patient Assessment Assess patient education level/literacy/barriers Pt was Dx with Type 2 diabetes recently, A1c on 03/27/25 13.2% Pt works 3rd shift at [employer] Pt on metformin 1000 mg BID Januvia 100 mg Patient questions/concerns What is Diabetes? Pathophysiology How the body produces and uses insulin Identify type of DM Risk factors Signs of Diabetes Brief overview of Diabetes Management Monitoring blood sugar Following a meal plan Regular exercise Maintaining a healthy weight Taking medication as needed Members of the care team (PCP, RN, MA, RD, CDE, wet pan operator) Blood glucose monitoring When/how often to test Target blood sugar ranges Not testing glucose yet, given Verio One touch meter today Introduction to Nutrition Importance of healthy diet in managing DM Diet is personalized to individual preference Review patient?s regular diet/food preferences Who prepares meals/does food shopping/ Dining out?/ Barriers? How diet effects glucose Eating 3 balanced meals a day with small, healthy snacks between meals Review food groups Carbohydrates: What is a carbohydrate/Which food/food groups are considered carbohydrates Effect of carbohydrates on blood glucose Portion sizes Reading food labels Basic carb counting (if applicable per nursing assessment) Plate method Meal planning Recommendations: Follow plate method, consistent carbs and read nutritional labels. Smart Goal: Pt keep carb portion at meals 45-60 gms Educational Materials: The patient was provided with the following written educational materials: Planning Healthy Meals Handout Patient Response to instructions: Comprehension of Instructions: Fair Readiness to make changes: Contemplation How confident they feel about making changes: Positive Portions of this note were created using voice recognition software, please excuse any words or phrases that may have been misinterpreted. Patient Instructions: Include regular daily activity. ADA recommends 30 minutes of exercise 5 days a week. Weight loss talk to PCP or Building Coordinator before starting new plan. Test blood sugar as directed; Fasting and 2hpp largest meal. Watch trends in results. Utilize results and to assess how food, physical activity and medications affect blood sugar results. Bring glucometer or CGM to next visit. Be knowledgeable about diabetes medication, its action, side effects, efficacy, toxicity, prescribed dosage, appropriate timing and frequency of administration, effect of missed and delayed doses and instructions for storage, travel and safety. Problem solving techniques to monitor hypo/hyperglycemia episodes and treatments. Reduce risk reduction behaviors, smoking cessation, regular eye, foot and dental examinations. Coding Level of Care Code Est Pt Level 1 (74818) Diagnoses Diabetes mellitus, new onset E11.9
== END 2025-06-17 13:38 | disposition home or self-care (01) ==
LOC: HO.ENCR 12:26
PROVIDERS: PCP Internal Medicine; Visit Provider Registered Nurse Diabetes Educator
DX: E11.9 Type 2 diabetes mellitus without complications (principal)
CPT/HCPCS: 99499

== ENCOUNTER 2025-07-08 00:23 | Emergency (ER) | payer OTHER, SELFPAY ==
--- OUTSIDE RECORDS SUMMARY | 2015-04-19 07:27 | XMS_ITS | Continuity of Care Document ---
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 Name Role Phone Rosa M Keller Unavailable Unavailable Procedures Procedure Date Ecg-routine 12 Lead; W/intrpt 5 Offic/outpt E&m Estab Mod-hi 2 15 Services provided in an urgent care [facility] Rad Exam Finger(s) Mini 2 View 14 Rad Exam Knee; Complt 4/more V 14 Offic/outpt E&m New Mod Sever 4 Service(s) provided in the office during regularly Services provided in an urgent care [facility] Inj Ketorolac Tromethamine Per 15 Mg Oct Therapeutic, Prophylactic, Or Diagnostic Inj Sub Q Advance Directives Directive Yes / No Effective Date File Name No Information Encounters Encounter Description Practice Location Reason(s) For Visit Diagnoses Date Provider Providers Copied on Encounter [facility], [address], [place], [place], [id number], [place] tel:[phone] [facility] [place] No Information Liv Mederos. [address], [address], [place], [address], [place]. tel:[phone] Offic/outpt E&m Estab Mod-hi 2 [facility], [address], [place], [place], [id number], [place] tel:[phone] [facility] weakness (chief complaint) Numbness of extremity Natasha Verma. [address], [address], [place], [address], [place]. tel:[phone] Offic/outpt E&m New Mod Sever [facility], [address], [place], [place], [id number], tel:[phone] [facility] knee pain (chief complaint)h and/finger pain/injury (chief complaint) Knee painThumb painKnee sprain and strain No Information Family History Family Member Type Diagnosis Age At Onset Father Problem (finding) Family history of diabetes mellitus in first degree relative Mother Problem (finding) Family history of strok e Payers Payer name Insurance type Covered constitution party ID Authoriza tion(s) No Information Social History Type Description Quantity Date Captured Comments Sex Male Smoking Status No Information Chief Complaint And Reason For Visit No Information Reason For Referral Reason For Referral No Information Plan Of Treatment Date Type Action Status Referral Ordered: Referral: Emergency Department. Evaluate and treat. ordered Referral Ordered: Rad Exam Finger(s) Mini 2 View Right ordered Referral Ordered: Rad Exam Knee; Complt 4/more V Left ordered History Of Present Illness Encounter Date Complaint History Of Prese nt Illness No Information Functional Status Date Functional Assessmen t No Information Instructions Date Instruction Additional Infor mation No Information Assessments Type Assessment Date No Information Patient Care Teams Name Effective Dates (start - stop) Status Members No Information
[2025-07-08 00:29] VITALS: BP 135/86; PULSE 104; RESP 16; TEMP 37; O2SAT 97; BMI 49.2
[2025-07-08 01:22] LABS: IDNOW Serial# 6674DD1D; Strep A Nucleic Acid Negative (Negative)
--- NOTE | 2025-07-08 01:52 | ED_ITS ---
HPI - General Adult General Chief complaint: Upper Respiratory Symptoms Stated complaint: head congestion, asthma Time Seen by Provider: 07/08/25 01:12 Source: patient, RN notes reviewed and old records reviewed Mode of arrival: ambulatory Limitations: no limitations History of Present Illness ED Provider: Esha HPI narrative: 55-year-old male past medical history significant for obesity, diabetes, hypertension, asthma presents for evaluation of upper respiratory symptoms. He reports headache, cough, sore throat, congestion, sinus pressure and watery eyes for the last 3 days. He also has pain in both of his ears in his sore throat. He denies any sick contacts or recent travel. He reports increased shortness of breath which she believes is related to an asthma exacerbation which has not been improved with his nebulizer machines at home Related Data Previous Rx's ?Medication ?Instructions ?Recorded sennosides 8.6 mg capsule (senna) 8.6 mg PO DAILY PRN constipation 09/09/21 90 days #90 caps albuterol sulfate 2.5 mg/3 mL 2.5 mg (3 mL) inhalation Q4-6H PRN 06/08/23 (0.083 %) solution for nebulization shortness of breat h or wheezing #90 mL omeprazole 20 mg capsule,delayed 20 mg PO DAILY 90 day s #90 caps 06/16/24 release fluticasone propionate 50 2 spray intranasal DAILY PRN 08/31/24 mcg/actuation nasal allergy symptoms 30 days #16 grams spray,suspension potassium citrate 10 mEq (1,080 10 meq PO BID 90 days #180 tabs 12/12/24 mg) tablet,extended release pyridoxine (vitamin B6) 50 mg 50 mg PO DAILY 90 days # 90 tabs 12/12/24 tablet tadalafil 5 mg tablet 5 mg PO DAILY sexual activit y 90 12/12/24 days #90 tabs Januvia 100 mg tablet (sitagliptin 100 mg PO DAILY 90 days #90 tabs 03/27/25 phosphate) naproxen 500 mg tablet 500 mg PO BID PAIN #30 tabs 04/29/25 metformin 1,000 mg tablet 1,000 mg PO BID 90 days #180 tabs 05/03/25 cetirizine 5 mg-pseudoephedrine ER 1 tab PO BID 7 days #14 tabs 05/20/25 120 mg tablet,extended release,12hr prednisone 20 mg tablet 40 mg (2 x 20 mg) PO DAILY 5 days 05/20/25 #10 tabs clotrimazole 1 % topical cream 1 appl topical BID Athl ete's foot 05/21/25 4 weeks #30 grams blood sugar diagnostic (OneTouch #100 ea 07/01/25 Ultra Test strips) blood-glucose meter (OneTouch #1 ea 07/01/25 Ultra2 Meter) lancets 30 gauge (OneTouch #100 ea 07/01/25 UltraSoft 2 Lancet) lancets 30 gauge (OneTouch Delica #200 ea 07/04/25 Plus Lancet) Allergies Allergy/AdvReac Type Severity Reaction Status Date / Time isosorbide Allergy Intermediate neck Verified 07/08/25 00:31 pain/headaches Review of Systems Constitutional: Constitutional: Denies body ache(s), Denies chills, Denies fever(s), Denies frequent falls and Reports headache(s) Eyes: Eyes: Denies blind spots and Denies blurry vision ENT: Denies dry mouth, Denies ear discharge, Reports otalgia, Reports facial pain, Reports headache(s), Denies epistaxis, Reports nasal congestion, Reports nasal discharge, Reports sinus pain and Reports sore throat Cardiovascular: Cardiovascular: Denies chest pain, Reports dyspnea and Reports dyspnea on exertion Respiratory: Respiratory: Reports cough, Denies pain with cough, Reports dyspnea and Reports dyspnea on exertion Gastrointestinal: Gastrointestinal: Denies abdominal pain, Denies nausea and Denies vomiting Musculoskeletal: Musculoskeletal: Denies back pain Integumentary/Breasts: Skin/Breast: Denies rash Neurologic: Denies frequent falls and Reports headache(s) [facility] Past Medical History Medical History (Updated 07/08/25 @ 02:00 by Delbert Balbuena) Newly diagnosed diabetes Plantar fasciitis of left foot Morbid obesity with BMI of 45.0-49.9, adult Diabetes mellitus Dizziness Family history of colon cancer Morbid obesity with BMI of 50.0-59.9, adult GERD (gastroesophageal reflux disease) Constipation Obstructive sleep apnea Diffuse large B cell lymphoma COVID-19 Brugada syndrome Asthma Hernia Lymphoma Surgical History (Updated 05/03/25 @ 09:18 by Tj Alexandre MD) History of colonoscopy History of umbilical hernia repair History of laryngoscopy History of appendectomy Family History Family History Paternal Grandmother Cancer Father Colon cancer Social History Social History Housing: House Alcohol intake: current Alcohol intake frequency: holidays/special occasions only Patient Tobacco Use Status: Never used Tobacco e-Cigarette/Vaping Use: Never Used Second Hand Smoke Exposure: No Advance Directives: No Advance Directives Information Provided: No Advance Directives Date on File: 07/13/17 Do you have a plan to hurt others: No Plan service: No Current occupational status: employed 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 Cognitive needs: Yes Hearing needs: No Vision needs: Yes Physical Exam ED Vital Signs: Vital Signs - 24 hr 07/08/25 00:29 Temperature 98.6 F Pulse Rate 104 H Respiratory Rate 16 Blood Pressure 135/86 Pulse Oximetry 97 Oxygen Delivery Method Room Air BMI result Body Mass Index 49.2 Const General: healthy appearing, comfortable, no acute distress, alert and awake Nutritional Appearance: well nourished Orientation/consciousness: patient oriented x3 HENMT Head: Yes normocephalic and Yes atraumatic Ears: TM's normal bilaterally and EAC's normal Face and sinus: Yes face symmetric and Yes sinus tenderness Throat: Yes posterior oropharynx normal Eyes Eyelids: Yes eyelids normal Conjunctivae: conjunctivae normal Sclerae: sclerae normal Corneas: corneas normal Pupils: Equal, round and reactive pupils present EOM: EOMs intact bilaterally Neck Neck: Yes full ROM Resp Effort & Inspection: normal respiratory effort, able to speak in complete sentences, no audible wheezes and not labored Auscultation: clear to auscultation bilaterally Cardio Rate: regular rate Rhythm: regular rhythm Skin General skin exam: elasticity normal Neuro General: patient oriented x3 Cranial nerves: Yes Equal, round and reactive pupils present and Yes Bilaterally intact EOM present Cognition (Neuro): normal cognition Extrem Other: Moving all extremities well without any obvious deformities Medical Decision Making Medical Decision Making MDM Narrative: 55-year-old male presents for evaluation of upper respiratory symptoms with ear pain, nasal congestion, sinus pressure, cough, sore throat. His vital signs are within normal limits, his lungs are clear to auscultation. Plan for strep testing, viral screening. He does have fairly significant sinus tenderness, cou ld be developing an early cellulitis. He is a nonsmoker but does carry diagnosis of asthma Differential Diagnosis Differential Diagnoses: The differential diagnosis associated with the presentation includes Upper respiratory infection Influenza Sinusitis Bronchitis Pneumonia COVID-19 Strep pharyngitis Lab Data Labs: Lab Results 07/08/25 Range/Units 01:09 Influenza Type A (PCR) NEGATIVE (Negative) Influenza Type B (PCR) NEGATIVE (Negative) RSV RNA Qual (PCR) NEGATIVE (Negative) SARS-CoV-2 RNA (RT-PCR) POSITIVE A (Negative) S. pyogenes GrpA ARANZA Negative (Negative) Discharge Plan Discharge Clinical Impression: COVID-19 Patient Disposition: Home, Self-Care Instructions: COVID-19 (Coronavirus Disease 2019) (ED) Additional Instructions: You tested positive for COVID-19 pain Use ibuprofen/Tylenol as needed for fevers, body aches. You may use an [id number] decongestant. Antibiotics are not warranted for this viral infection Hydrate well. Return for new or worsening symptoms Prescriptions: No Action omeprazole 20 mg capsule,delayed release(DR/EC) 20 mg PO DAILY 90 Days Qty: 90 5RF (DME) blood-glucose meter [OneTouch Ultra2 Meter] Misc See Rx Instructions .Route Qty: 1 0RF Rx Instructions: As directed- once daily (DME) OneTouch Ultra Test Strip See Rx Instructions .Route Qty: 100 0RF Rx Instructions: As directed- once daily (DME) lancets [OneTouch UltraSoft 2 Lancet] 30 gauge misc See Rx Instructions .Route Qty: 100 0RF Rx Instructions: As directed- once daily (DME) lancets [OneTouch Delica Plus Lancet] 30 gauge misc See Rx Instructions .Route Qty: 200 1RF Rx Instructions: As directed albuterol sulfate 2.5 mg /3 mL (0.083 %) solution for nebulization 2.5 mg inhalation Q4-6H PRN (Reason: shortness of breath or wheezing) Qty: 90 0RF senna 8.6 mg capsule 8.6 mg PO DAILY PRN (Reason: constipation) 90 Days Qty: 90 3RF fluticasone propionate 50 mcg/actuation spray,suspension 2 spray intranasal DAILY PRN (Reason: allergy symptoms) 30 Days Qty: 16 5RF Rx Instructions: administer into each nostril naproxen 500 mg tablet 500 mg PO BID Qty: 30 0RF clotrimazole 1 % cream 1 appl topical BID 28 Days Qty: 30 3RF Rx Instructions: Applied to the bottom of feet daily. potassium citrate 10 mEq (1,080 mg) tablet extended release 10 meq PO BID 90 Days Qty: 180 1RF tadalafil 5 mg tablet 5 mg PO DAILY 90 Days Qty: 90 1RF Rx Instructions: [id number] [facility] [id number] Member [id number] pyridoxine (vitamin B6) 50 mg tablet 50 mg PO DAILY 90 Days Qty: 90 1RF metformin 1,000 mg tablet 1,000 mg PO BID 90 Days Qty: 180 1RF Rx Instructions: Take with food Januvia 100 mg tablet 100 mg PO DAILY 90 Days Qty: 90 1RF cetirizine-pseudoephedrine 5-120 mg tablet extended release 12 hr 1 tab PO BID 7 Days Qty: 14 0RF prednisone 20 mg tablet 40 mg PO DAILY 5 Days Qty: 10 0RF Print Language: Brazilian
[2025-07-08 01:54] LABS: Resp Syncy Virus RNA Qual PCR NEGATIVE (Negative); SARS COV2 PCR INHOUSE POSITIVE (Negative)
[2025-07-08 02:10] VITALS: BP 122/79; PULSE 85; RESP 18; TEMP 36.6; O2SAT 98
== END 2025-07-08 02:13 | disposition home or self-care (01) ==
PROVIDERS: Emergency Provider Emergency Medicine; PCP Internal Medicine
DX: U07.1 COVID-19 (principal); R51.9 Headache, unspecified; R05.9 Cough, unspecified; J02.9 Acute pharyngitis, unspecified; E11.9 Type 2 diabetes mellitus without complications; J45.909 Unspecified asthma, uncomplicated; I10 Essential (primary) hypertension
CPT/HCPCS: 87637; 87651; 99283; 99284

== ENCOUNTER 2025-08-02 07:06 | Outpatient (REF) | payer OTHER, SELFPAY ==
[2025-08-02 07:24] LABS: MANUAL DIFF FLAG NO
[2025-08-02 08:14] LABS: Appearance Urine Cloudy; Glucose Urine UA Negative (Negative); PH 5.5 (5.0-9.0); Specific Gravity - Urine >= 1.030 (1.005-1.025)
[2025-08-02 08:15] LABS: Hematocrit 45.3 % (42.0-52.0); Hemoglobin 14.6 g/dl (14.0-18.0); Imm Gran Abs Auto 0.01 X10*3/uL (0.00-0.03); Imm Gran Pct Auto 0.2 % (0.0-0.4); Lymphocytes Absolute Auto 1.7 X10*3/uL (1.2-4.9); Mean Corpuscular HGB Conc 32.2 g/dl (31.0-36.0); Mean Corpuscular Hemoglobin 28.0 pg (27.0-33.0); Mean Corpuscular Volume 86.8 fL (80.0-98.0); NRBC Abs Auto 0.000 X10*3/uL (0.0-0.012); NRBC Pct Auto 0.0 /100WBC (0.0-0.2); Platelet Count 183 X10*3/uL (160-400); Red Blood Count 5.22 X10*6/uL (4.60-5.80); White Blood Count 5.4 X10*3/uL (4.8-10.8)
[2025-08-02 08:52] LABS: Alanine Aminotransferase 37 U/L (0-40); Albumin Level 3.9 g/dL (3.5-5.0); Alkaline Phosphatase 41 U/L (39-117); Anion Gap 11 (12-20); Aspartate Amino Transferase 37 U/L (5-37); Blood Urea Nitrogen 17 mg/dL (9-16); Calcium 10.2 mg/dL (8.4-10.2); Carbon Dioxide 22 mmol/L (22-29); Chloride 107 mmol/L (96-108); Cholesterol 149 mg/dL (<200); Estimated Glomerular Filt Rate > 60; HDL Cholesterol 36 mg/dL (>40); Potassium 4.3 mmol/L (3.3-5.1); Sodium 136 mmol/L (135-145); Total Protein 7.0 g/dL (6.5-8.0); Triglycerides 95 mg/dL (<150)
[2025-08-02 09:34] LABS: Microalbum/Creatinine Ratio Ur 5.5 ug/mg cr (<30)
== END 2025-08-02 07:07 | disposition home or self-care (01) ==
LOC: HO.LAB 07:06
PROVIDERS: PCP Internal Medicine; Visit Provider Internal Medicine
DX: E11.9 Type 2 diabetes mellitus without complications (principal); D64.9 Anemia, unspecified; E55.9 Vitamin D deficiency, unspecified; E78.00 Pure hypercholesterolemia, unspecified; R30.0 Dysuria
CPT/HCPCS: 36415; 80053; 80061; 81003; 82043; 82306; 82570; 83036; 85025

== ENCOUNTER 2025-08-05 16:39 | Outpatient (AMB) | payer OTHER, SELFPAY ==
--- NOTE | 2025-08-05 16:59 | MHC.PC.OV ---
Vital Signs 08/05/25 17:01 Height 5 ft 8 in Weight 321 lb 8 oz BMI 48.9 BP 138/82 Blood Pressure Location Lt brachial Respiration 18 Pulse 98 Pulse Source Pulse Oximeter Temp 97.7 F Temp Source Temporal Artery Scan Pulse Oximetry (%) 97 Oxygen Delivery Method Room Air Intake Visit Reasons: 3 mo follow up [employer] Admin Required: No Accompanied by: Self / Same As Patient Allergies isosorbide Allergy (Intermediate, Verified 08/05/25 17:22) neck pain/headaches Medication List - Last Reconciled 08/05/25 by Tj Alexandre MD albuterol sulfate 2.5 mg (3 mL) inhalation Q4-6H PRN blood sugar diagnostic (Nexavisuch Ultra Test strips) As directed- once daily blood-glucose meter (Nexavisuch Ultra2 Meter) As directed- once daily cetirizine-pseudoephedrine 5-120 mg ER 1 tab PO BID 7 days clotrimazole 1% 1 appl topical BID 4 weeks fluticasone propionate 50 mcg/actuation 2 sprays intranasal DAILY PRN 30 days Januvia (sitagliptin phosphate) 100 mg PO DAILY 90 days NS lancets ([employer]*Touch Delica Plus Lancet) As directed Once daily metformin 1,000 mg PO BID 90 days naproxen 500 mg PO BID omeprazole 20 mg PO DAILY 90 days potassium citrate ER 10 mEq PO BID 90 days pyridoxine (vitamin B6) 50 mg PO DAILY 90 days sennosides (senna) 8.6 mg PO DAILY PRN 90 days tadalafil 5 mg PO DAILY 90 days Tobacco use date assessed: 05/03/25 Dental Screening Dental Screen Date: 05/03/25 HPI 3 mo follow up HPI Details Patient is a 55-year-old male presenting for a follow-up visit and to review lab results. He has a history of type 2 diabetes mellitus and is managed with metformin, with his hemoglobin A1c having improved from over 10-13.2% in March 2025 to 6.3% currently. His triglycerides have also improved from 125 to 95 mg/dL with better glycemic control. Past medical history is significant for a myocardial infarction and a strong family history of heart disease, for which he was recently cleared by cardiology for a pre-operative evaluation. The patient had a COVID-19 infection prior to his last visit. Patient states that he currently feels okay He denies any headaches or dizziness Denies any chest pains, no SOB No nausea/vomiting, no abdominal pain No change in bowel habits noted Needs his Albuterol nebulizer solution refilled today He had his follow up labs done a few days ago - to discuss his results [facility] Medical History (Updated 08/12/25 @ 01:39 by Tj Alexandre MD) Vitamin D deficiency Newly diagnosed diabetes Plantar fasciitis of left foot Morbid obesity with BMI of 45.0-49.9, adult Diabetes mellitus Dizziness Family history of colon cancer Morbid obesity with BMI of 50.0-59.9, adult GERD (gastroesophageal reflux disease) Constipation Obstructive sleep apnea Diffuse large B cell lymphoma COVID-19 Brugada syndrome Asthma Hernia Lymphoma Surgical History History of colonoscopy History of umbilical hernia repair History of laryngoscopy History of appendectomy Family History Paternal Grandmother Cancer Father Colon cancer Social History Housing: House Alcohol intake: current Alcohol intake frequency: holidays/special occasions only Patient Tobacco Use Status: Never used Tobacco e-Cigarette/Vaping Use: Never Used Second Hand Smoke Exposure: No Advance Directives Date on File: 07/13/17 service: No Current occupational status: employed 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 Depression Screening Interpretation: Negative Depression Screening Done: Yes Source: Developed by Drs. Marko Prescott, Carmen Benson, Robby Jones and colleagues, with an educational alissa from [employer] Thrive Questionnaire Date Thrive assessed: 03/27/25 I am a: Patient What is your living situation today?: I have a steady place to live Within the past 12 months, did the food you bought not last and you didn't have the money to get more?: Never true Within the past 12 months, did you worry whether your food would run out before you got money to buy more?: Never true Do you have trouble paying for medicines?: No Do you have trouble getting transportation to medical appointments?: No Do you have trouble paying your heating and electricity bill?: No Do you have trouble taking care of your child, family member or friend?: No Do you have trouble with day-to-day activities such as bathing, preparing meals, shopping, managing finances, etc.?: No Are you currently unemployed and looking for a job?: No Are you interested in more education?: No Currently or been in a relationship where the following occur: No concerns reported THRIVE Score: 0 BETHANY-7 AMB Questionnaire BETHANY-7 Date BETHANY - 7 assessed: 03/27/25 Source: Developed by Drs. Marko Prescott, Carmen Benson, Robby Jones and colleagues, with an educational alissa from [employer] Review of Systems Const Denies chills, Denies fatigue, Denies fever(s) and Denies headache(s) ENT Denies dysphagia, Denies dizziness, Denies otalgia, Denies headache(s), Denies neck pain, Denies odynophagia and Denies sore throat Card Denies chest pain, Denies rapid heart rate, Denies irregular heart rhythm, Denies palpitations and Denies dyspnea Resp Denies chest congestion, Denies cough and Denies dyspnea GI Denies abdominal pain, Denies constipation, Denies dysphagia, Denies heartburn, Denies diarrhea, Denies nausea, Denies odynophagia and Denies vomiting Denies difficulty urinating, Denies dysuria and Denies urinary frequency Musc Details: (+) on and off pain over the bottom of the left foot - better currently Denies back pain, Denies arthralgias and Denies neck pain Skin/Breast Denies rash Neuro Denies dizziness, Denies headache(s) and Denies paresthesias Endo Denies fatigue and Denies palpitations Physical exam (Primary Care) Vital Signs: Last Vital Signs Temp 97.7 F 08/05/25 17:01 Pulse 98 08/05/25 17:01 Resp 18 08/05/25 17:01 BP 138/82 08/05/25 17:01 Pulse Ox 97 08/05/25 17:01 Oxygen Delivery Method Room Air 08/05/25 17:01 BMI result Body Mass Index 48.9 Tobacco/Smoking Status: Tobacco use Status Tobacco use date assessed 05/03/25 08/05/25 17:00 Patient Tobacco Use Status Never used Tobacco 08/05/25 17:00 e-Cigarette/Vaping Use Never Used 08/05/25 17:00 Depression Screening Interpretation: Negative Thrive Assessment: Date of Thrive Assessment Date Thrive assessed 03/27/25 08/05/25 17:00 Currently or been in a relationship where the following occur: No concerns reported Const General: no acute distress and alert HENMT Ears: TM's normal bilaterally and EAC's normal Throat: Yes posterior oropharynx normal and Yes tonsils normal (no TP congestion) Neck Neck: Yes supple and No lymphadenopathy Thyroid: Thyroid normal Resp Auscultation: clear to auscultation bilaterally, no rales and no wheezes Cardio Rate: regular rate Rhythm: regular rhythm Heart sounds: no murmurs GI Palpation (GI): Soft to palpation and nontender Auscultation: normal bowel sounds General: Yes no CVA tenderness Back/Spine/Pelvis Back: no CVA tenderness Thoracic/Lumbar Spine: thoracic and lumbar spine normal to inspection Skin Rashes: no rashes Extrem General: Yes no clubbing, cyanosis or edema Left lower extremity: foot Details: tenderness (mild) Location: of the calcaneus Details: point tenderness Results Reviewed Results Reviewed: Laboratory Tests 03/27/25 08/02/25 08/02/25 10:03 07:22 Unknown WBC 5.4 Hgb 14.6 Hct 45.3 Plt Count 183 Sodium 136 Potassium 4.3 Creatinine 0.95 Estimated GFR > 60 Fasting Glucose 130 H Hemoglobin A1c % 13.2 H 6.3 H Calcium 10.2 AST 37 ALT 37 Triglycerides 95 Cholesterol 149 LDL Cholesterol, Calc 94 HDL Cholesterol 36 L 25-OH Vitamin D Total 17.4 L Ur Specific Lyn[place] >= 1.030 H Urine Protein Negative Urine Glucose (UA) Negative Urine Blood Negative Urine Nitrite Negative Ur Leukocyte Esterase Negative Microalb/Creat Ratio 5.5 Coding Level of Care Code Est Pt Level 4 (57899) Diagnoses Newly diagnosed diabetes E11.9 Diffuse large B-cell lymphoma, unspecified body region C83.30 Lymphoma site: unspecified region Elevated blood pressure reading without diagnosis of hypertension R03.0 Constipation, unspecified constipation type K59.00 Constipation type: unspecified constipation type Calcaneal spur, left foot M77.32 Vitamin D deficiency E55.9 Nephrolithiasis N20.0 Allergic rhinitis, unspecified seasonality, unspecified trigger J30.9 Allergic rhinitis trigger: unspecified Allergic rhinitis seasonality: unspecified Morbid obesity with BMI of 45.0-49.9, adult E66.01; Z68.42 Assessment & Plan Assessment & Plan (1) Newly diagnosed diabetes: Code(s): E11.9 - Type 2 diabetes mellitus without complications Category: Medical Plan: Patient was diagnosed with diabetes back in March 2025 His HgbA1c came back at 6.3% on his recent labs (was at 13.2% back in March 2025) - goal is at least <7.0% but ideally <6.5% Reinforced diabetic diet His C-peptide level came back normal and BETHANY Ab came back negative when recently checked Continue Metformin 1000 mg BID and Januvia 100 mg QD - patient has been tolerating his Rx so far without any issues (2) Diffuse large B cell lymphoma: Comment: Diffuse large B-cell lymphoma, initially diagnosed in April 2007 - had a 10 x 4 cm anterior mediastinal mass Completed 8 cycles of R-CHOP on November 13, 2007 and has been doing well since with no recurrence (IN REMISSION) Code(s): C83.30 - Diffuse large B-cell lymphoma, unspecified site Category: Medical Qualifiers: Lymphoma site: unspecified region Qualified Code(s): C83.30 - Diffuse large B-cell lymphoma, unspecified site Plan: Patient remains in remission Follow up with hematology/oncology (Dr. Lynn) for follow up and continuing surveillance (3) Elevated blood pressure reading without diagnosis of hypertension: Code(s): R03.0 - Elevated blood-pressure reading, without diagnosis of hypertension Category: Medical Plan: Reinforced low sodium diet - goal is systolic BP of 120 mm or less We will consider starting him on low dose Lisinopril or Losartan in the near future for renoprotection (in diabetics) and this should also better help keep his blood pressure in check (4) Constipation: Code(s): K59.00 - Constipation, unspecified Category: Medical Qualifiers: Constipation type: unspecified constipation type Qualified Code(s): K59.00 - Constipation, unspecified Plan: Reinforced increased oral fluids and dietary fiber intake Continue Senna 8.6 mg QD He was scheduled for a colonoscopy back in January 2022 but this was canceled pending clearance by cardiology due to patient's history of Brugada syndrome He was eventually seen by Cardiology in February 2022 and was advised that his EKG showed some changes suggestive of Brugada syndrome but patient does not have the disease; he was cleared by cardiology for colonoscopy in February 2022 He was referred back to Dr. Gale and was scheduled for his colonoscopy sometime in December 2022 but he ended up in the ER then for gastroenteritis and his procedure was again canceled He has been referred back to Dr. Gale by Dr. Lynn for colonoscopy and this is still pending at this time We also renewed his referral to Dr. Gale at his last visit for repeat colonoscopy (5) Calcaneal spur, left foot: Code(s): M77.32 - Calcaneal spur, left foot Category: Medical Plan: X-rays of the left foot done a few months ago revealed (+) calcaneal spurs Patient was experiencing increased pain over the bottom of his foot recently but states that the pain seems to have calmed down lately Follow up with podiatry as scheduled (6) Vitamin D deficiency: Code(s): E55.9 - Vitamin D deficiency, unspecified Category: Medical Plan: His Vitamin D level was low on his recent labs Will start him on Vitamin D3 2000 units QD - advised that he can get this OTC if insurance will not cover this Rx for him (7) Nephrolithiasis: Code(s): N20.0 - Calculus of kidney Category: Medical Plan: S/P stenting for an obstructive left renal stone with left-sided hydronephrosis back in May 2024, with resolution of symptoms He currently remains asymptomatic and has been doing well Continue Tamsulosin 0.4 mg Q HS Follow up with urology as scheduled (8) Allergic rhinitis: Code(s): J30.9 - Allergic rhinitis, unspecified Category: Medical Qualifiers: Allergic rhinitis trigger: unspecified Allergic rhinitis seasonality: unspecified Qualified Code(s): J30.9 - Allergic rhinitis, unspecified Plan: Continue Fluticasone 50 mcg nasal spray QD PRN (9) Morbid obesity with BMI of 45.0-49.9, adult: Code(s): E66.01 - Morbid (severe) obesity due to excess calories; Z68.42 - Body mass index [BMI] 45.0-49.9, adult Category: Medical Plan: Reinforced diet/exercise as tolerated/lose weight Plan Follow up in 4 months Orders: Orders TSH reflex Free T4 4 Months E78.00 - Pure hypercholesterolemia, unspecified UA CC w/rflx Micro + Cult 4 Months R30.0 - Dysuria Vitamin D 25-OH Total 4 Months E55.9 - Vitamin D deficiency, unspecified Hemoglobin A1c 4 Months E11.9 - Type 2 diabetes mellitus without complications Complete Blood Count Auto Diff 4 Months D64.9 - Anemia, unspecified Comprehensive [place]. Panel Fast 4 Months E78.00 - Pure hypercholesterolemia, unspecified Lipid Panel 4 Months E78.00 - Pure hypercholesterolemia, unspecified Microalbumin, Random (w Creat) 4 Months E11.9 - Type 2 diabetes mellitus without complications Medications: New cholecalciferol (vitamin D3) 50 mcg PO DAILY 90 caps 3RF 90 days E55.9 - Vitamin D deficiency, unspecified Refilled albuterol sulfate 2.5 mg (3 mL) inhalation Q4-6H PRN 90 mL 0RF shortness of breath or wheezing
[2025-08-05 17:01] VITALS: BP 138/82; PULSE 98; RESP 18; TEMP 36.5; O2SAT 97; BMI 48.9
== END 2025-08-05 17:37 | disposition home or self-care (01) ==
LOC: HO.HMCH 16:40
PROVIDERS: PCP Internal Medicine; Visit Provider Internal Medicine
DX: E66.01 Morbid (severe) obesity due to excess calories (principal); Z68.42 Body mass index [BMI] 45.0-49.9, adult; E11.9 Type 2 diabetes mellitus without complications; C83.30 Diffuse large B-cell lymphoma, unspecified site; N20.0 Calculus of kidney; J30.9 Allergic rhinitis, unspecified